=== PATIENT | female | born 1950 | race Caucasian/White ===

== ENCOUNTER 2016-09-30 11:14 | Day surgery (SDC) | payer MEDICARE ==
[~2016-09-30 11:14] MED LIST: Buffered Lidocaine 0.9% SYRIN* 5 ML/SYR SYRINGE INTRADERM ONE; Dexamethasone IV* 4 MG/ML 1 ML (4 MG) ONE; Famotidine IV* 10 MG/ML 2 ML (20 mg) IV ONE; KETAMINE HCL* 50 MG/ML 10 ML VIAL ONE; Ketorolac INJ* 30 MG/ML 1 ML VIAL ONE; Lidocaine 2% PF * 5 ML VIAL ONE; Midazolam* 1 MG/ML 5 ML VIAL (5 MG) ONE; Ondansetron INJ* 2 MG/ML VIAL ONE; Propofol* 10 MG/ML 20 ML BTL IV PUSH ONE; fentaNYL* 50 MCG/ML 2 ML VIAL (100 MCG VIAL) ONE
[2016-09-30] MEDS ORDERED: Famotidine IV* 10 MG/ML 2 ML (20 mg) ONE (11:33)
[2016-09-30] MEDS ORDERED: Buffered Lidocaine 0.9% SYRIN* 5 ML/SYR SYRINGE ONE (11:33)
[2016-09-30] MEDS ORDERED: fentaNYL* 50 MCG/ML 2 ML VIAL (100 MCG VIAL) ONE (13:40)
[2016-09-30] MEDS ORDERED: Midazolam* 1 MG/ML 2 ML VIAL (2 MG) ONE (13:40)
[2016-09-30] MEDS ORDERED: Ondansetron INJ* 2 MG/ML VIAL IV PRN (14:42)
[2016-09-30 16:08] VITALS: BP 116/76
--- NOTE | 2016-09-30 23:58 | PRO ---
CC: Dr. Camacho; Dr. Martinez * DATE OF PROCEDURE: 09/30/16 - [facility] PROCEDURE: Colonoscopy with snare polypectomy. MEDICINES: Anesthesia provided by anesthesiology department. NARRATIVE: This is a very pleasant 65-year-old woman with a remote history of anal cancer with radiation therapy who has had chronic issues with pelvic pressure as well as constipation. She also has known colon polyps from a procedure done 3 years ago. Colonoscopy was recommended. DESCRIPTION OF PROCEDURE: After the procedure was discussed with the patient, risks and benefits were outlined, written consent was obtained. The patient was placed in the left lateral decubitus position and a rectal exam was performed. The rectal exam did demonstrate some nodular change, but no palpable abnormality. At that point, a video pediatric colonoscope was inserted anally and advanced carefully into the cecum. The cecum was identified by the appendiceal orifice and the ileocecal valve. The terminal ileum was briefly intubated. The quality of the preparation was generally good. There was some material seen throughout, but I do believe with extensive irrigation and suctioning, views were good. The patient tolerated the procedure well and there were no immediate complications. FINDINGS: Colonoscopy into the distal terminal ileum was performed. The ileum was inspected for about 10 cm and was normal. The colon was thereafter very carefully inspected. Three small hepatic flexure polyps were identified and removed with the cold snare. The remainder of the colon appeared grossly normal. There was no other mucosal abnormality. On slow withdrawal, the anal canal did have some fibrotic change, but no evidence of tumor regrowth. CONCLUSION: 1. Three polyps (removed). 2. Fibrotic change involving the anal canal. 3. No other abnormality detected. RECOMMENDATIONS: The polyps will be followed upon and reported back to the patient. I would likely recommend a followup exam in about 5 years. I am going to recommend pelvic floor physical therapy, which may improve her pelvic symptoms. Thank you very much, Dr. Camacho and Dr. Martinez, for referring this kind woman to me. [id number]/[facility] #: [id number] [facility]
== END 2016-09-30 16:09 | disposition home or self-care (01) ==
LOC: OR 11:14
PROVIDERS: ATTEND Internal Medicine Gastroenterology
DX: Z85.048 Personal history of other malignant neoplasm of rectum, rectosigmoid junction, and anus (principal); D12.6 Benign neoplasm of colon, unspecified; K59.00 Constipation, unspecified; Z86.010 Personal history of colon polyps
CPT/HCPCS: 88305; J1100; J1885; J2250; J2405; J2704; J3010

== ENCOUNTER 2017-01-01 08:49 | Emergency (ER) | payer MEDICARE ==
[2017-01-01] MEDS ORDERED: methylPREDNISolone 125 MG* 2 ML VIAL IV ONE (09:03)
[2017-01-01] MEDS ORDERED: Albuterol/Ipratropium NEB.SOL* Albuterol 2.5 MG/Ipratropium 0.5 MG 3 ML INH ONE (09:03)
[2017-01-01 09:05] VITALS: BP 137/73
--- NOTE | 2017-01-01 09:51 | RAD ---
INDICATION: "Pain". "Asthma" COMPARISON: Most recent comparison chest x-rays dated January 02, 2014 TECHNIQUE: PA and lateral views of the chest were obtained. FINDINGS: The heart and mediastinum are normal in size and contour. Relative the prior chest x-ray there is been a slight increase in densities diffusely overlying the bilateral lungs with a more focal area at the lateral right lung base. There is no definite lobar consolidation. The costophrenic angles are adequately defined. Visualized bones are normal for the patient's age. There is no radiographic evidence of free air beneath the diaphragm IMPRESSION: INTERVAL APPEARANCE OF MILD DIFFUSE DENSITY OVER THE BILATERAL LUNGS COULD BE SEEN IN THE SETTING OF EXACERBATION OF INFLAMMATORY LUNG DISEASE, PNEUMONITIS, MILD PULMONARY EDEMA OR EARLY INTERSTITIAL LUNG DISEASE.
--- NOTE | 2017-01-01 10:13 | UC ---
Respiratory Complaint HPI - HPI Summary HPI Summary: 66 year old with history of asthma. In the past was on daily corticosteroids. Having increased shortness of breath and at home her oxygen goes in the low 80' s and no home oxygen but does have oxygen concentrator but still SOB despite that. Out of albuterol. - History of Current Complaint Chief Complaint: UCAsthma Stated Complaint: ASTHMA Time Seen by Provider: 01/01/17 09:02 Hx Obtained From: Patient Onset/Duration: Gradual Onset Timing: Constant Severity Initially: Mild Severity Currently: Moderate Character: Cough: Nonproductive Alleviating Factors: Bronchodilator Associated Signs And Symptoms: Positive: Dyspnea, Wheezing - Allergies/Home Medications Allergies/Adverse Reactions: Allergies Allergy/AdvReac Type Severity Reaction Status Date / Time Aripiprazole [From Abilify] Allergy Severe COORDINATION Verified 01/01/17 09:05 PROBLEMS,lumbaring gait,lethargic Bupropion [From Wellbutrin] Allergy Severe tremors Verified 01/01/17 09:05 Levalbuterol Hydrochloride Allergy Severe WHEEZING, Verified 01/01/17 09:05 [From Xopenex] COUGH Metoprolol [From Toprol XL] Allergy Severe Anaphylatic Verified 01/01/17 09:05 Shock Mirtazapine [From Remeron] Allergy Severe Altered Verified 01/01/17 09:05 Mental Status Montelukast [From Singulair] Allergy Severe Anaphylatic Verified 01/01/17 09:05 Shock Morphine Allergy Severe Anaphylatic Verified 01/01/17 09:05 Shock Venlafaxine [From Effexor] Allergy Severe Altered Verified 01/01/17 09:05 Mental Status Sulfa Drugs Allergy Intermediate Rash Verified 01/01/17 09:05 Diphenhydramine AdvReac Severe causes Verified 01/01/17 09:05 heart to go into a-fib BETA BLOCKERS Allergy Intermediate Fatigue Uncoded 01/01/17 09:05 SCALLOPS Allergy Intermediate CRAMPS, Uncoded 01/01/17 09:05 NAUSEA, DIARRHEA Home Medications: Home Medications Budesonide/Formote 160/4.5(NF) [Symbicort 160/4.5 (NF)] 1 puff INH BID 01/01/17 [History Confirmed 01/01/17] Tiotropium [place] Monohydrate [Spiriva Respimat] 1.25 mcg IN 01/01/17 [History] PMH/Surg Hx/FS Hx/Imm Hx Previously Healthy: Yes Cardiovascular History: Cardiac Disease Respiratory History: Asthma Other History Of: Anticoagulant Therapy - not present time. - Surgical History Surgical History: Yes Surgery Procedure, Year, and Place: LYMPHOMA BIOPSY , SPLEENECTOMY 1979. THYROIDECTOMY , ANAL CA 06/17. ATRIAL FLUTTER ABLATION, RAPHAEL. CATARACTS 2014 - Family History Known Family History: Positive: Unknown - Social History Lives: With Family Alcohol Use: None Substance Use Type: None Smoking Status (MU): Never Smoked Tobacco - Immunization History Most Recent Influenza Vaccination: fall 2013 Most Recent Tetanus Shot: Most Recent Pneumonia Vaccination: at some time in the past Review of Systems Constitutional: Fatigue Respiratory: Shortness Of Breath, Cough Is Patient Immunocompromised?: No All Other Systems Reviewed And Are Negative: Yes Physical Exam Triage Information Reviewed: Yes Appearance: Well-Nourished Vital Signs: Initial Vital Signs Temp 99.0 F 01/01/17 09:00 Pulse 111 01/01/17 09:00 Resp 22 01/01/17 09:00 BP 137/73 01/01/17 09:00 Pulse Ox 91 01/01/17 09:00 Vital Signs Reviewed: Yes Eye Exam: Normal ENT Exam: Normal Dental Exam: Normal Neck exam: Normal Neck: Positive: 1 Respiratory Exam: Normal Respiratory: Positive: Chest non-tender, Respiratory distress, Accessory muscle use, Wheezing - LLL Cardiovascular Exam: Normal Musculoskeletal Exam: Normal Neurological Exam: Normal Psychological Exam: Normal Skin Exam: Normal UC Diagnostic Evaluation - Laboratory O2 Sat by Pulse Oximetry: 96 Respiratory Course/Dx - Course Course Of Treatment: Due to her respiratory effort being pronounced and her oxygen going to the lower 80's at home and now benefiting from oxygen will advise further eval at the ED. Here she received solumedrol, duo nebs and xray - Differential Dx/Diagnosis Differential Diagnosis/HQI/PQRI: Asthma, Bronchitis, Lower Resp Infection Provider Diagnoses: Asthma exacerbation - Physician Notification/Consults Discussed Patient Care With: Brayan Monae - will accept at ED at 1015 Discharge - Discharge Plan Condition: Good Disposition: TRANS HIGHER LVL OF CARE FAC Patient Education Materials: Asthma (ED) Referrals: Anup Arzola MD [Primary Care Provider] - Additional Instructions: As we discussed you are to go to the Emergency Room for further evaluation
== END 2017-01-01 10:20 | disposition short-term general hospital (02) ==
LOC: UCEAST 08:49
DX: J45.901 Unspecified asthma with (acute) exacerbation (principal); Z79.51 Long term (current) use of inhaled steroids
CPT/HCPCS: 71020; 96372; 99213; A9270-GY; G0463; J2930

== ENCOUNTER 2017-01-01 10:46 | Inpatient (IN) | payer MEDICARE ==
[2017-01-01 12:57] LABS: Add Diff/Slide Review? Slide Review Added; Comments Flag Yes; Hematocrit 34 % (35-47); Mean Corpuscular HGB Conc 32 g/dl (31-36); Mean Corpuscular Hemoglobin 26 pg (27-31); Mean Corpuscular Volume 81 fL (80-97); Mean Platelet Volume 8 um3 (7.4-10.4); Red Blood Count 4.19 10^6/ul (4.0-5.4); Red Cell Distribution Width 17 % (10.5-15); White Blood Count 13.3 10^3/ul (3.5-10.8)
[2017-01-01 13:11] LABS: Albumin 4.3 g/dL (3.2-5.2); BUN/Creatinine Ratio 29.1 (8-20); C Reactive Protein 127.69 mg/L (< 5.00); Calcium 9.5 mg/dL (8.6-10.3); EGFR African American 142.7 (>60); EGFR Non-African American 110.9 (>60); Globulin 3.2 g/dL (2-4); Total Bilirubin 0.4 mg/dL (0.2-1.0); Total Protein 7.5 g/dL (6.4-8.9)
[2017-01-01 13:24] LABS: Burr Cells 1+
[2017-01-01] MEDS ORDERED: Albuterol/Ipratropium NEB.SOL* Albuterol 2.5 MG/Ipratropium 0.5 MG 3 ML INH ONE ×2 (13:48→15:39)
[2017-01-01] MEDS ORDERED: Albuterol 2.5 MG/3 ML NEB.SOL* (0.083%) INH PRN (15:58)
[2017-01-01] MEDS ORDERED: methylPREDNISolone 125 MG* 2 ML VIAL IV ONE (15:58)
[2017-01-01] MEDS ORDERED: Ondansetron INJ* 2 MG/ML VIAL IV PRN (15:58)
[2017-01-01] MEDS ORDERED: NS 0.9% 1000 ML* 1,000 ML IV SCH (16:00)
[2017-01-01] MEDS ORDERED: Albuterol/Ipratropium NEB.SOL* Albuterol 2.5 MG/Ipratropium 0.5 MG 3 ML INH SCH (16:00)
[2017-01-01] MEDS ORDERED: methylPREDNISolone 125 MG* 2 ML VIAL IV SCH (16:00)
[2017-01-01] MEDS: Azithromycin IV(*) 500 MG in NS 0.9% 250 ML* 250 ML IVPB SCH (16:48)
[2017-01-01] MEDS: Acetaminophen TAB* 325 MG PO PRN ×2 (16:48→20:51)
[2017-01-01] MEDS ORDERED: LORazepam TAB(*) 0.5 MG PO SCH (18:00)
[2017-01-01] MEDS: cefTRIAXone VIAL(*) 1,000 MG in NS 0.9% 50 ML* 50 ML IVPB SCH (19:36)
[2017-01-01] MEDS: Omeprazole CAP* 20 MG PO SCH (19:37)
[2017-01-01] MEDS: Docusate CAP* 100 MG PO SCH (19:37)
--- NOTE | 2017-01-01 19:49 | ED ---
Maria G Posada Thomas, scribed for Vinnie Chavarria MD on 01/01/17 at 1303 . Shortness of Breath - HPI Summary HPI Summary: The patient is a 66 y/o F referred from Urgent Care with shortness of breath that began about a week ago. She has a Hx of asthma and is on oxygen at night. She has SOB at rest that is worsened with exertion. She was given one nebulizer treatment at urgent care prior to arrival. The patient did not have any nebulizer treatments at home. At home, her oxygen was satting in the low 80s. She additionally c/o a mild nonproductive cough. Urgent care documentation was reviewed. She is accompanied by her . - History of Current Complaint Chief Complaint: EDShortnessOfBreath Time Seen by Provider: 01/01/17 12:06 Hx Obtained From: Patient Onset/Duration: Lasting Weeks - 1, Still Present Timing: Constant Current Severity: Mild Dyspnea At: Rest Aggrevating Factors: Other - Exertion Alleviating Factors: Nothing Associated Signs & Symptoms: Cough (Nonproductive) - Allergy/Home Medications Allergies/Adverse Reactions: Allergies Allergy/AdvReac Type Severity Reaction Status Date / Time Aripiprazole [From Abilify] Allergy Severe COORDINATION Verified 01/01/17 09:05 PROBLEMS,lumbaring gait,lethargic Bupropion [From Wellbutrin] Allergy Severe tremors Verified 01/01/17 09:05 Levalbuterol Hydrochloride Allergy Severe WHEEZING, Verified 01/01/17 09:05 [From Xopenex] COUGH Metoprolol [From Toprol XL] Allergy Severe Anaphylatic Verified 01/01/17 09:05 Shock Mirtazapine [From Remeron] Allergy Severe Altered Verified 01/01/17 09:05 Mental Status Montelukast [From Singulair] Allergy Severe Anaphylatic Verified 01/01/17 09:05 Shock Morphine Allergy Severe Anaphylatic Verified 01/01/17 09:05 Shock Venlafaxine [From Effexor] Allergy Severe Altered Verified 01/01/17 09:05 Mental Status Sulfa Drugs Allergy Intermediate Rash Verified 01/01/17 09:05 Diphenhydramine AdvReac Severe causes Verified 01/01/17 09:05 heart to go into a-fib BETA BLOCKERS Allergy Intermediate Fatigue Uncoded 01/01/17 09:05 SCALLOPS Allergy Intermediate CRAMPS, Uncoded 01/01/17 09:05 NAUSEA, DIARRHEA Home Medications: Home Medications Albuterol HFA INHALER* [Ventolin HFA Inhaler*] 2 puff INH Q4H PRN 01/01/17 [ History Confirmed 01/01/17] PMH/Surg Hx/FS Hx/Imm Hx Previously Healthy: No Endocrine/Hematology History: Reports: Hx Anticoagulant Therapy - not present time., Hx Thyroid Disease Denies: Hx Diabetes Cardiovascular History: Reports: Other Cardiovascular Problems/Disorders - TACHYCARDIA, HX OF AFIB; HAD ABLATION 2006 Denies: Hx Congestive Heart Failure, Hx Hypertension, Hx Pacemaker/ICD Respiratory History: Reports: Hx Asthma, Hx Chronic Bronchitis, Hx Pneumonia, Hx Sleep Apnea, Other Respiratory Problems/Disorders - SLEEP APNEA-OXYGEN IN EVENING Denies: Hx Chronic Obstructive Pulmonary Disease (COPD) GI History: Reports: Hx Gastroesophageal Reflux Disease, Hx Irritable Bowel, Other GI Disorders - bulge in bowel pushing into vaginal wall Denies: Hx Ulcer History: Denies: Hx Renal Disease Musculoskeletal History: Reports: Hx Arthritis - RA, Hx Back Problems, Hx Bursitis - several times in shoulder, Hx Osteoporosis, Hx Tendonitis - wrists Sensory History: Reports: Hx Cataracts - BILAT, Hx Contacts or Glasses - glasses Denies: Hx Hearing Aid Opthamlomology History: Reports: Hx Cataracts - BILAT, Hx Contacts or Glasses - glasses Neurological History: Reports: Hx Headaches, Hx Migraine - occassionally Psychiatric History: Reports: Hx Anxiety, Hx Depression, Hx Panic Disorder, Other Psychiatric Issues/Disorders - of - Cancer History Cancer Type, Location and Year: Lymphoma. obstructed air passage Hx Chemotherapy: Yes - and radiation Hx Radiation Therapy: Yes - NON [facility] Hx Palliative Cancer Treatment: No - Surgical History Surgery Procedure, Year, and Place: LYMPHOMA BIOPSY , SPLEENECTOMY 1979. THYROIDECTOMY , ANAL CA 06/17. ATRIAL FLUTTER ABLATION, RAPHAEL. CATARACTS 2014 Hx Anesthesia Reactions: No Infectious Disease History: No Infectious Disease History: Reports: Hx Shingles - Denies: Hx Clostridium Difficile, Hx Hepatitis, Hx Human Immunodeficiency Virus (HIV), Hx of Known/Suspected MRSA, Hx Tuberculosis, Hx Known/Suspected VRE , Hx Known/Suspected VRSA, History Other Infectious Disease, Traveled Outside the [place] in Last 30 Days - Family History Known Family History: Positive: Other - Asthma - Social History Lives: With Family Alcohol Use: None Substance Use Type: Reports: None Hx Tobacco Use: No Smoking Status (MU): Never Smoked Tobacco Review of Systems Negative: Fever Positive: Shortness Of Breath, Cough - nonproductive All Other Systems Reviewed And Are Negative: Yes Physical Exam - Summary Physical Exam Summary: Appearance: The patient is well-nourished in no acute distress and in no acute pain. Skin: The skin is warm and dry and skin color reflects adequate perfusion. HEENT: The head is normocephalic and atraumatic. The pupils are equal and reactive. The conjunctivae are clear and without drainage. Nares are patent and without drainage. Mouth reveals moist mucous membranes and the throat is without erythema and exudate. The external ears are intact. The ear canals are patent and without drainage. The tympanic membranes are intact. Neck: the neck is supple with full range of motion and non-tender. There are no carotid bruits. There is no neck vein distension. Respiratory: Chest is non-tender. She is tachypnic. There are superclavicular retractions. There are upper airway sounds when I listen. There are no wheezes. Cardiovascular: Heart is regular rate and rhythm. There is no murmur or rub auscultated. There is no peripheral edema and pulses are symmetrical and equal. Abdomen: The abdomen is soft and non-tender. There are normal bowel sounds heard in all four quadrants and there is no organomegaly palpated. Musculoskeletal: There is no back tenderness noted. Extremities are non-tender with full range of motion. There is good capillary refill. There is no peripheral edema or calf tenderness elicited. Neurological: Patient is alert and oriented to person, place and time. The patient has symmetrical motor strength in all four extremities. Cranial nerves are grossly intact. Deep tendon reflexes are symmetrical and equal in all four extremities. Psychiatric: The patient has an appropriate affect and does not exhibit any anxiety or depression. Triage Information Reviewed: Yes Vital Signs On Initial Exam: Initial Vitals Temp Pulse Resp BP Pulse Ox 98 F 94 24 105/54 95 01/01/17 10:51 01/01/17 10:51 01/01/17 10:51 01/01/17 10:51 01/01/17 10:51 Vital Signs Reviewed: Yes - Iftikhar Coma Scale Coma Scale Total: 15 Diagnostics - Vital Signs Vital Signs Temp Pulse Resp BP Pulse Ox 01/01/17 10:51 98 F 94 24 105/54 95 - Laboratory Lab Results: Lab Results 01/01/17 Range/Units 12:49 WBC 13.3 H (3.5-10.8) 10^3/ul RBC 4.19 (4.0-5.4) 10^6/ul Hgb 11.0 L (12.0-16.0) g/dl Hct 34 L (35-47) % MCV 81 (80-97) fL MCH 26 L (27-31) pg MCHC 32 (31-36) g/dl RDW 17 H (10.5-15) % Plt Count 282 (150-450) 10^3/ul MPV 8 (7.4-10.4) um3 Neut % (Auto) 88.2 H (38-83) % Lymph % (Auto) 8.6 L (25-47) % [place] % (Auto) 2.9 (1-9) % Eos % (Auto) 0 (0-6) % Baso % (Auto) 0.3 (0-2) % Absolute Neuts (auto) 11.7 H (1.5-7.7) 10^3/ul Absolute Lymphs (auto) 1.1 (1.0-4.8) 10^3/ul Absolute Monos (auto) 0.4 (0-0.8) 10^3/ul Absolute Eos (auto) 0 (0-0.6) 10^3/ul Absolute Basos (auto) 0 (0-0.2) 10^3/ul Absolute Nucleated RBC 0.01 10^3/ul Nucleated RBC % 0.1 Result Diagrams: 01/01/17 12:49 01/01/17 12:49 Lab Statement: Any lab studies that have been ordered have been reviewed, and results considered in the medical decision making process. Course/Dx - Course Course Of Treatment: Ms. Bae didn't really improve much here in the Dept. with Nebs. She is being admitted to the hospitalist service to give the steroids a chance to kick in. - Diagnoses Provider Diagnoses: COPD exacerbation - Physician Notifications Discussed Care of Patient With: Patrick Meeks Time Discussed With Above Provider: 16:56 Instructed by Provider To: Other - I consulted with Mr. Constantino NP hospitalist , who will admit the patient. Discharge - Discharge Plan Condition: Fair Disposition: ADMITTED TO [facility] The documentation as recorded by the Maria G armstrong Thomas accurately reflects the service I personally performed and the decisions made by me, Vinnie Chavarria MD.
[2017-01-01] MEDS ORDERED: Ibuprofen TAB* 400 MG PO ONE (19:51)
[2017-01-01] MEDS: Albuterol/Ipratropium NEB.SOL* Albuterol 2.5 MG/Ipratropium 0.5 MG 3 ML INH SCH ×2 (20:15→23:05)
[2017-01-01] MEDS: Mometasone/Formoter 200/5 MDI INH SCH (20:17)
[2017-01-01] MEDS: Verapamil SR TAB* 240 MG PO SCH (20:51)
[2017-01-01] MEDS: Heparin VIAL(*) 5000 UNITS/ML VIAL (FIVE THOUSAND) SUBCUT SCH (20:52)
--- NOTE | 2017-01-02 01:24 | HP ---
CC: Dr. Arzola; Dr. Levy * HISTORY AND PHYSICAL: DATE OF ADMISSION: 01/01/17 PRIMARY CARE PROVIDER: Dr. Arzola. PRIMARY FACTORY ASSEMBLER: Dr. Levy. ATTENDING PHYSICIAN WHILE IN THE HOSPITAL: Jose L Roy MD * (report dictated by Patrick Meeks NP) CHIEF COMPLAINT: Shortness of breath. HISTORY OF PRESENT ILLNESS: Mrs. Bae is a 66-year-old female patient. She has a history of hypertension, asthma, AFib, GERD, lymphoma, thyroid cancer , rectal cancer, depression, hypothyroidism, anxiety and a history of PAVITHRA. She comes in to our ER today. Since the last week, she has had progressive worsening shortness of breath. She has not been feeling well. She has been having a dry cough. She has been having chills at night. She states she has been trying to manage at home with her inhalers and nebulizers, but they just have not been helping her. They have given her temporary relief. She states she tried to touch base with her surveyor oil well directional's office yesterday. Unfortunately, she was unable to get through. She was hoping that she could get some steroids as this typically helps her. She denies having any recent sick contacts. She states she has been aching all over and she just has not been feeling well. She states that she cannot lie flat because she is getting really short of breath and really with minimal exertion, she is much more shortness of breath as well. She denies any weight gain. Denies any swelling of her lower extremities. She does state that she has been having sore throat and she states that hurts when she takes deep breath because of she has been coughing so much. [facility] They were concerned that because it was noted there she was hypoxic and they sent her in to our emergency department for further evaluation. She was evaluated here. It was noted that she had a white count, elevated CRP. She required several nebulizers with no improvement. So, we were asked to evaluate for admission. PAST MEDICAL HISTORY: Significant for: 1. Hypertension. 2. Asthma. 3. AFib. 4. GERD. 5. Lymphoma. 6. Thyroid cancer. 7. Rectal cancer. 8. Depression. 9. Hypothyroidism. 10. Anxiety. 11. PAVITHRA. PAST SURGICAL HISTORY: 1. The patient has had splenectomy. 2. Ablation. 3. Thyroidectomy. 4. Rectal surgery. MEDICATIONS: Home meds according to her list include: 1. Ibuprofen 400 mg every 6 hours as needed. 2. Colace 100 mg p.o. daily. 3. Symbicort 1 puff inhaled b.i.d. 4. Ventolin 2 puffs inhaled every 4 hours as needed. 5. Nebulizer, Ventolin. 6. Albuterol 2.5 mg inhaled every 4 hours as needed. 7. Zoloft 150 mg daily. 8. Potassium 10 mEq p.o. b.i.d. 9. Omeprazole 20 mg daily. 10. Multivitamin 1 tablet daily. 11. Synthroid 137 mcg p.o. daily. 12. Ativan 0.5 mg p.o. at bedtime. 13. Verapamil 120 mg p.o. q.a.m. 14. Dyazide 25 mg p.o. daily. 15. Spiriva 1 capsule inhaled daily. ALLERGIES TO MEDICATIONS: Include ABILIFY, , XOPENEX, METOPROLOL, REMERON , SINGULAIR, MORPHINE, EFFEXOR, SULFA, BENADRYL, BETA-BLOCKERS, SCALLOPS. FAMILY HISTORY: Mother had a history of ovarian cancer. Father had a history of IN and CAD. SOCIAL HISTORY: She does not smoke, does not drink. Surrogate decision maker is her sister. REVIEW OF SYSTEMS: There was no documented fevers. No significant weight change. No double vision. No ear discharge. No rhinorrhea. She does admit having sore throat. There is chest pain when she is coughing or takes a deep breath. She does admit to having dyspnea on exertion and some orthopnea. No nocturnal dyspnea. There is no abdominal pain. No nausea, no vomiting, no dysuria, no frequency, no seizure, no loss of consciousness, no pruritus, no skin ulcerations. Review of 14 systems was completed; all others negative. PHYSICAL EXAMINATION GENERAL: Mrs. Bae is a 66-year-old female patient. She is sitting in the ER stretcher. She does not appear to be in any acute distress. VITAL SIGNS: Blood pressure 112/76, pulse 100, respirations 23, O2 sat 96%, and temperature 98. HEENT: Head: Atraumatic, normocephalic. Eyes: EOMs are intact. Sclerae anicteric and not pale. Throat: Oral mucosa appears to be moist. No oropharyngeal erythema. NECK: Supple. LUNGS: Wheezing in the left base and in the left upper lobe. She had equal diaphragmatic expansion. HEART: Sounds S1 and S2. She is tachycardic. No murmurs, rubs, or gallops. ABDOMEN: Soft, flat, nontender. Bowel sounds were present. EXTREMITIES: Pulses were 2+ throughout. She had no peripheral edema. She is moving all 4 extremities with 5/5 strength. NEUROLOGIC: The patient is awake, alert, oriented x3. Tongue midline. Flooring Grader were equal. She had no gross focal deficits. SKIN: Intact. LABORATORY DATA/DIAGNOSTIC STUDIES: Labs, WBC of 13.3, RBC of 4.19, hemoglobin 11.0, hematocrit 34, platelet count 282. Sodium 136, potassium 4, chloride 102, bicarb 26, BUN 16, creatinine 0.55, glucose 129. Calcium 9.5. Total bili 0.48, AST 27, ALT 24, CRP 127, and albumin of 4.3. She [facility]. Impression: Interval appearance of mild diffuse density over the bilateral lungs could be seen in settings of exacerbation of inflammatory lung disease, pneumonitis, pulmonary edema, or early interstitial lung disease. Old medical records were reviewed. ASSESSMENT AND PLAN: Mrs. Bae is a 66-year-old female patient coming in to the ER today with complaints of progressive worsening shortness of breath over the last week. We were asked to evaluate for admission. She will be admitted under inpatient status for: 1. Asthma exacerbation. I suspect this is probably secondary to a viral URI that she has been dealing with this for week. She is immunocompromised. I think at this point it is beneficial to put on antibiotics. She has a white count, CRP. She is showing early signs of sepsis as evidenced by the tachycardia and the elevated white count. SIRS response. My plan is to go ahead and give her fluids 100 cc an hour. I do not think she needs to be bolused at this point as her blood pressures are holding. My plan would be to get lactic acid, also to get blood cultures. We will place her on standing nebs , standing steroids, pulmonary toileting. We will get flu swab, Legionella, Strep pneumo antigen and we will try to get a sputum culture if possible. If she is not improving in the next 24 to 36 hours, we could consider getting a pulmonology consult, but I am hopeful with the steroids and nebulizers, she should improve. 2. Hypertension. We are going to hold her Dyazide at this point. I will continue the verapamil, she takes that her hypertension, tachycardia. 3. Atrial fibrillation. She is in sinus rhythm. We will monitor on telemetry. 4. Gastroesophageal reflux disease. Continue her meds as prescribed. 5. History of lymphoma. Follow with her primary. 6. Thyroid cancer, not an active issue. Follow with primary. 7. Rectal cancer. Again follow with primary. 8. Depression. Continue with supportive care. 9. Anxiety. Continue with supportive care. 10. Obstructive sleep apnea. I did order her a CPAP. 11. Hypothyroidism. Continue her Synthroid. 12. Deep vein thrombosis prophylaxis. She will be placed on heparin subcu. 13. Code status. Full code. 14. Fluids, electrolytes, and nutrition. She can have a regular diet. TIME SPENT: On the admission was approximately 60 minutes, greater than half the time spent [id number] with the patient obtaining my history and physical, the other half time spent going over the plan of care with the patient and implementing plan of care. I did discuss the plan of care with my attending, Dr. Roy; he is in agreement. PATRICK MEEKS, PABLO [id number]/[facility] #: [id number] [facility]
[2017-01-02] MEDS: Albuterol/Ipratropium NEB.SOL* Albuterol 2.5 MG/Ipratropium 0.5 MG 3 ML INH SCH ×5 (02:34→21:04)
[2017-01-02] MEDS: Acetaminophen TAB* 325 MG PO PRN (02:40)
[2017-01-02] MEDS: methylPREDNISolone 125 MG* 2 ML VIAL IV SCH ×3 (02:41→20:21)
[2017-01-02 04:41] LABS: Hematocrit 31 % (35-47); Hemoglobin 9.9 g/dl (12.0-16.0); Mean Corpuscular HGB Conc 32 g/dl (31-36); Mean Corpuscular Hemoglobin 26 pg (27-31); Mean Corpuscular Volume 80 fL (80-97); Mean Platelet Volume 8 um3 (7.4-10.4); Red Blood Count 3.84 10^6/ul (4.0-5.4); Red Cell Distribution Width 17 % (10.5-15); White Blood Count 12.7 10^3/ul (3.5-10.8)
[2017-01-02 04:55] LABS: BUN/Creatinine Ratio 28.4 (8-20); Calcium 9.1 mg/dL (8.6-10.3); EGFR African American 113.6 (>60); EGFR Non-African American 88.3 (>60); Potassium 2.9 mmol/L (3.5-5.0)
[2017-01-02] MEDS: Levothyroxine TAB* 137 MCG TAB PO SCH (05:34)
[2017-01-02] MEDS: Heparin VIAL(*) 5000 UNITS/ML VIAL (FIVE THOUSAND) SUBCUT SCH ×3 (05:34→22:27)
[2017-01-02] MEDS: Mometasone/Formoter 200/5 MDI INH SCH ×2 (07:40→21:07)
[2017-01-02] MEDS: Sertraline* 100 MG TAB PO SCH (07:57)
[2017-01-02 07:58] LABS: Magnesium 1.8 mg/dL (1.9-2.7)
[2017-01-02] MEDS: Verapamil TAB* 120 MG PO SCH (07:58)
[2017-01-02] MEDS ORDERED: Magnesium Sulfate 2 GM IV* 2 GM/50 ML BAG IVPB ONE (10:15)
[2017-01-02] MEDS: Potassium Chlor TAB* 20 MEQ TAB.ER PO SCH ×2 (10:29→12:50)
[2017-01-02] MEDS ORDERED: Furosemide IV* 10 MG/ML VIAL (40 MG) IV SCH (13:37)
[2017-01-02] MEDS: Azithromycin IV(*) 500 MG in NS 0.9% 250 ML* 250 ML IVPB SCH (16:04)
--- NOTE | 2017-01-02 16:48 | PN ---
Subjective Date of Service: 01/02/17 Interval History: Slightly improved breathing. Could not sleep well. Very orthopnic x 1 week. Weight up 7lbs. Swellinging in b/l legs. Saw Dr. Perez over summer, got EKG, planned to see in 1 year. last ECHO as outpatient she thinks 1-2 years ago. Now reports no chills prior to admission but warmth and drenching night sweats. dry cough. baseline tachycardia in 100s. ECHO 2014 here with diastolic dysfunction. Used to be on chronic prednisone, weaned off 2 years ago. BNP 286 Objective Active Medications: Acetaminophen (Tylenol Tab*) 650 mg PO Q4H PRN PRN Reason: FEVER/PAIN Last Admin: 01/02/17 02:40 Dose: 650 mg Albuterol (Ventolin 2.5 Mg/3 Ml Neb.Lavern*) 2.5 mg INH Q2H PRN PRN Reason: SOB/WHEEZING Last Admin: 01/02/17 09:07 Dose: 2.5 mg Albuterol/Ipratropium (Duoneb (Albuterol 2.5 Mg/Ipratropium 0.5 Mg)) 1 neb INH Q4H [facility] Last Admin: 01/02/17 15:31 Dose: 1 neb Docusate Sodium (Colace Cap*) 100 mg PO QPM [facility] Last Admin: 01/01/17 19:37 Dose: 100 mg Furosemide (Lasix Iv*) 40 mg IV DAILY [facility] Last Admin: 01/02/17 14:22 Dose: 40 mg Heparin Sodium (Porcine) (Heparin Vial(*)) 5,000 units SUBCUT Q8HR [facility] Last Admin: 01/02/17 12:50 Dose: 5,000 units Ceftriaxone Sodium 1,000 mg/ (Sodium Chloride) 50 mls @ 200 mls/hr IVPB Q24H [facility] Last Admin: 01/01/17 19:36 Dose: 200 mls/hr Azithromycin 500 mg/ Sodium (Chloride) 250 mls @ 250 mls/hr IVPB Q24H [facility] Last Admin: 01/02/17 16:04 Dose: 250 mls/hr Levothyroxine Sodium (Synthroid Tab*) 137 mcg PO 0600 [facility] Last Admin: 01/02/17 05:34 Dose: 137 mcg Lorazepam (Ativan Tab(*)) 0.5 mg PO 2200 [facility] Methylprednisolone Sodium Succinate (Solu-Medrol 125mg *) 60 mg IV 0330,1130, 1930 [facility] Last Admin: 01/02/17 10:29 Dose: 60 mg Mometasone Furoate/Formoterol Fumar (Dulera 200/5 Mdi*) 2 puff INH BID [facility] Last Admin: 01/02/17 07:40 Dose: 2 puff Omeprazole (Prilosec Cap*) 20 mg PO QPM [facility] Last Admin: 01/01/17 19:37 Dose: 20 mg Ondansetron HCl (Zofran Inj*) 4 mg IV Q6H PRN PRN Reason: NAUSEA Phenol/Menthol (Chloroseptic Throat [place]*) 1 spray MT BID PRN PRN Reason: SORE THROAT Sertraline HCl (Zoloft*) 150 mg PO QAM [facility] Last Admin: 01/02/17 07:57 Dose: 150 mg Verapamil HCl (Calan Tab*) 120 mg PO QAM [facility] Last Admin: 01/02/17 07:58 Dose: 120 mg Verapamil HCl (Calan Sr Tab*) 240 mg PO BEDTIME [facility] Last Admin: 01/01/17 20:51 Dose: 240 mg Vital Signs 01/01/17 01/01/17 01/01/17 16:58 17:00 19:37 Temperature 97.8 F Pulse Rate 106 108 Respiratory 20 27 20 Rate Blood Pressure 99/59 (mmHg) O2 Sat by Pulse 97 95 Oximetry 01/01/17 01/01/17 01/01/17 19:52 20:00 22:41 Temperature 97.9 F Pulse Rate 108 107 Respiratory 24 20 20 Rate Blood Pressure 123/53 (mmHg) O2 Sat by Pulse 100 99 Oximetry 01/01/17 01/01/17 01/02/17 23:05 23:52 00:00 Temperature 97.1 F Pulse Rate 106 112 Respiratory 18 22 Rate Blood Pressure 100/50 (mmHg) O2 Sat by Pulse 99 97 99 Oximetry 01/02/17 01/02/17 01/02/17 02:35 03:37 07:26 Temperature 97.8 F 97.5 F Pulse Rate 107 109 96 Respiratory 20 20 28 Rate Blood Pressure 92/53 119/57 (mmHg) O2 Sat by Pulse 99 100 95 Oximetry 01/02/17 01/02/17 01/02/17 07:34 08:00 09:07 Temperature Pulse Rate 103 98 Respiratory 24 24 Rate Blood Pressure (mmHg) O2 Sat by Pulse 100 103 Oximetry 01/02/17 01/02/17 01/02/17 11:44 11:45 15:31 Temperature 98.0 F Pulse Rate 100 102 116 Respiratory 20 Rate Blood Pressure 106/63 (mmHg) O2 Sat by Pulse 98 99 99 Oximetry Oxygen Devices in Use Now: Nasal Cannula Appearance: Dyspnea with exertion or when not sitting straight upright Eyes: No Scleral Icterus, PERRLA Ears/Nose/Mouth/Throat: NL Teeth, Lips, Gums, Mucous Membranes Moist Neck: - - JVD unable to ascertain given body habitus. Respiratory: Symmetrical Chest Expansion and Respiratory Effort, - - no wheezing currently. decreased at bases Cardiovascular: - - 1+ edema in feet/calves. Tachycardic regular. Abdominal: NL Sounds; No Tenderness; No Distention, No Hepatosplenomegaly Extremities: - - 1+ edema b/l Skin: No Rash or Ulcers, No Nodules or Sclerosis Neurological: Alert and Oriented x 3, NL Sensation, NL Muscle Strength and Tone Nutrition: Taking PO's Result Diagrams: 01/02/17 04:29 01/02/17 04:29 Additional Lab and Data: Laboratory Results - last 24 hr 01/02/17 01/02/17 01/02/17 04:29 04:29 04:29 WBC 12.7 H RBC 3.84 L Hgb 9.9 L Hct 31 L MCV 80 MCH 26 L MCHC 32 RDW 17 H Plt Count 273 MPV 8 Neut % (Auto) 84.6 H Lymph % (Auto) 10.5 L [place] % (Auto) 4.6 Eos % (Auto) 0 Baso % (Auto) 0.3 Absolute Neuts (auto) 10.8 H Absolute Lymphs (auto) 1.3 Absolute Monos (auto) 0.6 Absolute Eos (auto) 0 Absolute Basos (auto) 0 Absolute Nucleated RBC 0.01 Nucleated RBC % 0.1 Sodium 134 Potassium 2.9 L Chloride 100 L Carbon Dioxide 22 Anion Gap 12 H BUN 19 Creatinine 0.67 Est GFR ( Amer) 113.6 Est GFR (Non-Af Amer) 88.3 BUN/Creatinine Ratio 28.4 H Glucose 215 H Calcium 9.1 Magnesium 1.8 L B-Natriuretic Peptide 286 H Microbiology and Other Data: Microbiology 01/01/17 16:15 Blood Venous Aerobic Blood Culture - Preliminary No Growth Day 1 01/01/17 16:15 Blood Venous Anaerobic Blood Culture - Preliminary No Growth Day 1 01/01/17 16:15 Blood Venous Aerobic Blood Culture - Preliminary No Growth Day 1 01/01/17 16:15 Blood Venous Anaerobic Blood Culture - Preliminary No Growth Day 1 01/01/17 17:15 Urine Legionella Urinary Antigen - Final Negative Legionella 01/01/17 17:15 Urine Streptococcus pneumoniae Ag Screen - Final Negative S. pneumo Antigen 01/01/17 16:20 Nasal Influenza Types A,B Antigen ([facility]NARDO) - Final Specimen received for Influenza A/B Molecular testing Assess/Plan/Problems-Billing Assessment: 66 yo female PMH lymphoma s/p radiation to chest 1978 w/ resultant chronic obstructive dz, diastolic CHF, rectal ca, thyroid ca, anxiety, depression, PAVITHRA on CPAP and intermittent 2L O2 use during day, Afib s/p 2 ablations, not currently on anticoagulation, baseline tachycardia in 100-110s p/w with 1 week DICKERSON, orthopnea, dry cough, weight gain, drenching night sweats. BNP elevated. Suspect diastolic CHF exacerbation vs asthma exacerbation. ECHO pending. - Patient Problems (1) CHF exacerbation Current Visit: Yes Status: Acute Code(s): I50.9 - HEART FAILURE, UNSPECIFIED SNOMED Code(s): 96813488 Comment: vs asthma exaccerbation. WBC mildly elevated. Does have elevated BNP 286, very orthopenia, 1+ edema(did get some IVF upon admission), 7lb weight gain from baseline start lasix 40IV daily strict i/o daily weights repeat ECHO, last in 2013 with diastolic dysfunction. obtain outpatient from Dr. Perez's office. Hx of radiation exposure and tachycardia 100-110s (tachy mediated CM?). 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 s/p 125 in ED. dulera BID Follows with Dr. Levy. Obtain outpatient records if possible. Pt reports PFT improved 20% 2months prior to admission compared to 6 months prior. home uses symbicort BID, spiriva BID, ventolin prn, nebs prn (did not need for 1 year and so ran out). Formerly chronic prednisone use. CT 10/07/16 with bronchiectasis RUL/RLL, stable ground glass opacities. (3) Chronic tachycardia Current Visit: Yes Status: Acute Code(s): R00.0 - TACHYCARDIA, UNSPECIFIED SNOMED Code(s): 6395498 Comment: likely 2/2 radiation exposure. at risk for some tachy mediated CM or at least worsening feeding into her diastolic dysfunction. continue home verapamil 240/120 (4) Chronic respiratory failure with hypoxia Current Visit: Yes Status: Acute Comment: home 2L. plan as above. (5) PAVITHRA (obstructive sleep apnea) Current Visit: Yes Status: Acute Code(s): G47.33 - OBSTRUCTIVE SLEEP APNEA ( ADULT) (PEDIATRIC) SNOMED Code(s): 61394662 Comment: CPAP qhs (6) Anxiety Current Visit: No Status: Chronic Priority: Medium Code(s): F41.9 - ANXIETY DISORDER, UNSPECIFIED SNOMED Code(s): 93216831 Comment: zoloft 150mg qam (7) Depression Current Visit: No Status: Chronic Priority: Medium Code(s): F32.9 - MAJOR DEPRESSIVE DISORDER, SINGLE EPISODE, UNSPECIFIED SNOMED Code(s): 65349785 (8) Hypertension Current Visit: No Status: Chronic Priority: Medium Code(s): I10 - ESSENTIAL (PRIMARY) HYPERTENSION SNOMED Code(s): 12765696 Comment: verapamil 240/120 (9) Paroxysmal A-fib Current Visit: Yes Status: Acute Code(s): I48.0 - PAROXYSMAL ATRIAL FIBRILLATION SNOMED Code(s): 122878607 Comment: Hx of 2 ablations. not on a/c. currently sinus tachycardia. Status and Disposition: medicine inpatient. Attending: Jamal Ferreira
[2017-01-02] MEDS: Docusate CAP* 100 MG PO SCH (17:09)
[2017-01-02] MEDS: Phenol 1.4% Spray* 177 ML BTL MT PRN (17:09)
[2017-01-02] MEDS: Omeprazole CAP* 20 MG PO SCH (17:09)
[2017-01-02] MEDS: cefTRIAXone VIAL(*) 1,000 MG in NS 0.9% 50 ML* 50 ML IVPB SCH (17:19)
[2017-01-02] MEDS: Verapamil SR TAB* 240 MG PO SCH (20:22)
[2017-01-02] MEDS: Ibuprofen TAB* 400 MG PO PRN (20:22)
[2017-01-02] MEDS: LORazepam TAB(*) 0.5 MG PO SCH (22:28)
[2017-01-03] MEDS: Albuterol/Ipratropium NEB.SOL* Albuterol 2.5 MG/Ipratropium 0.5 MG 3 ML INH SCH ×7 (03:11→23:00)
[2017-01-03] MEDS: methylPREDNISolone 125 MG* 2 ML VIAL IV SCH ×2 (04:03→11:35)
[2017-01-03] MEDS: Phenol 1.4% Spray* 177 ML BTL MT PRN ×2 (04:03→22:36)
[2017-01-03] MEDS: Levothyroxine TAB* 137 MCG TAB PO SCH (05:45)
[2017-01-03] MEDS: Heparin VIAL(*) 5000 UNITS/ML VIAL (FIVE THOUSAND) SUBCUT SCH ×3 (05:45→22:36)
[2017-01-03] MEDS ORDERED: Furosemide IV* 10 MG/ML VIAL (40 MG) IV SCH ×2 (07:30→09:00)
[2017-01-03] MEDS ORDERED: Perflutren Lipid Microsphere* 3 ML VIAL ONE (07:45)
[2017-01-03] MEDS ORDERED: Bumetanide IV* 0.25 MG/ML 4 ML VIAL SLOW PUSH SCH (09:00)
[2017-01-03] MEDS: Mometasone/Formoter 200/5 MDI INH SCH ×2 (09:01→20:49)
[2017-01-03] MEDS ORDERED: Azithromycin TAB* 250 MG PO ONE (09:45)
[2017-01-03 09:51] LABS: Hematocrit 32 % (35-47); Hemoglobin 10.3 g/dl (12.0-16.0); Mean Corpuscular HGB Conc 32 g/dl (31-36); Mean Corpuscular Hemoglobin 26 pg (27-31); Mean Corpuscular Volume 81 fL (80-97); Mean Platelet Volume 8 um3 (7.4-10.4); Red Cell Distribution Width 17 % (10.5-15)
[2017-01-03 10:09] LABS: BUN/Creatinine Ratio 52.5 (8-20); Calcium 9.4 mg/dL (8.6-10.3); EGFR African American 131.6 (>60); EGFR Non-African American 102.3 (>60); Magnesium 2.1 mg/dL (1.9-2.7); Potassium 4.5 mmol/L (3.5-5.0)
[2017-01-03] MEDS: Sertraline* 100 MG TAB PO SCH (10:13)
[2017-01-03] MEDS: Verapamil TAB* 120 MG PO SCH (10:14)
[2017-01-03] MEDS: Saline NASAL SPRAY 0.65%* BTL BOTH NARES PRN ×2 (10:29→22:36)
--- NOTE | 2017-01-03 13:03 | ECHO ---
Patient: CONSTANZA RICHARDSON [facility] Rec#: [id number] : 1950 Date: 01/03/2017 Age: 66y Height: 157.48 cm / 62.0 in Weight: 77.11 kg / 170.0 lbs Sex: F BSA: 1.78 Room#: 433 Admit Date#: 01/02/2017 Type: Inpatient Referring: Jamal Ferreira Reading: Ayo Perez MD Mobile Tester: Sandy Castro RDCS CC: Anup Arzola MD Transthoracic Echocardiogram Indication: SOB BP: 128/66 HR: 107 Rhythm: NSR with PACs Findings History: A-fib/flutter,HTN,asthma,lymphoma,chemo and radiation,hypothyroidism s/p thyroid cancer,rectal cancer,PAVITHRA with CPAP. Technical Comments: The study is technically limited due to the patient's history of COPD. /asthma. Definity used for border enhancement. Left Ventricle: The left ventricular chamber size is normal. Global left ventricular wall motion and contractility are within normal limits. There is normal left ventricular systolic function. The estimated ejection fraction is 50-55%. Abnormal left ventricular diastolic function is observed. Left Atrium: The left atrial chamber size is normal. Right Ventricle: The right ventricular cavity size is normal. The right ventricular global systolic function is mildly reduced. Right Atrium: The right atrial cavity size is normal. Aortic Valve: The aortic valve is trileaflet. Mild aortic leaflet calcification is visualized. There is evidence of aortic sclerosis without stenosis. There is mild to moderate aortic regurgitation. There is no evidence of aortic stenosis. Mitral Valve: There is mitral annular calcification. The mitral valve leaflets are moderately thickened. There is mild to moderate mitral regurgitation. There is mild mitral stenosis. Tricuspid Valve: The tricuspid valve leaflets are normal. There is mild to moderate tricuspid regurgitation. There is evidence of moderate pulmonary hypertension. There is no tricuspid stenosis. Pulmonic Valve: The pulmonic valve structure is not well visualized. Pericardium: The pericardium appears normal. Aorta: There is no dilatation of the ascending aorta. There is no dilatation of the aortic arch. There is no dilation of the aortic root. Pulmonary Artery: The main pulmonary artery is not well visualized. Venous: The inferior vena cava is dilated. There is less than 50% respiratory change in the inferior vena cava dimension. Contrast: Definity was used to optimize study. A total of 4 ml used. Intravenous contrast was used to enhance endocardial border definition. Summary: There are no significant changes when compared to the previous study done on 08/06/15 Conclusions Global left ventricular wall motion and contractility are within normal limits. There is normal left ventricular systolic function. The estimated ejection fraction is 50-55%. Mild aortic leaflet calcification is visualized. There is mild to moderate aortic regurgitation. There is mitral annular calcification. There is mild to moderate mitral regurgitation. There is mild to moderate tricuspid regurgitation. There is evidence of moderate pulmonary hypertension. The pericardium appears normal. There are no significant changes when compared to the previous study done on 08/06/15 Measurements Name Value Normal Range RVIDd (AP) 2D 2.4 cm (0.9 - 2.6) RVDdMajor (2D) 3.3 cm (2.2 - 4.4) RAd ISD 4CH 4.1 cm (3.4 - 4.9) RA (A4C)W 3.6 cm (2.9 - 4.6) IVSd (2D) 0.8 cm (0.6 - 1) LVPWd (2D) 1 cm (0.6 - 1) LVIDd (2D) 4 cm (3.6 - 5.4) LVIDs (2D) 3.2 cm - LV FS (2D) 20 % (25 - 45) Aortic Annulus 1.4 cm (1.4 - 2.6) Ao root diameter (2D) 2.9 cm (2.1 - 3.5) Ascending Ao 2 cm (2.1 - 3.4) Aortic arch 1.6 cm (1.8 - 3.4) Descending Ao 0.9 cm - LA dimension (AP) 2D 3.4 cm (2.3 - 3.8) LAd ISD 4CH 5.1 cm (2.9 - 5.3) LA ISD 4CH W 3.9 cm (2.5 - 4.5) Name Value Normal Range LA ESV SP 4CH (A/L) 47 ml - LA ESV SP 2CH (A/L) 46 ml - LA ESV BP (A/L) 49 ml - LA ESV BP (A/L) index 27.26 ml/m2 - LA ESV SP 4CH (MOD) 45 ml - LA ESV SP 2CH (MOD) 44 ml - Name Value Normal Range MV E-wave Vmax 2 m/sec - MV deceleration time 132 msec - MV A-wave Vmax 1.2 m/sec - MV E:A ratio 1.64 ratio - LV septal e' Vmax 0.05 m/sec - LV lateral e' Vmax 0.09 m/sec - LV E:e' septal ratio 40 ratio - LV E:e' lateral ratio 22.22 ratio - Name Value Normal Range AV Vmax 1.9 m/sec - AV VTI 36.4 cm - AV peak gradient 14.74 mmHg - AV mean gradient 7.92 mmHg - LVOT diameter 1.6 cm - LVOT Vmax 0.9 m/sec - LVOT VTI 17.7 cm - LVOT peak gradient 3.39 mmHg - LVOT mean gradient 1.57 mmHg - SV LVOT 35 ml - AR PHT 220 msec - AR peak gradient 54.61 mmHg - Name Value Normal Range MV Vmax 1.9 m/sec - MV VTI 34.4 cm - MV peak gradient 15.1 mmHg - MV mean gradient 4.8 mmHg - MV PHT 32 msec - MR Vmax 4.1 m/sec - MR VTI 67.1 cm - MVA (PHT) 6.9 cm2 - MVA (continuity VTI) 1 cm2 - Name Value Normal Range TR Vmax 3.1 m/sec - TR peak gradient 39 mmHg - RAP 15 mmHg - RVSP 54 mmHg - IVC diameter 2.7 cm - Name Value Normal Range PV Vmax 0.2 m/sec - PV peak gradient 0.17 mmHg -
--- NOTE | 2017-01-03 14:02 | PN ---
Subjective Date of Service: 01/03/17 Interval History: Did not feel like 40IV lasix did much. Net positive, gained weight. ECHO done today: stable diastolic dysfunction, unchanged from July 2105. Throat spray helped. Wanting nasal saline spray and salt water gargle. WBC jumped on steroids. cultures negative. Afebrile. Objective Active Medications: Acetaminophen (Tylenol Tab*) 650 mg PO Q4H PRN PRN Reason: FEVER/PAIN Last Admin: 01/02/17 02:40 Dose: 650 mg Albuterol (Ventolin 2.5 Mg/3 Ml Neb.[place]*) 2.5 mg INH Q2H PRN PRN Reason: SOB/WHEEZING Last Admin: 01/02/17 09:07 Dose: 2.5 mg Albuterol/Ipratropium (Duoneb (Albuterol 2.5 Mg/Ipratropium 0.5 Mg)) 1 neb INH Q4H [facility] Last Admin: 01/03/17 11:20 Dose: 1 neb Bumetanide (Bumex*) 2 mg SLOW PUSH BID [facility] Docusate Sodium (Colace Cap*) 100 mg PO QPM [facility] Last Admin: 01/02/17 17:09 Dose: 100 mg Heparin Sodium (Porcine) (Heparin Vial(*)) 5,000 units SUBCUT Q8HR [facility] Last Admin: 01/03/17 05:45 Dose: 5,000 units Ceftriaxone Sodium 1,000 mg/ (Sodium Chloride) 50 mls @ 200 mls/hr IVPB Q24H [facility] Last Admin: 01/02/17 17:19 Dose: 200 mls/hr Ibuprofen (Motrin Tab*) 400 mg PO Q6H PRN PRN Reason: PAIN Last Admin: 01/02/17 20:22 Dose: 400 mg Levothyroxine Sodium (Synthroid Tab*) 137 mcg PO 0600 [facility] Last Admin: 01/03/17 05:45 Dose: 137 mcg Lorazepam (Ativan Tab(*)) 0.5 mg PO 2200 [facility] Last Admin: 01/02/17 22:28 Dose: 0.5 mg Mometasone Furoate/Formoterol Fumar (Dulera 200/5 Mdi*) 2 puff INH BID [facility] Last Admin: 01/03/17 09:01 Dose: 2 puff Omeprazole (Prilosec Cap*) 20 mg PO QPM [facility] Last Admin: 01/02/17 17:09 Dose: 20 mg Ondansetron HCl (Zofran Inj*) 4 mg IV Q6H PRN PRN Reason: NAUSEA Phenol/Menthol (Chloroseptic Throat [place]*) 1 spray MT BID PRN PRN Reason: SORE THROAT Last Admin: 01/03/17 04:03 Dose: 1 spray Prednisone (Deltasone Tab*) 40 mg PO DAILY [facility] Sertraline HCl (Zoloft*) 150 mg PO QAM [facility] Last Admin: 01/03/17 10:13 Dose: 150 mg Sodium Chloride (Sodium Chloride 0.65% Nasal [place]*) 1 spray BOTH NARES Q4H PRN PRN Reason: CONGESTION Last Admin: 01/03/17 10:29 Dose: 1 spray Verapamil HCl (Calan Tab*) 120 mg PO QAM [facility] Last Admin: 01/03/17 10:14 Dose: 120 mg Verapamil HCl (Calan Sr Tab*) 240 mg PO BEDTIME [facility] Last Admin: 01/02/17 20:22 Dose: 240 mg Vital Signs 01/02/17 01/02/17 01/02/17 15:28 15:31 19:45 Temperature 98.3 F Pulse Rate 114 116 Respiratory 20 18 Rate Blood Pressure 117/58 (mmHg) O2 Sat by Pulse 98 99 Oximetry 01/02/17 01/02/17 01/02/17 20:00 20:17 22:28 Temperature 97.9 F Pulse Rate 111 108 Respiratory 20 20 18 Rate Blood Pressure 121/71 (mmHg) O2 Sat by Pulse 99 98 Oximetry 01/03/17 01/03/17 01/03/17 00:01 00:17 01:59 Temperature 98.1 F Pulse Rate 108 113 Respiratory 20 22 18 Rate Blood Pressure 124/66 (mmHg) O2 Sat by Pulse 99 98 Oximetry 01/03/17 01/03/17 01/03/17 03:48 06:21 07:18 Temperature 97.5 F 97.8 F Pulse Rate 101 110 110 Respiratory 20 22 18 Rate Blood Pressure 128/66 106/58 (mmHg) O2 Sat by Pulse 97 99 98 Oximetry 01/03/17 01/03/17 01/03/17 08:00 09:03 11:13 Temperature 97.8 F Pulse Rate 111 109 Respiratory 18 16 28 Rate Blood Pressure 112/61 (mmHg) O2 Sat by Pulse 98 98 Oximetry 01/03/17 11:24 Temperature Pulse Rate 110 Respiratory 16 Rate Blood Pressure (mmHg) O2 Sat by Pulse 100 Oximetry Oxygen Devices in Use Now: Nasal Cannula Appearance: NAD, sitting in chair. Less Dyspneic. Eyes: No Scleral Icterus, PERRLA Ears/Nose/Mouth/Throat: NL Teeth, Lips, Gums, Mucous Membranes Moist Respiratory: - - decreased left base. slight inspiratory wheeze. no rhonchi. decent air exchange Cardiovascular: NL Sounds; No Murmurs; No JVD, - - tachycardic. Abdominal: - - slightly distended, soft. nontender Extremities: No Edema, - - 1+ edema Neurological: Alert and Oriented x 3 Result Diagrams: 01/03/17 09:15 01/03/17 09:15 Additional Lab and Data: Laboratory Results - last 24 hr 01/03/17 01/03/17 09:15 09:15 WBC 20.0 H RBC 3.90 L Hgb 10.3 L Hct 32 L MCV 81 MCH 26 L MCHC 32 RDW 17 H Plt Count 295 MPV 8 Neut % (Auto) 91.8 H Lymph % (Auto) 4.9 L [place] % (Auto) 3.1 Eos % (Auto) 0 Baso % (Auto) 0.2 Absolute Neuts (auto) 18.3 H Absolute Lymphs (auto) 1.0 Absolute Monos (auto) 0.6 Absolute Eos (auto) 0 Absolute Basos (auto) 0 Absolute Nucleated RBC 0.02 Nucleated RBC % 0.1 Sodium 137 Potassium 4.5 D Chloride 104 Carbon Dioxide 27 Anion Gap 6 BUN 31 H Creatinine 0.59 Est GFR ( Amer) 131.6 Est GFR (Non-Af Amer) 102.3 BUN/Creatinine Ratio 52.5 H Glucose 161 H Calcium 9.4 Magnesium 2.1 Microbiology and Other Data: Microbiology 01/01/17 16:15 Blood Venous Aerobic Blood Culture - Preliminary No Growth Day 1 01/01/17 16:15 Blood Venous Anaerobic Blood Culture - Preliminary No Growth Day 1 01/01/17 16:15 Blood Venous Aerobic Blood Culture - Preliminary No Growth Day 1 01/01/17 16:15 Blood Venous Anaerobic Blood Culture - Preliminary No Growth Day 1 01/01/17 17:15 Urine Legionella Urinary Antigen - Final Negative Legionella 01/01/17 17:15 Urine Streptococcus pneumoniae Ag Screen - Final Negative S. pneumo Antigen 01/01/17 16:20 Nasal Influenza Types A,B Antigen (BERNARDO) - Final Specimen received for Influenza A/B Molecular testing Assess/Plan/Problems-Billing Assessment: 66 yo female PMH lymphoma s/p radiation to chest 1978 w/ resultant chronic obstructive dz, diastolic CHF, rectal ca, thyroid ca, anxiety, depression, PAVITHRA on CPAP and intermittent 2L O2 use during day, Afib s/p 2 ablations, not currently on anticoagulation, baseline tachycardia in 100-110s p/w with 1 week DICKERSON, orthopnea, dry cough, weight gain, drenching night sweats. BNP elevated. Suspect diastolic CHF exacerbation vs asthma exacerbation. ECHO with diastolic dysfunction unchanged. Increased diuretics. - Patient Problems (1) CHF exacerbation Current Visit: Yes Status: Acute Code(s): I50.9 - HEART FAILURE, UNSPECIFIED SNOMED Code(s): 17174089 Comment: vs asthma exaccerbation. WBC jumped. Does have elevated BNP 286, very orthopenia, 1+ edema(did get some IVF upon admission), 7lb weight gain from baseline now increased again. was +500cc s/p lasix 40IV yest, 1mg IV bumex this AM, increase to 2mg IV bumex BID strict i/o daily weights repeat ECHO, e/o diastolic dysfunction, moderate RVSP. unchanged from July 2105 Hx of radiation exposure and tachycardia 100-110s (tachy mediated CM?). 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 dulera BID Follows with Dr. Levy. Obtain outpatient records if possible. Pt reports PFT improved 20% 2months prior to admission compared to 6 months prior. home uses symbicort BID, spiriva BID, ventolin prn, nebs prn (did not need for 1 year and so ran out). Formerly chronic prednisone use. CT 10/07/16 with bronchiectasis RUL/RLL, stable ground glass opacities. (3) Chronic tachycardia Current Visit: Yes Status: Acute Code(s): R00.0 - TACHYCARDIA, UNSPECIFIED SNOMED Code(s): 8824698 Comment: likely 2/2 radiation exposure. at risk for some tachy mediated CM ( not seen on ECHO) or at least worsening feeding into her diastolic dysfunction. continue home verapamil 240/120 (4) Chronic respiratory failure with hypoxia Current Visit: Yes Status: Acute Comment: home 2L prn with CPAP at night. plan as above. (5) PAVITHRA (obstructive sleep apnea) Current Visit: Yes Status: Acute Code(s): G47.33 - OBSTRUCTIVE SLEEP APNEA ( ADULT) (PEDIATRIC) SNOMED Code(s): 97676732 Comment: CPAP qhs (6) Anxiety Current Visit: No Status: Chronic Priority: Medium Code(s): F41.9 - ANXIETY DISORDER, UNSPECIFIED SNOMED Code(s): 75094079 Comment: zoloft 150mg qam (7) Depression Current Visit: No Status: Chronic Priority: Medium Code(s): F32.9 - MAJOR DEPRESSIVE DISORDER, SINGLE EPISODE, UNSPECIFIED SNOMED Code(s): 29521587 Comment: zoloft (8) Hypertension Current Visit: No Status: Chronic Priority: Medium Code(s): I10 - ESSENTIAL (PRIMARY) HYPERTENSION SNOMED Code(s): 73701858 Comment: verapamil 240/120 diuresing aggressively. (9) Paroxysmal A-fib Current Visit: Yes Status: Acute Code(s): I48.0 - PAROXYSMAL ATRIAL FIBRILLATION SNOMED Code(s): 247847304 Comment: Hx of 2 ablations. not on a/c. currently sinus tachycardia. lyte repletion prn, K>4, Mg>2 Status and Disposition: medicine inpatient. Stepping up diuresis. Attending: Jamal Ferreira
[2017-01-03] MEDS: cefTRIAXone VIAL(*) 1,000 MG in NS 0.9% 50 ML* 50 ML IVPB SCH (16:00)
[2017-01-03] MEDS: Omeprazole CAP* 20 MG PO SCH (17:19)
[2017-01-03] MEDS: Docusate CAP* 100 MG PO SCH (17:19)
[2017-01-03] MEDS: Bumetanide IV* 0.25 MG/ML 4 ML VIAL SLOW PUSH SCH (20:39)
[2017-01-03] MEDS: Verapamil SR TAB* 240 MG PO SCH (20:44)
[2017-01-03] MEDS: LORazepam TAB(*) 0.5 MG PO SCH (22:36)
[2017-01-03] MEDS: Ibuprofen TAB* 400 MG PO PRN (22:43)
[2017-01-04] MEDS: Albuterol/Ipratropium NEB.SOL* Albuterol 2.5 MG/Ipratropium 0.5 MG 3 ML INH SCH ×4 (03:46→15:16)
[2017-01-04] MEDS: Heparin VIAL(*) 5000 UNITS/ML VIAL (FIVE THOUSAND) SUBCUT SCH ×2 (06:32→14:49)
[2017-01-04] MEDS: Levothyroxine TAB* 137 MCG TAB PO SCH (07:10)
[2017-01-04] MEDS: Mometasone/Formoter 200/5 MDI INH SCH (07:38)
[2017-01-04] MEDS: Sertraline* 100 MG TAB PO SCH (08:24)
[2017-01-04] MEDS: Verapamil TAB* 120 MG PO SCH (08:25)
[2017-01-04] MEDS: Bumetanide IV* 0.25 MG/ML 4 ML VIAL SLOW PUSH SCH (08:25)
[2017-01-04] MEDS ORDERED: predniSONE TAB* 20 MG PO SCH (09:00)
[2017-01-04 15:11] VITALS: BP 113/75
[2017-01-04] MEDS: cefTRIAXone VIAL(*) 1,000 MG in NS 0.9% 50 ML* 50 ML IVPB SCH (17:23)
--- NOTE | 2017-01-05 10:25 | DS ---
CC: Dr. Levy, Dr. Arzola * DISCHARGE SUMMARY: DATE OF ADMISSION: 01/01/17 DATE OF DISCHARGE: 01/04/17 ADMISSION DIAGNOSES: 1. Shortness of breath. 2. Asthma exacerbation. 3. Fluid overload. 4. Hypertension. 5. Atrial fibrillation. 6. Gastroesophageal reflux disease. 7. Lymphoma. 8. Hypothyroidism. DISCHARGE DIAGNOSES: 1. Shortness of breath. 2. Asthma exacerbation. 3. Fluid overload. 4. Hypertension. 5. Atrial fibrillation. 6. Gastroesophageal reflux disease. 7. Lymphoma. 8. Hypothyroidism. HOSPITAL COURSE: The patient is a 66-year-old woman who presented to [facility] with the chief complaint of shortness of breath. It was difficult to state whether or not she had some fluid overload or asthma exacerbation. She certainly was wheezing. She had also complained of increased weight gain prior to coming to the hospital. The patient was placed on steroids and DuoNebs. The patient did improve over the next several days. She did have a slightly elevated BNP. Her echocardiogram was more concerning for some pulmonary hypertension than actual systolic or diastolic dysfunction. She does have a history of pulmonary disease due to radiation. The patient was much better by the date of discharge. She was not at her baseline, but she was breathing better and not tachypneic or working hard. There was question of amount of fluid overload, whether or not that she may have had. Since her echocardiogram was not that problematic, I do not think she is in overt heart failure. Nevertheless, I told her I will prescribe her Bumex to use p.r.n. for weight gain or significant edema. She will go home on a slow taper of prednisone and follow up with her event decorator within the next week. PHYSICAL EXAM: On the date of discharge, well-developed, well-nourished woman, sitting in the bed, in no acute distress. Vital signs: Temperature 98.2 degrees, heart rate 108 beats per minute, respiratory 17 breaths per minute, pulse ox 97%, blood pressure 113/75. HEENT: Normocephalic, atraumatic. Pupils equal, round and reactive to light. Moist mucus membranes. Neck: Supple. No JVD, bruits, palpable thyroid, or lymphadenopathy. Her chest was clear to auscultation except for some wheezing in her left upper lobe. Cardiovascular: S1, S2 appreciated. Regular rate and rhythm. Abdomen: Positive bowel sounds in all 4 quadrants. Soft, nontender, nondistended. Extremities: No cyanosis, clubbing or edema. +2 pulses bilaterally. Neuro: Alert and oriented x3. Moves all extremities. Skin: No rashes or abnormalities. STUDIES DONE WHILE IN THE HOSPITAL: Transthoracic echocardiogram, 01/02/17, impression: Global left ventricular wall motion and contractility within normal limits. Normal left ventricular systolic function, EF 50% to 55%. Mild aortic calcification is visualized. Mild to moderate mitral aortic regurg, mitral annular calcification, mild to moderate mitral regurg, mild to moderate tricuspid regurg. There is evidence of moderate pulmonary hypertension. The pericardium appears normal. No significant change compared to the previous study on 08/06/15. DISCHARGE MEDICATIONS: 1. Verapamil 240 mg at bedtime. 2. Ibuprofen 400 mg every 6 hours as needed. 3. Docusate 100 mg in the evening. 4. Symbicort 160/4.5 one puff inhaled twice daily. 5. Albuterol inhaler 2 puffs every 4 hours as needed. 6. Albuterol 2.5 mg/3 mL every 4 hours as needed. 7. Zoloft 150 mg in the morning. 8. Potassium chloride 10 mEq twice daily. 9. Omeprazole 20 mg daily. 10. Multivitamin 1 tablet daily. 11. Levothyroxine 137 mcg in the morning. 12. Lorazepam 0.5 mg in the evening. 13. Verapamil 120 mg in the morning. 14. Dyazide 37.5/25 daily. 15. Spiriva 1.25 mcg in the morning. 16. Prednisone 10 mg daily. 17. Bumex 1 mg p.o. daily as needed if weight gain greater than 3 pounds or significant edema. 18. DuoNeb nebulizer every 4 hours as needed. DISCHARGE PLAN: The patient will be discharged home. She will follow up with her event decorator in 1 week. The patient was given instructions on when to take her Bumex. The patient will return to ED if symptoms recur. TIME SPENT: Over 35 minutes was spent on this discharge, more than 20 minutes was spent in direct [id number] contact with the patient in evaluation, physical exam, counseling, and coordination of care. [id number]/[facility] #[facility] [id number] [facility]
== END 2017-01-04 19:05 | disposition home or self-care (01) | DRG 202 ==
LOC: ED 10:46 → MEDTELE 15:56
PROVIDERS: ADMIT Internal Medicine; ATTEND Internal Medicine
PROC: 5A09457 Assistance with Respiratory Ventilation, 24-96 Consecutive Hours, Continuous Positive Airway Pressure (ICD-10-PCS; principal; 2017-01-01)
DX: J45.901 Unspecified asthma with (acute) exacerbation (principal); C85.90 Non-Hodgkin lymphoma, unspecified, unspecified site; J96.11 Chronic respiratory failure with hypoxia; E87.70 Fluid overload, unspecified; I27.20 Pulmonary hypertension, unspecified; I48.0 Paroxysmal atrial fibrillation; I08.3 Combined rheumatic disorders of mitral, aortic and tricuspid valves; G43.909 Migraine, unspecified, not intractable, without status migrainosus; J70.1 Chronic and other pulmonary manifestations due to radiation; I10 Essential (primary) hypertension; K21.9 Gastro-esophageal reflux disease without esophagitis; Z79.52 Long term (current) use of systemic steroids; Z85.850 Personal history of malignant neoplasm of thyroid; Z85.048 Personal history of other malignant neoplasm of rectum, rectosigmoid junction, and anus; F32.9 Major depressive disorder, single episode, unspecified; F41.9 Anxiety disorder, unspecified; G47.33 Obstructive sleep apnea (adult) (pediatric); Z90.81 Acquired absence of spleen; E89.0 Postprocedural hypothyroidism; Z88.8 Allergy status to other drugs, medicaments and biological substances; Z88.5 Allergy status to narcotic agent; Z88.2 Allergy status to sulfonamides; Z91.013 Allergy to seafood; Z80.41 Family history of malignant neoplasm of ovary; Z82.49 Family history of ischemic heart disease and other diseases of the circulatory system; J42 Unspecified chronic bronchitis; M06.9 Rheumatoid arthritis, unspecified; Z98.42 Cataract extraction status, left eye; Z98.41 Cataract extraction status, right eye; Z92.3 Personal history of irradiation; Z87.01 Personal history of pneumonia (recurrent); Z82.5 Family history of asthma and other chronic lower respiratory diseases; R40.2412 Glasgow coma scale score 13-15, at arrival to emergency department; R00.0 Tachycardia, unspecified
CPT/HCPCS: 36415; 80048; 80053; 83605; 83735; 83880; 85025; 85610; 86140; 87040; 87502; 87899; 93306; 94640; 94660; 94760; A9270-GY; C8929; J0456; J0696; J1644; J1940; J2930; J3475; J7512

== ENCOUNTER 2017-09-04 05:24 | Inpatient (IN) | payer MEDICARE ==
--- OUTSIDE RECORDS SUMMARY | 2017-09-04 05:46 | XMS REPORT ---
:1950 External Reference #:[id number] Author Organization [facility] Address [address] [place] [address] [place] [address] Phone [phone] Care Team Providers Name Role Phone Anup Arzola MD Primary Care Physician Unavailable Payers Type Date Identification Numbers Payment Provider Subscriber Commercial Policy Number: [id number] [employer] Savanna Bae PayID: [id number] [id number] [place] [address] Problems Date Description Provider Status Onset: 12/29/2012 Atrial flutter Ayo Perez M.D. Active Onset: 12/29/2012 Paroxysmal supraventricular Ayo Perez M.D. Active tachycardia Onset: 06/29/2013 Anxiety state Ayo Perez M.D. Active Onset: 12/27/2013 Hypersomnia with sleep apnea Denzel Louise M.D. Active Onset: 01/07/2015 Asthma without status asthmaticus Mary Levy MD Active Onset: 01/07/2015 Obstructive sleep apnea syndrome Mary Levy MD Active Onset: 02/17/2015 Obesity Mary Levy MD Active Onset: 02/17/2015 Moderate persistent asthma, Mary Levy MD Active uncomplicated Onset: 08/21/2015 Disorder of lung Mary Levy MD Active Family History Date Family Member(s) Problem(s) Comments : (age 63 Father due to [place] Years) Father Heart Disease Father Asthma Father narcolepsy,sleep apnea : (age 73 Mother due to Cancer, HX of myxoma of Years) Ovarian heart,had 5 strokes as a result of tumor. Mother Hypertension Mother Ovarian Cancer Mother Stroke Siblings 2 Siblings both alive;both w/HTN,DM,brother w/sleep apnea Siblings sister w/thyroid cancer Siblings brother also had melanoma Paternal Grandmother due to () - unknown Alzheimer's Disease age Maternal Grandfather due to Diabetes () Maternal Grandfather due to Stroke () Maternal Grandmother due to Stroke () - unknown age of Maternal Grandmother due to CHF,Heart () Disease Social History Type Date Description Comments Marital Status Lives With Alone Occupation Disabled Cigarette Use Never Smoked Cigarettes ETOH Use Denies alcohol use Smoking Patient has never smoked Recreational Drug Use Denies Drug Use Daily Caffeine consumes chocolate occasionally Daily Caffeine Consumes on average 12oz of caffine free pepsi soda per day everyother day Exercise Type/Frequency Does not exercise Allergies, Adverse Reactions, Alerts Date Description Reaction Status Severity Comments 12/05/2002 Sulfa active 05/04/2004 Morphine active coughing 03/28/2006 Betablockers active marked fatigue 04/13/2006 Cardizem CD active Fatigue 01/23/2008 Avapro active fatigue 01/23/2008 Norvasc active edema 06/29/2013 Effexor active Severe vision loss, dizziness, legs rubber, couldn't talk, hallucin 06/29/2013 Remeron active during time after Effexor reaction, similiar rx 07/09/2015 Singulair active cogh, breathing and muscle problems 07/09/2015 Xopenex active 07/09/2015 Toprol XL active 07/09/2015 Benadryl active a-fib 07/09/2015 Abilify active 07/09/2015 Celexa active 07/09/2015 Bupropion active 07/09/2015 Norflex active 07/09/2015 Advair Diskus active 07/09/2015 Spiriva inactive Medications Medication Date Status Form Strength Qnty SIG Indications Ordering Provider Prednisone 08/11 Active TBPK 10mg (21) 21uni 4 tabs J45.901 ts day#1, 3 burke Levy MD day#2, 2 tabs day#3, 1 tab for 7 days Zithromax 08/11 Active Tablets 500mg 7tabs 1 tab J45.901 daily MD Mildred Prednisone 06/06 Active Tablets 2.5mg 30tab Take 1 tab J45.909 Beverley S. s by mouth Foster, daily N.P. Spiriva Respimat 04/20 Active Aerosol 1.25mcg/A 12gm [address] Am , daily Mildred, when she MD can afford and when remembered Verapamil HCL ER 07/01 Active Tablets ER 120mg 270ta 1 tablet Ayo bs in the D. Brand, morning, 2 M.D. tabs in the evening Cpap Mask And 01/25 Active Device Quattro Fx G47.33 [facility] for her Dimple, mask- M.D. size small Omeprazole Active Capsules DR 20mg 30cap 1 po qd Unknown /0000 s Triamterene/[place] Active Capsules 37.5-25mg 30cap 1 by mouth Unknown chlorothiazide /0000 s every day Ventolin HFA Active Aerosol 108(90Bas 16gm 1-2 puffs Mary / e) as needed Mildred, mcg/Act Lorazepam Active Tablets 1mg 90tab 1 tab Unknown /0000 s daily Levothyroxine Active Tablets 125mcg 30tab 1 by mouth Unknown Sodium /0000 s every day Symbicort Active Aerosol 160-4.5mc 30.6g 1 puffs by Mary /0000 g/Act m mouth Mildred, twice a MD day (when remembered and when she can afford) Potassium Active Tablets ER 10Meq 1 by mouth Unknown Chloride Patria ER /0000 bid Multi For Her Active Tablets 1 tab Unknown /0000 daily Colace 00 Active Capsules 100mg 1 by mouth Unknown /0000 daily . Oxygen Active Misc 2 l nc at Unknown /0000 bedtime Align 00 Active Capsules 4mg 1 by mouth Unknown /0000 every day Ipratropium Active Solution 0.5-2.5(3 540ml 1 vial via Mary [place]/Albuterol )mg/3ML nebulizer Mildred Sulfate Xitoshia Active Solution 5% twice a day (On hold) Advil Active Tablets 200mg 2 tabs daily as needed Expectorant Active 2x day Magnesium Active Tablets 200mg 1 by mouth every day Nystatin 01/10 Hx Suspension [id number] 60ml 5cc swish J45.909 Mary t/ML and spit 2 Mildred, - times a Albuterol Sulfate 01/06 Hx 2.5MG/3ML every 4 Vials hours as - needed via 04/14 nebulizer /2016 Asmanex 03/11 Hx Aerosol 220mcg/In 1unit 2 puffs J45.909 Jae Melton h s puff every Dimple, Metered Doses - day every M.D. 02/16 /2015 Qnasl 03/08 Hx Aerosol 80mcg/Act 8.700 2 gm inhalation - s in each 07/10 nostril /2014 once daily Verapamil HCL ER 07/04 Hx Caps ER 120mg 90cap 1 tabs PO 24HR s every D. Brand, - morning M.D. 12/26 and 2 tab /2013 every evening Verapamil HCL SR 04/27 Hx Caps ER 120mg 90cap 1 tabs PO Ayo 24HR s every D. Brand, - morning M.D. 07/04 and 2 tab /2013 every evening Diltiazem CD 01/09 Hx Caps ER 120mg 180ca 1 cap by Ayo 24HR ps mouth D. Brand, - twice a M.D. 04/27 day /2012 Potassium 04/29 Hx Tablet 20Meq 60tab 2 po qd Shabbir Chloride bruce Figueroa, 12/26 M.D. Potassium 01/20 Hx Tablets ER 20Meq 90tab 1 po qd Shabbir Chloride s Ben Figueroa, 04/29 M.D. Sular 12/20 Hx Tablets ER 8.5mg 100ta 1 po qd Shabbir 24HR masha Figueroa M.D. Sular 01/22 Hx Tablets ER 10mg 90tab 1 PO qd 24HR bruce Figueroa, 12/20 M.D. Premarin 01/22 Hx Tablets 0.45mg 30tab PO qd bruce Figueroa M.D. Hydrochlorothiazi 10/03 Hx Tablets 25mg 30tab 1 PO qd s Ben Figueroa, 01/22 M.D. Norvasc 10/03 Hx Tablets 2.5mg 30tab 1 PO qd s Ben Figueroa, 01/22 M.D. Avapro 09/12 Hx Tablets 75mg 90tab 1 po qam bruce Figueroa, 10/03 M.D. Amlodipine 05/09 Hx Tablets 2.5mg 30tab 1 po qd s Ben Figueroa, 09/12 M.D. Lexapro 12/07 Hx Tablets 5mg 1 po qd Ben Figueroa, 01/22 M.D. Propafenone HCL 08/25 Hx Tablets 150mg 60tab 1 po bid s until FRene - 09/15/06 Henry, 11/17 and then 1 M.D. /2006 po qd until 10/03/06 and then qod until 10/15 and then discontinu e. Rythmol SR 04/13 Hx Caps ER 325mg 1 po bid 12HR Rene Figueroa, 08/25 M.D. Lexapro 03/28 Hx Tablets 10mg 30tab 1 PO qd s Ben Figueroa, 12/07 M.D. Synthroid 03/28 Hx Tablets 100mcg 30tab 1 PO qd bruce Figueroa, 12/26 M.D. Coumadin 03/28 Hx Tablets 3mg use as directed Ben Figueroa, 03/28 dr vandana Andrade /2006 Flecainide 03/28 Hx Tablets 50mg 60tab 1 po bid s Ben Figueroa, 04/13 M.D. Diltiazem 03/28 Hx Capsules Ben Figueroa, 03/28 M.D. Diltiazem 03/28 Hx Tablets 120mg 1 PO qd Shabbir Extended Ben Figueroa, 04/13 M.D. Coumadin 03/28 Hx Tablets 4mg use as directed Ben Figueroa, 11/17 M.D. Lexapro 05/04 Hx Tablets 5mg 30tab 1 po qd bruce Figueroa, 03/28 M.D. Toprol XL 12/05 Hx Tablets 25mg 30tab 1 po qd bruce Figueroa, 05/04 M.D. Synthroid 12/04 Hx Tablets pt unsure 90tab 1 po qd dose s Ben Figueroa, 03/28 M.D. Premarin 12/04 Hx Tablets 1.25mg 30tab /2 tablet s po qd Ben Figueroa, 01/22 M.D. Provera 12/04 Hx Tablets 5mg 30tab one qd bruce Figueroa, 07/29 M.D. Prilosec 12/04 Hx Capsules 20mg 60cap 1 po qd bruce Figueroa M.D. Flovent 12/04 Hx Aerosol 44mcg/Inh 1unit 2 puffs alation s bid prn Ben Figueroa, 10/20 M.D. Hydrochlorothiazi 00 Hx Tablets 25mg 30tab 1 po qd or Unknown de / s as needed - 06/23 Citalopram Hx Tablets 40mg 30tab 1 po qd Unknown Hydrobromide /0000 s Multivitamins 00 Hx Capsules 30cap 1 capsule Unknown /0000 s esme;y - 07/10 Aspirin Hx Tablets 81mg 1 po qd Unknown /0000 - 07/10 Venlafaxine HCL Hx Tablets ER 37.5mg 90tab 2 tablets Unknown ER /0000 24HR s po qd - 06/28 Coq-10 Hx 200 daily Unknown / - 07/10 B Complex Hx daily Unknown / - 07/10 Estradiol Hx Tablets 1mg 30tab 1/4 po qd Unknown / s - 07/29 Magnesium Oxide Hx Tablets 400mg 90tab 1 po qd Unknown /0000 s - 01/20 Vit C Hx Tablets 1 po qd Unknown / - 07/10 D3 Hx Capsules daily Unknown / - 07/10 Align Hx Capsules 4mg 30cap 1 po qd Unknown / s - 07/10 Pulmicort Hx Aerosol 180mcg/Ac One puff Unknown Flexhaler /0000 t bid - 12/26 Sertraline HCL Hx Tablets 100mg 1&1/2 Unknown /0000 tabs/day Prednisone Hx Tablets 10mg started at Unknown /0000 60mg - tapering 05/30 dose, 15mg daily now Orphenadrine Hx Tablets ER 100mg ONe po Unknown Citrate ER /0000 12HR daily - 12/26 Ipratropium Hx Solution 0.5-2.5(3 prn Unknown [place]/Albuterol /0000 )mg/3ML Sulfate - 12/26 Senna Hx daily prn Unknown /0000 - 06/10 Bupropion HCL Hx Tablets 75mg 1 by mouth Unknown /0000 every day - 12/26 Melatonin Hx Capsules 5mg 1 by mouth Unknown /0000 every - night at 07/29 bedtime /2014 Motrin Ib Hx Tablets 200mg 60tab 2 po Q6 Unknown /0000 s hours prn - 06/10 Verapamil HCL Hx Tablets 120mg 270ta 1 tab in Ayo /0000 bs Nat Perez, - morning, 2 M.D. /18 tabs night Klor-Con M10 Hx Tablets ER 10Meq 90tab 1 by mouth Unknown /0000 s bid - 01/20 Levothyroxine 00/00 Hx Tablets 112mcg 90tab 1 by mouth Unknown Sodium /0000 s every day - 01/20 [place] 00/00 Hx Aerosol 160mcg/Ac 3unit take 1 Unknown /0000 t s inhalation - 2 times a Miralax / Hx Packet [id number] 1mon 17 gm Unknown /0000 every day - as needed 06/10 Qvar 0000 Hx Aerosol 80mcg/Act 1unit twice a Unknown /0000 s day - 01/20 Nystatin 00/00 Hx prn Unknown /0000 - 07/09 Magnesium 0000 Hx Tablets 250mg 1 by mouth Unknown /0000 bid - 07/10 Klor-Con M20 0000 Hx Tablets ER 20Meq 30tab 1 tablet Unknown /0000 s daily - 06/10 Asmanex 00/ Hx Aerosol 220mcg/In 2 puffs Unknown Twisthaler 30 Me /0000 h daily at Tered Doses - bedtime 03/08 Advil 00/00 Hx Capsules 200mg as needed Unknown /0000 - 09/20 Acyclovir Sodium 0000 Hx Solution 1000mg as Unknown /0000 Rec directed - 04/14 Vitamin D3 Super 0000 Hx Capsules 2000Unit 2 once Unknown Strength /0000 daily - 01/10 Vitamin B12 00/00 Hx 2500mg 1 daily Unknown /0000 - 01/10 Prednisone 00/00 Hx Tablets 10mg 30tab She can Mary /0000 s continue Mildred, - with 2 02/12 pills for /2016 another week and tape to 1 pill and stay for 2 weeks Bumetanide 00/00 Hx prn Unknown /0000 - 02/12 Cefuroxime Axetil 0000 Hx Tablets 500mg 1 by mouth Unknown /0000 twice a day for 10 days Medications Administered in Office Medication Date Status Form Strength Qnty SIG Indications Ordering Provider Inj, Administered Injection Ayo Acevedo Regadenoson, 017 Raymond Perez 0.1 MG Technetium TC Administered Injection Ayo Acevedo 99M 017 Raymond Perez Tetrofosmin, Per Unit Dose Up To 40 Millicuries Immunizations CPT Code Status Date Vaccine Lot # [id number] Given 01/07/2015 Influenza Virus 3Yrs & Over Vital Signs Date Vital Result Comment 08/11/2017 Height 62 inches 5'2" Weight 168.00 lb Heart Rate 76 /min BP Systolic Sitting 118 mmHg BP Diastolic Sitting 70 mmHg Respiratory Rate 14 /min O2 % BldC Oximetry 95 % BMI (Body Mass Index) 30.7 kg/m2 06/06/2017 Height 62 inches 5'2" Weight 168.38 lb Heart Rate 98 /min BP Systolic Sitting 136 mmHg Lue regular cuff BP Diastolic Sitting 76 mmHg Lue regular cuff Respiratory Rate 16 /min O2 % BldC Oximetry 95 % BMI (Body Mass Index) 30.8 kg/m2 05/06/2017 Height 62 inches 5'2" Weight 164.00 lb Heart Rate 102 /min BP Systolic Sitting 125 mmHg lue reg cuff BP Diastolic Sitting 60 mmHg lue reg cuff BP Systolic Standing 120 mmHg lue reg cuff BP Diastolic Standing 60 mmHg lue reg cuff Respiratory Rate 16 /min BMI (Body Mass Index) 30.0 kg/m2 Ejection Fraction 50-55% 01/03/2017 echo 05/02/2017 Height 62 inches 5'2" Weight 165.00 lb Heart Rate 78 /min BP Systolic Sitting 130 mmHg BP Diastolic Sitting 80 mmHg Respiratory Rate 18 /min Body Temperature 97.7 F BMI (Body Mass Index) 30.2 kg/m2 02/21/2017 Height 62 inches 5'2" Weight 167.00 lb w/ shoes Heart Rate 102 /min reg BP Systolic Sitting 100 mmHg Lue, lg cuff BP Diastolic Sitting 60 mmHg Lue, lg cuff Respiratory Rate 16 /min O2 % BldC Oximetry 97 % on Ra BMI (Body Mass Index) 30.5 kg/m2 01/10/2017 Height 62 inches 5'2" Weight 156.25 lb no shoes Heart Rate 114 /min BP Systolic Sitting 120 mmHg Rue reg cuff BP Diastolic Sitting 66 mmHg Rue reg cuff Respiratory Rate 22 /min O2 % BldC Oximetry 97 % On Ra BMI (Body Mass Index) 28.6 kg/m2 11/04/2016 Height 62 inches 5'2" Weight 161.00 lb Heart Rate 105 /min BP Systolic Sitting 118 mmHg BP Diastolic Sitting 66 mmHg Respiratory Rate 16 /min Pain Level 3 lower back and abdominal pain O2 % BldC Oximetry 95 % BMI (Body Mass Index) 29.4 kg/m2 09/21/2016 Height 62 inches 5'2" Weight 160.00 lb Heart Rate 104 /min BP Systolic Sitting 106 mmHg BP Diastolic Sitting 64 mmHg Respiratory Rate 14 /min O2 % BldC Oximetry 97 % BMI (Body Mass Index) 29.3 kg/m2 05/05/2016 Height 62 inches 5'2" Weight 164.00 lb with shoes Heart Rate 108 /min BP Systolic Sitting 122 mmHg Lue reg cuff BP Diastolic Sitting 74 mmHg Lue reg cuff BP Systolic Standing 115 mmHg Lue reg cuff BP Diastolic Standing 70 mmHg Lue reg cuff Respiratory Rate 16 /min BMI (Body Mass Index) 30.0 kg/m2 04/21/2016 Height 62 inches 5'2" Weight 162.00 lb no shoes Heart Rate 106 /min BP Systolic Sitting 122 mmHg Rue reg cuff BP Diastolic Sitting 76 mmHg Rue reg cuff BP Systolic Standing 120 mmHg Rue reg cuff BP Diastolic Standing 74 mmHg Rue reg cuff Respiratory Rate 15 /min BMI (Body Mass Index) 29.6 kg/m2 Ejection Fraction 50-55% 08/06/2015-echo 03/19/2016 Height 62 inches 5'2" Weight 165.00 lb Heart Rate 102 /min BP Systolic 118 mmHg BP Diastolic 76 mmHg Respiratory Rate 14 /min O2 % BldC Oximetry 95 % BMI (Body Mass Index) 30.2 kg/m2 08/21/2015 Height 62 inches 5'2" Weight 165.00 lb Heart Rate 97 /min BP Systolic 112 mmHg BP Diastolic 76 mmHg Respiratory Rate 14 /min O2 % BldC Oximetry 95 % BMI (Body Mass Index) 30.2 kg/m2 08/06/2015 Height 62 inches 5'2" Weight 167.12 lb Heart Rate 120 /min BP Systolic Sitting 112 mmHg BP Diastolic Sitting 70 mmHg Respiratory Rate 14 /min Body Temperature 97.7 F Pain Level 3 BMI (Body Mass Index) 30.6 kg/m2 07/11/2015 Height 62 inches 5'2" Weight 164.00 lb w/o shoes Heart Rate 120 /min reg BP Systolic Sitting 116 mmHg Rue reg cuff BP Diastolic Sitting 74 mmHg Rue reg cuff BP Systolic Standing 126 mmHg Rue BP Diastolic Standing 74 mmHg Rue Respiratory Rate 16 /min BMI (Body Mass Index) 30.0 kg/m2 Ejection Fraction > 65% as of 01/02/14 echo 07/09/2015 Height 62 inches 5'2" Weight 162.00 lb Heart Rate 120 /min BP Systolic Sitting 110 mmHg BP Diastolic Sitting 68 mmHg Respiratory Rate 14 /min Body Temperature 97.6 F Pain Level 4 BMI (Body Mass Index) 29.6 kg/m2 04/21/2015 Height 62 inches 5'2" Weight 163.25 lb Heart Rate 105 /min BP Systolic Sitting 122 mmHg BP Diastolic Sitting 78 mmHg Respiratory Rate 18 /min O2 % BldC Oximetry 96 % BMI (Body Mass Index) 29.9 kg/m2 02/17/2015 Height 62 inches 5'2" Weight 164.00 lb Heart Rate 112 /min BP Systolic 118 mmHg BP Diastolic 76 mmHg Respiratory Rate 14 /min O2 % BldC Oximetry 96 % BMI (Body Mass Index) 30.0 kg/m2 01/07/2015 Heart Rate 114 /min BP Systolic Sitting 134 mmHg BP Diastolic Sitting 74 mmHg Respiratory Rate 20 /min O2 % BldC Oximetry 94 % 12/03/2014 Heart Rate 106 /min BP Systolic Sitting 134 mmHg BP Diastolic Sitting 72 mmHg Respiratory Rate 18 /min O2 % BldC Oximetry 94 % 07/30/2014 Height 62 inches 5'2" Weight 170.00 lb Heart Rate 102 /min BP Systolic Sitting 132 mmHg BP Diastolic Sitting 62 mmHg Respiratory Rate 20 /min O2 % BldC Oximetry 95 % BMI (Body Mass Index) 31.1 kg/m2 07/11/2014 Height 62 inches 5'2" Weight 170.31 lb with shoes Heart Rate 108 /min BP Systolic Sitting 114 mmHg LA, Lg cuff BP Diastolic Sitting 68 mmHg LA, Lg cuff BP Systolic Standing 114 mmHg LA BP Diastolic Standing 66 mmHg LA Respiratory Rate 14 /min BMI (Body Mass Index) 31.1 kg/m2 Ejection Fraction >65% 01/02/2014 05/31/2014 Height 62 inches 5'2" Weight 176.12 lb Heart Rate 100 /min BP Systolic Sitting 116 mmHg BP Diastolic Sitting 74 mmHg Respiratory Rate 19 /min O2 % BldC Oximetry 96 % BMI (Body Mass Index) 32.2 kg/m2 Neck Circumference in inches 15 05/06/2014 Heart Rate 108 /min BP Systolic Sitting 132 mmHg BP Diastolic Sitting 64 mmHg Respiratory Rate 22 /min O2 % BldC Oximetry 94 % 03/25/2014 Heart Rate 122 /min BP Systolic Sitting 142 mmHg BP Diastolic Sitting 78 mmHg Respiratory Rate 22 /min O2 % BldC Oximetry 95 % 03/11/2014 Heart Rate 125 /min BP Systolic Sitting 152 mmHg BP Diastolic Sitting 84 mmHg Respiratory Rate 24 /min O2 % BldC Oximetry 95 % 02/28/2014 Height 62 inches 5'2" Weight 174.00 lb Heart Rate 110 /min BP Systolic Sitting 148 mmHg right arm, large cuff BP Diastolic Sitting 66 mmHg right arm, large cuff BP Systolic Standing 136 mmHg right arm, large cuff BP Diastolic Standing 66 mmHg right arm, large cuff Respiratory Rate 28 /min BMI (Body Mass Index) 31.8 kg/m2 01/25/2014 Height 62 inches 5'2" Weight 178.00 lb BP Systolic Sitting 138 mmHg BP Diastolic Sitting 68 mmHg Respiratory Rate 24 /min Body Temperature 99.1 F O2 % BldC Oximetry 97 % BMI (Body Mass Index) 32.6 kg/m2 01/21/2014 Height 62 inches 5'2" Weight 175.00 lb Heart Rate 110 /min BP Systolic Sitting 106 mmHg left arm, reg cuff BP Diastolic Sitting 62 mmHg left arm, reg cuff Respiratory Rate 26 /min Body Temperature 99.4 F O2 % BldC Oximetry 96 % Room air BMI (Body Mass Index) 32.0 kg/m2 12/27/2013 Height 62 inches 5'2" Weight 172.00 lb Heart Rate 118 /min BP Systolic Sitting 122 mmHg BP Diastolic Sitting 78 mmHg Respiratory Rate 18 /min Body Temperature 98.9 F O2 % BldC Oximetry 94 % BMI (Body Mass Index) 31.5 kg/m2 Neck Circumference in inches 15.5 06/29/2013 Height 62 inches 5'2" Weight 169.00 lb BP Systolic Sitting 100 mmHg L arm reg cuff BP Diastolic Sitting 62 mmHg L arm reg cuff BP Systolic Standing 108 mmHg BP Diastolic Standing 60 mmHg Respiratory Rate 18 /min BMI (Body Mass Index) 30.9 kg/m2 12/29/2012 Height 62 inches 5'2" Weight 170.00 lb Heart Rate 108 /min BP Systolic Sitting 134 mmHg Left arm, reg cuff BP Diastolic Sitting 82 mmHg Left arm, reg cuff BP Systolic Standing 128 mmHg BP Diastolic Standing 84 mmHg Respiratory Rate 16 /min BMI (Body Mass Index) 31.1 kg/m2 12/19/2008 Weight 155.00 lb Heart Rate 109 /min BP Systolic Sitting 130 mmHg BP Diastolic Sitting 82 mmHg Respiratory Rate 16 /min 01/23/2008 Height 62 inches 5'2" Weight 169.00 lb Heart Rate 104 /min BP Systolic Sitting 130 mmHg BP Diastolic Sitting 78 mmHg Respiratory Rate 16 /min BMI (Body Mass Index) 30.9 kg/m2 09/13/2007 Height 62 inches 5'2" Weight 175.00 lb Heart Rate 112 /min BP Systolic Sitting 140 mmHg L BP Diastolic Sitting 82 mmHg L BMI (Body Mass Index) 32.0 kg/m2 05/10/2007 Height 62 inches 5'2" Weight 173.00 lb Heart Rate 120 /min BP Systolic Sitting 174 mmHg L BP Diastolic Sitting 80 mmHg L BMI (Body Mass Index) 31.6 kg/m2 12/22/2006 Height 62 inches 5'2" Weight 192.00 lb Heart Rate 118 /min BP Systolic Sitting 124 mmHg BP Diastolic Sitting 70 mmHg BMI (Body Mass Index) 35.1 kg/m2 12/07/2006 Height 62 inches 5'2" Weight 168.50 lb Heart Rate 119 /min BP Systolic Sitting 138 mmHg home unit 120/79 BP Diastolic Sitting 84 mmHg home unit 120/79 BP Systolic Standing 140 mmHg BP Diastolic Standing 80 mmHg BMI (Body Mass Index) 30.8 kg/m2 11/17/2006 Height 62 inches 5'2" Weight 167.00 lb Heart Rate 110 /min BP Systolic Sitting 150 mmHg L BP Diastolic Sitting 94 mmHg L BP Systolic Standing 154 mmHg L BP Diastolic Standing 90 mmHg L BMI (Body Mass Index) 30.5 kg/m2 08/25/2006 Height 62 inches 5'2" Weight 162.00 lb Heart Rate 105 /min BP Systolic Sitting 130 mmHg L BP Diastolic Sitting 80 mmHg L BP Systolic Standing 140 mmHg L BP Diastolic Standing 80 mmHg L BMI (Body Mass Index) 29.6 kg/m2 06/23/2006 Height 62 inches 5'2" Weight 159.00 lb Heart Rate 105 /min BP Systolic Sitting 114 mmHg BP Diastolic Sitting 70 mmHg BP Systolic Standing 110 mmHg BP Diastolic Standing 70 mmHg BMI (Body Mass Index) 29.1 kg/m2 04/13/2006 Height 62 inches 5'2" Weight 164.00 lb Heart Rate 99 /min BP Systolic Sitting 124 mmHg BP Diastolic Sitting 84 mmHg BP Systolic Standing 130 mmHg BP Diastolic Standing 82 mmHg BMI (Body Mass Index) 30.0 kg/m2 03/28/2006 Height 62 inches 5'2" Weight 163.00 lb Heart Rate 102 /min BP Systolic Sitting 122 mmHg BP Diastolic Sitting 78 mmHg Respiratory Rate 16 /min BMI (Body Mass Index) 29.8 kg/m2 10/20/2005 Height 62 inches 5'2" Weight 165.00 lb Heart Rate 99 /min BP Systolic Sitting 124 mmHg BP Diastolic Sitting 86 mmHg BP Systolic Standing 120 mmHg BP Diastolic Standing 80 mmHg BMI (Body Mass Index) 30.2 kg/m2 05/04/2004 Height 62 inches 5'2" Weight 147.00 lb Heart Rate 112 /min BP Systolic Sitting 112 mmHg BP Diastolic Sitting 80 mmHg BP Systolic Standing 120 mmHg BP Diastolic Standing 80 mmHg BMI (Body Mass Index) 26.9 kg/m2 12/27/2002 Height 62 inches Weight 144.00 lb Heart Rate 102 /min BP Systolic Sitting 124 mmHg BP Diastolic Sitting 70 mmHg BP Systolic Standing 120 mmHg BP Diastolic Standing 78 mmHg BMI (Body Mass Index) 26.3 kg/m2 12/05/2002 Height 62 inches Weight 141.00 lb Heart Rate 108 /min BP Systolic Sitting 110 mmHg BP Diastolic Sitting 80 mmHg BP Systolic Standing 110 mmHg BP Diastolic Standing 80 mmHg BMI (Body Mass Index) 25.8 kg/m2 Results Test Date Test Result H/L Range Note Anca Panel For Vasculitis 07/09/2015 Myeloperoxidase AB <0.2 U 1 Proteinase 3 AB <0.2 U 2 Laboratory test finding 07/09/2015 Lyme Disease Serology Negative Negative 3 Rheumatoid Factor <15 IU/mL <15 4 Uric Acid 4.8 mg/dL 2.3-6.6 5 Creatine Kinase(CK) 138 U/L 10-223 6 TSH (Thyroid Stim Horm) 3.38 ?IU/mL 0.34-5.60 7 Vitamin B12 368 pg/mL 180-914 8 Vitamin D, 1,25 Dihydroxy 90 pg/mL 18-78 9 Hla B27 07/09/2015 Hla B27 Negative 10 Hla B27 Interp See Comment 11 Laboratory test finding 07/09/2015 Cyclic Citrullinated Pep Igg TNP 12 Erythrocyte Sed Rate 34 mm/Hr High 0-30 13 Connective Tissue Panel 07/09/2015 Anti-Nuclear Antibody 0.2 U 14 Cyclic Citrullinated Peptide <15.6 U 15 Interpretation See Comment 16 Celiac Panel 07/09/2015 Tissue Transglutaminase IgA Ab <1.2 U/mL 17 Immunoglobulin A 258 mg/dL 61 - 356 Celiac Interpretation See Comment 18 Laboratory test 07/09/2015 Angiotensin Converting 62 U/L 8 - 53 19 finding Enzyme Order 03/11/2014 6 Minute Walk no hypoxia noted Basic Metabolic Panel 03/08/2012 Sodium 140 mmol/L 133-145 Potassium 4.3 mmol/L 3.5-5.0 Chloride 103 mmol/L 101-111 Co2 Carbon Dioxide 29.0 mmol/L 22-32 Anion Gap 8.0 mmol/L 2-11 Glucose 91 mg/dL 70-100 Blood Urea Nitrogen 9 mg/dL 6-24 Creatinine 0.50 mg/dL 0.50-1.40 BUN/Creatinine Ratio 18.0 8-20 Calcium 9.2 mg/dL 8.1-9.9 Egfr Non- 125.9 >60 Egfr 161.9 >60 20 CBC Auto Diff 03/08/2012 White Blood Count 9.5 10^3/uL 4.8-10.8 Red Blood Count 4.58 10^6/uL 4.0-5.4 Hemoglobin 13.2 g/dL 12.0-16.0 Hematocrit 41 % 35-47 Mean Corpuscular Volume 89 fL 80-97 Mean Corpuscular Hemoglobin 29 pg 27-31 Mean Corpuscular HGB Conc 32 g/dL 31-36 Red Cell Distribution Width 14 % 10.5-15 Platelet Count 305 10^3/uL 150-450 Mean Platelet Volume 8 um3 7.4-10.4 Abs Neutrophils 5.4 10^3/uL 1.5-7.7 Abs Lymphocytes 3.1 10^3/uL 1.0-4.8 Abs Monocytes 0.9 10^3/uL High 0-0.8 Abs Eosinophils 0.1 10^3/uL 0-0.6 Abs Basophils 0 10^3/uL 0-0.2 Abs Nucleated RBC 0.01 10^3/uL Granulocyte % 56.6 % 38-83 Lymphocyte % 32.3 % 25-47 Monocyte % 9.5 % High 1-9 Eosinophil % 1.3 % 0-6 Basophil % 0.3 % 0-2 Nucleated Red Blood Cells % 0.1 Urine Culture & 05/23/2010 Urine Culture SN1 21, 22 Sensitivi Sensitivi MRSA/Vre Screen 05/22/2010 MRSA/Vre Culture [facility] 23 Rafal (Antinuclear 08/09/2009 Antinuclear AB NEGATIVE Negative Antibodies) Reviewed By (SEE NOTE) 24 Dianna: [employer] DIRECTOR & SM Antibodies 08/09/2009 [employer] RESOURCES DIRECTOR Antibody NEGATIVE Negative SM Antibody NEGATIVE Negative Laboratory test finding 08/09/2009 Anti Thrombin III Activity 106 % 80- 130 25 Homocysteine 5 umol/L () 26 Lyme Disease Serology Negative Negative 27 Urine Culture & 08/08/2009 Urine Culture BETA STREP GROUP 28 Sensitivi Sensitivi <SEE NOTE> Basic Metabolic Panel 05/26/2009 Sodium 140 mmol/L 135-145 Potassium 4.7 mmol/L 3.5-5.0 Chloride 102 mmol/L 101-111 Co2 (Carbon Dioxide) 28.0 mmol/L 22-32 Anion Gap 10.0 mmol/L 2-11 29 Glucose 118 mg/dL High 70-100 30 BUN 9 mg/dL 6-24 Creatinine 0.50 mg/dL 0.50-1.40 One Over Creatinine 2.00 BUN/Creatinine Ratio 18.0 8-20 Calcium 9.5 mg/dL 8.1-9.9 31 eGFR Non- 135.2 > 60 eGFR 163.5 > 60 32 Basic Metabolic Panel 04/18/2009 Sodium 136 mmol/L 135-145 Potassium 3.9 mmol/L 3.5-5.0 Chloride 99 mmol/L Low 101-111 Co2 (Carbon Dioxide) 29.0 mmol/L 22-32 Anion Gap 8.0 mmol/L 2-11 33 Glucose 81 mg/dL 70-100 34 BUN 10 mg/dL 6-24 Creatinine 0.60 mg/dL 0.50-1.40 One Over Creatinine 1.60 BUN/Creatinine Ratio 16.7 8-20 Calcium 9.4 mg/dL 8.1-9.9 35 eGFR Non- 109.5 > 60 eGFR 132.5 > 60 36 Comp Metabolic Panel 04/18/2009 Sodium 141 mmol/L 135-145 Potassium 4.2 mmol/L 3.5-5.0 Chloride 103 mmol/L 101-111 Co2 (Carbon Dioxide) 30.0 mmol/L 22-32 Anion Gap 8.0 mmol/L 2-11 37 Glucose 82 mg/dL 70-100 38 BUN 10 mg/dL 6-24 Creatinine 0.60 mg/dL 0.50-1.40 One Over Creatinine 1.60 BUN/Creatinine Ratio 16.7 8-20 Calcium 9.6 mg/dL 8.1-9.9 39 Total Protein 6.4 GM/DL 6.2-8.1 Albumin 3.9 GM/DL 3.6-5.4 Globulin 2.5 GM/DL 2-4 Albumin/Globulin Ratio 1.6 1-3 Bilirubin Total 0.6 mg/dL 0.4-1.5 40 Alkaline Phosphatase 70 U/L 30-110 Alt (SGPT) 21 U/L 14-54 Ast (Sgot) 24 U/L 12-42 eGFR Non- 109.5 > 60 eGFR 132.5 > 60 41 Laboratory test finding 04/18/2009 Carcino Embryonic Antigen 0.75 NG/ML 0 -5 42 CBC With Manual Diff 04/18/2009 White Blood Count 7.8 CUMM 4.8-10.8 Red Cell Count 4.40 CUMM 4.2-5.4 Hemoglobin 13.7 g/dL 12.0-16.0 Hematocrit 40 % 35-47 Mean Corpuscular Volume 90 um3 79-97 Mean Corpuscular Hemoglob 31 pg 27-31 Mean Corpuscular HGB Cone 35 g/dL 32-36 Redcell Distribution WDTH 13 % 10.5-15 Platelet Count 338 CUMM 150-450 Mean Platelet Volume 7.7 um3 7.4-10.4 Polysegmented Neutrophil 62 % 38-83 Band Neutrophil 1 % 0-8 Lymphocyte 25 % 25-47 Monocyte 7 % 0-13 Basophil 1 % 0-2 Atypical Lymph 4 % 0-6 Absolute Neutrophil Count 4.9 RBC Morphology NORMAL Lipid Profile (Trig/Chol/HDL) 01/15/2009 Triglyceride 97 mg/dL 40-200 Cholesterol 213 mg/dL High Less Than 200 43 High Density Lipoprotein 67 mg/dL High 40-60 44 Cholesterol/HDL Ratio 3.18 AVERAGE 1-4.44 Low Density Lipoprotein 127 mg/dL High Less Than 100 45 CBC With Electronic Diff 01/15/2009 White Blood Count 6.6 CUMM 4.8-10.8 Red Cell Count 4.41 CUMM 4.2-5.4 Hemoglobin 13.5 g/dL 12.0-16.0 Hematocrit 41 % 35-47 Mean Corpuscular Volume 92 um3 79-97 Mean Corpuscular Hemoglob 31 pg 27-31 Mean Corpuscular HGB Cone 33 g/dL 32-36 Redcell Distribution WDTH 13 % 10.5-15 Platelet Count 321 CUMM 150-450 Mean Platelet Volume 7.3 um3 Low 7.4-10.4 Gran % 49.2 % 38-83 Lymph % 37.8 % 20-45 Mononuclear % 11.4 % High 1-9 Eosinophil % 1.1 % 0-6 Basophil % 0.5 % 0-2 Abs Lymphs 2.5 1.0-4.8 Abs Mononuclear 0.8 0-0.8 Absolute Neutrophil Count 3.2 1.5-7.7 Abs Eosinophils 0.1 0-0.6 Abs Basophils 0 0-0.2 Laboratory test finding 01/15/2009 TSH 1.71 MIU/ML 0.34-5.60 Comp Metabolic Panel 01/15/2009 Sodium 138 mmol/L 135-145 Potassium 3.6 mmol/L 3.5-5.0 Chloride 102 mmol/L 101-111 Co2 (Carbon Dioxide) 30.0 mmol/L 22-32 Anion Gap 6.0 mmol/L 2-11 46 Glucose 77 mg/dL 70-100 47 BUN 7 mg/dL 6-24 Creatinine 0.50 mg/dL 0.50-1.40 One Over Creatinine 2.00 BUN/Creatinine Ratio 14.0 8-20 Calcium 9.0 mg/dL 8.1-9.9 48 Total Protein 6.2 GM/DL 6.2-8.1 Albumin 3.9 GM/DL 3.6-5.4 Globulin 2.3 GM/DL 2-4 Albumin/Globulin Ratio 1.7 1-3 Bilirubin Total 0.7 mg/dL 0.4-1.5 49 Alkaline Phosphatase 68 U/L 30-110 Alt (SGPT) 20 U/L 14-54 Ast (Sgot) 22 U/L 12-42 eGFR Non- 135.2 > 60 eGFR 163.5 > 60 50 Comp Metabolic Panel 05/25/2006 One Over Creatinine 1.66 51 Anion Gap 7.0 mmol/L 2-11 51, 52 Albumin/Globulin Ratio 1.5 1-3 51 Albumin 3.7 GM/DL 3.6-5.4 51 Alkaline Phosphatase 77 U/L 30-110 51 Alt (SGPT) 19 U/L 14-54 51 Ast (Sgot) 22 U/L 12-42 51 BUN 8 mg/dL 6-24 51 Calcium 9.1 mg/dL 8.7-10.2 51 Chloride 102 mmol/L 101-111 51 Co2 (Carbon Dioxide) 28.0 mmol/L 22-32 51 Globulin 2.5 GM/DL 2-4 51 Glucose 80 mg/dL 70-105 51 Potassium 4.1 mmol/L 3.5-5.0 51 Sodium 137 mmol/L 135-145 51 Bilirubin Total 0.6 mg/dL 0.4-1.5 51 Total Protein 6.2 GM/DL 6.2-8.1 51 BUN/Creatinine Ratio 13.3 8-20 51 Creatinine 0.6 mg/dL 0.5-1.4 51 Laboratory test finding 05/25/2006 BHCG Quantitative < 2.1 MIU/ML 0-5 51 , 53 CBC With Electronic Diff 05/25/2006 White Blood Count 7.9 CUMM 4.8-10.8 51 Abs Basophils 0 0-0.2 51 Abs Eosinophils 0.1 0-0.6 51 Absolute Neutrophil Count 4.4 1.5-7.7 51 Abs Lymphs 2.6 1.0-4.8 51 Abs Mononuclear 0.7 0-0.8 51 Basophil % 0.5 % 0-2 51 Hematocrit 36 % 35-47 51 Hemoglobin 12.2 g/dL 12.0-16.0 51 Eosinophil % 0.9 % 0-6 51 Gran % 56.3 % 38-83 51 Lymph % 32.9 % 20-45 51 Mean Corpuscular HGB Cone 34 g/dL 32-36 51 Mean Corpuscular Hemoglob 29 pg 27-31 51 Mean Corpuscular Volume 86 um3 79-97 51 Mean Platelet Volume 7.7 um3 7.4-10.4 51 Mononuclear % 9.4 % High 1-9 51 Platelet Count 392 CUMM 150-450 51 Red Cell Count 4.21 CUMM 4.2-5.4 51 Redcell Distribution WDTH 15 % 10.5-15 51 Protime 05/25/2006 Inr 2.05 51, 54 Protime 17.2 High 10.9-13.1 51 Protime 03/26/2006 Inr 5.48 55 Protime 28.1 High 10.9-13.1 56 Laboratory test finding 03/22/2006 Carcino Embryonic Antigen 0.5 NG/ML 0- 5 57 Comp Metabolic Panel 03/22/2006 One Over Creatinine 1.66 Anion Gap 12.0 mmol/L High 2-11 58 Albumin/Globulin Ratio 1.1 1-3 Albumin 3.5 GM/DL Low 3.6-5.4 Alkaline Phosphatase 89 U/L 30-110 Alt (SGPT) 34 U/L 14-54 Ast (Sgot) 33 U/L 12-42 BUN 8 mg/dL 6-24 Calcium 9.1 mg/dL 8.7-10.2 Chloride 97 mmol/L Low 101-111 Co2 (Carbon Dioxide) 28.0 mmol/L 22-32 Globulin 3.1 GM/DL 2-4 Glucose 104 mg/dL 70-105 Potassium 4.5 mmol/L 3.5-5.0 Sodium 137 mmol/L 135-145 Bilirubin Total 0.2 mg/dL Low 0.4-1.5 Total Protein 6.6 GM/DL 6.2-8.1 BUN/Creatinine Ratio 13.3 8-20 Creatinine 0.6 mg/dL 0.5-1.4 Protime 03/22/2006 Inr 3.36 59 Protime 22.0 High 10.9-13.1 CBC With Electronic Diff 03/22/2006 White Blood Count 8.7 CUMM 4.8-10.8 Abs Basophils 0 0-0.2 Abs Eosinophils 0.1 0-0.6 Absolute Neutrophil Count 6.0 1.5-7.7 Abs Lymphs 1.8 1.0-4.8 Abs Mononuclear 0.8 0-0.8 Basophil % 0.1 % 0-2 Hematocrit 37 % 35-47 Hemoglobin 12.2 g/dL 12.0-16.0 Eosinophil % 0.9 % 0-6 Gran % 68.8 % 38-83 Lymph % 21.1 % 20-45 Mean Corpuscular HGB Cone 33 g/dL 32-36 Mean Corpuscular Hemoglob 29 pg 27-31 Mean Corpuscular Volume 89 um3 79-97 Mean Platelet Volume 7.6 um3 7.4-10.4 Mononuclear % 9.1 % High 1-9 Platelet Count 416 CUMM 150-450 Red Cell Count 4.18 CUMM Low 4.2-5.4 Redcell Distribution WDTH 13 % 10.5-15 1 REFERENCE VALUE <0.4 (Negative) 2 REFERENCE VALUE <0.4 (Negative) Test Performed by: [place] [address] [employer]: Vitor Ferrera II, M.D., Ph.D. 3 Serologic response to B. burgdorferi infection is not detected, but cannot rule out early infection during which low or undetectable antibody levels to B. burgdorferi may be present. If clinically indicated, a new serum specimen should be submitted in 7-14 days. Test Performed by: [place] [address] [employer]: Vitor Ferrera II, M.D., Ph.D. 4 Test Performed by: [place] [address] [employer]: Vitor Ferrera II, M.D., Ph.D. 5 Please check labs this week 6 Please check labs this week 7 Please check labs this week 8 Normal Range 180 to 914 Indeterminate Range 145 to 180 Deficient Range <145 9 Test Performed by: [place] [address] [employer]: Vitor Ferrera II, M.D., Ph.D. 10 REFERENCE VALUE Not Applicable 11 RESULT: HLA-B27 antigen was not detected. ADDITIONAL INFORMATION Method: Flow Cytometry Performing Laboratory CLIA# [id number] Test Performed by: [place] [address] [employer]: Vitor Ferrera II, M.D., Ph.D. 12 Cancelled due to duplicate test on this order Test Performed by: [address] [place] [address] [employer]: Viotr Ferrera II, M.D., Ph.D. 13 Please check labs this week 14 REFERENCE VALUE <=1.0 (Negative) 15 REFERENCE VALUE <20.0 (Negative) 16 Tests for antibodies to dsDNA and DIANNA antigens are not performed automatically unless the RAFAL result is > or= 3.0 U. Studies performed at [facility] indicate that positive RAFAL results <3.0 U are rarely accompanied by positive second order tests. Test Performed by: [place] [address] [employer]: Vitor Ferrera II, M.D., Ph.D. 17 REFERENCE VALUE <4.0 (Negative) Test Performed by: [place] [address] [employer]: Vitor Ferrera II, M.D., Ph.D. 18 Negative serology. Celiac disease unlikely. However, approximately 10% of patients with celiac disease are seronegative. Also, patients who are already adhering to a gluten-free diet may be seronegative. If celiac disease is highly clinically suspected, consider HLA-DQ typing. Test Performed by: [place] [address] [employer]: Vitor Ferrera II, M.D., Ph.D. 19 Test Performed by: [place] [address] [employer]: Vitor Ferrera II, M.D., Ph.D. 20 Because ethnic data is not always readily available, this report includes an eGFR for both -Americans and non- Americans. The National Kidney Disease Education Program (NKDEP) does not endorse the use of the MDRD equation for patients that are not between the ages of 18 and 70, are , have extremes of body size, muscle mass, or nutritional status, or are non- or non-. According to the National Kidney Foundation, irrespective of diagnosis, the stage of the disease is based on the level of kidney function: Stage Description GFR(mL/min/1.73 m(2)) 1 Kidney damage with normal or decreased GFR 90 2 Kidney damage with mild decrease in GFR 60-89 3 Moderate decrease in GFR 30-59 4 Severe decrease in GFR 15-29 5 Kidney failure <15 (or dialysis) 21 SPECIMEN DESCRIPTION: URINE, CLEAN CATCH 22 SCANT NORMAL URETHRAL OR PERINEAL HILTON 23 NO MRSA ISOLATED 24 REVIEWED BY PONCHO HERNANDEZ MD 25 Test Performed by: [facility] Dpt of Lab Med and Pathology [address] [place] [address] [employer]: Tyrel Mendoza III, M.D. 26 -- REFERENCE VALUE -- <=13 (Fasting) Test Performed by: [facility] Dpt of Lab Med and Pathology [address] [place] [address] [employer]: Tyrel Mendoza III, M.D. 27 Test Performed by: [facility] Dpt of Lab Med and Pathology [address] [place] [address] [employer]: Tyrel Mendoza III, M.D. 28 BETA STREP GROUP B 10^1-10,000 ORGANISMS/ML (FEW)^CCU NORMAL HILTON 25^10-25,000 ORGANISMS/ML (MODERATE)^CCU 29 Anion gap measurement may be of limited value in the presence of any alkalosis, especially in a combined acid base disorder. . 30 Note change in reference range as of 10/05/07. The change was based on recommendations from the [place] [employer]. 31 Please note change in reference range effective 07 . 32 Because ethnic data is not always readily available, this report includes an eGFR for both -Americans and non- Americans. The National Kidney Disease Education Program (NKDEP) does not endorse the use of the MDRD equation for patients that are not between the ages of 18 and 70, are , have extremes of body size, muscle mass, or nutritional status, or are non- or non-. According to the National Kidney Foundation, irrespective of diagnosis, the stage of the disease is based on the level of kidney function: Stage Description GFR(mL/min/1.73 m(2)) 1 Kidney damage with normal or decreased GFR 90 2 Kidney damage with mild decrease in GFR 60-89 3 Moderate decrease in GFR 30-59 4 Severe decrease in GFR 15-29 5 Kidney failure <15 (or dialysis) 33 Anion gap measurement may be of limited value in the presence of any alkalosis, especially in a combined acid base disorder. . 34 Note change in reference range as of 10/05/07. The change was based on recommendations from the [place] [employer]. 35 Please note change in reference range effective 07 . 36 Because ethnic data is not always readily available, this report includes an eGFR for both -Americans and non- Americans. The National Kidney Disease Education Program (NKDEP) does not endorse the use of the MDRD equation for patients that are not between the ages of 18 and 70, are , have extremes of body size, muscle mass, or nutritional status, or are non- or non-. According to the National Kidney Foundation, irrespective of diagnosis, the stage of the disease is based on the level of kidney function: Stage Description GFR(mL/min/1.73 m(2)) 1 Kidney damage with normal or decreased GFR 90 2 Kidney damage with mild decrease in GFR 60-89 3 Moderate decrease in GFR 30-59 4 Severe decrease in GFR 15-29 5 Kidney failure <15 (or dialysis) 37 Anion gap measurement may be of limited value in the presence of any alkalosis, especially in a combined acid base disorder. . 38 Note change in reference range as of 10/05/07. The change was based on recommendations from the [place] [employer]. 39 Please note change in reference range effective 07 . 40 A metabolite of Naproxen, O-desmethylnaproxen, has been shown to interfere with the Jendrassik-Storm method for measuring total bilirubin. Samples from patients who have taken Naproxen have shown spurious elevation in total bilirubin levels. 41 Because ethnic data is not always readily available, this report includes an eGFR for both -Americans and non- Americans. The National Kidney Disease Education Program (NKDEP) does not endorse the use of the MDRD equation for patients that are not between the ages of 18 and 70, are , have extremes of body size, muscle mass, or nutritional status, or are non- or non-. According to the National Kidney Foundation, irrespective of diagnosis, the stage of the disease is based on the level of kidney function: Stage Description GFR(mL/min/1.73 m(2)) 1 Kidney damage with normal or decreased GFR 90 2 Kidney damage with mild decrease in GFR 60-89 3 Moderate decrease in GFR 30-59 4 Severe decrease in GFR 15-29 5 Kidney failure <15 (or dialysis) 42 SMOKING MAY INCREASE VALUES SERUM LEVELS OF CEA MEASURED USING THE [employer] ACCESS IMMUNOASSAY SYSTEM SHOULD NOT BE INTERPRETED ABSOLUTE EVIDENCE OF THE PRESENCE OR ABSENCE OF DISEASE. THE CEA VALUE SHOULD BE USED IN CONJUNCTION WITH OTHER PERTINENT CLINICAL DIAGNOSTIC PROCEDURES. 43 CHOLESTEROL INTERPRETATION: Desirable: Less than 200 MG/DL Borderline-High Risk: 200-239 MG/DL High-Risk: 240 MG/DL and over 44 HDL INTERPRETATION: Undesirable: High Risk: Less than 40 MG/DL Desirable: Low Risk: Greater than 60 MG/DL 45 LDL INTERPRETATION: Low Risk Optimal Level: LDL Less than 100 MG/DL Near or Above Optimal: LDL 100-129 MG/DL Borderline High Risk: LDL 130-159 MG/DL High Risk: LDL 160-189 MG/DL Very High Risk: LDL Greater than 189 MG/DL 46 Anion gap measurement may be of limited value in the presence of any alkalosis, especially in a combined acid base disorder. . 47 Note change in reference range as of 10/05/07. The change was based on recommendations from the [place] [employer]. 48 Please note change in reference range effective 07 . 49 A metabolite of Naproxen, O-desmethylnaproxen, has been shown to interfere with the Jendrassik-Storm method for measuring total bilirubin. Samples from patients who have taken Naproxen have shown spurious elevation in total bilirubin levels. 50 Because ethnic data is not always readily available, this report includes an eGFR for both -Americans and non- Americans. The National Kidney Disease Education Program (NKDEP) does not endorse the use of the MDRD equation for patients that are not between the ages of 18 and 70, are , have extremes of body size, muscle mass, or nutritional status, or are non- or non-. According to the National Kidney Foundation, irrespective of diagnosis, the stage of the disease is based on the level of kidney function: Stage Description GFR(mL/min/1.73 m(2)) 1 Kidney damage with normal or decreased GFR 90 2 Kidney damage with mild decrease in GFR 60-89 3 Moderate decrease in GFR 30-59 4 Severe decrease in GFR 15-29 5 Kidney failure <15 (or dialysis) 51 FAX RESULTS TO [facility] AT FAX NUMBER [phone] 52 Anion gap measurement may be of limited value in the presence of any alkalosis, especially in a combined acid base disorder. . 53 * MALES: < 5.0 MIU/ML NON FEMALES < 5.0 MIU/ML APPROX GESTATIONAL AGE APPROX HCG RANGE 0-1 WEEK < 5.0-50 1-2 WEEKS 50-500 2-3 WEEKS 100-5000 3-4 WEEKS 500-10,000 1-2 MONTHS 10,000-200,000 2-3 MONTHS 15,000-100,000 PLEASE NOTE: The intended use of this assay is the quantitative determination of HCG in human serum or plasma for the early detection of . These assays should not be used to diagnose any condition unrelated to . If an HCG level is inconsistent with, or unsupported by, clinical evidence, results should be confirmed by an alternate HCG method. . 54 AARON VALUE=2.00 ( OF 11/30/05) Recommended INR for Patients on Oral Anticoagulants Prophylaxis 2.0 - 3.0 Treatment of thrombosis 2.0 - 3.0 Prevention of embolism 2.0 - 3.0 Prevention of embolism from prosthetic heart valves 2.5 - 3.5 55 AARON VALUE=2.00 ( OF 11/30/05) Recommended INR for Patients on Oral Anticoagulants Prophylaxis 2.0 - 3.0 Treatment of thrombosis 2.0 - 3.0 Prevention of embolism 2.0 - 3.0 Prevention of embolism from prosthetic heart valves 2.5 - 3.5 56 RESULTS VERIFIED BY REPEAT ANALYSIS ON THE SAME SAMPLE. 57 SMOKING MAY INCREASE VALUES SERUM LEVELS OF CEA MEASURED USING THE [employer] ACCESS IMMUNOASSAY SYSTEM SHOULD NOT BE INTERPRETED ABSOLUTE EVIDENCE OF THE PRESENCE OR ABSENCE OF DISEASE. THE CEA VALUE SHOULD BE USED IN CONJUNCTION WITH OTHER PERTINENT CLINICAL DIAGNOSTIC PROCEDURES. 58 Anion gap measurement may be of limited value in the presence of any alkalosis, especially in a combined acid base disorder. . 59 AARON VALUE=2.00 ( OF 11/30/05) Recommended INR for Patients on Oral Anticoagulants Prophylaxis 2.0 - 3.0 Treatment of thrombosis 2.0 - 3.0 Prevention of embolism 2.0 - 3.0 Prevention of embolism from prosthetic heart valves 2.5 - 3.5 Procedures Date CPT Code Description Status 05/06/2017 00331 EKG Tracing & Interpretation Completed 05/02/2017 92377 Anoscopy Completed 01/03/2017 12364 ECHO Transthorasic Realtime 2D W Doppler & Color Flow Completed Hosp 09/23/2016 67353 Diffusing Capacity Completed 09/23/2016 21614 Plethysmography Determination Lung Volumes & Per Airway Completed Resist 09/23/2016 29094 Pulmonary Function><Bronchodil Completed 04/23/2016 12647 Stress Test Completed 04/23/2016 35025 Myocardial Perfusion Imaging Tomographic (Spect) Completed Multiple Studies 04/21/2016 99426 EKG Tracing & Interpretation Completed 08/05/2015 11650 ECHO Transthoracic, Real-Time 2D With Doppler And Color Completed Flow 08/05/2015 68171 ECHO Transthoracic, Real-Time 2D With Doppler And Color Completed Flow 07/11/2015 08427 EKG Tracing & Interpretation Completed 04/09/2015 53233 Diffusing Capacity Completed 04/09/2015 50926 Plethysmography Determination Lung Volumes & Per Airway Completed Resist 04/09/2015 55698 Pulmonary Function><Bronchodil Completed 03/11/2014 35393 Pulmonary Stress Test Simple Completed 02/28/2014 83891 EKG Tracing & Interpretation Completed 01/22/2014 56275 Polysomnography Sleep Staging 4+ Parameters W/Cpap Completed 01/04/2014 74767 Plethysmography Determination Lung Volumes & Per Airway Completed Resist 01/04/2014 88385 Pulmonary Function><Bronchodil Completed 01/02/2014 28974 ECHO Transthorasic Realtime 2D W Doppler & Color Flow Completed Hosp 12/31/2013 43333 Polysomnography Sleep Staging 4+ Parameters Completed 06/29/2013 99776 EKG Tracing & Interpretation Completed 06/21/2013 42903 ECHO Transthoracic, Real-Time 2D With Doppler And Color Completed Flow 04/26/2012 69108 EKG Tracing & Interpretation Completed 01/03/2012 06634 Cardiac Event Monitor Completed 08/08/2009 55690 ECHO Transthorasic Realtime 2D W Doppler & Color Flow Completed Hosp 01/08/2009 19506 ECHO Transthoracic, Real-Time 2D With Doppler And Color Completed Flow 12/19/2008 89014 EKG Tracing & Interpretation Completed 01/23/2008 47383 EKG Tracing & Interpretation Completed 09/13/2007 39191 EKG Tracing & Interpretation Completed 05/10/2007 97966 EKG Tracing & Interpretation Completed 12/22/2006 64184 EKG Tracing & Interpretation Completed 11/17/2006 18674 EKG Tracing & Interpretation Completed 08/25/2006 43704 EKG Tracing & Interpretation Completed 06/23/2006 34342 EKG Tracing & Interpretation Completed 05/24/2006 46685 ECHO/Stress Completed 05/24/2006 90451 ECHO/Stress Completed 05/24/2006 13356 Stress Test Completed 05/22/2006 51895 EKG, Interpretation Only Completed 04/13/2006 15632 EKG Tracing & Interpretation Completed 03/28/2006 12167 EKG Tracing & Interpretation Completed 03/28/2006 20178 EKG Tracing & Interpretation Completed 03/20/2006 10545 EKG, Interpretation Only Completed 03/19/2006 09176 EKG, Interpretation Only Completed 03/18/2006 63407 Cardioversion Completed 03/18/2006 60214 Cardioversion Completed 03/18/2006 60393 Echocardiography, Transesophageal, Real Time W/Image 2D Completed W/W/O M-M 03/18/2006 32969 Echocardiography, Transesophageal, Real Time W/Image 2D Completed W/W/O M-M 03/18/2006 93555 Pulse Wave/Continuous-Interp.RPT Completed 03/18/2006 64833 Color Flow Doppler/Interp & Reprt Completed 03/18/2006 49436 Color Flow Doppler/Interp & Reprt Completed 03/17/2006 87669 EKG, Interpretation Only Completed 03/17/2006 25346 EKG, Interpretation Only Completed 03/16/2006 54663 Echocardiogram, Limited Study Completed 03/16/2006 29480 EKG, Interpretation Only Completed 03/16/2006 46734 EKG, Interpretation Only Completed 03/15/2006 13222 EKG, Interpretation Only Completed 03/15/2006 55148 EKG, Interpretation Only Completed 03/15/2006 17601 Echocardiogram Completed 03/15/2006 66274 Echocardiogram Completed 03/15/2006 74282 Pulse Wave/Continuous-Interp.RPT Completed 03/15/2006 72397 Color Flow Doppler/Interp & Reprt Completed 03/15/2006 48549 Color Flow Doppler/Interp & Reprt Completed 03/14/2006 38397 EKG, Interpretation Only Completed 03/14/2006 92736 EKG, Interpretation Only Completed 10/28/2005 20241 Color Doppler Completed 10/28/2005 98922 Pulse Doppler & Continuous Wave Completed 10/28/2005 99047 Pulse Doppler & Continuous Wave Completed 10/28/2005 00875 Echocardiogram Completed 10/20/2005 46058 EKG Tracing & Interpretation Completed 05/07/2004 34892 Color Doppler Completed 05/07/2004 91393 Pulse Doppler & Continuous Wave Completed 05/07/2004 94199 Echocardiogram Completed 05/04/2004 95227 EKG Tracing & Interpretation Completed 07/03/2003 67810 EKG, Interpretation Only Completed 12/13/2002 20831 Color Doppler Completed 12/13/2002 36234 Pulse Doppler & Continuous Wave Completed 12/13/2002 71580 Echocardiogram Completed 12/13/2002 26018 Intro. Needle Or Intracath.,Vein Completed 12/05/2002 70330 EKG Tracing & Interpretation Completed Encounters Type Date Location Provider CPT E/M Dx Office Visit 08/11/2017 [place] [address] J45.901 1:30p [facility] G47.33 J98.4 E66.09 Office Visit 06/06/2017 11:00a [facility] Beverley Jauregui 21987 J45.909 [facility] R06.02 G47.33 Office Visit 05/06/2017 8:30a [facility], 57126 R00.0 Hugo Andrade R06.02 I10 Office Visit 05/02/2017 9:45a [place], [address] C44.520 Of [facility] FACS N81.6 Office Visit 02/21/2017 11:45a [facility] [place] [address] J45.909 [facility] G47.33 J98.4 Office Visit 01/10/2017 9:30a [facility] [address] J98.4 Services Of [facility] J45.909 G47.33 Office Visit 01/04/2017 7:59a [facility], Dale Do M.D. 96124 I50.9 Hospitalists J45.901 G47.33 Office Visit 01/03/2017 9[facility] [place] [address] I50.9 Hospitalists G47.33 J45.901 R00.0 Office Visit 01/02/2017 9:19a [facility], [place] [address] I50.9 Hospitalists G47.33 J45.901 Office Visit 01/01/2017 9:14a [facility] 38325 J45.901 Assoc, Hospitalists N.P. J20.9 G47.33 F41.9 Office Visit 11/04/2016 9:30a [facility] [place] [address] J45.909 Services Of [facility] J98.4 G47.33 Office Visit 09/21/2016 10:45a [facility] [place] [address] J45.909 Services Of [facility] G47.33 J98.4 Office Visit 05/05/2016 11:45a [facility] Ayo Perez 37777 R06.02 Hugo Andrade R00.0 I10 Office Visit 04/21/2016 10:15a [facility] Lissa Perez 92439 R00.0 Hugo Andrade R06.02 I10 Office Visit 03/19/2016 10:00a [facility] [place] [address] J45.909 Services Of [facility] G47.33 J98.4 Office Visit 08/21/2015 9:15a [facility] [place] [address] G47.33 Services Of [facility] J45.909 J98.4 Office Visit 08/06/2015 10:20a [facility] Services Of Jesus Keys, 81435 M06.4 Hugo Andrade M72.2 R76.0 Office Visit 07/11/2015 9:15a [facility] Curtis Perez, 65364 R06.02 Hugo Andrade R00.0 Office Visit 07/09/2015 11:00a Rheumatology Services Of Jesus Keys, 39171 M06.4 Hugo Andrade R20.8 M79.1 L13.0 Office Visit 04/21/2015 3:30p [facility] [place] [address] J45.40 Services Of [facility] G47.33 E66.09 Office Visit 02/17/2015 11:30a [facility] [place] [address] J45.40 Services Of [facility] G47.33 E66.09 Office Visit 01/07/2015 11:15a [facility] [place] [address] G47.33 Services Of [facility] J45.40 R06.00 Office Visit 12/03/2014 11:00a [facility] Jae Musa M.D. 72091 G47.33 Services Of [facility] J45.909 Office Visit 07/30/2014 10:15a [facility] Jae Musa M.D. 97077 493.90 Services Of [facility] 327.23 Office Visit 07/11/2014 11:15a [facility] Ayo Perez, 00285 785.0 Hugo Andrade 786.05 Office Visit 05/31/2014 11:30a [facility] Jae Musa M.D. 86892 493.90 Services Of [facility] 327.23 Office Visit 05/06/2014 10:30a [facility] Jae Musa M.D. 98984 493.90 Services Of [facility] 327.23 Office Visit 03/25/2014 10:00a [facility] Jae Musa M.D. 89281 493.90 Services Of [facility] 327.23 Office Visit 03/11/2014 1:30p [facility] Jae Musa M.D. 97463 493.90 Services Of [facility] 327.23 Office Visit 02/28/2014 10:00a [facility] Of Ayotruong Perez, 94864 785.0 Hugo Foreman.Curtis 401.9 794.31 Office Visit 01/25/2014 11:15a [facility] Jae Musa M.D. 77409 493.90 Services Of [facility] 327.23 Office Visit 01/21/2014 2:30p [facility] Jae Musa M.D. 38882 493.90 Services Of [facility] 327.23 Office Visit 01/07/2014 9:38a [facility], Tierney Desai, 53955 785.0 Hospitalists MJohn 493.90 401.9 311 Office Visit 01/06/2014 9:37a [facility], Tierney Desai, 16644 785.0 Hospitalists Raymond 493.90 401.9 311 Office Visit 01/05/2014 3:39p [facility] Jae Musa M.D. 30184 493.11 Services Of [facility] 786.05 Office Visit 01/05/2014 9:37a [facility], Brigette Whitlock, 39191 493.90 Hospitalists D.O. 038.9 401.9 311 Office Visit 01/04/2014 3:36p [facility] Jae Musa M.D. 24412 493.11 Services Of [facility] 786.05 Office Visit 01/04/2014 9:36a [facility], Brigette Whitlock 07399 493.90 Hospitalists D.O. 038.9 401.9 311 Office Visit 01/03/2014 9:36a [facility],pc Susanna Andrew N.PRene 00957 493.90 Hospitalists 038.9 401.9 311 Office Visit 01/03/2014 3:31p [facility] Jae Musa M.D. 10086 493.11 Services Of [facility] 786.05 Office Visit 01/02/2014 2:38p [facility] Jae Musa M.D. 80921 786.05 Services Of [facility] 493.11 Office Visit 01/02/2014 9:35a [facility] Khoa Meeks 00796 493.90 Assoc, Hospitalists N.P. 038.9 401.9 311 Office Visit 12/27/2013 10:00a [facility] Denzel SK. Louise, 89085 780.53 Services Of [facility] M.D. Office Visit 06/29/2013 3:45p [facility] ShimonRene Perez, 54724 427.0 [facility] M.D. 300.00 Office Visit 12/29/2012 2:00p [facility] ShimonRene Perez, 81622 427.32 [facility] M.D. 427.0 Office Visit 06/28/2012 9:30a [facility] 17619 427.32 [facility] M.D. Office Visit 04/26/2012 2:30p [facility] ShimonRene Perez, 87782 427.0 [facility] M.D. 401.9 Office Visit 01/03/2012 3:15p [facility] Curtis Perez, 38763 427.32 [facility] AT [facility] M.D. Office Visit 08/09/2009 1:15a [facility], Maribel Kang, 19221 784.0 Hospitalists M.D. Office Visit 08/08/2009 1:00a [facility] Assoc, Maribel Kang, 10932 785.1 Hospitalists M.D. 786.05 Office Visit 08/08/2009 12:15a [facility], Mari Muhammad, 13074 785.1 Hospitalists M.DRene 434.91 786.05 Office Visit 12/19/2008 3:20p [facility] Shabbir Figueroa M.D. 02196 401.1 427.81 785.0 424.0 Office Visit 01/23/2008 3:00p [facility] Shabbir Figueroa M.D. 81367 401.1 427.32 427.81 Office Visit 09/13/2007 8:15a [facility] Shabbir Figueroa M.D. 87650 401.1 427.32 427.81 Office Visit 05/10/2007 3:40p [facility] Shabbir Fgiueroa 88563 427.32 MReneDRene 401.0 785.0 Office Visit 12/22/2006 2:40p [facility] Shabbir Figueroa, 01045 427.32 M.D. 401.1 427.81 424.0 Office Visit 12/07/2006 3:40p [facility] Shabbir Figueroa M.D. 38943 401.1 427.32 427.81 Office Visit 11/17/2006 3:00p [facility] Shabbir Figueroa, 46937 427.32 M.D. 427.81 794.31 401.0 Office Visit 08/25/2006 3:00p [facility] Shabbir Figueroa, 04375 427.32 M.D. 427.81 Office Visit 06/23/2006 2:20p [facility] Shabbir Figueroa, 63099 427.32 M.D. 424.0 Office Visit 04/13/2006 10:40a [facility] Shabbir Figueroa, 57149 427.32 M.D. Office Visit 03/28/2006 10:00a [facility] Shabbir Figueroa, 13422 427.32 M.D. Office Visit 10/20/2005 10:40a [facility] Shabbir Figueroa, 63434 427.0 M.D. 278.01 785.2 Office Visit 05/04/2004 3:00p [facility] Shabbir Figueroa, 06795 427.61 M.D. 785.2 Office Visit 12/05/2002 10:40a [facility] Shabbir Fgiueroa M.D. 01926 785.0 murmur 493.90 780.57 Plan of Care Future Appointment(s):10/11/2017 9:15 am - Mary Levy MD at [facility]08/11/2017 - Mary Levy MDJ45.901 Unspecified asthma with (acute) exacerbationNew Medication:Prednisone 10 mg (21)Zithromax 500 mgFollow up:2 lurzbuZ94.33 Obstructive sleep apnea (adult) (pediatric)J98.4 Other disorders of lungE66.09 Other obesity due to excess calories
--- NOTE | 2017-09-04 06:37 | ED ---
Syncope/Near Syncope - HPI Summary HPI Summary: Patient presents with syncope sometime between 1:30 and 4:30 AM today. She reports she went out to the kitchen at 1:30 AM because she was feeling restless in bed (this is normal for her). She also admits to some nausea and generalized "uneasiness" and thought a snack might help. She reports she ate some chicken soup and crackers which she tolerated well but did not improve her nausea. Next thing she recalls, she was on the floor and her dog was licking blood from her face/the floor. She also recognized she had urinated herself. She is unsure how long she was in this position and unsure of how she got here. She reports she was eventually able to get up, although dizzy at first, and alert her partner to the best of her ability as to what had happened. They then came here. Currently, she has a laceration to her lower lip that is intermittently bleeding. She reports her chin, jaw and teeth feel "numb". Additionally, she reports her vision is not as good as it usually is since the fall but denies new headache. She reports she has had a headache at the base of her neck up to the top of her head since fall. Not sure if this is worse today or not. She denies new neck pain but reports some stiffness. She also has confusion about how to lower her jaw when asked to show me her throat but she is able to execute this task. Reports over the past week and especially the past couple of days she's been feeling increasingly fatigued and a generalized "heaviness" where she feels she is exhausted but just keeps pushing through although she realizes she should probably be resting. Reports she was at an outdoor event in [place] the other day and got sunburned but felt it was cool out and that she could pass out at any minute while she was walking around there (she did not). This "heaviness" is accompanied by intermittent chest palpitations and shortness of breath. She denies fever, chills, chest pain, abdominal pain, extremityswelling and/or pain/numbness/tingling/focal weakness. She admits she fell a couple days ago at her friend's house by accidentally tripping over a fan. She's not sure but she thinks she may have hit her head - no LOC. Also admits to recent pneumonia which was diagnosed by Dr. Levy. She did not have a chest x-ray as she's had multiple rounds of radiation for lymphoma in the past but rather was treated with Zithromax and prednisone for presumptive pneumonia "both sides" per patient). Additionally she has a history of obstructive lung disease due to her radiation. She uses per spiriva, Ventolin HFA and Symbicort daily. She did use a DuoNeb during the time of her pneumonia but has not felt the need to use this since. She completed her course of Zithromax and felt that her energy and congestion improved. She does report however she let it go for a while prior to being seen because she was too busy to seek medical attention (i.e. had summer plans with her partner, etc.). States Dr. Levy told her she was pretty sick and wanted her to go into the hospital however patient declined so they agreed to treat with Zithromax and prednisone. Patient is back to her maintenance dose of 2.5 mg of prednisone daily. In re: to current respiratory sx, she had some upper resp sx yesterday after [place] (sneezing, rhinorrhea, etc) that are typical allergy sx she gets when she's in that environment. These sx im[roved w/ a shower when she got home. Denies current nasal congestion, sinus pain/pressure, otalgia, ST. Furthermore, patient has a history of intermittent atrial fibrillation. She's had 2 ablations for this in the past and follows with Dr. Perez. Currently she takes verapamil only. No anticoagulants nor does she take an ASA daily. She's been on a beta gamaliel in the past as her heart rate typically runs in the 110' s however she did not tolerate this medication well and so she takes verapamil only at this point in time. She reports she feels that her episode of syncope this morning may have had to do with cardiac issues as she's persistently felt palpitations in her chest this past week and maybe more so prior to the event this morning. Admits her intermittent A. fib is triggered by stress, fatigue and illness. She describes all 3 of these as plaguing her over the past week. In regards to her hydration, she reports she's been drinking lots of water and does not feel she's dehydrated. Her bowels have been alternating constipation with diarrhea even since the Zithromax. Formed stool this morning. She has a history of IBS as well as colorectal cancer. 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 She was following with Dr. Mcrae however after a period of monitoring, she has been discharged. Finally, reports she was bitten by her partner's dog in the Lt foot last week. Area has healed but it was bruised and had a small break in the skin. She reports dog is UTD on imms and there was never concern for infection. She is unsure of her last tetanus vaccine. 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 - Allergies/Home Medications Allergies/Adverse Reactions: Allergies Allergy/AdvReac Type Severity Reaction Status Date / Time aripiprazole [From Abilify] Allergy Unknown Verified 09/04/17 05:47 Reaction Details Beta-Adrenergic Agents Allergy Fatigue Verified 09/05/17 12:53 bupropion [From Wellbutrin] Allergy Unknown Verified 09/04/17 05:47 Reaction Details diphenhydramine Allergy Unknown Verified 09/04/17 05:47 Reaction Details levalbuterol [From Xopenex] Allergy Wheezing Verified 09/04/17 05:47 metoprolol [From Toprol XL] Allergy Anaphylatic Verified 09/04/17 05:47 Shock mirtazapine [From Remeron] Allergy Altered Verified 09/04/17 05:47 Mental Status montelukast [From Singulair] Allergy Anaphylatic Verified 09/04/17 05:47 Shock morphine Allergy Anaphylatic Verified 09/04/17 05:47 Shock Sulfa (Sulfonamide Allergy Rash Verified 09/04/17 05:47 Antibiotics) venlafaxine [From Effexor] Allergy Altered Verified 09/04/17 05:47 Mental Status scallops AdvReac Stomach Verified 09/05/17 12:54 Cramps BETA BLOCKERS AdvReac Mild Fatigue Uncoded 01/02/17 19:18 Home Medications: Home Medications Magnesium Oxide [Mag-Oxide] 200 mg PO DAILY 09/04/17 [History Confirmed 09/04/17 ] Verapamil HCl [Verapamil ER] 120 mg PO QAM 09/05/17 [History Confirmed 09/05/17] Verapamil HCl [Verapamil ER] 240 mg PO BEDTIME 09/05/17 [History Confirmed 09/05] PMH/Surg Hx/FS Hx/Imm Hx Previously Healthy: Yes - tx'd for PNA in..... Endocrine/Hematology History: Reports: Hx Anticoagulant Therapy - not present time., Hx Thyroid Disease Denies: Hx Diabetes Cardiovascular History: Reports: Other Cardiovascular Problems/Disorders - TACHYCARDIA, HX OF AFIB; HAD ABLATION 2006 Denies: Hx Congestive Heart Failure, Hx Hypertension, Hx Pacemaker/ICD Respiratory History: Reports: Hx Asthma, Hx Chronic Bronchitis, Hx Pneumonia, Hx Sleep Apnea, Other Respiratory Problems/Disorders - SLEEP APNEA-OXYGEN IN EVENING Denies: Hx Chronic Obstructive Pulmonary Disease (COPD) GI History: Reports: Hx Gastroesophageal Reflux Disease, Hx Irritable Bowel, Other GI Disorders - bulge in bowel pushing into vaginal wall Denies: Hx Ulcer History: Denies: Hx Renal Disease Musculoskeletal History: Reports: Hx Arthritis - RA, Hx Back Problems, Hx Bursitis - several times in shoulder, Hx Osteoporosis, Hx Tendonitis - wrists Sensory History: Reports: Hx Cataracts - BILAT, Hx Contacts or Glasses - glasses Denies: Hx Hearing Aid Opthamlomology History: Reports: Hx Cataracts - BILAT, Hx Contacts or Glasses - glasses Neurological History: Reports: Hx Headaches, Hx Migraine - occassionally Psychiatric History: Reports: Hx Anxiety, Hx Depression, Hx Panic Disorder, Other Psychiatric Issues/Disorders - of - Cancer History Cancer Type, Location and Year: Lymphoma. obstructed air passage Hx Chemotherapy: Yes - and radiation Hx Radiation Therapy: Yes - NON [facility] Hx Palliative Cancer Treatment: No - Surgical History Surgery Procedure, Year, and Place: LYMPHOMA BIOPSY , SPLEENECTOMY 1979. THYROIDECTOMY , ANAL CA 06/17. ATRIAL FLUTTER ABLATION, RAPHAEL. CATARACTS 2014 Hx Anesthesia Reactions: No Infectious Disease History: No Infectious Disease History: Reports: Hx Shingles - Denies: Hx Clostridium Difficile, Hx Hepatitis, Hx Human Immunodeficiency Virus (HIV), Hx of Known/Suspected MRSA, Hx Tuberculosis, Hx Known/Suspected VRE , Hx Known/Suspected VRSA, History Other Infectious Disease, Traveled Outside the [place] in Last 30 Days - Family History Known Family History: Positive: Unknown, Other - Asthma - Social History Alcohol Use: None Substance Use Type: Reports: None Hx Tobacco Use: No Smoking Status (MU): Never Smoked Tobacco Review of Systems Positive: Fatigue. Negative: Fever, Chills Positive: Blurred Vision. Negative: Photophobia, Diplopia, Drainage, Erythema Positive: Dental Pain. Negative: Epistaxis, Sore Throat, Ear Ache, Nasal Discharge Positive: Palpitations. Negative: Chest Pain Positive: Shortness Of Breath. Negative: Cough Gastrointestinal: Other - constipation alt w/ loose stools Positive: incontinence - noticed after syncope. Negative: burning, dysuria, discharge, frequency, flank pain, hematuria Positive: Arthralgia, Myalgia Positive: Bruising - chin, lac on lip Neurological: Other - "confusion" Positive: Headache, Weakness - generalized. Negative: Paresthesia, Numbness, Syncope, Slurred Speech Psychological: Normal All Other Systems Reviewed And Are Negative: Yes Physical Exam Triage Information Reviewed: Yes Vital Signs On Initial Exam: Initial Vitals Temp Pulse Resp BP Pulse Ox 98.8 F 99 20 137/67 93 09/04/17 05:26 09/04/17 05:26 09/04/17 05:26 09/04/17 05:26 09/04/17 05:26 Vital Signs Reviewed: Yes Appearance: Positive: Well-Appearing - pt provides hx appropriately, clearly and at a good rate w/o repeating herself; she does have a generalized redness of the skin of her face but reports this is from recent sunburn, No Pain Distress, Well-Nourished Skin: Positive: Warm - stellate laceration over lower lip; ecchymosis forming over chin, Skin Color Reflects Adequate Perfusion Head/Face: Positive: Normal Head/Face Inspection - NTTP, no step-off, no battlesign Eyes: Positive: Normal, EOMI, GRAYSON, Conjunctiva Clear ENT: Positive: Hearing grossly normal, Pharynx normal, TMs normal - no hemotympanum, Trismus - mild. Negative: Muffled voice Neck: Positive: Supple, Nontender - "feels stiff" Respiratory/Lung Sounds: Positive: Breath Sounds Present, Rales - Rt, Wheezes - B/L, Other - Lt clavicle is enlarged and firm compared to Rt - pt denies previous injury here - no laxity, crepitus or appreciable LN's palpated. Negative: Rhonchi, Subcutaneous Emphysema, Stridor, Tracheal Deviation, Unable to speak in full sentences Cardiovascular: Positive: RRR - avg 95 - does not advance into 100's, Pulses are Symmetrical in both Upper and Lower Extremities, S1, S2. Negative: Murmur, Rub, Leg Edema Left, Leg Edema Right Abdomen Description: Positive: Soft, Other: - generalized ab soreness - no focal tenderness (baseline) Bowel Sounds: Positive: Present Musculoskeletal: Positive: Normal, Strength/ROM Intact Neurological: Positive: Alert, Oriented to Person Place, Time, CN Intact II-III , Facial Symmetry, Speech Normal. Negative: Sensory/Motor Intact - motor intact and extremities are equal to touch B/L but she reports that her face "feels funny" (equal B/L) w/ touch - no asymmetry, Pronator Drift Present Psychiatric: Positive: Normal AVPU Assessment: Alert - [place] Coma Scale Best Eye Response: 4 - Spontaneous Best Motor Response: 6 - Obeys Commands Best Verbal Response: 5 - Oriented Coma Scale Total: 15 Procedures - Laceration/Wound Repair 1 Location: mouth - lower lip - through and through Description: Irregular Anesthesia: Local, 1.0%, Lido - buffered w/ HCO3 Length, Depth and Shape: stellate but longest edges are 1.5cm x 1cm externally and through lip; internally 0.75cm across and through lip; clean - no debris observed Betadine Prep?: Yes Irrigated w/ Saline (ccs): 40 Laceration/Wound Explored: clean Closure: Multilayer Suture Type: Prolene - 6-0 # 10, Other - plain gut 5-0 #6 buccal mucosa, #4 external internal mucosa Number of Sutures: 20 Layer Closure?: Yes Sterile Dressing Applied?: Yes - triple anbx ointment Diagnostics - Vital Signs Vital Signs Temp Pulse Resp BP Pulse Ox 09/04/17 06:00 97 26 95 09/04/17 05:52 98 21 134/73 95 09/04/17 05:51 24 09/04/17 05:26 98.8 F 99 20 137/67 93 - Laboratory Result Diagrams: 09/05/17 05:26 09/05/17 05:26 Lab Statement: Any lab studies that have been ordered have been reviewed, and results considered in the medical decision making process. Re-Evaluation - Re-Evaluation First Eval Change: Improved - s/p neb - breathing easier; nausea resolved s/p zofran Course/Dx Course Of Treatment: Patient presents with syncope of unknown origin and down for unknown length of time (sometime between 1:30 and 4:30 this morning). She reports progressive fatigue and generalized weakness over the past week accompanied by intermittent shortness of breath and palpitations. She does not present with any stroke symptoms nor does she have a history of stroke however these are and her family. She has a history of obstructive lung disease as well as intermittent atrial fibrillation that is treated with verapamil by Dr. Perez. Although she cannot clearly identify what caused her syncopal event this morning, she thinks it had something to do with her heart she did feel palpitations prior to syncopizing (NOTE: She's been feeling these all week). ECG NSR 98 bpm, no ST elevations and no dropped beats, prolonged intervals. Her labs are without electrolyte imbalance, anemia, severe infection, and her vital signs have been stable since arrival. She has experienced worsening of her shortness of breath and oxygen dropped to 92 on room air is she was placed on 2 L via nasal cannula (has sleep apnea and uses CPAP plus oxygen at night). This improved her shortness of breath symptoms. She was also found to have adventitious lung sounds on the right side suspicious for pneumonia. Discuss DuoNeb breathing treatment however patient was taken to chest x-ray - results indicate no acute changes. Her telemetry monitoring while here was uneventful per nursing. With an elevated d-dimer and syncopal event with history of cancer , a CT angiogram of the chest wall also be ordered. Results indicate no acute findings. Additionally, her head, neck and face CT's are without acute findings. She has suffered a lip laceration which was repaired in the emergency department prior to admission into the hospital for further workup for her syncopal event of unknown origin. Recommend antibiotic for complex mouth wound - will defer to hospital team in the event pt has UTI - may choose anbx to cover both. - Diagnoses Provider Diagnoses: Syncope, Lip laceration, Concussion, Atrial fibrillation, Chronic pulmonary disease due to radiation, Chronic tachycardia Discharge - Sign-Out/Discharge Documenting (check all that apply): Patient Departure - Discharge Plan Condition: Guarded Disposition: ADMITTED TO [facility] - Billing Disposition and Condition Condition: GUARDED Disposition: Admitted to [facility]
[2017-09-04 06:54] LABS: ABS Basophils 0.1 10^3/ul (0-0.2); ABS Eosinophils 0.1 10^3/ul (0-0.6); ABS Lymphocytes 1.7 10^3/ul (1.0-4.8); ABS Monocytes 1.1 10^3/ul (0-0.8); ABS Neutrophils 8.8 10^3/ul (1.5-7.7); ABS Nucleated RBC 0 10^3/ul; Eosinophil % 0.7 % (0-6); Hematocrit 37 % (35-47); Lymphocyte % 14.7 % (25-47); Mean Corpuscular HGB Conc 33 g/dl (31-36); Mean Corpuscular Hemoglobin 28 pg (27-31); Mean Corpuscular Volume 84 fL (80-97); Mean Platelet Volume 7.5 um3 (7.4-10.4); Nucleated Red Blood Cells % 0.1; Platelet Count 282 10^3/ul (150-450); Red Blood Count 4.34 10^6/ul (4.00-5.40); Red Cell Distribution Width 17 % (10.5-15); White Blood Count 11.7 10^3/ul (3.5-10.8)
[2017-09-04 06:58] LABS: INR 0.87 (0.77-1.02)
[2017-09-04] MEDS ORDERED: Ondansetron INJ* 2 MG/ML VIAL IV ONE ×2 (07:02→19:33)
[2017-09-04 07:03] LABS: EGFR Non-African American 85.4 (>60)
[2017-09-04] MEDS ORDERED: Buffered Lidocaine 0.9% SYRIN* 5 ML/SYR SYRINGE INTRADERM ONE (07:03)
--- NOTE | 2017-09-04 08:01 | RAD ---
Indication: Syncopal episode. Multiple falls. Comparison: March 07, 2015 MRI. Technique: Noncontrast CT vertex of skull through foramen magnum. Report: Mild prominence of the cerebral sulci and cerebellar fissures reflecting atrophy. Unremarkable ventricles and basal cisterns. Decreased density in the periventricular and subcortical white matter while non-specific is most likely due to chronic microangiopathy. Negative for yung matter white matter obscuration, intra or extra-axial hemorrhage, or mass effect. Unremarkable orbital contents. Clear visualized paranasal sinuses and mastoid air spaces. No suspicious calvarial or skull base lesions evident. Unremarkable scalp. IMPRESSION: #. Mild involutional change and stigmata of probable chronic small vessel ischemic disease. #. No CT evidence for traumatic brain injury or acute intracranial process.
--- NOTE | 2017-09-04 08:15 | RAD ---
INDICATION: Syncopal episode. Multiple falls. COMPARISON: No relevant prior exams available on the [facility] PACS for comparison. TECHNIQUE: Multidetector CT images foramen magnum to lung apices without contrast. Multiplanar reformation. REPORT: At least partial atelectasis of the RIGHT upper lobe with associated bronchiectasis. Negative for pneumothorax within the [id number]. Normal vertebral alignment accounting for exam positioning without spondylolisthesis or subluxation at any level. Negative for cervical vertebral body or posterior element fracture. Negative for paravertebral hematoma. Multilevel degenerative spondylosis and facet joint osteoarthritis as well as osteoarthritis at the articulation between the dens and the anterior arch of C1. LEFT greater than RIGHT ankylosis at the C2-C3 facet joints. Early ankylosis at the LEFT C3-C4 facet joints. At C3-C4 uncinate process spurring and facet joint osteoarthritis results in severe LEFT foraminal stenosis with progression. IMPRESSION: #. No CT evidence for traumatic cervical spine injury.
[2017-09-04] MEDS ORDERED: Albuterol/Ipratropium NEB.SOL* Albuterol 2.5 MG/Ipratropium 0.5 MG 3 ML INH ONE (08:53)
[2017-09-04] MEDS ORDERED: Iohexol 350* (CONTRAST) 500 ML MDV IV ONE (09:05)
--- NOTE | 2017-09-04 09:35 | RAD ---
INDICATION: Shortness of breath, syncope. History of lymphoma and anal carcinoma. Elevated d-dimer. Previous chest radiation. COMPARISON: June 15, 2017 CT and September 04, 2017 chest radiograph. August 12, [address] TECHNIQUE: Multidetector CT images were obtained from the lung apices to the upper abdomen with 66 mL Omnipaque 350 IV contrast. Pulmonary angiogram protocol. Multiplanar reformation including with maximum intensity projection. REPORT: Unchanged RIGHT greater than LEFT probable paramediastinal postradiation fibrosis with mild bronchiectasis on the RIGHT. 0.5 cm nodule at the posterior basal segment of the RIGHT lower lobe is unchanged. Semisolid appearing 0.6 cm nodule at the anterior basilar segment of the RIGHT lower lobe is unchanged. 0.4 cm subpleural nodule at the posterior basal segment of the LEFT lower lobe is unchanged. Pleural parenchymal scarring at the periphery of the anteromedial basal segment of the LEFT lower lobe is unchanged. Bilateral patchy groundglass pulmonary opacities noted without significant change. Negative for pleural effusions or pneumothorax. Negative for thoracic lymphadenopathy, cardiomegaly, or pericardial effusion. Mild atherosclerotic plaque of normal diameter thoracic aorta. Negative for dissection of the aorta. No filling defects are identified from the main to the subsegmental pulmonary arteries to indicate presence of a pulmonary embolism. Images through the upper abdomen are remarkable for prior cholecystectomy. Negative for suspicious osseous lesions or fractures. IMPRESSION: #. No evidence for pulmonary embolism. #. Postradiation fibrosis greatest in the RIGHT paramediastinal region without change. #. Stable bilateral pulmonary nodules compared with the August 12, 2015 exam. No suspicious enlarging pulmonary lesions or new focal pulmonary lesions. #. Chronic finding of patchy groundglass opacity may reflect chronic alveolar inflammation or patchy air trapping in the regions without apparent groundglass opacity. #. Negative for lymphadenopathy.
--- NOTE | 2017-09-04 09:49 | RAD ---
INDICATION: RIGHT chest congestion, shortness of breath, fatigue, recent pneumonia. Previous chest radiation for lymphoma. COMPARISON: Chest CT of the same date and February 21, 2017 chest radiograph. TECHNIQUE: Dual energy PA and routine lateral views of the chest were obtained. REPORT: Post radiation change most prominent along the RIGHT paramediastinal margin as on the prior exams. Resulting asymmetric lucency at the RIGHT mid to upper lung zone. Diffuse mild prominence of interstitial markings. No new pulmonary consolidation, suspicious focal pulmonary lesion, pleural effusion, pneumothorax. Negative for cardiomegaly. Unremarkable central pulmonary vasculature. No suspicious thoracic osseous lesions evident. IMPRESSION: #. Post radiation change and stigmata of probable chronic obstructive pulmonary disease. #. No acute cardiopulmonary process evident.
[2017-09-04] MEDS ORDERED: Verapamil TAB* 120 MG PO SCH ×2 (11:00→21:00)
[2017-09-04] MEDS ORDERED: Magnesium Sulfate 1 GM IV* 1 GM/100 ML BAG IV ONE (11:08)
[2017-09-04] MEDS ORDERED: Spiriva Inhaler DEVICE* 1 EACH DEVICE SCH (12:00)
[2017-09-04 12:57] LABS: Urine Appearance Clear; Urine Blood Negative (Negative); Urine Color Straw; Urine Ketones Negative (Negative); Urine Protein Negative (Negative); Urine Specific Gravity 1.054 (1.010-1.030); Urine Urobilinogen Negative (Negative)
[2017-09-04] MEDS ORDERED: Verapamil TAB* 80 MG ONE (13:21)
[2017-09-04] MEDS ORDERED: Potassium Chlor TAB* 20 MEQ TAB.ER PO ONE (14:45)
[2017-09-04] MEDS: Albuterol/Ipratropium NEB.SOL* Albuterol 2.5 MG/Ipratropium 0.5 MG 3 ML INH SCH ×3 (14:46→19:43)
[2017-09-04] MEDS ORDERED: KCL 20 MEQ/100 ML IVPREMIX* 20 MEQ/100 ML BAG IV SCH (15:00)
--- NOTE | 2017-09-04 15:04 | CONSULT ---
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 The patient got up to go to the kitchen this AM because she was feeling restless in bed. The patient reports then waking up on the ground with a split lip. She does not remember falling. She does not know how long she was on the ground. She came to the ER and was admitted to telemetry. On the floor the patient became dizzy. On the telemetry she was seen to have a 10 second pause which resolve spontaneously. She was transferred to the ICU for possible TVP placement. The patient reports that she takes verapamil for her AFib and normal HR for her is in the low 100s. She is DNR/DNI but would reverse her DNI for procedures. ROS - 10 systems reviewed with the patient are negative except where stated in the HPI PMHx - af s/p ablation, obstructive lung disease, PAVITHRA, GERD, IBS, Arthritis, cataracts, migraines, anxiety, depression, h/o lymphoma, h/o anal cancer PSHx - splenectomy, thyroidectomy, cholecystectomy, cataract surgery All - abilify, welbutrin, benedryl, xopenex, metoprolol, remeron, singulair, morphine, sulfa, effexor, scallops SocHx - no drugs/etoh/tobacco FamHx - denies PE Vital Signs: Temp Pulse Resp BP Pulse Ox 97.8 F 106 16 105/62 98 09/04/17 13:34 09/04/17 13:34 09/04/17 13:34 09/04/17 13:34 09/04/17 13:34 Gen - NAD HEENT - +lip laceration, eomi, perrl Neck - no jvd, no thyromegaly CV - s1/s2, no murmur Lungs - +dry crackles ABd - soft, nt, nd Ext - no cce Neuro - nonfocal Labs Laboratory Results - last 24 hr 09/04/17 09/04/17 09/04/17 06:29 06:30 06:30 WBC 11.7 H RBC 4.34 Hgb 12.0 Hct 37 MCV 84 MCH 28 MCHC 33 RDW 17 H Plt Count 282 MPV 7.5 Neut % (Auto) 74.8 Lymph % (Auto) 14.7 L Hughes % (Auto) 9.2 H Eos % (Auto) 0.7 Baso % (Auto) 0.6 Absolute Neuts (auto) 8.8 H Absolute Lymphs (auto) 1.7 Absolute Monos (auto) 1.1 H Absolute Eos (auto) 0.1 Absolute Basos (auto) 0.1 Absolute Nucleated RBC 0 Nucleated RBC % 0.1 INR (Anticoag Therapy) APTT D-Dimer, Quantitative Sodium 140 Potassium 3.5 Chloride 101 Carbon Dioxide 30 Anion Gap 9 BUN 25 H Creatinine 0.69 Est GFR ( Amer) 103.3 Est GFR (Non-Af Amer) 85.4 BUN/Creatinine Ratio 36.2 H Glucose 106 H Lactic Acid 1.3 Calcium 9.3 Magnesium 1.9 Total Bilirubin 0.40 AST 22 ALT 21 Alkaline Phosphatase 50 Total Creatine Kinase 137 Troponin I 0.00 B-Natriuretic Peptide Total Protein 6.8 Albumin 4.0 Globulin 2.8 Albumin/Globulin Ratio 1.4 TSH 1.62 Urine Color Urine Appearance Urine pH Ur Specific Lowes Urine Protein Urine Ketones Urine Blood Urine Nitrate Urine Bilirubin Urine Urobilinogen Ur Leukocyte Esterase Urine Glucose 09/04/17 09/04/17 09/04/17 06:30 06:30 09:23 WBC RBC Hgb Hct MCV MCH MCHC RDW Plt Count MPV Neut % (Auto) Lymph % (Auto) Hughes % (Auto) Eos % (Auto) Baso % (Auto) Absolute Neuts (auto) Absolute Lymphs (auto) Absolute Monos (auto) Absolute Eos (auto) Absolute Basos (auto) Absolute Nucleated RBC Nucleated RBC % INR (Anticoag Therapy) 0.87 APTT 27.1 D-Dimer, Quantitative 381 H Sodium Potassium Chloride Carbon Dioxide Anion Gap BUN Creatinine Est GFR ( Amer) Est GFR (Non-Af Amer) BUN/Creatinine Ratio Glucose Lactic Acid Calcium Magnesium Total Bilirubin AST ALT Alkaline Phosphatase Total Creatine Kinase Troponin I 0.00 B-Natriuretic Peptide 91 Total Protein Albumin Globulin Albumin/Globulin Ratio TSH Urine Color Urine Appearance Urine pH Ur Specific Lowes Urine Protein Urine Ketones Urine Blood Urine Nitrate Urine Bilirubin Urine Urobilinogen Ur Leukocyte Esterase Urine Glucose 09/04/17 09/04/17 12:49 13:07 WBC RBC Hgb Hct MCV MCH MCHC RDW Plt Count MPV Neut % (Auto) Lymph % (Auto) Hughes % (Auto) Eos % (Auto) Baso % (Auto) Absolute Neuts (auto) Absolute Lymphs (auto) Absolute Monos (auto) Absolute Eos (auto) Absolute Basos (auto) Absolute Nucleated RBC Nucleated RBC % INR (Anticoag Therapy) APTT D-Dimer, Quantitative Sodium Potassium Chloride Carbon Dioxide Anion Gap BUN Creatinine Est GFR ( Amer) Est GFR (Non-Af Amer) BUN/Creatinine Ratio Glucose Lactic Acid Calcium Magnesium Total Bilirubin AST ALT Alkaline Phosphatase Total Creatine Kinase Troponin I 0.01 B-Natriuretic Peptide Total Protein Albumin Globulin Albumin/Globulin Ratio TSH Urine Color Straw Urine Appearance Clear Urine pH 6.0 Ur Specific Lowes 1.054 H Urine Protein Negative Urine Ketones Negative Urine Blood Negative Urine Nitrate Negative Urine Bilirubin Negative Urine Urobilinogen Negative Ur Leukocyte Esterase Negative Urine Glucose Negative Imaging 09/04/17 CXR IMPRESSION: #. Post radiation change and stigmata of probable chronic obstructive pulmonary disease. #. No acute cardiopulmonary process evident. 09/04/[address] IMPRESSION: #. Mild involutional change and stigmata of probable chronic small vessel ischemic disease. #. No CT evidence for traumatic brain injury or acute intracranial process. 09/04/[address] IMPRESSION: #. No CT evidence for traumatic cervical spine injury. 09/04/17 CTA Chest IMPRESSION: #. No evidence for pulmonary embolism. #. Postradiation fibrosis greatest in the RIGHT paramediastinal region without change. #. Stable bilateral pulmonary nodules compared with the August 12, 2015 exam. No suspicious enlarging pulmonary lesions or new focal pulmonary lesions. #. Chronic finding of patchy groundglass opacity may reflect chronic alveolar inflammation or patchy air trapping in the regions without apparent groundglass opacity. #. Negative for lymphadenopathy. 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 Had 10 second pause captured on telemetry today. Neuro - depression/anxiety - ativan prn CV - syncope, afib - 10 second pause on telemetry - hold home verapamil - keep mag > 2, K > 4 - monitor on tele - pacer pads at bedside - Cardiology consult and discuss need for TVP placement Pulm - obstructive lung disease - 2/ radiation - c/w symbicort/spiriva - nebulizers prn - c/w home prednisone ID - - wbc 11 - afebrile - keflex rxed by primary team (day 1 of 5) GI - diet as tolerated Renal - monitor lytes Heme - h/o lymphoma/anal cancer - in remission - monitor cbc Endo - hypothyroid, on chronic prednisone - check cortisol, tsh - monitor fingersticks Lines - piv PPx - gi/dvt DNR/DNI Transfer to ICU Critical Care Time: 70 mins
[2017-09-04] MEDS: Tiotropium CAP.INH* CAP.INH/18 MCG (USE ORDER SET !) INH SCH (15:12)
--- NOTE | 2017-09-04 16:09 | CONSULT ---
Subjective Date of Service: 09/04/17 Interval History: Date of consult and admission 09/04/2017 PMD: Dr. Arzola Traffic Chief: Dr Perez CC: Syncope Reason for consult: Syncope HPI: Savanna Bae is a 66 year old woman with a history of atrial flutter ablation and SVT with negative EPS in 2012 maintained on verapamil. She has radiation lung disease. Her breathing has been about baseline. She has chest and back discomfort she relates to recent kayaking. She has had palpitations and lightheadedness recently. Two days ago she was maybe dizzy and fell at a friends house at a friends house. Yesterday she felt like she was going to collapse and had to sit down. Last night she felt nauseated and and was in kitchen. This is not unusual for her but she may have been more nauseated. She felt lightheaded and next thing she knows was on the floor. She has significant facial trauma. This is a first time episode of syncope. Here in the hospital IV was being adjusted but not necessarily painful. She was lightheadeded. She had syncope with a documented 12+ second (limited by artifact unsure of exact length may have been longer) episode of sinus rhythm with complete heart block. She checks carefully for ticks and has had no bites. Allergies: Sulfa 12/05/02 Singulair 12/05/02 - increase cough Morphine 05/04/04 - coughing Betablockers 03/28/06 - marked fatigue Cardizem CD 04/13/06 - Fatigue Avapro 01/23/08 - fatigue Norvasc 01/23/08 - edema Effexor 06/29/13 - vision loss, dizziness, legs rubber, couldn't talk, hallucin Remeron 06/29/13 - during time after Effexor reaction, similiar rx Singulair 07/09/15 - cogh, breathing and muscle problems Xopenex 07/09/15 Toprol XL 07/09/15 Benadryl 07/09/15 - a-fib Abilify 07/09/15 Celexa 07/09/15 Bupropion 07/09/15 Norflex 07/09/15 Advair Diskus 07/09/15 Pmhx Disorder of lung Moderate persistent asthma, uncomplicated Obesity Obstructive sleep apnea syndrome Asthma without status asthmaticus Hypersomnia with sleep apnea Anxiety state Paroxysmal supraventricular tachycardia Atrial flutter PMH: Medical Problems: Atrial Flutter - (03/14/2006) atypical atrial flutter with rapid reponse. Admitted to [facility] with 5 days of dyspnea on exertion and cough. Mild CHF. Converted with IV Dig and Diltiazem. Neg CT for pul emb. Chronic rul scarring. CHF, mild left lower lobe atelectasis. Thyroid Disease - Pt states she had a malignant growth on thyroid about years ago. Growth removed and a portion of thyroid removed. Cancer - (1974) (age 24 Years) lymphoma s/p radiation rx and chemo with Vincristine and Cytoxan and Prednisone. Asthma - (2000) Palpitations - (2001) Resting tachycardia ? etiology, possible SNRT Hypertension - (2001) Cholelithiasis - (2006) 3 episodes of epigastric discomfort after eating fatty foods. Gallbladder ultrasound positive for gallstones. Nephrolithiasis - (12/2006) Shingles - 08/02/15 anal carcinoma - (2003) excision of SCCa ([facility]) then Chemo/RT ([facility]) Osteoarthritis Surgical Hx: Thyroid Tumor Removed,Portion Of Thyroid Removed - (1995) Splenectomy - (1979) Biopsies Done With Lymphoma - (1974) Infusaport - (2003) RF Ablation - (06/02/2006) [facility] for aflutter. Cholecystectomy - (12/2006) laparoscopic anal carcinoma excision - (2003) anal stricture surgery - (2003) Cardiac Procedures: Ep study - (03/14/2012) Normal study, normal intervals, No inducible arrhythmias Radiofrequency Ablation - (2006) Atrial Flutter ablation FH: Father: Heart Disease, Asthma, narcolepsy,sleep apnea. due to [place] - (age 63 Years). Mother: Hypertension, Ovarian Cancer, Stroke. 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 Siblings:2, both alive;both w/HTN,DM,brother w/sleep apnea, sister w/thyroid cancer, brother also had melanoma. SH: Marital: .. Disabled. Personal Habits: Smoking: Patient has never smoked.Cigarette Use: Never Smoked Cigarettes.Alcohol: Denies alcohol use.Drug Use: Denies Drug Use.Daily Caffeine : consumes chocolate occasionally, Consumes on average 12oz of soda per day - caffine free pepsi everyother day .Exercise Type: Does not exercise. Medications Active Medications: Albuterol/Ipratropium (Duoneb (Albuterol 2.5 Mg/Ipratropium 0.5 Mg)) 1 neb INH Q4H [facility] Last Admin: 09/04/17 15:12 Dose: 1 neb Cephalexin HCl (Keflex Cap*) 250 mg PO QID [facility] Device (Tiotropium Inhaler Device*) 1 each .SEE ORDER .USE w/ SPIRIVA CAPS [facility] Heparin Sodium (Porcine) (Heparin Vial(*)) 5,000 units SUBCUT Q8HR [facility] Potassium Chloride (Potassium Chloride 20 Meq/100 Ml Ivpremix*) 20 meq in 100 mls @ 50 mls/hr IV Q2H [facility] Stop: 09/04/17 18:59 Ibuprofen (Motrin Tab*) 600 mg PO Q6H PRN PRN Reason: PAIN Levothyroxine Sodium (Synthroid Tab*) 125 mcg PO 0600 [facility] Lorazepam (Ativan Tab(*)) 1 mg PO QPM [facility] Magnesium Oxide (Magox 400 Tab*) 400 mg PO DAILY [facility] Omeprazole (Prilosec Cap*) 20 mg PO QPM [facility] Potassium Chloride (Klor Con Er Tab*) 10 meq PO BID [facility]AS[facility] Tiotropium [place] (Spiriva Cap.Inh*) 1 cap INH DAILY [facility] Last Admin: 09/04/17 15:12 Dose: 1 canister Triamterene/HCTZ (Dyazide Cap*) 1 cap PO DAILY [facility] Home Medications: Ibuprofen TAB* [Advil TAB*] 400 mg PO Q6H PRN 12/14/11 [History Confirmed ] LORazepam TAB(*) [Ativan 0.5 MG TAB (*)] 1 mg PO QPM 12/14/11 [History Confirmed 09/04/17] Omeprazole CAP* [Prilosec CAP* 20 MG] 20 mg PO QPM 12/14/11 [History Confirmed 09/04/17] Albuterol 2.5MG/3ML (0.083%)* [Ventolin 2.5 MG/3 ML NEB.MEGHA*] 2.5 mg INH Q4H PRN 01/02/14 [History Confirmed 01/01/17] Levothyroxine TAB* [Synthorid 112 MCG TAB*] 125 mcg PO QAM 01/02/14 [History Confirmed 09/04/17] Potassium Chloride [Klor-Con 10] 10 meq PO BID 01/02/14 [History Confirmed 09/04] Triamterene/HCTZ 37.5-25 MG* [Dyazide CAP*] 25 mg PO DAILY 01/02/14 [History Confirmed 09/04/17] Verapamil HCl 120 mg PO QAM 01/02/14 [History Confirmed 09/04/17] Docusate Sodium [Colace] 100 mg PO QPM 06/12/14 [History Confirmed 09/04/17] Multiple Vitamins W/ Minerals [Multivitamin Women 50+] 1 tab PO QAM 09/29/16 [ History Confirmed 01/01/17] Albuterol HFA INHALER* [Ventolin HFA Inhaler*] 2 puff INH Q4H PRN 01/01/17 [ History Confirmed 09/04/17] Budesonide/Formote 160/4.5(NF) [Symbicort 160/4.5 (NF)] 1 puff INH BID 01/01/17 [History Confirmed 09/04/17] Tiotropium [place] [Spiriva Respimat] 1.25 mcg IN DAILY 01/01/17 [History Confirmed 09/04/17] Verapamil HCl [Calan] 240 mg PO BEDTIME 01/01/17 [History Confirmed 09/04/17] Albuterol/Ipratropium NEB.MEGHA* [Duoneb (Albuterol 2.5 MG/Ipratropium 0.5 MG)] 1 neb INH Q4H #30 neb.soln 01/04/17 [Rx Confirmed 09/04/17] Magnesium Oxide [Mag-Oxide] 200 mg PO DAILY 09/04/17 [History Confirmed 09/04/17 ] Review of Systems - Measurements Intake and Output: Intake and Output Last 24 Hours 09/02/17 09/03/17 09/04/17 09/05/17 06:59 06:59 06:59 06:59 Weight 160 lb 160 lb - Review of Systems Constitutional Symptoms: Positive: Weakness, Fatigue Dermatology: Negative: Rash, Skin Lesions HEENT: Negative: Change in Hearing, Vertigo Eyes: Negative: Change in Vision, Double Vision Thyroid: Positive: Palpitations, Radiation Exposure Negative: Weight Loss, Weight Gain Pulmonary: Positive: Cough, Wheezing, Shortness of Breath, COPD, Exercise Intolerance Negative: Respiratory Distress, Home Oxygen Cardiology: Positive: Chest Pain, Shortness of Breath, Faintness, Syncope Negative: Palpitations, Swelling of Ankles, Peripheral Vascular Dis, Edema, Claudication, Paroxysmal Nocturnal Dyspnea, Orthopnea Gastroenterology: Negative: Abdominal Pain, Nausea, Vomiting, Anorexia, Blood in Stools, Change in Bowel Habits Genital - Urinary: Negative: Dysuria, Hematuria Musculoskeletal: Positive: Joint Pain, Joint Stiffness, Arthritis Endocrinology: Positive: Obesity Negative: Diabetes, Hyperglycemia, Hypoglycemia, Polydipsia, Polyuria Hematologic/Lymphatic: Positive: Use of Antiplatelet Drugs Negative: Use of Anticoagulant Neurology: Positive: Dizziness, Change in Balancing Negative: Change in Speech, Hx of Stroke\TIA, Hx Seizures Psychiatry: Positive: Depression, Anxiety Allergic/Immunologic: Negative: Hx HIV, Immunocompromise Review of Systems Statement: All other review of systems negative, unless stated above. Objective Vital Signs: Temp Pulse Resp BP Pulse Ox 97.8 F 100 17 105/62 97 09/04/17 13:34 09/04/17 15:18 09/04/17 15:18 09/04/17 13:34 09/04/17 15:18 Appearance: patient appears anxious, upset and tearful Ears/Nose/Mouth/Throat: Clear Oropharnyx Neck: NL Appearance and Movements; NL JVP, Trachea Midline Respiratory: Symmetrical Chest Expansion and Respiratory Effort, - - wheezing mostly in left lung Cardiovascular: RRR, No Edema, - - no significant murmur Abdominal: NL Sounds; No Tenderness; No Distention Extremities: No Edema Skin: No Rash or Ulcers Neurological: Alert and Oriented x 3 Laboratory Results: 09/04/17 06:30 09/04/17 06:29 INR (Anticoag Therapy) 0.87 (0.77-1.02) 09/04/17 06:30 APTT 27.1 seconds (26.0-36.3) 09/04/17 06:30 Total Bilirubin 0.40 mg/dL (0.2-1.0) 09/04/17 06:29 AST 22 U/L (13-39) 09/04/17 06:29 ALT 21 U/L (7-52) 09/04/17 06:29 Alkaline Phosphatase 50 U/L (34-104) 09/04/17 06:29 B-Natriuretic Peptide 91 pg/mL (-100) 09/04/17 06:30 Total Protein 6.8 g/dL (6.4-8.9) 09/04/17 06:29 Albumin 4.0 g/dL (3.2-5.2) 09/04/17 06:29 Globulin 2.8 g/dL (2-4) 09/04/17 06:29 Albumin/Globulin Ratio 1.4 (1-3) 09/04/17 06:29 TSH 1.62 mcIU/mL (0.34-5.60) 09/04/17 06:29 09/04/17 09/04/17 09/04/17 06:29 09:23 13:07 Troponin I 0.00 0.00 0.01 Diagnostic Imaging: Cardiac Testing: Stress Test - (04/23/2016) Normal cardiac chemical nuclear stress test. No evidence of ischemia/infarction. Normal LVF. EF 63% TID 0.90 Echocardiogram - (01/02/2014) [facility]: Normal LV function EF 60% Normal valves Echocardiogram - (06/04/2010) [facility] Normal LV function, EF 61%, Mild MAC, no MR Stress Echocardiogram - (06/08/2010) Exercised for 6 min, No chest pain No EKG changes, Normal LV augmentation Echocardiogram - (06/21/2013) [facility] normal LV function EF 50% Mild LA enlargement Trace MR Echocardiogram - (08/05/2015) Normal LV size and function EF 60% Mild/ moderate AR Mild MR Trace TR Echocardiogram - (01/03/2017) Normal LV size and function EF 55% Mild/ moderate AR, MR and TR Moderate pulm HTN CT PE study today: no PE, right radiation fibrosis, chrnic alveolar inflammation. EKG Data: ekg admission: NSR 98 bpm, normal ekg Assessment/Plan There is likely a vasovagal component to this symptomatic pause, it was complete AV block and not sinus arrest. It was a long enough pause that I would not be as concerned with a vasodepressor main component of her syncope. She had a normal EPS in 2012 and her baseline 12 lead EKG and MD interval and QRS intervals are normal. There is also a medication component. After reviewing her chart history, she may not do well without the verapamil. We talked about verapamil contributing to this. She thinks her heart rate may be too high without the verapamil. I think she is at high risk of recurrent syncope without stopping the verapamil. With activities such as kayaking, this could lead to a very dangerous situation such as drowning. For now the plan is to hold the verapamil temporarily, place a permanent dual chamber pacemaker and restart this. Her regular toll line repairer, Dr. Perez is here tomorrow. If he feels patient can be managed with stopping verapamil and without a pacemaker, I think that would be a very reasonable approach as well. Can make NPO after midnight with gentle IVF and hold DVT prophylaxis after tonight. Leave temporary pacemaker pads in place and atropine at bedside. Thank you for allowing me to participate in the cardiovascular care of this patient. Please do not hesitate to contact me without questions or concerns.
--- NOTE | 2017-09-04 16:46 | RAD ---
INDICATION: Syncopal episode. Multiple falls. Chain injury, jaw pain, dental pain. COMPARISON: No relevant prior exams available on the [facility] PACS for comparison. TECHNIQUE: Multidetector CT base of the skull through mandible without contrast. Multiplanar reformation. REPORT: Artifact from dental amalgam degrades image quality at the jaws. No gross osteolysis at the jaws evident. The orbital and maxillary sinus margins, zygomatic arches, lamina papyracea, base of the maxilla, pterygoid plates, and nasal bones are intact. The mandible is intact. Normal temporal mandibular joint alignment. Clear paranasal sinuses and mastoid air spaces. Normally located temporomandibular joints with advanced degenerative arthropathy and bilateral loose bodies. Infiltrative soft tissue edema at the chin without evidence for a significant loculated soft tissue plane hematoma. Irregular contour of the skin at the midline chin suggesting potential laceration. Negative for subcutaneous emphysema or conspicuous foreign body. IMPRESSION: #. Soft tissue swelling at the skin without evidence for a significant loculated hematoma. #. Negative for maxillofacial fracture.
[2017-09-04] MEDS: Omeprazole CAP* 20 MG PO SCH (18:01)
[2017-09-04] MEDS: Ibuprofen TAB* 600 MG PO PRN (18:01)
[2017-09-04] MEDS ORDERED: Atropine SYRINGE* 0.1 MG/ML 10 ML SYRINGE (1 MG) IV PRN (19:00)
--- NOTE | 2017-09-04 19:14 | HP ---
HISTORY AND PHYSICAL: DATE OF ADMISSION: 09/04/17. ADMITTING PROVIDER: Jamal Ferreira MD. PRIMARY CARE PROVIDER: Dr. Arzola. PRIMARY COMMUNITY CASE MANAGER: Dr. Levy. CHIEF COMPLAINTS: 1. Syncope. 2. Palpitations. 3. Fatigue. 4. Headache. 5. Chest tightness. HISTORY OF PRESENT ILLNESS: Savanna Bae is a 66-year-old female with past medical history of hypertension, asthma, paroxysmal atrial fibrillation, status post multiple ablations (not on anticoagulation), lymphoma status post chest radiation, thyroid cancer, rectal cancer, anxiety, depression, hypothyroidism, GERD, obstructive sleep apnea, who was treated by Dr. Levy, on 08/11/17 with azithromycin and tapering prednisone course - both were of long duration for upper respiratory symptoms and congestion lasting approximately 1 month prior. She had resolution of those symptoms, but the last week she has had increased fatigue, weakness, exhaustion. Morning of admission, she woke up with palpitations, shortness of breath, nausea. She got up and tried to eat some food including some chicken. The last thing she remember she was sitting at her kitchen table. She then found herself on the ground having fallen on to her face with her lip split open with blood surrounding the area. Ever since the fall, she has had headache. She presented to the [facility] emergency room, had negative troponins 0.00 and D-dimer which was moderately elevated at 381. 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 No lymphadenopathy was seen. She was referred to hospital service for admission for her syncope. The patient reports intermittent palpitations, including during this episode. She has slightly elevated white count 11.7. Her baseline heart rate is in the 110s chronically. She denies any chest pain currently. Her lower lip laceration has been repaired by Christine Lacy in the emergency room. The patient denies any lower extremity edema, change in her urination, fevers or chills. She also denies any cough, which has resolved since treatment with Dr. Levy. No dysuria or increased frequency or urination. PAST MEDICAL HISTORY: 1. Asthma. 2. Hypertension. 3. Hyperlipidemia. 4. PAVITHRA. 5. Lymphoma, status post radiation. 6. Paroxysmal atrial fibrillation, not on any anticoagulation and intolerant of beta-blockers. 7. Anxiety. 8. Depression. 9. Hypothyroidism. 10. Thyroid cancer. 11. Rectal cancer. PAST SURGICAL HISTORY: 1. Splenectomy. 2. Thyroidectomy. 3. Rectal surgery. 4. AFib/flutter ablation. MEDICATIONS: Include: 1. Magnesium oxide 200 mg daily. 2. Verapamil 240 mg p.o. at bedtime and 120 p.o. a.m. 3. Spiriva 1.25 mcg inhaled daily. 4. Potassium chloride 10 mEq p.o. b.i.d. 5. Omeprazole 20 mg p.o. q.a.m. 6. Synthroid 125 mcg p.o. q.a.m. 7. Ativan 1 mg p.o. q.a.m. 8. Advil 400 mg p.o. q.6 hours p.r.n. 9. Docusate 100 mg p.o. q.p.m. 10. Ventolin HFA 2 puffs inhaled q.4 hours p.r.n. 11. Triamterene/hydrochlorothiazide 37.5-25 mg p.o. daily. 12. Symbicort 160/4.5 one puff inhaled b.i.d. 13. DuoNebs 1 nebs inhaled q.4 hours p.r.n. ALLERGIES: Include ABILIFY, BUPROPION, BENADRYL, XOPENEX, METOPROLOL, REMERON, SINGULAIR, MORPHINE, SULFA, VENLAFAXINE, BETA-BLOCKERS, SCALLOPS. FAMILY HISTORY: Mother of an ovarian cancer, age 73. Father with myocardial infarction at age 65. SOCIAL HISTORY: The patient is a never smoker. She does not drink or use other drug. Medical surrogate is her sister, Kathy Arnold, secondary POA is son, David Varela. 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 She desires to be a DNR/DNI except for planned surgical procedures. She does not have a MOLST form. REVIEW OF SYSTEMS: A complete 14-point review of systems negative except as per HPI. PHYSICAL EXAMINATION GENERAL APPEARANCE: In no acute distress. VITAL SIGNS: Currently, 105/62, satting 100% on room air, respiratory rate 19, pulse rate 104, temperature 98.8. HEENT: Normocephalic, trauma to the lower lip, now status post laceration repair. Pupils are equal, round, and reactive to light. No scleral icterus. NECK: Supple. No cervical lymphadenopathy. No oropharyngeal lesions. PULMONARY: Slight expiratory wheezing, no rales or rhonchi. CARDIOVASCULAR: Tachycardic, regular. No murmurs, rubs, or gallops. ABDOMEN: Soft, nontender, and nondistended. EXTREMITIES: Warm and well perfused. No peripheral edema. NEURO: Hip flexion 5/5, plantar and dorsiflexion 5/5, head of [employer] strength 5/5. Cranial nerves II through XII intact. Umpbjq-xd-frha intact. Ezlf-go-jdoq intact. SKIN: No lesions. No rashes. LABORATORY DATA: White count 11.7, hemoglobin 12.0, hematocrit 37, platelets 282. RDW 17. INR 0.87. D-dimer 381. Sodium 140, potassium 3.5, chloride 101, carbon dioxide 30, BUN 25, creatinine 0.69, glucose 106, total bili 0.4, magnesium 1.9, calcium 9.3, lactic acid 1.3, AST 22, ALT 21. Alk phos 58. CK 137, troponin 0.00 x2, BNP 91. TSH 1.62. Urinalysis, specific gravity elevated at 1.054. No nitrites, leukocyte esterase or bacteria. IMAGING: Chest x-ray demonstrated post-radiation changes and stigmata and probable chronic obstructive pulmonary disease. CT of the head, non-contrast demonstrate mild involutional changes and stigmata of probable chronic small vessel ischemic disease. No CT evidence of traumatic brain injury or acute intracranial process. Maxillofacial CT pending. Cervical spine CT demonstrated no evidence of traumatic cervical spine injury. CTA of the chest demonstrated no evidence of pulmonary embolism, there is post- radiation fibrosis, greatest in the right paramediastinal region without change , stable bilateral pulmonary nodules compared to the 08/12/15 exam, no suspicious enlarging pulmonary lesions or new focal pulmonary lesions, chronic findings of patchy ground-glass opacity may reflect chronic alveolar inflation or patchy air trapping in the regions without apparent ground-glass opacity, negative for lymphadenopathy. EKG with normal sinus rhythm, normal axis, no ST elevations or depressions, rate 98, QTc 465. ASSESSMENT AND PLAN: Savanna Bae is a 66-year-old female with past medical history of paroxysmal atrial fibrillation, not on any anticoagulation, asthma/chronic obstructive pulmonary disease secondary to the radiation to the chest presenting with one week of fatigue, weakness followed by episode of palpitations, nausea, shortness of breath, chest tightness, and then syncope. She has elevated specific gravity on urinalysis. I am suspicious that her symptoms of fatigue and weakness correlated with her prednisone taper in the setting of also year's long chronic prednisone for which she used to take at least 2.5mg. I am going to check a.m. cortisol to investigate adrenal insufficiency. She has just now drawn her third troponin. She does have dizziness with standing at the commode in the emergency room and I am still waiting on orthostatic vital signs. Physical therapy has been ordered. She is certainly at risk for stroke given her atrial fibrillation with some palpitations and no anticoagulation. She may benefit from an MRI to rule out cerebellar infarction, although her kqvukj-in-vjsm is intact here. Echocardiogram was also ordered for further syncopal workup and telemetry will be continued to detect arrhythmia. She is being repleted of magnesium with goal above 2 and potassium goal above 4. She is going to get a few doses of Keflex for her deep laceration of her lower lip. I am going to hold her triamterene/hydrochlorothiazide until tomorrow until the orthostatics can be obtained, otherwise continue her levothyroxine 125 mcg p.o. for hypothyroidism. Continue her inhalers for asthma/radiation associated chronic obstructive pulmonary disease, which seems in good control currently and for her paroxysmal atrial fibrillation continue the 120 mg of verapamil in a.m. and 240 mg p.o. at bedtime as well as repletion of lytes. The CT of the head did not show any ischemic changes or large hemorrhage, I am going to start her DVT prophylaxis with heparin. She can eat a heart-healthy diet. Medical surrogate is her sister, Kathy Arnold. She is being admitted to observation status on telemetry. [id number]/[facility] #: [id number] [facility]PITALShimon
[2017-09-04] MEDS ORDERED: fentaNYL* 50 MCG/ML 2 ML VIAL (100 MCG VIAL) IV SLOW PU ONE (19:32)
[2017-09-04] MEDS ORDERED: Calcium CHLORIDE 10% SYRINGE* 1 GM in D5W 100 ML BAG* 100 ML IV ONE (19:36)
--- NOTE | 2017-09-04 19:42 | PN ---
Cardiology Progress Note Date of Service: 09/04/17 Patient was eating dinner, in pain generalized and nauseated Had 19 second AV block with syncope Now back to baseline Still nauseated and in pain Last dose verapamil 240 mg last PM 8:30 Had verapamil 120 mg this afternoon Will give 8 mg IV zofran, 50 mcg IV fentanyl x 1 now with PRN for pain and nausea control to help reduce vasovagal reaction Will give 1 gram of calcium chloride x 1 now for CCB reversal If has recurrent prolonged episodes will consider insulin/glucose and glucogan treatment.
[2017-09-04] MEDS ORDERED: Ondansetron INJ* 2 MG/ML VIAL ONE (19:43)
[2017-09-04] MEDS ORDERED: fentaNYL* 50 MCG/ML 2 ML VIAL (100 MCG VIAL) ONE (19:43)
[2017-09-04] MEDS ORDERED: Midazolam* 1 MG/ML 2 ML VIAL (2 MG) ONE (19:47)
[2017-09-04] MEDS: Atropine SYRINGE* 0.1 MG/ML 10 ML SYRINGE (1 MG) ONE ×4 (19:47→22:11)
[2017-09-04] MEDS: Ondansetron INJ* 2 MG/ML VIAL IV ONE ×2 (20:27→21:54)
[2017-09-04] MEDS: fentaNYL* 50 MCG/ML 2 ML VIAL (100 MCG VIAL) IV SLOW PU PRN (20:53)
[2017-09-04] MEDS ORDERED: Potassium Chlor TAB* 10 MEQ TAB.ER PO SCH (21:00)
[2017-09-04] MEDS: LORazepam TAB(*) 1 MG PO SCH (21:05)
--- NOTE | 2017-09-04 21:38 | PN ---
Cardiology Progress Note Date of Service: 09/04/17 Patient with 25+ seconds of AV block with only one intervening conducted beat Patient was sleeping during episode Temporary PM recommended Risks, benefits, alternative discussed and patient wished to proceed. Discussed with Dr. Friend, will be arranged carla
[2017-09-04] MEDS: Heparin VIAL(*) 5000 UNITS/ML VIAL (FIVE THOUSAND) SUBCUT SCH (21:45)
[2017-09-04] MEDS: Cephalexin CAP* 250 MG PO SCH (21:48)
[2017-09-04] MEDS ORDERED: Lidocaine 1%* 5 ML VIAL ONE (22:02)
[2017-09-04] MEDS ORDERED: Heparin 2 UNITS/ML IVPREMIX* 1,000 ML IV ONE (22:15)
[2017-09-04] MEDS ORDERED: Atropine SYRINGE* 0.1 MG/ML 10 ML SYRINGE (1 MG) ONE (22:22)
[2017-09-05] MEDS: Albuterol/Ipratropium NEB.SOL* Albuterol 2.5 MG/Ipratropium 0.5 MG 3 ML INH SCH ×6 (00:17→19:49)
--- NOTE | 2017-09-05 01:07 | CARD ---
CC: Dr. Antoine Kohler; Dr. Anup Arzola TEMPORARY PACEMAKER REPORT: DATE OF PROCEDURE: 09/04/17 INDICATION FOR PROCEDURE: Asked by Dr. Antoine Kohler (cloth desizing range operator chief) to perform temporary pacemaker pl acement for symptomatic, prolonged complete heart block. PROCEDURE: Placement of a temporary pacing wire via the right femoral vein approach. DESCRIPTION OF PROCEDURE: The procedure was discussed with the patient in the intensive care unit. Although she was somewhat lethargic, she understood the procedure. The risks and benefits were expla ined. She was brought to the cardiovascular laboratory with an external pacemaker in place. She was prepped and draped in sterile fashion. The right groin area was anesthetized with 1% lidocaine. Th e right femoral vein was cannulated and a 5-Afghan introducer was placed. A 5-Afghan balloon-tipped floating pacing wire was advanced to the RV and checked for capture and sensitivity. It captured srinivas n to 1.5 milliamps, it was therefore set at 5 milliamps initially at a backup rate of 50 with full de jeramie on. It captured and sensed appropriately. The sheath was sutured in place and also the wire was sutured in place. There was an external sleeve over it so that if manipulations were needed, it cou ld be performed. While still in the laboratory miller, Dr. Kohler wished the rate to go up to a backup rate of 60 and as such, it was changed to a backup rate of 60 and mA of 5 and a full demand. Complications none. [id number]/[facility] #: [id number]
[2017-09-05] MEDS: fentaNYL* 50 MCG/ML 2 ML VIAL (100 MCG VIAL) IV SLOW PU PRN ×3 (03:09→18:50)
[2017-09-05 05:38] LABS: ABS Basophils 0.1 10^3/ul (0-0.2); ABS Eosinophils 0 10^3/ul (0-0.6); ABS Lymphocytes 2.3 10^3/ul (1.0-4.8); ABS Monocytes 0.7 10^3/ul (0-0.8); ABS Neutrophils 6.8 10^3/ul (1.5-7.7); ABS Nucleated RBC 0 10^3/ul; Eosinophil % 0.1 % (0-6); Hematocrit 35 % (35-47); Hemoglobin 11.5 g/dl (12.0-16.0); Lymphocyte % 23.3 % (25-47); Mean Corpuscular HGB Conc 33 g/dl (31-36); Mean Corpuscular Hemoglobin 28 pg (27-31); Mean Corpuscular Volume 85 fL (80-97); Mean Platelet Volume 7.6 um3 (7.4-10.4); Nucleated Red Blood Cells % 0; Platelet Count 270 10^3/ul (150-450); Red Blood Count 4.15 10^6/ul (4.00-5.40); Red Cell Distribution Width 17 % (10.5-15)
[2017-09-05 05:54] LABS: EGFR Non-African American 108.6 (>60)
[2017-09-05] MEDS: Levothyroxine TAB* 125 MCG TAB PO SCH ×2 (06:28→08:18)
[2017-09-05] MEDS ORDERED: NS 0.9% 1000 ML* 1,000 ML IV SCH ×2 (07:30→09:00)
[2017-09-05] MEDS: Cephalexin CAP* 250 MG PO SCH (08:32)
[2017-09-05] MEDS: Magnesium Oxide TAB* 400 MG PO SCH (08:32)
--- NOTE | 2017-09-05 08:35 | PN ---
Date of Service: 09/05/17 Critical Care Services: 66F with h/o lymphoma in remission, h/o afib s/p ablation, h/o obstructive lung disease 2/2 radiation presents with syncope. Had 10 second pause captured on telemetry today. 09/05: multiple episodes of complete heart block overnight. Interventional cardiology consulted and TVP placed. Vital Signs: Temp Pulse Resp BP SpO2 FiO2 97.7 F 109 28 114/75 96 09/05/17 03:21 09/05/17 08:01 09/05/17 08:01 09/05/17 08:01 09/05/17 08:01 Physical Exam: Gen - NAD HEENT - +lip laceration, eomi, perrl Neck - no jvd, no thyromegaly CV - s1/s2, no murmur Lungs - cta ABd - soft, nt, nd Ext - no cce, +tvp in place Neuro - nonfocal Fluid Balance (Past 24 Hours): I= O= Net Intake & Output 09/03/17 09/04/17 09/05/17 09/06/17 06:59 06:59 06:59 06:59 Intake Total 0 Output Total 1051 575 Balance -1051 -575 Weight 72.575 kg 76.1 kg Intake: Oral 0 Output: Patel 1051 575 Labs: Laboratory Results - last 24 hr 09/04/17 09/04/17 09/04/17 06:30 09:23 12:49 WBC RBC Hgb Hct MCV MCH MCHC RDW Plt Count MPV Neut % (Auto) Lymph % (Auto) Mccreary % (Auto) Eos % (Auto) Baso % (Auto) Absolute Neuts (auto) Absolute Lymphs (auto) Absolute Monos (auto) Absolute Eos (auto) Absolute Basos (auto) Absolute Nucleated RBC Nucleated RBC % Sodium Potassium Chloride Carbon Dioxide Anion Gap BUN Creatinine Est GFR ( Amer) Est GFR (Non-Af Amer) BUN/Creatinine Ratio Glucose Calcium Troponin I 0.00 B-Natriuretic Peptide 91 TSH Cortisol Urine Color Straw Urine Appearance Clear Urine pH 6.0 Ur Specific [place] 1.054 H Urine Protein Negative Urine Ketones Negative Urine Blood Negative Urine Nitrate Negative Urine Bilirubin Negative Urine Urobilinogen Negative Ur Leukocyte Esterase Negative Urine Glucose Negative 09/04/17 09/05/17 09/05/17 13:07 05:26 05:26 WBC 10.0 RBC 4.15 Hgb 11.5 L Hct 35 MCV 85 MCH 28 MCHC 33 RDW 17 H Plt Count 270 MPV 7.6 Neut % (Auto) 68.1 Lymph % (Auto) 23.3 L Mccreary % (Auto) 7.4 H Eos % (Auto) 0.1 Baso % (Auto) 1.1 Absolute Neuts (auto) 6.8 Absolute Lymphs (auto) 2.3 Absolute Monos (auto) 0.7 Absolute Eos (auto) 0 Absolute Basos (auto) 0.1 Absolute Nucleated RBC 0 Nucleated RBC % 0 Sodium 137 Potassium 5.3 H D Chloride 103 Carbon Dioxide 28 Anion Gap 6 BUN 15 Creatinine 0.56 Est GFR ( Amer) 131.5 Est GFR (Non-Af Amer) 108.6 BUN/Creatinine Ratio 26.8 H Glucose 101 H Calcium 9.7 Troponin I 0.01 B-Natriuretic Peptide TSH 1.04 Cortisol 7.81 Urine Color Urine Appearance Urine pH Ur Specific [place] Urine Protein Urine Ketones Urine Blood Urine Nitrate Urine Bilirubin Urine Urobilinogen Ur Leukocyte Esterase Urine Glucose Studies: Imaging 09/04/17 CXR IMPRESSION: #. Post radiation change and stigmata of probable chronic obstructive pulmonary disease. #. No acute cardiopulmonary process evident. 09/04/[address] IMPRESSION: #. Mild involutional change and stigmata of probable chronic small vessel ischemic disease. #. No CT evidence for traumatic brain injury or acute intracranial process. 09/04/[address] IMPRESSION: #. No CT evidence for traumatic cervical spine injury. 09/04/17 CTA Chest IMPRESSION: #. No evidence for pulmonary embolism. #. Postradiation fibrosis greatest in the RIGHT paramediastinal region without change. #. Stable bilateral pulmonary nodules compared with the August 12, 2015 exam. No suspicious enlarging pulmonary lesions or new focal pulmonary lesions. #. Chronic finding of patchy groundglass opacity may reflect chronic alveolar inflammation or patchy air trapping in the regions without apparent groundglass opacity. #. Negative for lymphadenopathy. 09/04/17 CT Maxillofacial Bones Negative for Fracture Impression: 66F with h/o lymphoma in remission, h/o afib s/p ablation, h/o obstructive lung disease 2/2 radiation presents with syncope. Multiple episodes of complete heartblock yesterday Plan: Neuro - depression/anxiety - ativan prn CV - syncope, afib, complete heart block - s/p TVP - hold home verapamil - keep mag > 2, K > 4 - monitor on tele - for PPM today Pulm - obstructive lung disease - 2/2 radiation - c/w symbicort/spiriva - nebulizers prn - c/w home prednisone ID - - wbc 11 - afebrile - keflex rxed by primary team (day 1 of ) GI - diet as tolerated Renal - monitor lytes Heme - h/o lymphoma/anal cancer - in remission - monitor cbc Endo - hypothyroid, on chronic prednisone - cortisol borderline low - possible adrenal insufficiency - needs acth stim test - monitor fingersticks Lines - piv PPx - gi/dvt DNR/DNI Critical Care Time: 40 mins
[2017-09-05] MEDS ORDERED: Triamterene/HCTZ 37.5-25 MG* CAP PO SCH (09:00)
[2017-09-05] MEDS: KCL 10 MEQ/50 ML IVPREMIX* 10 MEQ/50 ML BAG IV SCH (09:03)
[2017-09-05] MEDS: Heparin VIAL(*) 5000 UNITS/ML VIAL (FIVE THOUSAND) SUBCUT SCH ×3 (09:04→21:21)
[2017-09-05] MEDS: Tiotropium CAP.INH* CAP.INH/18 MCG (USE ORDER SET !) INH SCH (09:12)
[2017-09-05] MEDS ORDERED: ceFAZolin 1 GM VIAL(*) 1 GM in NS 0.9% 50 ML* 50 ML IVPB ONE (09:30)
[2017-09-05] MEDS ORDERED: ceFAZolin VIAL 1 GM in NS *SYRINGE * * 10 ML ONE (09:30)
[2017-09-05] MEDS ORDERED: Diazepam TAB(*) 5 MG PO ONE (09:45)
[2017-09-05] MEDS ORDERED: ceFAZolin 2 GM PREMIX (*) 2 GM/50 ML BAG IVPB ONE (09:45)
--- NOTE | 2017-09-05 10:16 | ECHO ---
Patient: CONSTANZA RICHARDSON [facility] Rec#: [id number] : 1950 Date: 09/05/2017 Age: 66y Height: 157.48 cm / 62.0 in Weight: 72.57 kg / 159.9 lbs Sex: F BSA: 1.74 Room#: ICU-4 Admit Date#: 09/04/2017 Type: Inpatient Referring: Jamal Ferreira Reading: Ayo Perez MD Tape Weaver: Michelle Rodriguez RDCS CC: Anup Arzola MD Transthoracic Echocardiogram Indication: Syncope, chest pain BP: 116/70 HR: 66 Rhythm: Paced Findings History: S/P 2 ablations, afib, PAVITHRA, lymphoma with chemotherapy and radiation. Patient with temporary pacer. Technical Comments: The study was technically limited due to the patient's inability to lay in the left lateral decubitus position. Completed at 0900. Left Ventricle: The left ventricular chamber size is decreased. Mild concentric left ventricular hypertrophy is observed. Left ventricular systolic function is at the lower limits of normal. The estimated ejection fraction is 50-55%. There is abnormal ventricular septal wall motion consistent with right ventricular pacemaker. The assessment of diastolic function is non-diagnostic. Left Atrium: The left atrial chamber size is normal. Right Ventricle: Moderator Band present. The right ventricular cavity size is normal. The right ventricular global systolic function is low normal. Right Atrium: The right atrial cavity size is normal. Aortic Valve: The aortic valve is trileaflet. Moderate aortic leaflet calcification is visualized. Systolic excursion of the aortic valve cusps is reduced. There is mild aortic regurgitation. There is mild to moderate aortic stenosis. The mean gradient of the aortic valve is 13.61 mmHg. The peak instantaneous gradient of the aortic valve is 23.5 mmHg. The aortic valve area, by peak velocities, is calculated at 1.3 cm2. The aortic valve area, by VTI's, is calculated at 1.3 cm2. Mitral Valve: There is mitral annular calcification. Mitral valve leaflet mobility is mildly restricted. There is trace to mild mitral regurgitation. There is mild mitral stenosis. The mean gradient across the mitral valve is 6.03 mmHg. The peak gradient across the mitral valve is 16.86 mmHg. The pressure half time of the mitral valve is 35.83 msec. Tricuspid Valve: The tricuspid valve leaflets are normal. There is trace to mild tricuspid regurgitation. The right ventricular systolic pressure is estimated at 34 mmHg. There is no tricuspid stenosis. Pulmonic Valve: The pulmonic valve structure is not well visualized. There is a trace pulmonic regurgitation. There is no pulmonic stenosis. Pericardium: There is no significant pericardial effusion. Aorta: There is no dilatation of the ascending aorta. There is no dilatation of the aortic arch. There is no dilation of the aortic root. Pulmonary Artery: The main pulmonary artery is not well visualized. Venous: The inferior vena cava appears normal in size. There is a greater than 50% respiratory change in the inferior vena cava dimension. Conclusions Mild concentric left ventricular hypertrophy is observed. The estimated ejection fraction is 50-55%. Left ventricular systolic function is at the lower limits of normal. There is abnormal ventricular septal wall motion consistent with right ventricular pacemaker. Moderate aortic leaflet calcification is visualized. There is mild aortic regurgitation. There is mild to moderate aortic stenosis. The mean gradient of the aortic valve is 13.61 mmHg. There is trace to mild mitral regurgitation. There is mitral annular calcification. There is trace to mild tricuspid regurgitation. The right ventricular systolic pressure is estimated at 34 mmHg. There is no significant pericardial effusion. Measurements Name Value Normal Range RVIDd (AP) 2D 2.3 cm (0.9 - 2.6) RVDdMajor (2D) 3.9 cm (2.2 - 4.4) RAd ISD 4CH 4.3 cm (3.4 - 4.9) RA (A4C)W 4.3 cm (2.9 - 4.6) IVSd (2D) 1.2 cm (0.6 - 1) LVPWd (2D) 1.2 cm (0.6 - 1) LVIDd (2D) 3.2 cm (3.6 - 5.4) LVIDs (2D) 1.8 cm - LV FS (2D) 44 % (25 - 45) Aortic Annulus 1.9 cm (1.4 - 2.6) Ao root diameter (2D) 2.7 cm (2.1 - 3.5) Ascending Ao 2.7 cm (2.1 - 3.4) Aortic arch 2.3 cm (1.8 - 3.4) LA dimension (AP) 2D 3.6 cm (2.3 - 3.8) LAd ISD 4CH 4.6 cm (2.9 - 5.3) LA ISD 4CH W 3.4 cm (2.5 - 4.5) Name Value Normal Range LA ESV SP 4CH (A/L) 40 ml - LA ESV SP 2CH (A/L) 46 ml - LA ESV BP (A/L) 44 ml - LA ESV BP (A/L) index 26 ml/m2 - LA ESV SP 4CH (MOD) 40 ml - LA ESV SP 2CH (MOD) 46 ml - Name Value Normal Range MV E-wave Vmax 1.74 m/sec - MV deceleration time 144.9 msec - LV septal e' Vmax 0.05 m/sec - LV lateral e' Vmax 0.06 m/sec - LV E:e' septal ratio 34.8 ratio - LV E:e' lateral ratio 29 ratio - Name Value Normal Range AV Vmax 2.4 m/sec - AV VTI 50 cm - AV peak gradient 23.5 mmHg - AV mean gradient 13.61 mmHg - LVOT diameter 2 cm - LVOT Vmax 1.01 m/sec - LVOT VTI 21.23 cm - LVOT peak gradient 4.17 mmHg - LVOT mean gradient 2.2 mmHg - DOI (VTI) 0.42 ratio - NATACHA (continuity Vmax) 1.3 cm2 - NATACHA (continuity VTI) 1.3 cm2 - AR PHT 393.9 msec - AR peak gradient 57.4 mmHg - MATHEW Vmax 0.87 m/sec - Name Value Normal Range MV Vmax 2.04 m/sec - MV VTI 30.54 cm - MV peak gradient 16.86 mmHg - MV mean gradient 6.03 mmHg - MV PHT 35.83 msec - MVA (continuity VTI) 2.2 cm2 - Name Value Normal Range TR Vmax 2.8 m/sec - TR peak gradient 31 mmHg - RAP 3 mmHg - RVSP 34 mmHg - IVC diameter 1.6 cm - Name Value Normal Range PV Vmax 0.98 m/sec - PV peak gradient 4 mmHg -
[2017-09-05] MEDS ORDERED: Lidocaine 1% INJ* 10 MG/ML 30 ML SDV ONE ×2 (10:20→11:25)
[2017-09-05] MEDS ORDERED: Midazolam* 1 MG/ML 5 ML VIAL (5 MG) ONE ×2 (10:20→10:54)
[2017-09-05] MEDS ORDERED: fentaNYL* 50 MCG/ML 2 ML VIAL (100 MCG VIAL) ONE (10:20)
[2017-09-05] MEDS ORDERED: Iohexol 300 (CONTRAST) 10 ML SDV ONE ×2 (10:47→10:59)
[2017-09-05] MEDS ORDERED: Verapamil TAB* 120 MG PO SCH (13:00)
[2017-09-05] MEDS: Acetaminophen TAB* 325 MG PO PRN ×2 (13:13→18:50)
[2017-09-05 14:10] LABS: Urine Appearance Cloudy; Urine Blood 3+ (Negative); Urine Color Yellow; Urine Ketones Negative (Negative); Urine Protein 1+(30 mg/dL) (Negative); Urine Red Blood Cell 3+(>10/hpf) (Absent); Urine Specific Gravity 1.041 (1.010-1.030); Urine Urobilinogen Negative (Negative); Urine White Blood Cell 3+(>20/hpf) (Absent)
--- NOTE | 2017-09-05 14:11 | RAD ---
INDICATION: Status post device implant. COMPARISON: Comparison is made with prior chest x-ray study from September 04, 2017. TECHNIQUE: A portable view of the chest was obtained. FINDINGS: The patient is status post placement of a dual chamber transvenous pacemaker. The heart is within normal limits in size. There is a paramediastinal infiltrate present in the right upper lobe which is unchanged. There is a new small patchy infiltrate which projects over the left upper lobe. The lungs are otherwise clear. No pleural effusion or pneumothorax is seen. IMPRESSION: 1. STATUS POST CARDIAC PACEMAKER PLACEMENT. 2. NEW SMALL LEFT UPPER LOBE INFILTRATE.
[2017-09-05] MEDS ORDERED: Piperacillin/Tazobac ADVAN(*) 3.375 GM in NS 0.9% 100 ML* 100 ML IVPB ONE (14:32)
[2017-09-05] MEDS ORDERED: Vancomycin per Pharmacy* NOTE FOLLOW UP PRN (14:50)
[2017-09-05] MEDS ORDERED: Vancomycin(*) 1,000 MG in NS 0.9% 250 ML* 250 ML IVPB ONE (15:00)
[2017-09-05] MEDS ORDERED: Zosyn per Pharmacy* NOTE FOLLOW UP SCH (15:00)
[2017-09-05] MEDS ORDERED: Vancomycin(*) 0 MG in NS 0.9% 250 ML* 250 ML IVPB SCH (15:00)
[2017-09-05] MEDS: Verapamil SR TAB* 240 MG PO SCH (16:10)
[2017-09-05] MEDS ORDERED: ceFAZolin 1 GM VIAL(*) 1 GM in NS 0.9% 50 ML* 50 ML IVPB SCH (18:00)
[2017-09-05] MEDS: Omeprazole CAP* 20 MG PO SCH (18:43)
[2017-09-05] MEDS: ZOSYN 3.375 GM Q8H per EXTENDED INFUSION IVPB SCH ×2 (18:43)
--- NOTE | 2017-09-05 19:17 | OP ---
Operative Report - Blank - Operative Report Date of Operation: 09/05/17 Note: Central Venous Catheter (CVC, Central Line) Placement Date: 09/05/17 Time: 7:15 pm Indication: Hemodynamic monitoring/Intravenous access Attending: Anjel Lagos time-out was completed verifying correct patient, procedure, site, positioning , and special equipment if applicable. The patient was placed in a dependent position appropriate for central line placement based on the vein to be cannulated. The patients left groin was prepped and draped in sterile fashion. 1% Lidocaine was used to anesthetize the surrounding skin area. A triple lumen 7 -Djiboutian catheter was introduced into the the common femoral vein using the Seldinger technique and under ultrasound guidance. The catheter was threaded smoothly over the guide wire and appropriate blood return was obtained. Each lumen of the catheter was evacuated of air and flushed with sterile saline. The catheter was then sutured in place to the skin and a sterile dressing applied. Perfusion to the extremity distal to the point of catheter insertion was checked and found to be adequate. Estimated Blood Loss: Minimal The patient tolerated the procedure well and there were no complications.
[2017-09-05] MEDS ORDERED: Norepinephrine 16MCG/ML IVPRE* 4,000 MCG/250 ML BAG IV SCH ×2 (20:00)
[2017-09-05] MEDS: Ibuprofen TAB* 600 MG PO PRN (20:09)
[2017-09-05] MEDS ORDERED: Hydrocortisone INJ* 100 MG VIAL IV ONE (21:00)
[2017-09-05] MEDS ORDERED: Hydrocortisone INJ* 100 MG VIAL ONE (21:04)
[2017-09-05] MEDS: LORazepam TAB(*) 1 MG PO SCH (21:21)
[2017-09-05] MEDS: Vancomycin(*) 750 MG in NS 0.9% 250 ML* 250 ML IVPB SCH (21:21)
[2017-09-05] MEDS: Norepinephrine VIAL* 4 MG in NS 0.9% 250 ML* 246 ML IV SCH (21:35)
[2017-09-05] MEDS ORDERED: Norepinephrine VIAL* 4 MG in NS 0.9% 250 ML* 246 ML IV SCH (22:00)
--- NOTE | 2017-09-05 23:30 | PN ---
Progress Note - Progress Note Date of Service: 09/05/17 Note: Seen w/ Dr Hobbs at shift start for increased SOB. Denies chest pain. S/P permanent pacer placement today. Having difficulty with complete sentences. Mild accessory muscle use. Febrile to 38.3C. Hypotensive 80/60s. Tachypneic in the mid- to high 20s. tachycardic in 100-110s. Lungs Abdomen SNTND. Started on piperacillin/tazobactam earlier today. Recheck CXR, no pneumothorax nor acute worsening noted. Had been on chronic prednisone. Given hypotension & HX chronic steroid will start stress dose hydrocortisone IV to cover potential adrenal insufficiency. Increase supplemental oxygen to VapoTherm. Continue close monitoring. Her SOB & hypotension may also be septic related & as such will start norepinephrine GTT titrate to systolic >90 & MAP > 65. Follow up evaluation @ ~2300 reveals objective and subjective improvement. Still SOB, but able to speak with less difficulty. VapoTherm at 40L 100%. May require BiPap, continue close monitoring. Follow up shortly after midnight reveals Mr Perez with RR mid- to high 30s with moderate abdominal accessory muscle use despite max VapoTherm. Will transition to BiPap to allow rest & attempt to prevent respiratory fatigue and progressive failure. Lungs remain with fair to poor aeration, improved end- expiratory wheeze, no crackles. Continue close monitoring.
[2017-09-05] MEDS: oxyCODONE/Acetamin 5/325 MG* TAB PO PRN (23:37)
[2017-09-06] MEDS: Albuterol/Ipratropium NEB.SOL* Albuterol 2.5 MG/Ipratropium 0.5 MG 3 ML INH SCH ×4 (00:58→12:25)
--- NOTE | 2017-09-06 01:23 | OP ---
CC: Dr. Anup Arzola * DATE OF OPERATION: 09/05/17 - ROOM #ICU-04 DATE OF : 52 SURGEON: Ayo Perez MD ANESTHESIA: Local anesthesia with conscious sedation. PRE-OP DIAGNOSES: Third-degree heart block, syncope. POST-OP DIAGNOSES: Third-degree heart block, syncope. OPERATIVE PROCEDURE: Dual-chamber pacemaker implantation. ESTIMATED BLOOD LOSS: Nil. COMPLICATIONS: None. INDICATIONS: The patient is a 66-year-old female with a history of paroxysmal atrial fibrillation, atrial tachycardia, who was admitted to the hospital with a syncopal episode. In the hospital, she had runs of third-degree heart block as well as 20 seconds of ventricular standstill. Dual-chamber pacemaker was recommended. DESCRIPTION OF PROCEDURE: The patient was in a fasting state. Informed consent had been obtained prior to the procedure. All labs were reviewed. The patient was placed supine on the procedure table. Her left deltopectoral area was cleaned and draped in the usual fashion. 1% lidocaine was used for local anesthesia. The axillary vein was entered by a modified Seldinger technique and a guidewire was placed. The guidewire was unable to be advanced to the innominate vein. A venogram of the axillary vein showed that it was occluded with large collaterals through the cephalic vein. A venogram of the right side demonstrated it was open and patent, thus the procedure was transferred over to the right side. Under ultrasound guidance, the axillary vein on the right side was entered by a modified Seldinger technique and a guidewire was placed. A second guidewire was placed in the same technique. A 3.5-cm incision was made in the pectoral area and blunt dissection was carried down to the pectoral fascia. A pocket was fashioned for the pacemaker. Over the first guidewire, a 6-Vietnamese sheath introducer was placed through which a right ventricular lead was advanced to the RV apex. The right ventricular lead is a [employer] model [id number], serial #[id number]. It had an R-wave sensitivity of 7, impedance 610 ohms, threshold 0.5 volts at 0.4 milliseconds. The ventricular lead was sutured to the pectoral fascia. Over the second guidewire, a 6-Vietnamese sheath introducer was placed through which a right atrial lead was advanced to the high right atrium. The right atrial lead is a [employer] model [id number], serial #[id number]. It had a P-wave sensitivity of 2.5, impedance 410 ohms, threshold 1 volt at 0.4 milliseconds. The atrial lead was sutured to the pectoral fascia. A generator was attached appropriately to the atrial and ventricular leads. The temporary wire was removed under fluoroscopic guidance. The pocket was flushed with antibiotic-infused normal saline. The generator was placed in the pocket. The surgical incision was closed in 3 layers. The patient tolerated the procedure well and no complications. [id number]/[facility] #: [id number] MAXX
[2017-09-06] MEDS: ZOSYN 3.375 GM Q8H per EXTENDED INFUSION IVPB SCH ×6 (02:01→18:42)
[2017-09-06 05:24] LABS: ABS Basophils 0 10^3/ul (0-0.2); ABS Eosinophils 0 10^3/ul (0-0.6); ABS Lymphocytes 1.3 10^3/ul (1.0-4.8); ABS Monocytes 0.7 10^3/ul (0-0.8); ABS Neutrophils 10.8 10^3/ul (1.5-7.7); ABS Nucleated RBC 0 10^3/ul; Eosinophil % 0 % (0-6); Hematocrit 31 % (35-47); Hemoglobin 10.1 g/dl (12.0-16.0); Lymphocyte % 10.2 % (25-47); Mean Corpuscular HGB Conc 32 g/dl (31-36); Mean Corpuscular Hemoglobin 28 pg (27-31); Mean Corpuscular Volume 86 fL (80-97); Mean Platelet Volume 7.7 um3 (7.4-10.4); Nucleated Red Blood Cells % 0; Platelet Count 226 10^3/ul (150-450); Red Blood Count 3.61 10^6/ul (4.00-5.40); Red Cell Distribution Width 17 % (10.5-15); White Blood Count 12.8 10^3/ul (3.5-10.8)
[2017-09-06 05:39] LABS: EGFR Non-African American 110.9 (>60)
[2017-09-06] MEDS: Levothyroxine TAB* 125 MCG TAB PO SCH (06:17)
[2017-09-06] MEDS: Hydrocortisone INJ* 100 MG VIAL IV SCH ×3 (06:17→21:44)
[2017-09-06] MEDS: Heparin VIAL(*) 5000 UNITS/ML VIAL (FIVE THOUSAND) SUBCUT SCH ×3 (06:17→21:45)
[2017-09-06] MEDS: Vancomycin(*) 750 MG in NS 0.9% 250 ML* 250 ML IVPB SCH ×2 (06:17→13:51)
[2017-09-06] MEDS: Tiotropium CAP.INH* CAP.INH/18 MCG (USE ORDER SET !) INH SCH (07:30)
--- NOTE | 2017-09-06 08:02 | RAD ---
Indication: Shortness of breath, wheezing, arrhythmia. Sleep apnea. Comparison: September 05, 2017 chest radiograph and September 04, 2017 CT. September 04, 2017 chest radiograph. Technique: Upright AP 2107 hours Report: Chronic mild prominence of interstitial markings and upper lung zone rarefaction. Mild airspace consolidation at the LEFT mid to lower lung zone similar to the 1307 hours exam of the same date and grossly new compared with the September 04, 2017 exam suspicious for pneumonia. Grossly clear pleural spaces. Negative for cardiomegaly. Unremarkable central pulmonary vasculature. RIGHT atrial and RIGHT ventricular level pacemaker leads. IMPRESSION: #. The constellation of findings is most consistent with inflammatory infiltrate at the LEFT mid to lower lung zone superimposed on chronic obstructive pulmonary disease without significant change compared with the earlier exam of the same date.
--- NOTE | 2017-09-06 09:15 | RAD ---
INDICATION: Device implant COMPARISON: September 05, 2017 TECHNIQUE: PA and lateral views were obtained. FINDINGS: Bones/Soft Tissues: There are no acute bony findings. There is recent right-sided cardiac pacemaker placement. The generator and leads appear intact Cardiomediastinal: The cardiac silhouette is normal in size. Central pulmonary vessels and interstitium are prominent.. Lungs: Interstitial and alveolar change consistent with interstitial and alveolar edema with worsening. There is no pneumothorax Pleura: Small bilateral pleural effusions. Other: None IMPRESSION: MODERATE VASCULAR CONGESTION WITH WORSENING. GIVEN THESE DIFFUSE ABNORMALITIES, COEXISTENT INFECTIOUS INFILTRATES ARE NOT EXCLUDED.
--- NOTE | 2017-09-06 09:30 | PN ---
Date of Service: 09/06/17 Critical Care Services: 66F with h/o lymphoma in remission, h/o afib s/p ablation, h/o obstructive lung disease 2/2 radiation presents with syncope. Had 10 second pause captured on telemetry today. 09/05: multiple episodes of complete heart block overnight. Interventional cardiology consulted and TVP placed. 09/06: s/p PPM. Post procedure patient febrile. New CXR infiltrate. +UA. Hypoxia. Hypotension. Respiratory distress. Central line placed. Started on bipap. Vital Signs: Temp Pulse Resp BP SpO2 FiO2 97.3 F 97 22 120/73 100 50 09/06/17 08:24 09/06/17 08:24 09/06/17 08:24 09/06/17 08:24 09/06/17 08:24 09/06 07:35 Physical Exam: Gen - NAD HEENT - +lip laceration, eomi, perrl Neck - no jvd, no thyromegaly CV - s1/s2, no murmur, +right chest ppm Lungs - cta, +ronch, dec bs on left ABd - soft, nt, nd Ext - no cce, +left fem tlc Neuro - nonfocal Fluid Balance (Past 24 Hours): I= O= Net Intake & Output 09/04/17 09/05/17 09/06/17 09/07/17 06:59 06:59 06:59 06:59 Intake Total 278 7137.0 0 Output Total 1051 1655 Balance -773 5482.0 0 Weight 72.575 kg 76.1 kg 81.4 kg Intake: IV Fluids 278 5486 ABX - VANCOMYCIN 73 ABX - ZOSYN 114 LR 3943 NS 139 1356 NS (0.9%) 139 IVPB 719 ABX - VANCOMYCIN 422 ABX - ZOSYN 297 Medicated IV 92.0 CC - Norepinephrine/ 92.0 Levophed Oral 0 840 0 Output: Patel 1051 1655 Labs: Laboratory Results - last 24 hr 09/05/17 09/05/17 09/06/17 13:32 14:24 05:07 WBC RBC Hgb Hct MCV MCH MCHC RDW Plt Count MPV Neut % (Auto) Lymph % (Auto) [place] % (Auto) Eos % (Auto) Baso % (Auto) Absolute Neuts (auto) Absolute Lymphs (auto) Absolute Monos (auto) Absolute Eos (auto) Absolute Basos (auto) Absolute Nucleated RBC Nucleated RBC % Sodium 140 Potassium 4.4 Chloride 106 Carbon Dioxide 29 Anion Gap 5 BUN 12 Creatinine 0.55 Est GFR ( Amer) 134.2 Est GFR (Non-Af Amer) 110.9 BUN/Creatinine Ratio 21.8 H Glucose 135 H Lactic Acid 0.9 Calcium 8.1 L Urine Color Yellow Urine Appearance Cloudy Urine pH 5.0 Ur Specific [place] 1.041 H Urine Protein 1+(30 mg/dl) A Urine Ketones Negative Urine Blood 3+ A Urine Nitrate Negative Urine Bilirubin Negative Urine Urobilinogen Negative Ur Leukocyte Esterase Negative Urine WBC (Auto) 3+(>20/hpf) A Urine RBC (Auto) 3+(>10/hpf) A Ur Squamous Epith Cells Present A Urine Bacteria Absent Urine Glucose Negative 09/06/17 05:07 WBC 12.8 H RBC 3.61 L Hgb 10.1 L Hct 31 L MCV 86 MCH 28 MCHC 32 RDW 17 H Plt Count 226 MPV 7.7 Neut % (Auto) 84.0 H Lymph % (Auto) 10.2 L [place] % (Auto) 5.4 Eos % (Auto) 0 Baso % (Auto) 0.4 Absolute Neuts (auto) 10.8 H Absolute Lymphs (auto) 1.3 Absolute Monos (auto) 0.7 Absolute Eos (auto) 0 Absolute Basos (auto) 0 Absolute Nucleated RBC 0 Nucleated RBC % 0 Sodium Potassium Chloride Carbon Dioxide Anion Gap BUN Creatinine Est GFR ( Amer) Est GFR (Non-Af Amer) BUN/Creatinine Ratio Glucose Lactic Acid Calcium Urine Color Urine Appearance Urine pH Ur Specific [place] Urine Protein Urine Ketones Urine Blood Urine Nitrate Urine Bilirubin Urine Urobilinogen Ur Leukocyte Esterase Urine WBC (Auto) Urine RBC (Auto) Ur Squamous Epith Cells Urine Bacteria Urine Glucose Studies: Imaging 09/04/17 CXR IMPRESSION: #. Post radiation change and stigmata of probable chronic obstructive pulmonary disease. #. No acute cardiopulmonary process evident. 09/04/[address] IMPRESSION: #. Mild involutional change and stigmata of probable chronic small vessel ischemic disease. #. No CT evidence for traumatic brain injury or acute intracranial process. 09/04/[address] IMPRESSION: #. No CT evidence for traumatic cervical spine injury. 09/04/17 CTA Chest IMPRESSION: #. No evidence for pulmonary embolism. #. Postradiation fibrosis greatest in the RIGHT paramediastinal region without change. #. Stable bilateral pulmonary nodules compared with the August 12, 2015 exam. No suspicious enlarging pulmonary lesions or new focal pulmonary lesions. #. Chronic finding of patchy groundglass opacity may reflect chronic alveolar inflammation or patchy air trapping in the regions without apparent groundglass opacity. #. Negative for lymphadenopathy. 09/04/17 CT Maxillofacial Bones Negative for Fracture 09/05/17 CXR IMPRESSION: #. The constellation of findings is most consistent with inflammatory infiltrate at the LEFT mid to lower lung zone superimposed on chronic obstructive pulmonary disease without significant change compared with the earlier exam of the same date. 09/06 CXR IMPRESSION: MODERATE VASCULAR CONGESTION WITH WORSENING. GIVEN THESE DIFFUSE ABNORMALITIES, COEXISTENT INFECTIOUS INFILTRATES ARE NOT EXCLUDED. Impression: 66F with h/o lymphoma in remission, h/o afib s/p ablation, h/o obstructive lung disease 2/2 radiation presents with syncope. Multiple episodes of complete heartblock. S/p PPM. Now with septic shock 2/2 pna and uti. Plan: Neuro - depression/anxiety - ativan prn CV - syncope, afib, complete heart block, Shock - s/p PPM - hold home verapamil - keep mag > 2, K > 4 - monitor on tele - levophed for bp support Pulm - obstructive lung disease, hypoxic respiratory failure - c/w symbicort/spiriva - c/w steroids - nebulizers prn - c/w bipap ID - septic shock 2/2 pna/uti - iv hydration - serial lacates - levophed for bp support - f/u cultures - vanco/zosyn (day 2) GI - diet as tolerated Renal - monitor lytes Heme - h/o lymphoma/anal cancer - in remission - monitor cbc Endo - hypothyroid, on chronic prednisone - cortisol borderline low - possible adrenal insufficiency - stress dose hydrocortisone Lines - left fem tlc (09/05/17) PPx - gi/dvt DNR/DNI Critical Care Time: 65 mins
[2017-09-06] MEDS: Verapamil SR TAB* 240 MG PO SCH (10:39)
[2017-09-06] MEDS: oxyCODONE/Acetamin 5/325 MG* TAB PO PRN (10:39)
[2017-09-06] MEDS: Magnesium Oxide TAB* 400 MG PO SCH (10:39)
[2017-09-06] MEDS: Norepinephrine VIAL* 4 MG in NS 0.9% 250 ML* 246 ML IV SCH (10:53)
[2017-09-06] MEDS ORDERED: Vancomycin Trough Check NOTE FOLLOW UP ONE (13:30)
[2017-09-06] MEDS: Ondansetron INJ* 2 MG/ML VIAL IV PRN (15:04)
[2017-09-06] MEDS: Omeprazole CAP* 20 MG PO SCH (18:42)
[2017-09-06] MEDS: fentaNYL* 50 MCG/ML 2 ML VIAL (100 MCG VIAL) IV SLOW PU PRN (20:25)
[2017-09-06] MEDS: Vancomycin(*) 1,000 MG in NS 0.9% 250 ML* 250 ML IVPB SCH (20:25)
[2017-09-06] MEDS: Mometasone/Formoter 200/5 MDI INH SCH (21:28)
[2017-09-06] MEDS: LORazepam TAB(*) 1 MG PO SCH (21:44)
[2017-09-06] MEDS: Bisacodyl SUPP* 10 MG SUPP PR PRN (21:48)
[2017-09-07] MEDS: oxyCODONE/Acetamin 5/325 MG* TAB PO PRN ×3 (05:09→20:20)
[2017-09-07] MEDS: ZOSYN 3.375 GM Q8H per EXTENDED INFUSION IVPB SCH ×6 (05:09→21:37)
[2017-09-07] MEDS: Vancomycin(*) 1,000 MG in NS 0.9% 250 ML* 250 ML IVPB SCH ×3 (05:09→20:21)
[2017-09-07] MEDS: Levothyroxine TAB* 125 MCG TAB PO SCH (05:30)
[2017-09-07] MEDS: Heparin VIAL(*) 5000 UNITS/ML VIAL (FIVE THOUSAND) SUBCUT SCH ×3 (05:30→21:44)
[2017-09-07] MEDS: Hydrocortisone INJ* 100 MG VIAL IV SCH ×3 (05:30→21:36)
[2017-09-07 05:41] LABS: ABS Basophils 0.1 10^3/ul (0-0.2); ABS Eosinophils 0 10^3/ul (0-0.6); ABS Lymphocytes 1.9 10^3/ul (1.0-4.8); ABS Neutrophils 8.8 10^3/ul (1.5-7.7); ABS Nucleated RBC 0 10^3/ul; Eosinophil % 0.2 % (0-6); Hematocrit 29 % (35-47); Hemoglobin 9.5 g/dl (12.0-16.0); Lymphocyte % 16.3 % (25-47); Mean Corpuscular HGB Conc 33 g/dl (31-36); Mean Corpuscular Hemoglobin 28 pg (27-31); Mean Corpuscular Volume 86 fL (80-97); Mean Platelet Volume 7.9 um3 (7.4-10.4); Nucleated Red Blood Cells % 0.1; Platelet Count 190 10^3/ul (150-450); Red Blood Count 3.34 10^6/ul (4.00-5.40); Red Cell Distribution Width 17 % (10.5-15); White Blood Count 11.8 10^3/ul (3.5-10.8)
[2017-09-07] MEDS: Norepinephrine VIAL* 4 MG in NS 0.9% 250 ML* 246 ML IV SCH ×3 (06:26→21:37)
[2017-09-07] MEDS: Tiotropium CAP.INH* CAP.INH/18 MCG (USE ORDER SET !) INH SCH (08:39)
[2017-09-07] MEDS: Mometasone/Formoter 200/5 MDI INH SCH ×2 (08:39→20:28)
[2017-09-07] MEDS: Verapamil SR TAB* 240 MG PO SCH (08:50)
[2017-09-07] MEDS: Magnesium Oxide TAB* 400 MG PO SCH (08:50)
--- NOTE | 2017-09-07 15:39 | PN ---
Date of Service: 09/07/17 Critical Care Services: Episodes SOB today, but up in chair and tolerated it. No organism isolated so far. Vital Signs: Temp Pulse Resp BP SpO2 FiO2 99.0 F 99 27 83/52 95 45 Physical Exam: Gen:alert, oriented Lungs:decreased BS left base Extremities:No cyanosis or edema Fluid Balance (Past 24 Hours): 09/05/17 09/06/17 09/07/17 06:59 06:59 06:59 Intake Total 278 7137.0 3749 Output Total 1051 1655 1236 Balance -773 5482.0 2513 Weight 167 lb 12.348 oz 179 lb 7.3 oz 183 lb 13.848 oz Intake: IV Fluids 278 5486 735 ABX - VANCOMYCIN 73 ABX - ZOSYN 114 173 LR 3943 NS 139 1356 562 NS (0.9%) 139 IVPB 719 661 ABX - VANCOMYCIN 422 307 ABX - ZOSYN 297 105 NS 249 Medicated IV 92.0 103 CC - Norepinephrine/ 92.0 103 Levophed Oral 0 840 2250 Output: Patel 1051 1655 1236 Other: Estimated Stool Amount Small Labs: 09/07/17 09/07/17 05:20 05:20 WBC 11.8 H RBC 3.34 L Hgb 9.5 L Hct 29 L MCV 86 MCH 28 MCHC 33 RDW 17 H Plt Count 190 MPV 7.9 Neut % (Auto) 74.2 Lymph % (Auto) 16.3 L [place] % (Auto) 8.6 H Eos % (Auto) 0.2 Baso % (Auto) 0.7 Absolute Neuts (auto) 8.8 H Absolute Lymphs (auto) 1.9 Absolute Monos (auto) 1.0 H Absolute Eos (auto) 0 Absolute Basos (auto) 0.1 Absolute Nucleated RBC 0 Nucleated RBC % 0.1 Sodium 141 Potassium 4.0 Chloride 105 Carbon Dioxide 32 Anion Gap 4 BUN 16 Creatinine 0.47 L Est GFR ( Amer) 160.9 Est GFR (Non-Af Amer) 133.0 BUN/Creatinine Ratio 34.0 H Glucose 108 H Calcium 8.1 L Magnesium 1.8 L Studies: Urine and blood cultures from 09/05 negative so far Nutrition: Oral diet Impression: [id number] respiratory failure from pneumonia. Improving, but slowly. Plan: Continue present management plan - I will d/c antibiotics if cultures remain negative.
[2017-09-07] MEDS: Bisacodyl SUPP* 10 MG SUPP PR PRN (20:14)
[2017-09-07] MEDS: Omeprazole CAP* 20 MG PO SCH (20:20)
[2017-09-07] MEDS: LORazepam TAB(*) 1 MG PO SCH (21:36)
[2017-09-08] MEDS: Vancomycin(*) 1,000 MG in NS 0.9% 250 ML* 250 ML IVPB SCH ×2 (04:06→13:42)
[2017-09-08] MEDS: ZOSYN 3.375 GM Q8H per EXTENDED INFUSION IVPB SCH ×4 (05:02→14:02)
[2017-09-08] MEDS: oxyCODONE/Acetamin 5/325 MG* TAB PO PRN ×4 (05:28→20:01)
[2017-09-08] MEDS: Levothyroxine TAB* 125 MCG TAB PO SCH (05:28)
[2017-09-08] MEDS: Hydrocortisone INJ* 100 MG VIAL IV SCH ×2 (05:28→14:02)
[2017-09-08] MEDS: Heparin VIAL(*) 5000 UNITS/ML VIAL (FIVE THOUSAND) SUBCUT SCH ×3 (05:29→21:10)
[2017-09-08] MEDS ORDERED: Norepinephrine VIAL* 4 MG in NS 0.9% 250 ML* 246 ML IV SCH (06:00)
[2017-09-08 06:24] LABS: ABS Basophils 0.1 10^3/ul (0-0.2); ABS Eosinophils 0 10^3/ul (0-0.6); ABS Lymphocytes 1.8 10^3/ul (1.0-4.8); ABS Nucleated RBC 0 10^3/ul; Eosinophil % 0.3 % (0-6); Hematocrit 29 % (35-47); Hemoglobin 9.4 g/dl (12.0-16.0); Lymphocyte % 16.4 % (25-47); Mean Corpuscular HGB Conc 33 g/dl (31-36); Mean Corpuscular Hemoglobin 28 pg (27-31); Mean Corpuscular Volume 86 fL (80-97); Mean Platelet Volume 7.7 um3 (7.4-10.4); Nucleated Red Blood Cells % 0; Platelet Count 182 10^3/ul (150-450); Red Blood Count 3.34 10^6/ul (4.00-5.40); Red Cell Distribution Width 17 % (10.5-15)
[2017-09-08 06:42] LABS: EGFR Non-African American 96.6 (>60)
[2017-09-08] MEDS: Mometasone/Formoter 200/5 MDI INH SCH ×2 (07:55→20:21)
[2017-09-08] MEDS: Tiotropium CAP.INH* CAP.INH/18 MCG (USE ORDER SET !) INH SCH (07:55)
[2017-09-08] MEDS: Magnesium Oxide TAB* 400 MG PO SCH (09:24)
[2017-09-08] MEDS: Verapamil SR TAB* 240 MG PO SCH (09:24)
[2017-09-08] MEDS ORDERED: Vancomycin Trough Check NOTE FOLLOW UP ONE (11:30)
--- NOTE | 2017-09-08 14:08 | PN ---
Date of Service: 09/08/17 Critical Care Services: Had an uneventful evening, and is now off Vapotherm, and oxygenating with a Salter system at 10-12 L/min. Vital Signs: Temp Pulse Resp BP SpO2 FiO2 98.2 F 108 19 131/70 99 45 Physical Exam: Gen:Alert, oriented, appears comfortable Lungs: Scattered rhonchi. No wheezes. Diminished BS both bases Extremities: No cyanosis or edema Fluid Balance (Past 24 Hours): 09/06/17 09/07/17 09/08/17 06:59 06:59 06:59 Intake Total 7137.0 3749 2957 Output Total 1655 1236 1618 Balance 5482.0 2513 1339 Weight 179 lb 183 lb 182 lb Intake: IV Fluids 5486 735 793 ABX - VANCOMYCIN 73 ABX - ZOSYN 114 173 158 LR 3943 NS 1356 562 635 IVPB 719 661 824 ABX - VANCOMYCIN 422 307 578 ABX - ZOSYN 297 105 246 NS 249 Medicated IV 92.0 103 CC - Norepinephrine/ 92.0 103 Levophed Oral 840 2250 1340 Output: Patel 1655 1236 1618 Other: Estimated Stool Amount Small Labs: Laboratory Results - last 24 hr 09/08/17 09/08/17 09/08/17 06:12 06:12 12:36 WBC 11.0 H RBC 3.34 L Hgb 9.4 L Hct 29 L MCV 86 MCH 28 MCHC 33 RDW 17 H Plt Count 182 MPV 7.7 Neut % (Auto) 73.2 Lymph % (Auto) 16.4 L [place] % (Auto) 9.5 H Eos % (Auto) 0.3 Baso % (Auto) 0.6 Absolute Neuts (auto) 8.0 H Absolute Lymphs (auto) 1.8 Absolute Monos (auto) 1.0 H Absolute Eos (auto) 0 Absolute Basos (auto) 0.1 Absolute Nucleated RBC 0 Nucleated RBC % 0 Sodium 141 Potassium 4.3 Chloride 104 Carbon Dioxide 34 H Anion Gap 3 BUN 15 Creatinine 0.62 Est GFR ( Amer) 116.9 Est GFR (Non-Af Amer) 96.6 BUN/Creatinine Ratio 24.2 H Glucose 103 H Calcium 8.3 L Vancomycin Trough 15.3 Studies: None today. All cultures remain negative. Nutrition: Oral diet Impression: 1. Slowly improving. No pathogen isolated. 2. Fluid accumulation over the past few days Plan: 1. D/C antibiotics 2. Diuresis with furosemide. 3. Transfer to telemetry floor.
[2017-09-08] MEDS ORDERED: Furosemide IV* 10 MG/ML VIAL (40 MG) IV ONE (15:15)
[2017-09-08] MEDS: Omeprazole CAP* 20 MG PO SCH (19:18)
[2017-09-08] MEDS: LORazepam TAB(*) 1 MG PO SCH (21:09)
[2017-09-09] MEDS: oxyCODONE/Acetamin 5/325 MG* TAB PO PRN ×4 (02:00→23:12)
[2017-09-09] MEDS: Levothyroxine TAB* 125 MCG TAB PO SCH (05:28)
[2017-09-09] MEDS: Heparin VIAL(*) 5000 UNITS/ML VIAL (FIVE THOUSAND) SUBCUT SCH ×3 (05:28→20:11)
[2017-09-09 06:14] LABS: EGFR Non-African American 98.4 (>60)
--- NOTE | 2017-09-09 07:46 | RAD ---
Indication: Syncope, chest pressure, nausea, palpitations. Pneumonia. Comparison: September 06, 2017 Technique: Upright AP 0610 hours Report: Prominent interstitial markings although improved compared with the prior exam. Significant partial interval resolution of LEFT lung alveolar infiltrates. Small LEFT pleural effusion. Negative for cardiomegaly. Prominent mildly ill-defined central pulmonary vasculature. RIGHT atrial and RIGHT ventricular level pacemaker leads. Cutaneous avinash over the RIGHT chest wall pacemaker control device. IMPRESSION: #. Interval partial resolution of LEFT lung alveolar infiltrates. #. Pulmonary vascular congestion and interstitial edema. #. Small LEFT pleural effusion.
[2017-09-09] MEDS: Tiotropium CAP.INH* CAP.INH/18 MCG (USE ORDER SET !) INH SCH (08:10)
[2017-09-09] MEDS: Mometasone/Formoter 200/5 MDI INH SCH ×2 (08:10→19:11)
[2017-09-09] MEDS: Verapamil SR TAB* 240 MG PO SCH (08:52)
[2017-09-09] MEDS: Magnesium Oxide TAB* 400 MG PO SCH (08:52)
[2017-09-09] MEDS: Acetaminophen TAB* 325 MG PO PRN (08:52)
[2017-09-09] MEDS ORDERED: Furosemide IV* 10 MG/ML VIAL (40 MG) IV ONE (09:57)
[2017-09-09] MEDS ORDERED: Potassium Chloride LIQUID* 20 MEQ PACKET PO ONE (10:05)
[2017-09-09] MEDS: Ondansetron INJ* 2 MG/ML VIAL IV PRN (10:31)
--- NOTE | 2017-09-09 10:42 | PN ---
Date of Service: 09/09/17 Critical Care Services: Had an uneventful evening. Given lasix, with a diuresis of about 2 liters. Up in bed and breathing comfortably this AM. No signs of sepsis, and no problems with arrhythmias recently. Vital Signs: Temp Pulse Resp BP SpO2 FiO2 98.1 F 101 22 120/77 99 45 Physical Exam: Gen:Alert, oriented, breathing comfortably Lungs:No wheezes or rhonchi. Some crackles at both bases. Cardiac: Reg rhythm Extremities:1+edema in lower legs. No cyanosis Fluid Balance (Past 24 Hours): 09/07/17 09/08/17 09/09/17 06:59 06:59 06:59 Intake Total 3749 2957 2154 Output Total 1236 1618 3425 Balance 2513 1339 -1271 Weight 183 lb 182 lb Intake: IV Fluids 735 793 228 ABX - ZOSYN 173 158 NS 562 635 228 IVPB 661 824 426 ABX - VANCOMYCIN 307 578 244 ABX - ZOSYN 105 246 182 NS 249 Medicated IV 103 CC - Norepinephrine/ 103 Levophed Oral 2250 1340 1500 Output: Patel 1236 1618 3425 Other: Estimated Stool Amount Small Labs: 09/08/17 09/08/17 09/09/17 06:12 12:36 05:40 ESR 62 H Sodium Potassium Chloride Carbon Dioxide Anion Gap BUN Creatinine Est GFR ( Amer) Est GFR (Non-Af Amer) BUN/Creatinine Ratio Glucose Calcium Magnesium Troponin I C-React Prot High Sens B-Natriuretic Peptide 248 H Vancomycin Trough 15.3 09/09/17 05:40 ESR Sodium 142 Potassium 3.1 Chloride 101 Carbon Dioxide 38 H Anion Gap 3 BUN 14 Creatinine 0.61 Glucose 97 Calcium 8.3 L Magnesium 1.8 Troponin I 0.02 C-React Prot High Sens 79.90 B-Natriuretic Peptide Vancomycin Trough Studies: CXR: Vascular congestion, but there is no longer an infiltrate in left lower lobe Nutrition: Oral diet Impression: 1. Presumed pneumonia has cleared with diuresis (which is against Dx pneumonia) 2. No evidence of an active infection (by cultures or clinical signs - elevated CRP is a reflection of inflammation, not infection), and antibiotics have been discontinued. Plan: 1. Continue diuresis 2. Replace magnesium and potassium. 3. Transfer patient out of ICU (to telemetry floor).
[2017-09-09] MEDS: Omeprazole CAP* 20 MG PO SCH (18:31)
[2017-09-09] MEDS: Albuterol/Ipratropium NEB.SOL* Albuterol 2.5 MG/Ipratropium 0.5 MG 3 ML INH PRN (19:11)
[2017-09-09] MEDS: LORazepam TAB(*) 1 MG PO SCH (19:23)
[2017-09-09] MEDS ORDERED: Furosemide IV* 10 MG/ML 10 ML VIAL (100 MG) IV ONE (19:31)
--- NOTE | 2017-09-09 19:38 | PN ---
Progress Note - Progress Note Date of Service: 09/09/17 Note: Nursing called reporting respiratory crackles. Upon my evaluation, Mrs Bae is in no distress, no accessory muscle use. Lungs: diminished bases w/ slight to mild B mid-field cellophane crackles, fair aeration. Will give 20mg IV furosemide, nursing to report any concerns or changes.
[2017-09-09] MEDS: Bisacodyl SUPP* 10 MG SUPP PR PRN (20:11)
[2017-09-09] MEDS: Ibuprofen TAB* 600 MG PO PRN (20:12)
[2017-09-10] MEDS: oxyCODONE/Acetamin 5/325 MG* TAB PO PRN ×3 (04:22→21:00)
[2017-09-10] MEDS: Albuterol/Ipratropium NEB.SOL* Albuterol 2.5 MG/Ipratropium 0.5 MG 3 ML INH PRN ×2 (04:28→14:30)
[2017-09-10] MEDS: Heparin VIAL(*) 5000 UNITS/ML VIAL (FIVE THOUSAND) SUBCUT SCH ×4 (06:06→21:01)
[2017-09-10] MEDS: Levothyroxine TAB* 125 MCG TAB PO SCH (06:07)
[2017-09-10] MEDS: Verapamil SR TAB* 240 MG PO SCH (09:09)
[2017-09-10] MEDS: Magnesium Oxide TAB* 400 MG PO SCH (09:09)
[2017-09-10] MEDS ORDERED: Furosemide IV* 10 MG/ML 2 ML VIAL (20 MG) IV ONE ×2 (11:02→11:41)
[2017-09-10] MEDS ORDERED: Magnesium Sulfate IV* 2 GM in NS 0.9% 100 ML* 100 ML IV ONE (11:11)
[2017-09-10] MEDS ORDERED: Potassium Chlor TAB* 20 MEQ TAB.ER PO ONE ×2 (11:12→18:00)
[2017-09-10] MEDS: Mometasone/Formoter 200/5 MDI INH SCH ×2 (11:22→19:38)
[2017-09-10] MEDS: Tiotropium CAP.INH* CAP.INH/18 MCG (USE ORDER SET !) INH SCH (11:23)
[2017-09-10] MEDS ORDERED: Magnesium Hydroxide LIQ* 30 ML UDC PO ONE (11:29)
--- NOTE | 2017-09-10 11:54 | PN ---
Subjective Date of Service: 09/10/17 Interval History: [place] cold, asked for warm blanket Fatigued. slept from 5-8am. Bloated in Abdomen. Got additional lasix 20IV last night Last 09/07 Objective Active Medications: Acetaminophen (Tylenol Tab*) 650 mg PO Q4H PRN PRN Reason: PAIN Last Admin: 09/09/17 08:52 Dose: 650 mg Albuterol/Ipratropium (Duoneb (Albuterol 2.5 Mg/Ipratropium 0.5 Mg)) 1 neb INH Q4H PRN PRN Reason: SOB/WHEEZING Last Admin: 09/10/17 04:28 Dose: 1 neb Bisacodyl (Dulcolax Supp*) 10 mg IN DAILY PRN PRN Reason: CONSTIPATION Last Admin: 09/09/17 20:11 Dose: 10 mg Device (Tiotropium Inhaler Device*) 1 each .SEE ORDER .USE w/ SPIRIVA CAPS [facility] Fentanyl Citrate (Fentanyl*) 25 mcg IV SLOW PU Q2H PRN PRN Reason: PAIN Last Admin: 09/06/17 20:25 Dose: 25 mcg Heparin Sodium (Porcine) (Heparin Vial(*)) 5,000 units SUBCUT 0600,1400,2200 [facility] Last Admin: 09/10/17 06:06 Dose: 5,000 units Magnesium Sulfate 2 gm/ Sodium (Chloride) 104 mls @ 104 mls/hr IV ONCE ONE Stop: 09/10/17 12:10 Ibuprofen (Motrin Tab*) 600 mg PO Q6H PRN PRN Reason: PAIN Last Admin: 09/09/17 20:12 Dose: 600 mg Levothyroxine Sodium (Synthroid Tab*) 125 mcg PO 0600 [facility] Last Admin: 09/10/17 06:07 Dose: 125 mcg Lorazepam (Ativan Tab(*)) 1 mg PO 2100 [facility] Last Admin: 09/09/17 19:23 Dose: 1 mg Magnesium Oxide (Magox 400 Tab*) 400 mg PO DAILY [facility] Last Admin: 09/10/17 09:09 Dose: 400 mg Mometasone Furoate/Formoterol Fumar (Dulera 200/5 Mdi*) 2 puff INH BID [facility] Last Admin: 09/10/17 11:22 Dose: 2 puff Omeprazole (Prilosec Cap*) 20 mg PO QPM [facility] Last Admin: 09/09/17 18:31 Dose: 20 mg Ondansetron HCl (Zofran Inj*) 8 mg IV Q8H PRN PRN Reason: NAUSEA Last Admin: 09/09/17 10:31 Dose: 8 mg Oxycodone/Acetaminophen (Percocet 5/325 Tab*) 1 tab PO Q4H PRN PRN Reason: PAIN Last Admin: 09/10/17 09:09 Dose: 1 tab Prednisone (Deltasone Tab*) 40 mg PO DAILY [facility] Tiotropium [place] (Spiriva Cap.Inh*) 1 cap INH DAILY [facility] Last Admin: 09/10/17 11:23 Dose: 1 cap Verapamil HCl (Calan Sr Tab*) 240 mg PO DAILY [facility] Last Admin: 09/10/17 09:09 Dose: 240 mg Vital Signs - 8 hr 09/10/17 09/10/17 09/10/17 03:59 04:22 04:28 Temperature Pulse Rate 82 Respiratory 15 16 Rate Blood Pressure (mmHg) O2 Sat by Pulse 93 98 Oximetry 09/10/17 09/10/17 09/10/17 06:30 08:19 09:09 Temperature 98.8 F Pulse Rate 110 Respiratory 18 18 18 Rate Blood Pressure 137/54 (mmHg) O2 Sat by Pulse 90 Oximetry Oxygen Devices in Use Now: Nasal Cannula, High Flow Nasal Cannula Appearance: NAD Eyes: No Scleral Icterus, PERRLA Ears/Nose/Mouth/Throat: NL Teeth, Lips, Gums Neck: NL Appearance and Movements; NL JVP, Trachea Midline Respiratory: - - slight expiratory wheeze, bilateral rales (worse left) Cardiovascular: - - tachycardic, regular. Abdominal: - - distended. Extremities: - - trace LE Skin: No Rash or Ulcers Neurological: Alert and Oriented x 3, NL Sensation, NL Muscle Strength and Tone Lines/Tubes/Other Access: Clean, Dry and Intact Patel - moderately concentrated yellow urine Nutrition: Taking PO's Result Diagrams: 09/08/17 06:12 09/09/17 05:40 Microbiology and Other Data: Microbiology 09/05/17 13:56 Blood Venous Aerobic Blood Culture - Preliminary No Growth Day 4 09/05/17 13:56 Blood Venous Anaerobic Blood Culture - Preliminary No Growth Day 4 09/05/17 13:32 Urine Urine Culture - Final No Growth (<1,000 CFU/mL) 09/04/17 15:40 Nasal Nasal Screen MRSA (PCR) - Final Mrsa Not Detected Assess/Plan/Problems-Billing Assessment: 66 yo female PMH pAfib(s/p ablations, not on anticoagulation), asthma, Lymphoma , rectal cancer, thyroid cancer, PAVITHRA, anxiety, depression p/w syncope. Observed 3rd degree heart block now s/p PPM. Then S/p zosyn, vanc, solucortef for hypotension, fevers. Currently hypoxic respiratory failure and volume overloaded. - Patient Problems (1) Syncope Current Visit: Yes Status: Acute Code(s): R55 - SYNCOPE AND COLLAPSE SNOMED Code(s): 427767480 Comment: 2/2 3rd degree heart block. now s/p PPM 09/[address] Perez EF preserved, mild Moderate aortic stenosis. (2) Heart block AV third degree Current Visit: Yes Status: Acute Code(s): I44.2 - ATRIOVENTRICULAR BLOCK, COMPLETE SNOMED Code(s): 40537195 Comment: s/p PPM. right arm restrictions f/u with Dr. Perez. (3) CHF exacerbation Current Visit: No Status: Acute Code(s): I50.9 - HEART FAILURE, UNSPECIFIED SNOMED Code(s): 08426075 Comment: diastolic dysfunction strict i/o daily weights lasix 40mg IV this AM, transition to bumex 1mg BID 0800,1700. (4) Chronic pulmonary disease due to radiation Current Visit: No Status: Acute Code(s): J70.1 - CHRONIC AND OTHER PULMONARY MANIFESTATIONS DUE TO RADIATION SNOMED Code(s): 477023013 Comment: restart prednisone @ 40mg today. Had been weaned off 1 week prior to admission but on for many years. dulera BID, nebs, spiriva. Follows with Dr. Levy. home uses symbicort BID, spiriva, ventolin prn, nebs prn chronic ground glass opacities. (5) Chronic tachycardia Current Visit: No Status: Acute Code(s): R00.0 - TACHYCARDIA, UNSPECIFIED SNOMED Code(s): 9685113 Comment: continue home verapamil 240 daily. (6) PAVITHRA (obstructive sleep apnea) Current Visit: No Status: Acute Code(s): G47.33 - OBSTRUCTIVE SLEEP APNEA ( ADULT) (PEDIATRIC) SNOMED Code(s): 94027910 Comment: CPAP qhs and naps. (7) Paroxysmal A-fib Current Visit: No Status: Acute Code(s): I48.0 - PAROXYSMAL ATRIAL FIBRILLATION SNOMED Code(s): 817622202 Comment: Hx of 2 ablations. not on a/c. currently sinus tachycardia. lyte repletion prn, K>4, Mg>2 (8) Sepsis Current Visit: No Status: Acute Priority: High Onset Date: 01/02/14 Comment: resolved s/p zosyn 09/05-09/08, vanc 09/05-09/06. febrile, tachy(chronic), tachypnea, mild leukocytosis, levophed in ICU UCx and BCx negative. did get keflex prior to Bcx for her lip lac in ED. procalcitonin added. (9) Anxiety Current Visit: No Status: Chronic Priority: Medium Code(s): F41.9 - ANXIETY DISORDER, UNSPECIFIED SNOMED Code(s): 16000632 Comment: ativan 1mg qhs. formerly zoloft. (10) Hypertension Current Visit: No Status: Chronic Priority: Medium Code(s): I10 - ESSENTIAL (PRIMARY) HYPERTENSION SNOMED Code(s): 54846680 Comment: verapamil 240 daily. diuresing aggressively. (11) Hypothyroidism Current Visit: No Status: Chronic Priority: Medium Code(s): E03.9 - HYPOTHYROIDISM, UNSPECIFIED SNOMED Code(s): 39424618 Comment: 125mcg daily synthroid. (12) Uncontrolled persistent asthma Current Visit: No Status: Acute Priority: High Onset Date: 01/02/14 Code (s): J45.998 - OTHER ASTHMA SNOMED Code(s): 441310973 Comment: inhalers as above. (13) Adrenal insufficiency Current Visit: Yes Status: Acute Code(s): E27.40 - UNSPECIFIED ADRENOCORTICAL INSUFFICIENCY SNOMED Code(s): 127867457 Comment: restart prednisone, wound not taper below 7.5mg Status and Disposition: medicine inpatient. Awaiting PMRU eval vs other SNF
[2017-09-10] MEDS ORDERED: predniSONE TAB* 20 MG PO SCH (12:00)
[2017-09-10] MEDS: Ibuprofen TAB* 600 MG PO PRN (13:14)
--- NOTE | 2017-09-10 14:27 | RAD ---
INDICATION: Short of breath. Hypoxia COMPARISON: September 09, 2017 TECHNIQUE: An AP portable view obtained at 1420 hours is submitted. FINDINGS: Bones/Soft Tissues: There are no acute bony findings. There is right-sided cardiac pacemaker Cardiomediastinal: The heart is normal in size. The central pelvic vessels and interstitium are prominent consistent with vascular congestion. Lungs: Mild diffuse interstitial change, likely interstitial edema. This is most prominent at the lung bases. Pleura: Small bilateral effusions. Other: None IMPRESSION: VASCULAR CONGESTIVE CHANGES. NO ACUTE
[2017-09-10 14:33] LABS: ABS Basophils 0 10^3/ul (0-0.2); ABS Eosinophils 0.1 10^3/ul (0-0.6); ABS Lymphocytes 2.1 10^3/ul (1.0-4.8); ABS Monocytes 1.1 10^3/ul (0-0.8); ABS Neutrophils 7.4 10^3/ul (1.5-7.7); ABS Nucleated RBC 0 10^3/ul; Eosinophil % 1.2 % (0-6); Hematocrit 29 % (35-47); Hemoglobin 9.4 g/dl (12.0-16.0); Lymphocyte % 19.4 % (25-47); Mean Corpuscular HGB Conc 33 g/dl (31-36); Mean Corpuscular Hemoglobin 28 pg (27-31); Mean Corpuscular Volume 86 fL (80-97); Mean Platelet Volume 7.9 um3 (7.4-10.4); Nucleated Red Blood Cells % 0.2; Platelet Count 209 10^3/ul (150-450); Red Blood Count 3.35 10^6/ul (4.00-5.40); Red Cell Distribution Width 17 % (10.5-15); White Blood Count 10.8 10^3/ul (3.5-10.8)
[2017-09-10 14:49] LABS: EGFR Non-African American 102.3 (>60)
[2017-09-10] MEDS: Bumetanide IV* 0.25 MG/ML 4 ML VIAL SLOW PUSH SCH (19:19)
[2017-09-10] MEDS: LORazepam TAB(*) 1 MG PO SCH (19:44)
[2017-09-10] MEDS: Omeprazole CAP* 20 MG PO SCH (19:44)
[2017-09-11] MEDS: Heparin VIAL(*) 5000 UNITS/ML VIAL (FIVE THOUSAND) SUBCUT SCH ×3 (06:20→22:43)
[2017-09-11] MEDS: Levothyroxine TAB* 125 MCG TAB PO SCH (06:20)
[2017-09-11] MEDS ORDERED: methylPREDNISolone SOD 40 MG* 1 ML VIAL IV SCH (08:00)
[2017-09-11] MEDS: Mometasone/Formoter 200/5 MDI INH SCH ×2 (08:59→21:33)
[2017-09-11] MEDS: Tiotropium CAP.INH* CAP.INH/18 MCG (USE ORDER SET !) INH SCH (09:03)
[2017-09-11] MEDS: Magnesium Oxide TAB* 400 MG PO SCH (09:10)
[2017-09-11] MEDS: Verapamil SR TAB* 240 MG PO SCH (09:10)
[2017-09-11] MEDS: Bumetanide IV* 0.25 MG/ML 4 ML VIAL SLOW PUSH SCH ×2 (09:15→16:27)
[2017-09-11] MEDS ORDERED: Magnesium CITRATE* 300 ML BTL PO ONE (09:27)
[2017-09-11] MEDS: oxyCODONE/Acetamin 5/325 MG* TAB PO PRN ×3 (09:38→20:59)
--- NOTE | 2017-09-11 10:25 | PN ---
Subjective Date of Service: 09/11/17 Interval History: No BM yet (last 09/07). Passing a lot gas yesterday, decreased some today. Some abdominal discomfort. Feels like breathing better in years while she is on the Bipap. Achiness in right shoulder with the arm restrictions. Patel pulled this AM. Net negative 2.875 Liters, 3Kg drop in weight. Objective Active Medications: Acetaminophen (Tylenol Tab*) 650 mg PO Q4H PRN PRN Reason: PAIN Last Admin: 09/09/17 08:52 Dose: 650 mg Albuterol/Ipratropium (Duoneb (Albuterol 2.5 Mg/Ipratropium 0.5 Mg)) 1 neb INH Q4H PRN PRN Reason: SOB/WHEEZING Last Admin: 09/10/17 14:30 Dose: 1 neb Bisacodyl (Dulcolax Supp*) 10 mg MS DAILY PRN PRN Reason: CONSTIPATION Last Admin: 09/09/17 20:11 Dose: 10 mg Bumetanide (Bumex*) 1 mg SLOW PUSH 0800,1700 [facility] Stop: 09/12/17 08:01 Last Admin: 09/11/17 09:15 Dose: 1 mg Device (Tiotropium Inhaler Device*) 1 each .SEE ORDER .USE w/ SPIRIVA CAPS [facility] Fentanyl Citrate (Fentanyl*) 25 mcg IV SLOW PU Q2H PRN PRN Reason: PAIN Last Admin: 09/06/17 20:25 Dose: 25 mcg Heparin Sodium (Porcine) (Heparin Vial(*)) 5,000 units SUBCUT 0600,1400,2200 [facility] Last Admin: 09/11/17 06:20 Dose: 5,000 units Ibuprofen (Motrin Tab*) 600 mg PO Q6H PRN PRN Reason: PAIN Last Admin: 09/10/17 13:14 Dose: 600 mg Levothyroxine Sodium (Synthroid Tab*) 125 mcg PO 0600 [facility] Last Admin: 09/11/17 06:20 Dose: 125 mcg Lorazepam (Ativan Tab(*)) 1 mg PO 2100 [facility] Last Admin: 09/10/17 19:44 Dose: 1 mg Magnesium Oxide (Magox 400 Tab*) 400 mg PO DAILY [facility] Last Admin: 09/11/17 09:10 Dose: 400 mg Methylprednisolone Sodium Succinate (Solu-Medrol 40 Mg) 40 mg IV 0800 [facility] Last Admin: 09/11/17 09:12 Dose: 40 mg Mometasone Furoate/Formoterol Fumar (Dulera 200/5 Mdi*) 2 puff INH BID [facility] Last Admin: 09/11/17 08:59 Dose: 2 puff Omeprazole (Prilosec Cap*) 20 mg PO QPM [facility] Last Admin: 09/10/17 19:44 Dose: 20 mg Ondansetron HCl (Zofran Inj*) 8 mg IV Q8H PRN PRN Reason: NAUSEA Last Admin: 09/09/17 10:31 Dose: 8 mg Oxycodone/Acetaminophen (Percocet 5/325 Tab*) 1 tab PO Q4H PRN PRN Reason: PAIN Last Admin: 09/11/17 09:38 Dose: 1 tab Tiotropium [place] (Spiriva Cap.Inh*) 1 cap INH DAILY [facility] Last Admin: 09/11/17 09:03 Dose: 1 cap Verapamil HCl (Calan Sr Tab*) 240 mg PO DAILY [facility] Last Admin: 09/11/17 09:10 Dose: 240 mg Vital Signs - 8 hr 09/11/17 09/11/17 09/11/17 03:35 06:00 09:38 Temperature 98.7 F Pulse Rate 98 Respiratory 20 18 Rate Blood Pressure 123/74 (mmHg) O2 Sat by Pulse 98 97 Oximetry Oxygen Devices in Use Now: BiPAP Appearance: NAD but increased work of breathing and flushed face when talking off bipap Eyes: No Scleral Icterus, PERRLA Ears/Nose/Mouth/Throat: NL Teeth, Lips, Gums Neck: NL Appearance and Movements; NL JVP Respiratory: Symmetrical Chest Expansion and Respiratory Effort, - - no wheezing or rhonchi, slight rales. Cardiovascular: - - tachycardic regular, no m/r/g Abdominal: - - soft, nontender, distended. Extremities: No Edema Skin: No Rash or Ulcers Neurological: Alert and Oriented x 3, NL Sensation, NL Muscle Strength and Tone Nutrition: Taking PO's Result Diagrams: 09/10/17 14:25 09/10/17 14:25 Additional Lab and Data: Laboratory Results - last 24 hr 09/08/17 09/10/17 09/10/17 06:12 14:20 14:25 WBC RBC Hgb Hct MCV MCH MCHC RDW Plt Count MPV Neut % (Auto) Lymph % (Auto) [place] % (Auto) Eos % (Auto) Baso % (Auto) Absolute Neuts (auto) Absolute Lymphs (auto) Absolute Monos (auto) Absolute Eos (auto) Absolute Basos (auto) Absolute Nucleated RBC Nucleated RBC % ABG pH 7.45 ABG pCO2 64 H ABG pO2 TNP ABG pO2 (Temp Correct TNP ABG HCO3 38.9 H ABG O2 Saturation 97.9 ABG Base Excess 17.9 H Sodium 138 Potassium 3.1 L Chloride 92 L Carbon Dioxide 38 H Anion Gap 8 BUN 13 Creatinine 0.59 Est GFR ( Amer) 123.8 Est GFR (Non-Af Amer) 102.3 BUN/Creatinine Ratio 22.0 H Glucose 167 H Lactic Acid Calcium 8.6 Magnesium 2.6 B-Natriuretic Peptide Procalcitonin Lyme Disease Serology Negative 09/10/17 09/10/17 09/10/17 14:25 14:25 14:25 WBC 10.8 RBC 3.35 L Hgb 9.4 L Hct 29 L MCV 86 MCH 28 MCHC 33 RDW 17 H Plt Count 209 MPV 7.9 Neut % (Auto) 69.2 Lymph % (Auto) 19.4 L [place] % (Auto) 9.8 H Eos % (Auto) 1.2 Baso % (Auto) 0.4 Absolute Neuts (auto) 7.4 Absolute Lymphs (auto) 2.1 Absolute Monos (auto) 1.1 H Absolute Eos (auto) 0.1 Absolute Basos (auto) 0 Absolute Nucleated RBC 0 Nucleated RBC % 0.2 ABG pH ABG pCO2 ABG pO2 ABG pO2 (Temp Correct ABG HCO3 ABG O2 Saturation ABG Base Excess Sodium Potassium Chloride Carbon Dioxide Anion Gap BUN Creatinine Est GFR ( Amer) Est GFR (Non-Af Amer) BUN/Creatinine Ratio Glucose Lactic Acid Calcium Magnesium B-Natriuretic Peptide 318 H Procalcitonin < 0.1 Lyme Disease Serology 09/10/17 14:25 WBC RBC Hgb Hct MCV MCH MCHC RDW Plt Count MPV Neut % (Auto) Lymph % (Auto) [place] % (Auto) Eos % (Auto) Baso % (Auto) Absolute Neuts (auto) Absolute Lymphs (auto) Absolute Monos (auto) Absolute Eos (auto) Absolute Basos (auto) Absolute Nucleated RBC Nucleated RBC % ABG pH ABG pCO2 ABG pO2 ABG pO2 (Temp Correct ABG HCO3 ABG O2 Saturation ABG Base Excess Sodium Potassium Chloride Carbon Dioxide Anion Gap BUN Creatinine Est GFR ( Amer) Est GFR (Non-Af Amer) BUN/Creatinine Ratio Glucose Lactic Acid 1.7 Calcium Magnesium B-Natriuretic Peptide Procalcitonin Lyme Disease Serology Microbiology and Other Data: Microbiology 09/05/17 13:56 Blood Venous Aerobic Blood Culture - Final No Growth Day 5 09/05/17 13:56 Blood Venous Anaerobic Blood Culture - Final No Growth Day 5 09/05/17 13:32 Urine Urine Culture - Final No Growth (<1,000 CFU/mL) 09/04/17 15:40 Nasal Nasal Screen MRSA (PCR) - Final Mrsa Not Detected Assess/Plan/Problems-Billing Assessment: 66 yo female PMH pAfib(s/p ablations, not on anticoagulation), asthma, Lymphoma , rectal cancer, thyroid cancer, PAVITHRA, anxiety, depression p/w syncope. Observed 3rd degree heart block now s/p PPM. Then S/p zosyn, vanc, solucortef for hypotension, fevers (no definitive infectious source identified). Currently hypoxic respiratory failure and volume overloaded. - Patient Problems (1) Syncope Current Visit: Yes Status: Acute Code(s): R55 - SYNCOPE AND COLLAPSE SNOMED Code(s): 262073081 Comment: 2/2 3rd degree heart block. now s/p PPM 09/[address] Perez EF preserved, mild Moderate aortic stenosis. continue tele (2) Heart block AV third degree Current Visit: Yes Status: Acute Code(s): I44.2 - ATRIOVENTRICULAR BLOCK, COMPLETE SNOMED Code(s): 03267293 Comment: s/p PPM. right arm restrictions f/u with Dr. Perez. (3) CHF exacerbation Current Visit: No Status: Acute Code(s): I50.9 - HEART FAILURE, UNSPECIFIED SNOMED Code(s): 40319860 Comment: diastolic dysfunction strict i/o daily weights continue bumex 1mg BID 0800,1700 until respiratory status improves. BMP daily. 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 Had been weaned off her chronic prednisone 1 week prior to admission but on for many years. dulera BID, nebs, spiriva. Follows with Dr. Levy. Bipap until volume overload improved. home uses symbicort BID, spiriva, ventolin prn, nebs prn chronic ground glass opacities. (5) Chronic tachycardia Current Visit: No Status: Acute Code(s): R00.0 - TACHYCARDIA, UNSPECIFIED SNOMED Code(s): 8167912 Comment: continue home verapamil 240 daily. Had been on 120mg at night and consider adding that back (6) PAVITHRA (obstructive sleep apnea) Current Visit: No Status: Acute Code(s): G47.33 - OBSTRUCTIVE SLEEP APNEA ( ADULT) (PEDIATRIC) SNOMED Code(s): 74156248 Comment: CPAP qhs at home. Using Bipap currently given volume overload. (7) Paroxysmal A-fib Current Visit: No Status: Acute Code(s): I48.0 - PAROXYSMAL ATRIAL FIBRILLATION SNOMED Code(s): 203365244 Comment: Hx of 2 ablations. not on a/c. currently sinus tachycardia. lyte repletion prn, K>4, Mg>2 (8) Sepsis Current Visit: No Status: Acute Priority: High Onset Date: 01/02/14 Comment: resolved s/p zosyn 09/05-09/08, vanc 09/05-09/06. febrile, tachy(chronic), tachypnea, mild leukocytosis, levophed in ICU UCx and BCx negative. did get keflex prior to Bcx for her lip lac in ED. procalcitonin wnl 09/10 (9) Anxiety Current Visit: No Status: Chronic Priority: Medium Code(s): F41.9 - ANXIETY DISORDER, UNSPECIFIED SNOMED Code(s): 44380100 Comment: ativan 1mg qhs. formerly zoloft. (10) Hypertension Current Visit: No Status: Chronic Priority: Medium Code(s): I10 - ESSENTIAL (PRIMARY) HYPERTENSION SNOMED Code(s): 04211761 Comment: verapamil 240 daily. diuresing aggressively. (11) Hypothyroidism Current Visit: No Status: Chronic Priority: Medium Code(s): E03.9 - HYPOTHYROIDISM, UNSPECIFIED SNOMED Code(s): 96033371 Comment: 125mcg daily synthroid. (12) Uncontrolled persistent asthma Current Visit: No Status: Acute Priority: High Onset Date: 01/02/14 Code (s): J45.998 - OTHER ASTHMA SNOMED Code(s): 914003071 Comment: inhalers as above. (13) Adrenal insufficiency Current Visit: Yes Status: Acute Code(s): E27.40 - UNSPECIFIED ADRENOCORTICAL INSUFFICIENCY SNOMED Code(s): 414666968 Comment: restart steroids, wound not taper below 7.5mg prednisone at home unless well monitored for adrenal insufficiency symptoms. Status and Disposition: medicine inpatient. Not medically stable for discharge yet. Awaiting PMRU eval vs other SNF
[2017-09-11] MEDS: Senna TAB PO SCH (11:35)
[2017-09-11] MEDS: Docusate CAP* 100 MG PO SCH (11:36)
[2017-09-11] MEDS: Polyethylene Glycol 3350* 17 GM PACKET PO SCH (11:36)
[2017-09-11 11:40] LABS: ABS Basophils 0.1 10^3/ul (0-0.2); ABS Eosinophils 0 10^3/ul (0-0.6); ABS Monocytes 1.1 10^3/ul (0-0.8); ABS Neutrophils 12.2 10^3/ul (1.5-7.7); ABS Nucleated RBC 0 10^3/ul; Eosinophil % 0.1 % (0-6); Hematocrit 29 % (35-47); Hemoglobin 9.6 g/dl (12.0-16.0); Lymphocyte % 6.7 % (25-47); Mean Corpuscular HGB Conc 33 g/dl (31-36); Mean Corpuscular Hemoglobin 28 pg (27-31); Mean Corpuscular Volume 85 fL (80-97); Mean Platelet Volume 7.5 um3 (7.4-10.4); Nucleated Red Blood Cells % 0.1; Platelet Count 221 10^3/ul (150-450); Red Blood Count 3.42 10^6/ul (4.00-5.40); Red Cell Distribution Width 17 % (10.5-15); White Blood Count 14.3 10^3/ul (3.5-10.8)
[2017-09-11 11:59] LABS: EGFR Non-African American 104.3 (>60)
[2017-09-11] MEDS: Albuterol/Ipratropium NEB.SOL* Albuterol 2.5 MG/Ipratropium 0.5 MG 3 ML INH PRN (16:27)
[2017-09-11] MEDS: Omeprazole CAP* 20 MG PO SCH (17:24)
[2017-09-11] MEDS: LORazepam TAB(*) 1 MG PO SCH (21:00)
[2017-09-11] MEDS: methylPREDNISolone SOD 40 MG* 1 ML VIAL IV SCH (21:01)
[2017-09-12] MEDS: oxyCODONE/Acetamin 5/325 MG* TAB PO PRN ×2 (03:11→09:04)
[2017-09-12] MEDS: Albuterol/Ipratropium NEB.SOL* Albuterol 2.5 MG/Ipratropium 0.5 MG 3 ML INH PRN (04:08)
[2017-09-12] MEDS: Heparin VIAL(*) 5000 UNITS/ML VIAL (FIVE THOUSAND) SUBCUT SCH ×3 (06:14→22:09)
[2017-09-12] MEDS: Levothyroxine TAB* 125 MCG TAB PO SCH (06:15)
[2017-09-12] MEDS: Mometasone/Formoter 200/5 MDI INH SCH ×2 (08:05→19:55)
[2017-09-12] MEDS: Tiotropium CAP.INH* CAP.INH/18 MCG (USE ORDER SET !) INH SCH (08:06)
[2017-09-12] MEDS: Docusate CAP* 100 MG PO SCH (09:04)
[2017-09-12] MEDS: Magnesium Oxide TAB* 400 MG PO SCH (09:04)
[2017-09-12] MEDS: methylPREDNISolone SOD 40 MG* 1 ML VIAL IV SCH ×2 (09:04→20:37)
[2017-09-12] MEDS: Senna TAB PO SCH (09:04)
[2017-09-12] MEDS: Polyethylene Glycol 3350* 17 GM PACKET PO SCH (09:04)
[2017-09-12] MEDS: Bumetanide IV* 0.25 MG/ML 4 ML VIAL SLOW PUSH SCH (09:04)
[2017-09-12] MEDS: Verapamil SR TAB* 240 MG PO SCH (09:04)
[2017-09-12] MEDS: Ibuprofen TAB* 600 MG PO PRN (15:52)
[2017-09-12] MEDS: Bisacodyl SUPP* 10 MG SUPP PR PRN (15:52)
[2017-09-12] MEDS: Magnesium Hydroxide LIQ* 30 ML UDC PO PRN (17:57)
[2017-09-12] MEDS: Omeprazole CAP* 20 MG PO SCH (17:57)
--- NOTE | 2017-09-12 18:54 | PN ---
Subjective Date of Service: 09/12/17 Interval History: Patient seen and examined. Appears anxious, states her breathing is improving, but she feels weak and shaky. Denies fever or chills, no acute SOB or chest pain at present. Complaining of constipation which is always a problem for her. Objective Active Medications: Acetaminophen (Tylenol Tab*) 650 mg PO Q4H PRN PRN Reason: PAIN Last Admin: 09/09/17 08:52 Dose: 650 mg Albuterol/Ipratropium (Duoneb (Albuterol 2.5 Mg/Ipratropium 0.5 Mg)) 1 neb INH Q4H PRN PRN Reason: SOB/WHEEZING Last Admin: 09/12/17 04:08 Dose: 1 neb Bisacodyl (Dulcolax Supp*) 10 mg [place] DAILY PRN PRN Reason: CONSTIPATION Last Admin: 09/12/17 15:52 Dose: 10 mg Device (Tiotropium Inhaler Device*) 1 each .SEE ORDER .USE w/ SPIRIVA CAPS [facility] Docusate Sodium (Colace Cap*) 100 mg PO DAILY [facility] Last Admin: 09/12/17 09:04 Dose: 100 mg Heparin Sodium (Porcine) (Heparin Vial(*)) 5,000 units SUBCUT 0600,1400,2200 [facility] Last Admin: 09/12/17 14:12 Dose: 5,000 units Ibuprofen (Motrin Tab*) 600 mg PO Q6H PRN PRN Reason: PAIN Last Admin: 09/12/17 15:52 Dose: 600 mg Levothyroxine Sodium (Synthroid Tab*) 125 mcg PO 0600 [facility] Last Admin: 09/12/17 06:15 Dose: 125 mcg Lorazepam (Ativan Tab(*)) 1 mg PO 2100 [facility] Last Admin: 09/11/17 21:00 Dose: 1 mg Magnesium Hydroxide (Milk Of Magnesia Liq*) 30 ml PO Q6H PRN PRN Reason: CONSTIPATION Last Admin: 09/12/17 17:57 Dose: 30 ml Magnesium Oxide (Magox 400 Tab*) 400 mg PO DAILY [facility] Last Admin: 09/12/17 09:04 Dose: 400 mg Methylprednisolone Sodium Succinate (Solu-Medrol 40 Mg) 40 mg IV 0800,2000 [facility] Last Admin: 09/12/17 09:04 Dose: 40 mg Mometasone Furoate/Formoterol Fumar (Dulera 200/5 Mdi*) 2 puff INH BID [facility] Last Admin: 09/12/17 08:05 Dose: Not Given Omeprazole (Prilosec Cap*) 20 mg PO QPM [facility] Last Admin: 09/12/17 17:57 Dose: 20 mg Ondansetron HCl (Zofran Inj*) 8 mg IV Q8H PRN PRN Reason: NAUSEA Last Admin: 09/09/17 10:31 Dose: 8 mg Polyethylene Glycol/Electrolytes (Miralax*) 17 gm PO DAILY [facility] Last Admin: 09/12/17 09:04 Dose: 17 gm Senna (Senokot Tab*) 1 tab PO DAILY [facility] Last Admin: 09/12/17 09:04 Dose: 1 tab Tiotropium [place] (Spiriva Cap.Inh*) 1 cap INH DAILY [facility] Last Admin: 09/12/17 08:06 Dose: Not Given Verapamil HCl (Calan Sr Tab*) 240 mg PO DAILY [facility] Last Admin: 09/12/17 09:04 Dose: 240 mg Vital Signs - 8 hr 09/12/17 09/12/17 09/12/17 11:27 12:14 15:24 Temperature 98.4 F 99.0 F Pulse Rate 105 99 Respiratory 18 16 20 Rate Blood Pressure 118/54 123/63 (mmHg) O2 Sat by Pulse 98 98 Oximetry Oxygen Devices in Use Now: High Flow Nasal Cannula, Other - Bipap at night Appearance: alert, anxious Eyes: PERRLA Ears/Nose/Mouth/Throat: - - lip abrasion, no active bleeding Neck: NL Appearance and Movements; NL JVP, Trachea Midline Respiratory: Symmetrical Chest Expansion and Respiratory Effort, Clear to Auscultation Cardiovascular: NL Sounds; No Murmurs; No JVD, - - paced Abdominal: - - bloated Skin: - - right chest wound CDI, ecchymosis noted around PM insertion site Neurological: Alert and Oriented x 3 Nutrition: Taking PO's Result Diagrams: 09/11/17 11:27 09/11/17 11:27 Additional Lab and Data: Laboratory Results - last 24 hr 09/08/17 09/10/17 09/10/17 06:12 14:20 14:25 WBC RBC Hgb Hct MCV MCH MCHC RDW Plt Count MPV Neut % (Auto) Lymph % (Auto) [place] % (Auto) Eos % (Auto) Baso % (Auto) Absolute Neuts (auto) Absolute Lymphs (auto) Absolute Monos (auto) Absolute Eos (auto) Absolute Basos (auto) Absolute Nucleated RBC Nucleated RBC % ABG pH 7.45 ABG pCO2 64 H ABG pO2 TNP ABG pO2 (Temp Correct TNP ABG HCO3 38.9 H ABG O2 Saturation 97.9 ABG Base Excess 17.9 H Sodium 138 Potassium 3.1 L Chloride 92 L Carbon Dioxide 38 H Anion Gap 8 BUN 13 Creatinine 0.59 Est GFR ( Amer) 123.8 Est GFR (Non-Af Amer) 102.3 BUN/Creatinine Ratio 22.0 H Glucose 167 H Lactic Acid Calcium 8.6 Magnesium 2.6 B-Natriuretic Peptide Procalcitonin Lyme Disease Serology Negative 09/10/17 09/10/17 09/10/17 14:25 14:25 14:25 WBC 10.8 RBC 3.35 L Hgb 9.4 L Hct 29 L MCV 86 MCH 28 MCHC 33 RDW 17 H Plt Count 209 MPV 7.9 Neut % (Auto) 69.2 Lymph % (Auto) 19.4 L [place] % (Auto) 9.8 H Eos % (Auto) 1.2 Baso % (Auto) 0.4 Absolute Neuts (auto) 7.4 Absolute Lymphs (auto) 2.1 Absolute Monos (auto) 1.1 H Absolute Eos (auto) 0.1 Absolute Basos (auto) 0 Absolute Nucleated RBC 0 Nucleated RBC % 0.2 ABG pH ABG pCO2 ABG pO2 ABG pO2 (Temp Correct ABG HCO3 ABG O2 Saturation ABG Base Excess Sodium Potassium Chloride Carbon Dioxide Anion Gap BUN Creatinine Est GFR ( Amer) Est GFR (Non-Af Amer) BUN/Creatinine Ratio Glucose Lactic Acid Calcium Magnesium B-Natriuretic Peptide 318 H Procalcitonin < 0.1 Lyme Disease Serology 09/10/17 14:25 WBC RBC Hgb Hct MCV MCH MCHC RDW Plt Count MPV Neut % (Auto) Lymph % (Auto) [place] % (Auto) Eos % (Auto) Baso % (Auto) Absolute Neuts (auto) Absolute Lymphs (auto) Absolute Monos (auto) Absolute Eos (auto) Absolute Basos (auto) Absolute Nucleated RBC Nucleated RBC % ABG pH ABG pCO2 ABG pO2 ABG pO2 (Temp Correct ABG HCO3 ABG O2 Saturation ABG Base Excess Sodium Potassium Chloride Carbon Dioxide Anion Gap BUN Creatinine Est GFR ( Amer) Est GFR (Non-Af Amer) BUN/Creatinine Ratio Glucose Lactic Acid 1.7 Calcium Magnesium B-Natriuretic Peptide Procalcitonin Lyme Disease Serology Microbiology and Other Data: Microbiology 09/05/17 13:56 Blood Venous Aerobic Blood Culture - Final No Growth Day 5 09/05/17 13:56 Blood Venous Anaerobic Blood Culture - Final No Growth Day 5 09/05/17 13:32 Urine Urine Culture - Final No Growth (<1,000 CFU/mL) 09/04/17 15:40 Nasal Nasal Screen MRSA (PCR) - Final Mrsa Not Detected Assess/Plan/Problems-Billing Assessment: 66 yo female PMH of PAF (s/p ablations, not on anticoagulation), asthma, Lymphoma, rectal cancer, thyroid cancer, PAVITHRA, anxiety, depression p/w syncope. Observed 3rd degree heart block now s/p PPM. Then S/p zosyn, vanc, solucortef for hypotension, fevers (no definitive infectious source identified). Downgraded from ICU after hypoxic respiratory failure and volume overload resolved. Now on high flow and bipap at night. - Patient Problems (1) Heart block AV third degree Code(s): I44.2 - ATRIOVENTRICULAR BLOCK, COMPLETE SNOMED Code(s): 77390657 Comment: - s/p PM insertion 09/[address] Perez - Right arm restrictions - f/u with Dr. Perez outpatient (2) Syncope Code(s): R55 - SYNCOPE AND COLLAPSE SNOMED Code(s): 328393185 Comment: - 2/2 3rd degree heart block - EF preserved, mild Moderate aortic stenosis. 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 - Continue Dulera BID, nebs, spiriva - Bipap at night - Outpatient with Dr. Levy - Will need home portable O2 concentrator (5) PAVITHRA (obstructive sleep apnea) Code(s): G47.33 - OBSTRUCTIVE SLEEP APNEA (ADULT) (PEDIATRIC) SNOMED Code(s): 08511279 Comment: - CPAP qhs at home. Using Bipap currently given volume overload. (6) Paroxysmal A-fib Code(s): I48.0 - PAROXYSMAL ATRIAL FIBRILLATION SNOMED Code(s): 827830746 Comment: - Hx of 2 ablations, no AC - Currently pacing (7) Anxiety Code(s): F41.9 - ANXIETY DISORDER, UNSPECIFIED SNOMED Code(s): 64391819 Comment: - ativan 1mg qhs (8) Atrial fibrillation Current Visit: No Status: Chronic Priority: Medium Code(s): I48.91 - UNSPECIFIED ATRIAL FIBRILLATION SNOMED Code(s): 88322905 (9) GERD (gastroesophageal reflux disease) Current Visit: No Status: Chronic Priority: Medium Code(s): K21.9 - GASTRO -ESOPHAGEAL REFLUX DISEASE WITHOUT ESOPHAGITIS SNOMED Code(s): 419109991 (10) Hypertension Current Visit: No Status: Chronic Priority: Medium Code(s): I10 - ESSENTIAL (PRIMARY) HYPERTENSION SNOMED Code(s): 72742055 Comment: - Cotninue verapamil 240 daily and bumex, BP stable (11) DVT prophylaxis Code(s): EVU3270 - SNOMED Code(s): 732064472 Comment: - HSQ (12) DNR (do not resuscitate) Current Visit: Yes Status: Acute Status and Disposition: medicine inpatient. Not medically stable for discharge yet. Awaiting PMRU eval vs other SNF
[2017-09-12] MEDS: Acetaminophen TAB* 325 MG PO PRN (21:55)
[2017-09-12] MEDS: LORazepam TAB(*) 1 MG PO SCH (22:02)
[2017-09-13] MEDS: Levothyroxine TAB* 125 MCG TAB PO SCH (05:26)
[2017-09-13] MEDS: Heparin VIAL(*) 5000 UNITS/ML VIAL (FIVE THOUSAND) SUBCUT SCH ×3 (05:27→20:56)
[2017-09-13 05:58] LABS: ABS Basophils 0 10^3/ul (0-0.2); ABS Eosinophils 0 10^3/ul (0-0.6); ABS Lymphocytes 1.3 10^3/ul (1.0-4.8); ABS Monocytes 0.7 10^3/ul (0-0.8); ABS Neutrophils 9.8 10^3/ul (1.5-7.7); ABS Nucleated RBC 0 10^3/ul; Eosinophil % 0 % (0-6); Hematocrit 30 % (35-47); Hemoglobin 9.9 g/dl (12.0-16.0); Lymphocyte % 11.4 % (25-47); Mean Corpuscular HGB Conc 33 g/dl (31-36); Mean Corpuscular Hemoglobin 28 pg (27-31); Mean Corpuscular Volume 85 fL (80-97); Mean Platelet Volume 7.7 um3 (7.4-10.4); Nucleated Red Blood Cells % 0.1; Platelet Count 274 10^3/ul (150-450); Red Blood Count 3.56 10^6/ul (4.00-5.40); Red Cell Distribution Width 16 % (10.5-15); White Blood Count 11.8 10^3/ul (3.5-10.8)
[2017-09-13 06:08] LABS: EGFR Non-African American 113.3 (>60)
[2017-09-13] MEDS: Mometasone/Formoter 200/5 MDI INH SCH ×2 (08:43→20:11)
[2017-09-13] MEDS: Tiotropium CAP.INH* CAP.INH/18 MCG (USE ORDER SET !) INH SCH (08:43)
[2017-09-13] MEDS: Ibuprofen TAB* 600 MG PO PRN (08:53)
[2017-09-13] MEDS: Verapamil SR TAB* 240 MG PO SCH (08:53)
[2017-09-13] MEDS: Polyethylene Glycol 3350* 17 GM PACKET PO SCH (08:53)
[2017-09-13] MEDS: Senna TAB PO SCH (08:53)
[2017-09-13] MEDS: Magnesium Oxide TAB* 400 MG PO SCH (08:54)
[2017-09-13] MEDS: Docusate CAP* 100 MG PO SCH (08:54)
[2017-09-13] MEDS: methylPREDNISolone SOD 40 MG* 1 ML VIAL IV SCH ×2 (08:54→20:55)
--- NOTE | 2017-09-13 17:04 | PN ---
Subjective Date of Service: 09/13/17 Interval History: Patient seen and examined OOB to chair, feeling improved, walking with PT and her . Denies chest pain, no SOB. Still with no BM. Objective Active Medications: Acetaminophen (Tylenol Tab*) 650 mg PO Q4H PRN PRN Reason: PAIN Last Admin: 09/12/17 21:55 Dose: 650 mg Albuterol/Ipratropium (Duoneb (Albuterol 2.5 Mg/Ipratropium 0.5 Mg)) 1 neb INH Q4H PRN PRN Reason: SOB/WHEEZING Last Admin: 09/12/17 04:08 Dose: 1 neb Bisacodyl (Dulcolax Supp*) 10 mg [place] DAILY PRN PRN Reason: CONSTIPATION Last Admin: 09/12/17 15:52 Dose: 10 mg Device (Tiotropium Inhaler Device*) 1 each .SEE ORDER .USE w/ SPIRIVA CAPS [facility] Docusate Sodium (Colace Cap*) 100 mg PO DAILY [facility] Last Admin: 09/13/17 08:54 Dose: 100 mg Heparin Sodium (Porcine) (Heparin Vial(*)) 5,000 units SUBCUT 0600,1400,2200 [facility] Last Admin: 09/13/17 14:07 Dose: 5,000 units Ibuprofen (Motrin Tab*) 600 mg PO Q6H PRN PRN Reason: PAIN Last Admin: 09/13/17 08:53 Dose: 600 mg Levothyroxine Sodium (Synthroid Tab*) 125 mcg PO 0600 [facility] Last Admin: 09/13/17 05:26 Dose: 125 mcg Lorazepam (Ativan Tab(*)) 1 mg PO 2100 [facility] Last Admin: 09/12/17 22:02 Dose: 1 mg Magnesium Hydroxide (Milk Of Magnesia Liq*) 30 ml PO Q6H PRN PRN Reason: CONSTIPATION Last Admin: 09/12/17 17:57 Dose: 30 ml Magnesium Oxide (Magox 400 Tab*) 400 mg PO DAILY [facility] Last Admin: 09/13/17 08:54 Dose: 400 mg Methylprednisolone Sodium Succinate (Solu-Medrol 40 Mg) 40 mg IV 0800,2000 [facility] Last Admin: 09/13/17 08:54 Dose: 40 mg Mometasone Furoate/Formoterol Fumar (Dulera 200/5 Mdi*) 2 puff INH BID [facility] Last Admin: 09/13/17 08:43 Dose: 2 puff Omeprazole (Prilosec Cap*) 20 mg PO QPM [facility] Last Admin: 09/12/17 17:57 Dose: 20 mg Ondansetron HCl (Zofran Inj*) 8 mg IV Q8H PRN PRN Reason: NAUSEA Last Admin: 09/09/17 10:31 Dose: 8 mg Polyethylene Glycol/Electrolytes (Miralax*) 17 gm PO DAILY [facility] Last Admin: 09/13/17 08:53 Dose: 17 gm Senna (Senokot Tab*) 1 tab PO DAILY [facility] Last Admin: 09/13/17 08:53 Dose: 1 tab Tiotropium [place] (Spiriva Cap.Inh*) 1 cap INH DAILY [facility] Last Admin: 09/13/17 08:43 Dose: 1 cap Verapamil HCl (Calan Sr Tab*) 240 mg PO DAILY [facility] Last Admin: 09/13/17 08:53 Dose: 240 mg Vital Signs - 8 hr 09/13/17 09/13/17 11:44 15:32 Temperature 98.1 F 98.1 F Pulse Rate 101 95 Respiratory 20 20 Rate Blood Pressure 121/64 108/61 (mmHg) O2 Sat by Pulse 99 100 Oximetry Oxygen Devices in Use Now: Nasal Cannula Appearance: alert, NAD Eyes: No Scleral Icterus, PERRLA Ears/Nose/Mouth/Throat: Clear Oropharnyx, - - sutures lower lip CDI Neck: NL Appearance and Movements; NL JVP, Trachea Midline Respiratory: Symmetrical Chest Expansion and Respiratory Effort, Clear to Auscultation Cardiovascular: NL Sounds; No Murmurs; No JVD, RRR, - - paced, trace bipedal edema Extremities: No Clubbing, Cyanosis Neurological: Alert and Oriented x 3, - - general weakness Nutrition: Taking PO's Result Diagrams: 09/13/17 05:33 09/13/17 05:33 Additional Lab and Data: Laboratory Results - last 24 hr 09/08/17 09/10/17 09/10/17 06:12 14:20 14:25 WBC RBC Hgb Hct MCV MCH MCHC RDW Plt Count MPV Neut % (Auto) Lymph % (Auto) [place] % (Auto) Eos % (Auto) Baso % (Auto) Absolute Neuts (auto) Absolute Lymphs (auto) Absolute Monos (auto) Absolute Eos (auto) Absolute Basos (auto) Absolute Nucleated RBC Nucleated RBC % ABG pH 7.45 ABG pCO2 64 H ABG pO2 TNP ABG pO2 (Temp Correct TNP ABG HCO3 38.9 H ABG O2 Saturation 97.9 ABG Base Excess 17.9 H Sodium 138 Potassium 3.1 L Chloride 92 L Carbon Dioxide 38 H Anion Gap 8 BUN 13 Creatinine 0.59 Est GFR ( Amer) 123.8 Est GFR (Non-Af Amer) 102.3 BUN/Creatinine Ratio 22.0 H Glucose 167 H Lactic Acid Calcium 8.6 Magnesium 2.6 B-Natriuretic Peptide Procalcitonin Lyme Disease Serology Negative 09/10/17 09/10/17 09/10/17 14:25 14:25 14:25 WBC 10.8 RBC 3.35 L Hgb 9.4 L Hct 29 L MCV 86 MCH 28 MCHC 33 RDW 17 H Plt Count 209 MPV 7.9 Neut % (Auto) 69.2 Lymph % (Auto) 19.4 L [place] % (Auto) 9.8 H Eos % (Auto) 1.2 Baso % (Auto) 0.4 Absolute Neuts (auto) 7.4 Absolute Lymphs (auto) 2.1 Absolute Monos (auto) 1.1 H Absolute Eos (auto) 0.1 Absolute Basos (auto) 0 Absolute Nucleated RBC 0 Nucleated RBC % 0.2 ABG pH ABG pCO2 ABG pO2 ABG pO2 (Temp Correct ABG HCO3 ABG O2 Saturation ABG Base Excess Sodium Potassium Chloride Carbon Dioxide Anion Gap BUN Creatinine Est GFR ( Amer) Est GFR (Non-Af Amer) BUN/Creatinine Ratio Glucose Lactic Acid Calcium Magnesium B-Natriuretic Peptide 318 H Procalcitonin < 0.1 Lyme Disease Serology 09/10/17 14:25 WBC RBC Hgb Hct MCV MCH MCHC RDW Plt Count MPV Neut % (Auto) Lymph % (Auto) [place] % (Auto) Eos % (Auto) Baso % (Auto) Absolute Neuts (auto) Absolute Lymphs (auto) Absolute Monos (auto) Absolute Eos (auto) Absolute Basos (auto) Absolute Nucleated RBC Nucleated RBC % ABG pH ABG pCO2 ABG pO2 ABG pO2 (Temp Correct ABG HCO3 ABG O2 Saturation ABG Base Excess Sodium Potassium Chloride Carbon Dioxide Anion Gap BUN Creatinine Est GFR ( Amer) Est GFR (Non-Af Amer) BUN/Creatinine Ratio Glucose Lactic Acid 1.7 Calcium Magnesium B-Natriuretic Peptide Procalcitonin Lyme Disease Serology Microbiology and Other Data: Microbiology 09/05/17 13:56 Blood Venous Aerobic Blood Culture - Final No Growth Day 5 09/05/17 13:56 Blood Venous Anaerobic Blood Culture - Final No Growth Day 5 09/05/17 13:32 Urine Urine Culture - Final No Growth (<1,000 CFU/mL) 09/04/17 15:40 Nasal Nasal Screen MRSA (PCR) - Final Mrsa Not Detected Assess/Plan/Problems-Billing Assessment: 66 yo female PMH of PAF (s/p ablations, not on anticoagulation), asthma, Lymphoma, rectal cancer, thyroid cancer, PAVITHRA, anxiety, depression p/w syncope. Observed 3rd degree heart block now s/p PPM. Then S/p zosyn, vanc, solucortef for hypotension, fevers (no definitive infectious source identified). Downgraded from ICU after hypoxic respiratory failure and volume overload resolved. Now on high flow and bipap at night. - Patient Problems (1) Heart block AV third degree Code(s): I44.2 - ATRIOVENTRICULAR BLOCK, COMPLETE SNOMED Code(s): 10336603 Comment: - s/p PM insertion 09/[address] Perez - Right arm restrictions - f/u with Dr. Perez outpatient - Stable (2) Syncope Code(s): R55 - SYNCOPE AND COLLAPSE SNOMED Code(s): 103571689 Comment: - 2/2 3rd degree heart block - EF preserved, mild Moderate aortic stenosis. 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 - Continue Dulera BID, nebs, spiriva - Bipap at night - Outpatient with Dr. Levy - Will need home portable O2 concentrator (5) PAVITHRA (obstructive sleep apnea) Code(s): G47.33 - OBSTRUCTIVE SLEEP APNEA (ADULT) (PEDIATRIC) SNOMED Code(s): 12543405 Comment: - CPAP qhs at home. Using Bipap currently given volume overload. (6) Paroxysmal A-fib Code(s): I48.0 - PAROXYSMAL ATRIAL FIBRILLATION SNOMED Code(s): 228056350 Comment: - Hx of 2 ablations, no AC - Currently pacing (7) Anxiety Code(s): F41.9 - ANXIETY DISORDER, UNSPECIFIED SNOMED Code(s): 39639580 Comment: - ativan 1mg qhs (8) Atrial fibrillation Code(s): I48.91 - UNSPECIFIED ATRIAL FIBRILLATION SNOMED Code(s): 41805771 Comment: - Currently pacing (9) GERD (gastroesophageal reflux disease) Current Visit: No Status: Chronic Priority: Medium Code(s): K21.9 - GASTRO -ESOPHAGEAL REFLUX DISEASE WITHOUT ESOPHAGITIS SNOMED Code(s): 447298402 (10) Hypertension Current Visit: No Status: Chronic Priority: Medium Code(s): I10 - ESSENTIAL (PRIMARY) HYPERTENSION SNOMED Code(s): 03924015 Comment: - Cotninue verapamil 240 daily and bumex, BP stable (11) DVT prophylaxis Code(s): APB5013 - SNOMED Code(s): 057359777 Comment: - HSQ (12) DNR (do not resuscitate) Current Visit: Yes Status: Acute Status and Disposition: Medically optimized for PMRU, accepted, pending auth.
[2017-09-13] MEDS: Omeprazole CAP* 20 MG PO SCH (18:03)
[2017-09-13] MEDS: Magnesium Hydroxide LIQ* 30 ML UDC PO PRN (20:56)
[2017-09-13] MEDS: LORazepam TAB(*) 1 MG PO SCH (20:57)
[2017-09-13] MEDS: Acetaminophen TAB* 325 MG PO PRN (23:48)
[2017-09-14] MEDS: Albuterol/Ipratropium NEB.SOL* Albuterol 2.5 MG/Ipratropium 0.5 MG 3 ML INH PRN (00:37)
[2017-09-14] MEDS: Acetaminophen TAB* 325 MG PO PRN (05:08)
[2017-09-14] MEDS: Heparin VIAL(*) 5000 UNITS/ML VIAL (FIVE THOUSAND) SUBCUT SCH (05:09)
[2017-09-14] MEDS: Levothyroxine TAB* 125 MCG TAB PO SCH (05:09)
[2017-09-14] MEDS: Tiotropium CAP.INH* CAP.INH/18 MCG (USE ORDER SET !) INH SCH (07:46)
[2017-09-14] MEDS: Mometasone/Formoter 200/5 MDI INH SCH (07:47)
[2017-09-14] MEDS: Senna TAB PO SCH (08:50)
[2017-09-14] MEDS: Docusate CAP* 100 MG PO SCH (08:50)
[2017-09-14] MEDS: Polyethylene Glycol 3350* 17 GM PACKET PO SCH (08:51)
[2017-09-14] MEDS: Verapamil SR TAB* 240 MG PO SCH (08:51)
[2017-09-14] MEDS: Magnesium Oxide TAB* 400 MG PO SCH (08:51)
[2017-09-14] MEDS ORDERED: predniSONE TAB* 50 MG PO SCH (09:00)
[2017-09-14] MEDS: methylPREDNISolone SOD 40 MG* 1 ML VIAL IV SCH (09:01)
[2017-09-14 10:11] VITALS: BP 129/74
[2017-09-14] MEDS ORDERED: Senna TAB PO PRN (10:21)
--- NOTE | 2017-09-15 12:32 | DS ---
CC: Dr. Arzola, Dr. Mary Levy * DISCHARGE SUMMARY: DATE OF ADMISSION: 09/04/17 DATE OF DISCHARGE: PRIMARY CARE PROVIDER: Dr. Arzola. OUTPATIENT EQUITY RESEARCH ANALYST: Dr. Mary Levy. MY ATTENDING WHILE IN THE HOSPITAL: Dr. Brigette Whitlock.* (DICTATED BY ASHLEY JAVIER) PRIMARY DISCHARGE DIAGNOSES: 1. Syncope. 2. Prolonged sinus blocks. 3. Prolonged atrioventricular blocks. 4. Pacemaker insertion. SECONDARY DISCHARGE DIAGNOSES: 1. Asthma. 2. Hypertension. 3. Hyperlipidemia. 4. Obstructive sleep apnea. 5. Lymphoma. 6. Thyroid cancer. 7. Rectal cancer. 8. Paroxysmal atrial fibrillation. 9. Anxiety. 10. Depression. 11. Hypothyroidism. 12. Splenectomy. 13. Thyroidectomy. 14. Atrial fibrillation ablation. STUDIES DONE WHILE IN THE HOSPITAL: Electrocardiogram from 09/04/17 shows normal sinus rhythm, possible left atrial enlargement, no other hypertrophy or enlargement, normal axis, no ST-segment abnormalities, no other abnormalities. Repeat EKG from 09/04/17 shows no significant changes from previous exam. Repeat EKG from 09/05/17 shows pacing with left bundle branch block pattern. Repeat EKG from 09/05/17 shows atrioventricular pacing, left bundle branch block pattern, no significant changes. Repeat EKG from 09/06/17 shows normal sinus rhythm, no significant changes from initial examination. A repeat EKG shows atrioventricular pacing. No significant changes from previous exam. Chest x-ray from 09/04/17 read as postradiation changes and mild probable chronic obstructive pulmonary disease. No acute cardiopulmonary process evident. Brain CT from 09/04/17 read as mild involutional changes. Mild probable small vessel ischemic disease. No CT evidence of traumatic brain injury or intracranial process. Maxillofacial CT from 09/04/17 read as soft tissue swelling of the skin without evidence for significant loculated hematoma. Negative for maxillofacial fracture. Cervical spine CT on 09/04/[address] evidence for traumatic cervical spine injury. Chest and thorax CTA from 09/04/17 read as no evidence for pulmonary embolism, postradiation fibrosis greatest in the right paramediastinal region without change. Stable bilateral pulmonary nodules compared with 08/12/15 exam. No suspicious enlargement, pulmonary lesions, or new focal pulmonary lesions, chronic finding of patchy ground-glass opacity may reflect chronic alveolar inflammation or patchy air trapping in the region spared by ground-glass opacity. Negative for lymphadenopathy. Transthoracic echocardiogram on 09/04/17 read as mild concentric left ventricular hypertrophy, estimated ejection fraction 50% to 55%, left ventricular systolic function within limits of normal. There is abnormal ventricular septal wall motion consistent with right ventricular pacemaker. Moderate aortic leaflet calcification visualized. There is mild aortic regurgitation. There is rwna-sf-[id number] aortic stenosis, mean gradient of the aortic valve is 36.1 mmHg. There is trace mild mitral regurgitation. There is mitral annular calcification. There is trace-to- mild tricuspid regurgitation. The right ventricular systolic pressure is estimated to be 34 mmHg. No significant pericardial effusion. Chest x-ray from 09/05/17 read as status post cardiac pacemaker placement. New small left upper lobe infiltrate. Chest x-ray from 09/05/17 read as constellation of findings most consistent with inflammatory infiltrate in the left middle to lower lobe, stigmata of chronic obstructive pulmonary disease without significant change compared to the early exam of the same date. Chest x-ray from 09/09/17 read as interval resolution of left lung alveolar infiltrate, pulmonary vascular congestion, interstitial edema, small left pleural effusion. Chest x-ray from 09/10/17 read as vascular congestive changes, no acute findings. MEDICATIONS AT DISCHARGE: 1. Lorazepam 1 tab p.o. q.p.m. 2. Omeprazole 20 p.o. q.p.m. 3. Ibuprofen 400 mg p.o. q.6 hours as needed. 4. Potassium chloride 10 mEq p.o. b.i.d. 5. Levothyroxine 125 mcg p.o. q.a.m. 6. Symbicort 160/4.5 one puff inhalation b.i.d. 7. Albuterol 2 puffs inhalation q.4 hours as needed. 8. Magnesium oxide 400 mg p.o. daily. 9. Verapamil 240 mg p.o. at bedtime. 10. Tylenol 650 mg p.o. q.4 hours as needed. 11. Albuterol/ipratropium nebulizer solution, 1 nebulizer inhalation q.4 hours as needed. 12. Dulcolax suppository 10 mg p.r. daily as needed. 13. Docusate 100 mg p.o. daily. 14. Magnesium hydroxide 30 mL p.o. q.6 hours as needed. 15. Prednisone tab 15 mg p.o. daily. 16. Senokot 1 tab p.o. daily as needed. 17. Tiotropium 1 inhalation daily as needed. HOSPITAL COURSE: This is a brief summary of the patient's presentation. For more details, please see the history and physical from Jamal Ferreira MD, on . In brief, the patient is a 66-year-old female with past medical history significant for the above, who presented to the emergency department after 1 month of prednisone taper and with azithromycin for upper respiratory symptoms and congestion. The patient had resolution of symptoms, but had increased fatigue, weakness, and exhaustion. The patient woke up on the morning of her admission with palpitation, shortness of breath, and nausea, and then found herself on the ground with no memory of the fall. The patient had headache after the fall. The patient had a slightly elevated D-dimer with no CT evidence of pulmonary embolism. The patient had a slightly elevated white count. The patient has chronic tachycardia. The patient had no chest pain. The patient had her lip laceration repaired. The patient had no other symptoms consistent with infection. The patient was admitted to the hospital, was concerned for adrenal insufficiency. The patient had dizziness upon standing. The patient had studies as above. The patient was admitted to the hospital and seen in consultation by Dr. Rohit Hobbs, the tax examining technician, due to a 10-second pause that she had shortly after being admitted. The patient was also seen in consultation by Dr. Antoine Kohler due to the same pause, who believed that this was the cause of her syncope, which was a result of AV block. The patient was initially believed to be appropriate for watchful waiting with discontinuation of verapamil; however, the patient then had recurrent episodes, which responded to atropine. The patient's symptomatic pause was 19 seconds with AV block. The patient then had a 25-second AV block. The patient had a temporary pacemaker placed with Dr. Jozef Friend on 09/04/17 with no complications. The patient had central venous catheter placed with no complications. The patient had EKGs and chest x-rays above showing no complications from the procedure. The patient had 5 days of Keflex. The patient had possible adrenal insufficiency. The patient was recommended to have a cortisol stimulation test, which was not performed. The patient was started on stress-dose steroids. The patient on 09/05/17 had a dual-chamber pacemaker implantation with Dr. Perez without any complications. The patient before being started on pulse dose steroids had hypotensive episode and was started on pulse dose steroids. The patient was started on max Vapotherm as well and BiPAP. The patient had poor aeration in her lungs and no other adventitious lung sounds. The patient was started on Zosyn, was continued her Symbicort and Spiriva and nebulizers p.r.n. The patient was started on Levophed on 09/06/17 for blood pressure support and was continued on vancomycin and Zosyn. Negative blood cultures and negative urine culture. The patient continued to improve slowly. On 09/07/17, the patient was able to be weaned off Vapotherm and changed to high-flow nasal cannula. The patient was diuresed due to fluid accumulation from fluids given during her sepsis protocol. The patient had no signs of sepsis. The patient had no signs of active infection. The patient's antibiotics were discontinued. The patient was continued to be diuresed due to rales on the lung exam with good improvement. The patient at this point was constipated. The patient has a history of alternating diarrhea and constipation with IBS. The patient had CHF. The patient was transitioned from IV Lasix to Bumex b.i.d. The patient was tapered down on her steroids slowly. The patient's respiratory status continued to improve. The patient improved with Bumex and BiPAP. The patient on 09/12/17 appeared euvolemic and her diuretics were stopped. The patient was able to be decreased to Solu- Medrol 40 mg p.o. b.i.d. and then 40 mg daily. The patient was assessed by [facility] and deemed to be a candidate for short-term rehabilitation with a goal of returning home due to right arm restriction. The patient stated that she felt better with BiPAP and CPAP and was requested to be continued at discharge. The patient was stable and amenable for discharge on 09/14/17 to [facility]. The patient on the day of discharge stated that her little toes have been numb for a couple of weeks and that she was having difficulty with her balance. PHYSICAL EXAM ON THE DAY OF DISCHARGE: General: The patient is a 66-year-old female, who appears older than stated age, sitting comfortably in the bed, in no acute distress. Vital Signs: Temperature 98.5, pulse rate 95, respiratory rate 20, oxygen saturation 100% on 3 L. HEENT: Head: Normocephalic, atraumatic. Sclerae anicteric. No conjunctival injection. Nasal mucosa is moist. Oral mucosa moist. No pharyngeal erythema, discharge, or exudate. Thrush on the tongue. Neck: Supple, nontender. No lymphadenopathy. No carotid bruits auscultated. No JVD. Cardiac: Regular rate and rhythm. No clicks, murmurs, gallops, or rubs. Pulses 2+ in the bilateral dorsalis pedis, posterior tibial, and radial areas. No bilateral lower extremity edema noted. Respiratory: Diminished throughout, crackles in the bilateral lower lobes. No wheezing. No other adventitious lung sounds. Abdomen: Soft, nontender, nondistended. Bowel sounds present, normoactive in all 4 quadrants. No hepatosplenomegaly. No abdominal bruit auscultated. No hepatojugular reflux. Genitourinary: No suprapubic or CVA tenderness. Skin: Clean, dry, and intact. Well-healing pacemaker scar on the right upper chest. Neuro: Cranial nerves II through XII intact. No focal deficits. Sensation intact in the bilateral small toes with persistent numbness and tingling. Positive Romberg. Mbpvac-dt-chza performed without difficulty. Psychiatric: Pleasant and cooperative. DISCHARGE PLAN: The patient will be discharged to [facility] for physical therapy and occupational therapy with a goal of returning home after she regains her strength from this prolonged hospitalization. The patient should also focus on balance exercise. It appears she has issues with this, which may be related to neuropathy as the patient had several rounds of chemotherapy, which may be associated with peripheral neuropathy. The patient should follow up outpatient with primary care provider for her peripheral neuropathy evaluation. The patient will follow up with Dr. Levy outpatient for monitoring of her radiation pneumonitis. The patient will be tapered slowly on her steroids starting at 15 mg daily and tapering down 5 mg every 3 days with a final goal being of her previous home dose of 2.5 mg daily and this taper should be accelerated or decelerated based on recommendation with Dr. Levy outpatient. If the patient is to be taken off her steroids entirely, the patient should have cortisol stimulation test at that time to assess for adrenal insufficiency ; however, a slow enough taper should obviate this possibility. The patient should continue to follow up as needed with her oncologist outpatient. The patient should follow up with executive wellness programs director as instructed for monitoring of her pacemaker. The patient should have wound care as described in discharge instructions. The patient should follow up with her primary care provider within 1 week of discharge from [facility]. The patient should continue with reduced dose of verapamil as above. The patient should have laxatives as above as needed. The patient should hold these laxatives in the setting of diarrhea. The patient should have BiPAP upon discharge to home as this appears to be more beneficial for her pulmonary status, so this may be just in the setting of fluid overload. The patient should have inhalers as above. The patient should have a heart-healthy diet without caffeine. The patient is to engage in activities as tolerated having right arm restrictions as per discharge instructions. TIME SPENT: Approximately 75 minutes was spent on this discharge, 30 of which was spent [id number] with the patient obtaining physical and discussing treatment plan. ASHLEY JAVIER [id number]/[facility] #: [id number] MAXX
== END 2017-09-14 12:00 | DRG 242 ==
LOC: ED 05:24 → OBSVTOIN 10:41 → MEDTELE 10:41 → ICU 16:03 → MEDTELE 09-09 12:33
PROVIDERS: ADMIT Internal Medicine; ATTEND Internal Medicine
PROC: 0JH606Z Insertion of Pacemaker, Dual Chamber into Chest Subcutaneous Tissue and Fascia, Open Approach (ICD-10-PCS; 2017-09-05)
PROC: 02H63JZ Insertion of Pacemaker Lead into Right Atrium, Percutaneous Approach (ICD-10-PCS; 2017-09-05)
PROC: 02HK3JZ Insertion of Pacemaker Lead into Right Ventricle, Percutaneous Approach (ICD-10-PCS; 2017-09-05)
PROC: 06HY32Z Insertion of Monitoring Device into Lower Vein, Percutaneous Approach (ICD-10-PCS; 2017-09-05)
PROC: 0CQ1XZZ Repair Lower Lip, External Approach (ICD-10-PCS; principal; 2017-09-05 09:45)
PROC: B54CZZA Ultrasonography of Left Lower Extremity Veins, Guidance (ICD-10-PCS; 2017-09-06)
PROC: 5A09457 Assistance with Respiratory Ventilation, 24-96 Consecutive Hours, Continuous Positive Airway Pressure (ICD-10-PCS; 2017-09-06)
PROC: 3E043XZ Introduction of Vasopressor into Central Vein, Percutaneous Approach (ICD-10-PCS; 2017-09-06)
PROC: 06HN33Z Insertion of Infusion Device into Left Femoral Vein, Percutaneous Approach (ICD-10-PCS; 2017-09-07)
DX: I44.2 Atrioventricular block, complete (principal); J96.21 Acute and chronic respiratory failure with hypoxia; E27.40 Unspecified adrenocortical insufficiency; S01.511A Laceration without foreign body of lip, initial encounter; J44.9 Chronic obstructive pulmonary disease, unspecified; K59.00 Constipation, unspecified; K58.2 Mixed irritable bowel syndrome; K21.9 Gastro-esophageal reflux disease without esophagitis; M06.9 Rheumatoid arthritis, unspecified; M81.0 Age-related osteoporosis without current pathological fracture; G43.909 Migraine, unspecified, not intractable, without status migrainosus; F32.9 Major depressive disorder, single episode, unspecified; F41.9 Anxiety disorder, unspecified; E89.0 Postprocedural hypothyroidism; R40.2362 Coma scale, best motor response, obeys commands, at arrival to emergency department; R40.2142 Coma scale, eyes open, spontaneous, at arrival to emergency department; R40.2252 Coma scale, best verbal response, oriented, at arrival to emergency department; I48.0 Paroxysmal atrial fibrillation; G47.33 Obstructive sleep apnea (adult) (pediatric); W18.39XA Other fall on same level, initial encounter; R91.8 Other nonspecific abnormal finding of lung field; E78.5 Hyperlipidemia, unspecified; J84.10 Pulmonary fibrosis, unspecified; E66.9 Obesity, unspecified; I50.9 Heart failure, unspecified; Z66 Do not resuscitate; I67.9 Cerebrovascular disease, unspecified; I08.3 Combined rheumatic disorders of mitral, aortic and tricuspid valves; I11.0 Hypertensive heart disease with heart failure; Z98.41 Cataract extraction status, right eye; Z85.850 Personal history of malignant neoplasm of thyroid; Y92.000 Kitchen of unspecified non-institutional (private) residence as the place of occurrence of the external cause; Z80.41 Family history of malignant neoplasm of ovary; Z82.49 Family history of ischemic heart disease and other diseases of the circulatory system; Z90.49 Acquired absence of other specified parts of digestive tract; Z90.81 Acquired absence of spleen; Z85.048 Personal history of other malignant neoplasm of rectum, rectosigmoid junction, and anus; Z82.5 Family history of asthma and other chronic lower respiratory diseases; Z92.21 Personal history of antineoplastic chemotherapy; Z98.42 Cataract extraction status, left eye; Z92.3 Personal history of irradiation; Z87.01 Personal history of pneumonia (recurrent); Z85.79 Personal history of other malignant neoplasms of lymphoid, hematopoietic and related tissues; Z85.038 Personal history of other malignant neoplasm of large intestine; Z85.828 Personal history of other malignant neoplasm of skin; Z88.2 Allergy status to sulfonamides; Z88.8 Allergy status to other drugs, medicaments and biological substances; Z88.5 Allergy status to narcotic agent; Z91.013 Allergy to seafood; Z99.81 Dependence on supplemental oxygen; Z87.442 Personal history of urinary calculi; Z83.6 Family history of other diseases of the respiratory system; Z82.3 Family history of stroke; Z79.51 Long term (current) use of inhaled steroids; Z79.52 Long term (current) use of systemic steroids; I95.9 Hypotension, unspecified; Z68.31 Body mass index [BMI] 31.0-31.9, adult
CPT/HCPCS: 33208; 33210; 36415; 36600; 70450; 70486; 71045; 71046; 71275; 72125; 80048; 80053; 80202; 81003; 81015; 82533; 82550; 82803; 83605; 83735; 83880; 84145; 84443; 84484; 85025; 85379; 85610; 85652; 85730; 86141; 86618; 87040; 87086; 87641; 93005; 93306; 94640; 94660; 99156; 99157; 99284; A9270-GY; C1785; C1887; C1898; G8978-GP-CL; G8979-GP-CI; G8987-GO-CL; G8988-GO-CI; G8989-GO-CI; J0461; J0690; J1644; J1720; J1940; J2250; J2405; J2543; J2920; J3010; J3370; J3475; J3480; J7512; Q9967

== ENCOUNTER 2017-09-14 08:21 | Inpatient (IN) | payer MEDICARE ==
--- OUTSIDE RECORDS SUMMARY | 2017-09-14 12:18 | XMS REPORT ---
:1950 External Reference #:[id number] Author Organization [facility] Address [address] [place] [address] [place] [address] Phone [phone] Care Team Providers Name Role Phone Anup Arzola MD Primary Care Physician Unavailable Payers Type Date Identification Numbers Payment Provider Subscriber Commercial Policy Number: [id number] [employer] Savanna Bae PayID: [id number] [address] [place] [address] Problems Date Description Provider Status Onset: 12/29/2012 [...] Comments : (age 64 Father due to MO Years) Father Heart Disease Father Asthma Father [...] Strength Qnty SIG Indications Ordering Provider Prednisone 08/22 Active Tablets 2.5mg 30tab take 1 tab Beverley S. /2018 s by mouth Juventino, daily N.P. Zithromax 08/11 Active Tablets 500mg 7tabs 1 tab J45.901 Mary daily MD Midlred Prednisone 06/06 Active Tablets 2.5mg 30tab Take 1 tab J45.909 Beverley S. s by mouth Foster, daily N.P. Spiriva Respimat 04/20 Active Aerosol 1.25mcg/A 12gm 1 puff in J45.40 Mary /2016 ct Am , daily Mildred, when she MD can afford and when remembered Verapamil HCL ER 07/01 Active Tablets ER 120mg 270ta 1 tablet Ayo bs in the D. Brand, morning, 2 M.D. tabs in the evening Cpap Mask And 01/25 Active Device Quattro Fx G47.33 Jae [facility] for her Dimple, mask- M.D. size small Omeprazole Active Capsules DR 20mg 30cap 1 po qd Unknown /0000 s Triamterene/Gunpowder Active Capsules 37.5-25mg 30cap 1 by mouth Unknown chlorothiazide / s every day Ventolin HFA Active Aerosol 108(90Bas 16gm 1-2 puffs Mary /0000 e) as needed Mildred mcg/Curtis BISHOP Lorazepam Active Tablets 1mg 90tab 1 tab Unknown /0000 s daily Levothyroxine Active Tablets 125mcg 30tab 1 by mouth Unknown Sodium /0000 s every day Symbicort Active Aerosol 160-4.5mc 30.6g 1 puffs by Mary /0000 g/Act m mouth Mildred twice a MD day (when remembered and when she can afford) Potassium Active Tablets ER 10Meq 1 by mouth Unknown Chloride Patria ER /0000 bid Multi For Her Active Tablets 1 tab Unknown /0000 daily Colace Active Capsules 100mg 1 by mouth Unknown /0000 daily . Oxygen Active Misc 2 l nc at Unknown /0000 bedtime Align Active Capsules 4mg 1 by mouth Unknown /0000 every day Ipratropium Active Solution 0.5-2.5(3 540ml 1 vial via Mary Horton/Albuterol /0000 )mg/3ML nebulizer Carlos Levy MD Active Solution 5% twice a day (On hold) Advil Active Tablets 200mg 2 tabs daily as needed Expectorant Active 2x day Magnesium Active Tablets 200mg 1 by mouth every day Prednisone 08/11 Hx TBPK 10mg (21) 21uni 4 tabs J45.901 Mary /2018 ts day#1, 3 Mildred, - tabs 08/22 day#2, tabs day#3, 1 tab for 7 days Nystatin 01/10 Hx Suspension 778433Neq 60ml 5cc swish J45.909 Mary /2017 t/ML and spit 2 Mildred, - times a Albuterol Sulfate 01/06 Hx 2.5MG/3ML every 4 Vials hours as - needed via 04/14 nebulizer /2016 Asmanex 03/11 Hx Aerosol 220mcg/In 1unit 2 puffs J45.909 Jae Melton 120 h s puff every Dimple, Metered Doses - day every M.D. 02/16 night /2015 Qnasl 03/08 Hx Aerosol 80mcg/Act 8.700 2 gm inhalation - s in each 07/10 nostril /2014 once daily Verapamil HCL ER 07/04 Hx Caps ER 120mg 90cap 1 tabs PO Ayo 24HR s every D. Brand, - morning M.D. 12/26 and 2 tab every evening Verapamil HCL SR 04/27 Hx Caps ER 120mg 90cap 1 tabs PO Ayo 24HR s every D. Brand, - morning M.D. 07/04 and 2 tab /2013 every evening Diltiazem CD 01/09 Hx Caps ER 120mg 180ca 1 cap by Ayo /2011 24HR ps mouth D. Brand, - twice a M.D. 04/27 day /2012 Potassium 04/29 Hx Tablet 20Meq 60tab 2 po qd Shabbir Chloride /2009 s F. - Mauser, 12/26 M.D. /2013 Potassium 01/20 Hx Tablets ER 20Meq 90tab 1 po qd Shabbir Chloride /2008 s F. - Mauser, 04/29 M.D. Sular 12/20 Hx Tablets ER 8.5mg 100ta 1 po qd 24HR masha Figueroa M.D. Sular 01/22 Hx Tablets ER 10mg 90tab 1 PO qd 24HR bruce Figueroa, 12/20 M.D. Premarin 01/22 Hx Tablets 0.45mg 30tab PO qd bruce Figueroa M.D. Hydrochlorothiazi 10/03 Hx Tablets 25mg 30tab 1 PO qd s Ben Figueroa, 01/22 M.D. Norvasc 10/03 Hx Tablets 2.5mg 30tab 1 PO qd bruce Figueroa, 01/22 M.D. Avapro 09/12 Hx Tablets 75mg 90tab 1 po qam bruce Figueroa, 10/03 M.D. Amlodipine 05/09 Hx Tablets 2.5mg 30tab 1 po qd s Ben Figueroa, 09/12 M.D. Lexapro 12/07 Hx Tablets 5mg 1 po qd Ben Figueroa, 01/22 M.D. Propafenone HCL 08/25 Hx Tablets 150mg 60tab 1 po bid s until F. - 09/15/06 Henry, 11/17 and then 1 M.D. /2006 po qd until 10/03/06 and then qod until 10/15 and then discontinu e. Rythmol SR 04/13 Hx Caps ER 325mg 1 po bid 12HR Ben Figueroa, 08/25 M.D. Lexapro 03/28 Hx Tablets 10mg 30tab 1 PO qd s Ben Figueroa, 12/07 M.D. Synthroid 03/28 Hx Tablets 100mcg 30tab 1 PO qd bruce Figueroa, 12/26 M.D Coumadin 03/28 Hx Tablets 3mg use as directed Ben Figueroa, 03/28 dr ross M.D. /2006 Flecainide 03/28 Hx Tablets 50mg 60tab 1 po bid s Ben Figueroa, 04/13.D. Diltiazem 03/28 Hx Capsules Ben Figueroa, 03/28 M.D. Diltiazem 03/28 Hx Tablets 120mg 1 PO qd Extended Ben Figueroa, 04/13 M.D. Coumadin 03/28 Hx Tablets 4mg use as directed Ben Figueroa, 11/17.D. Lexapro 05/04 Hx Tablets 5mg 30tab 1 po qd bruce Figueroa, 03/28 M.D. Toprol XL 12/05 Hx Tablets 25mg 30tab 1 po qd bruce Figueroa, 05/04 M.D. Synthroid 12/04 Hx Tablets pt unsure 90tab 1 po qd dose s Ben Figueroa, 03/28 M.D. Premarin 12/04 Hx Tablets 1.25mg 30tab 1/2 tablet s po qd Ben Figueroa, 01/22 M.D. Provera 12/04 Hx Tablets 5mg 30tab one qd bruce Figueroa, 07/29 M.D. /2014 Prilosec 12/04 Hx Capsules 20mg 60cap 1 po qd bruce Figueroa M.D. Flovent 12/04 Hx Aerosol 44mcg/Inh 1unit 2 puffs alation s bid prn Ben Figueroa, 10/20 M.D. /2005 Hydrochlorothiazi Hx Tablets 25mg 30tab 1 po qd or Unknown de / s as needed - 06/23 Citalopram Hx Tablets 40mg 30tab 1 po qd Unknown Hydrobromide /0000 s Multivitamins 00/00 Hx Capsules 30cap 1 capsule Unknown /0000 s esme;y - 07/10 Aspirin Hx Tablets 81mg 1 po qd Unknown / - 07/10 Venlafaxine HCL / Hx Tablets ER 37.5mg 90tab 2 tablets Unknown ER /0000 24HR s po qd - 06/28 Coq-10 Hx 200 daily Unknown / - 07/10 B Complex Hx daily Unknown / - 07/10 Estradiol Hx Tablets 1mg 30tab 1/4 po qd Unknown / s - 07/29 Magnesium Oxide Hx Tablets 400mg 90tab 1 po qd Unknown / s - 01/20 Vit C Hx Tablets [...] 12/26 Ipratropium Hx Solution 0.5-2.5(3 prn Unknown Horton/Albuterol /0000 )mg/3ML Sulfate - 12/26 Senna Hx daily prn Unknown /0000 - 06/10 Bupropion HCL 0000 Hx Tablets 75mg 1 by mouth Unknown /0000 every day - 12/26 Melatonin Hx Capsules 5mg 1 by mouth Unknown /0000 every - night at 07/29 bedtime /2014 Motrin Ib Hx Tablets 200mg 60tab 2 po Q6 Unknown /0000 s hours prn - 06/10 Verapamil HCL Hx Tablets 120mg 270ta 1 tab in Ayo /0000 bs Nat Perez, - morning, 2 M.D. 07/01 tabs at night Klor-Con M10 00/00 Hx Tablets ER 10Meq 90tab 1 by mouth Unknown /0000 s bid - 01/20 Levothyroxine Hx Tablets 112mcg 90tab 1 by mouth Unknown Sodium /0000 s every day - 01/20 Alvesco Hx Aerosol 160mcg/Ac 3unit take 1 Unknown /0000 t s inhalation - 2 times a Miralax Hx Packet [id number] 1mon 17 gm Unknown /0000 every day - as needed 06/10 Qvar Hx Aerosol 80mcg/Act 1unit twice a Unknown /0000 s day - 01/20 Nystatin Hx prn Unknown /0000 - 07/09 Magnesium 00 Hx Tablets 250mg 1 by mouth Unknown /0000 bid - 07/10 Klor-Con M20 00/ Hx Tablets ER 20Meq 30tab 1 tablet Unknown /0000 s daily - 06/10 Asmanex 00 Hx Aerosol 220mcg/In 2 puffs Unknown Twisthaler 30 Me /0000 h daily at Tered Doses - bedtime 03/08 Advil 00 Hx Capsules 200mg as needed Unknown /0000 - 09/20 Acyclovir Sodium 0000 Hx Solution 1000mg as Unknown /0000 Rec directed - 04/14 Vitamin D3 Super 00 Hx Capsules 2000Unit 2 once Unknown Strength /0000 daily - 01/10 Vitamin B12 00 Hx 2500mg 1 daily Unknown /0000 - 01/10 Prednisone 0000 Hx Tablets 10mg 30tab She can Mary /0000 s continue Mildred, - with 2 MD 02/12 pills for /2017 another week and tape to 1 pill and stay for 2 weeks Bumetanide 00/00 Hx prn Unknown /0000 - 02/12 Cefuroxime Axetil 00 Hx Tablets 500mg 1 by mouth Unknown /0000 twice a day for 10 days Medications Administered in Office Medication Date Status Form Strength Qnty SIG Indications Ordering Provider Inj, Administered Injection Dom Mendenhall M.D. 0.1 MG Technetium TC Administered Injection Ayo Acevedo 99M 017 Raymond Perez Tetrofosmin, Per Unit Dose Up To 40 Millicuries Immunizations CPT Code Status Date Vaccine Lot # [id number] Given 01/07/2015 Influenza Virus 3Yrs & Over [...] Antibodies) Reviewed By (SEE NOTE) 24 Dianna: POLYMER SCIENTIST & SM Antibodies 08/09/2009 POLYMER SCIENTIST Antibody NEGATIVE Negative SM Antibody NEGATIVE Negative [...] REFERENCE VALUE <0.4 (Negative) Test Performed by: [place] [address] Supervisor Ditching: Vitor Ferrera II, M.D., Ph.D. 3 Serologic response to B. burgdorferi infection is not detected, but cannot rule out early infection during which low or undetectable antibody levels to B. burgdorferi may be present. If clinically indicated, a new serum specimen should be submitted in 7-14 days. Test Performed by: [place] [address] Supervisor Ditching: Vitor Ferrera II, M.D., Ph.D. 4 Test Performed by: [place] [address] Supervisor Ditching: Vitor Ferrera II, M.D., Ph.D. 5 Please check labs this week 6 Please check labs this week 7 Please check labs this week 8 Normal Range 180 to 914 Indeterminate Range 145 to 180 Deficient Range <145 9 Test Performed by: [place] [address] Supervisor Ditching: Vitor Ferrera II, M.D., Ph.D. 10 REFERENCE VALUE Not Applicable 11 RESULT: HLA-B27 antigen was not detected. ADDITIONAL INFORMATION Method: Flow Cytometry Performing Laboratory CLIA# [id number] Test Performed by: [place] [address] Supervisor Ditching: Vitor Ferrera II, M.D., Ph.D. 12 Cancelled due to duplicate test on this order Test Performed by: [place] [address] Supervisor Ditching: Vitor Ferrera II, M.D., Ph.D. 13 Please check labs this week 14 REFERENCE VALUE <=1.0 (Negative) 15 REFERENCE VALUE <20.0 (Negative) 16 Tests for antibodies to dsDNA and DIANNA antigens are not performed automatically unless the RAFAL result is > or= 3.0 U. Studies performed at [facility] indicate that positive RAFAL results <3.0 U are rarely accompanied by positive second order tests. Test Performed by: [place] [address] Supervisor Ditching: Vitor Ferrera II, M.D., Ph.D. 17 REFERENCE VALUE <4.0 (Negative) Test Performed by: [place] [address] Supervisor Ditching: Vitor Ferrera II, M.D., Ph.D. 18 Negative serology. Celiac disease unlikely. However, approximately 10% of patients with celiac disease are seronegative. Also, patients who are already adhering to a gluten-free diet may be seronegative. If celiac disease is highly clinically suspected, consider HLA-DQ typing. Test Performed by: [place] [address] Supervisor Ditching: Vitor Ferrera II, M.D., Ph.D. 19 Test Performed by: [place] [address] Supervisor Ditching: Vitor Ferrera II, M.D., Ph.D. 20 Because [...] PONCHO HERNANDEZ MD 25 Test Performed by: [facility] Dpt of Lab Med and Pathology [address] [place] [address] Supervisor Ditching: Tyrel Mendoza III, M.D. 26 -- REFERENCE VALUE -- <=13 (Fasting) Test Performed by: [facility] Dpt of Lab Med and Pathology [address] [place] [address] Supervisor Ditching: Tyrel Mendoza III, M.D. 27 Test Performed by: [facility] Dpt of Lab Med and Pathology [address] [place] [address] Supervisor Ditching: Tyrel Mendoza III, M.D. 28 BETA STREP GROUP B 10^1-10,000 ORGANISMS/ML (FEW)^CCU NORMAL HILTON 25^10-25,000 ORGANISMS/ML (MODERATE)^CCU 29 Anion gap measurement may be of limited value in the presence of any alkalosis, especially in a combined acid base disorder. . 30 Note change in reference range as of 10/05/07. The change was based on recommendations from the [place] [employer]. 31 Please note change in [...] change was based on recommendations from the [place] [employer]. 35 Please note change in [...] change was based on recommendations from the [place] [employer]. 39 Please note change in reference range effective 07 . 40 A metabolite of Naproxen, O-desmethylnaproxen, has been shown to interfere with the Jendrassik-Sigurd method for measuring total bilirubin. Samples from [...] SERUM LEVELS OF CEA MEASURED USING THE [employer] ACCESS IMMUNOASSAY SYSTEM SHOULD NOT BE INTERPRETED [...] change was based on recommendations from the [place] [employer]. 48 Please note change in [...] dialysis) 51 FAX RESULTS TO ROSEANNE CALDERÓN [facility] AT FAX NUMBER [phone] 52 Anion gap measurement may be of [...] SERUM LEVELS OF CEA MEASURED USING THE [employer] ACCESS IMMUNOASSAY SYSTEM SHOULD NOT BE INTERPRETED [...] Procedures Date CPT Code Description Status 05/06/2017 16406 EKG Tracing & Interpretation Completed 05/02/2017 50312 Anoscopy Completed 01/03/2017 58241 ECHO Transthorasic Realtime 2D W Doppler & Color Flow Completed Hosp 09/23/2016 09905 Diffusing Capacity Completed 09/23/2016 76732 Plethysmography Determination Lung Volumes & Per Airway Completed Resist 09/23/2016 43920 Pulmonary Function><Bronchodil Completed 04/23/2016 66680 Stress Test Completed 04/23/2016 67610 Myocardial Perfusion Imaging Tomographic (Spect) Completed Multiple Studies 04/21/2016 21226 EKG Tracing & Interpretation Completed 08/05/2015 83694 ECHO Transthoracic, Real-Time 2D With Doppler And Color Completed Flow 08/05/2015 40113 ECHO Transthoracic, Real-Time 2D With Doppler And Color Completed Flow 07/11/2015 85281 EKG Tracing & Interpretation Completed 04/09/2015 62689 Diffusing Capacity Completed 04/09/2015 58895 Plethysmography Determination Lung Volumes & Per Airway Completed Resist 04/09/2015 40301 Pulmonary Function><Bronchodil Completed 03/11/2014 51140 Pulmonary Stress Test Simple Completed 02/28/2014 93731 EKG Tracing & Interpretation Completed 01/22/2014 16729 Polysomnography Sleep Staging 4+ Parameters W/Cpap Completed 01/04/2014 89609 Plethysmography Determination Lung Volumes & Per Airway Completed Resist 01/04/2014 59984 Pulmonary Function><Bronchodil Completed 01/02/2014 91397 ECHO Transthorasic Realtime 2D W Doppler & Color Flow Completed Hosp 12/31/2013 01762 Polysomnography Sleep Staging 4+ Parameters Completed 06/29/2013 57821 EKG Tracing & Interpretation Completed 06/21/2013 18069 ECHO Transthoracic, Real-Time 2D With Doppler And Color Completed Flow 04/26/2012 14146 EKG Tracing & Interpretation Completed 01/03/2012 82879 Cardiac Event Monitor Completed 08/08/2009 59763 ECHO Transthorasic Realtime 2D W Doppler & Color Flow Completed Hosp 01/08/2009 35957 ECHO Transthoracic, Real-Time 2D With Doppler And Color Completed Flow 12/19/2008 93824 EKG Tracing & Interpretation Completed 01/23/2008 58723 EKG Tracing & Interpretation Completed 09/13/2007 14337 EKG Tracing & Interpretation Completed 05/10/2007 16154 EKG Tracing & Interpretation Completed 12/22/2006 75815 EKG Tracing & Interpretation Completed 11/17/2006 38744 EKG Tracing & Interpretation Completed 08/25/2006 99815 EKG Tracing & Interpretation Completed 06/23/2006 64351 EKG Tracing & Interpretation Completed 05/24/2006 95816 ECHO/Stress Completed 05/24/2006 54840 ECHO/Stress Completed 05/24/2006 76719 Stress Test Completed 05/22/2006 96910 EKG, Interpretation Only Completed 04/13/2006 84924 EKG Tracing & Interpretation Completed 03/28/2006 56340 EKG Tracing & Interpretation Completed 03/28/2006 58855 EKG Tracing & Interpretation Completed 03/20/2006 29810 EKG, Interpretation Only Completed 03/19/2006 44259 EKG, Interpretation Only Completed 03/18/2006 83782 Cardioversion Completed 03/18/2006 09503 Cardioversion Completed 03/18/2006 69887 Echocardiography, Transesophageal, Real Time W/Image 2D Completed W/W/O M-M 03/18/2006 60747 Echocardiography, Transesophageal, Real Time W/Image 2D Completed W/W/O M-M 03/18/2006 70242 Pulse Wave/Continuous-Interp.RPT Completed 03/18/2006 64814 Color Flow Doppler/Interp & Reprt Completed 03/18/2006 47397 Color Flow Doppler/Interp & Reprt Completed 03/17/2006 33474 EKG, Interpretation Only Completed 03/17/2006 15122 EKG, Interpretation Only Completed 03/16/2006 81578 Echocardiogram, Limited Study Completed 03/16/2006 31830 EKG, Interpretation Only Completed 03/16/2006 14427 EKG, Interpretation Only Completed 03/15/2006 81899 EKG, Interpretation Only Completed 03/15/2006 63982 EKG, Interpretation Only Completed 03/15/2006 41332 Echocardiogram Completed 03/15/2006 59949 Echocardiogram Completed 03/15/2006 80508 Pulse Wave/Continuous-Interp.RPT Completed 03/15/2006 15881 Color Flow Doppler/Interp & Reprt Completed 03/15/2006 38020 Color Flow Doppler/Interp & Reprt Completed 03/14/2006 31486 EKG, Interpretation Only Completed 03/14/2006 15923 EKG, Interpretation Only Completed 10/28/2005 59227 Color Doppler Completed 10/28/2005 59971 Pulse Doppler & Continuous Wave Completed 10/28/2005 59094 Pulse Doppler & Continuous Wave Completed 10/28/2005 08508 Echocardiogram Completed 10/20/2005 57771 EKG Tracing & Interpretation Completed 05/07/2004 97521 Color Doppler Completed 05/07/2004 71180 Pulse Doppler & Continuous Wave Completed 05/07/2004 33789 Echocardiogram Completed 05/04/2004 73210 EKG Tracing & Interpretation Completed 07/03/2003 47601 EKG, Interpretation Only Completed 12/13/2002 18355 Color Doppler Completed 12/13/2002 10082 Pulse Doppler & Continuous Wave Completed 12/13/2002 00645 Echocardiogram Completed 12/13/2002 12634 Intro. Needle Or Intracath.,Vein Completed 12/05/2002 01309 EKG Tracing & Interpretation Completed Encounters Type Date Location Provider CPT E/M Dx Office Visit 08/11/2017 [facility] [address] J45.901 1:30p Services Of [facility] G47.33 J98.4 E66.09 Office Visit 06/06/2017 11:00a [facility] Beverley Jauregui 41786 J45.909 Services Of Hugo N.P. R06.02 G47.33 Office Visit 05/06/2017 8:30a [facility] Ayo Perez 31606 R00.0 [facility] M.D. R06.02 I10 Office Visit 05/02/2017 9:45a [facility] [place], [address] C44.520 Of [facility] FACS N81.6 Office Visit 02/21/2017 11:45a [facility] [place] [address] J45.909 Services Of [facility] G47.33 J98.4 Office Visit 01/10/2017 9:30a [facility] [place] [address] J98.4 Services Of [facility] J45.909 G47.33 Office Visit 01/04/2017 7:59a [facility], Dale Do M.D. 63866 I50.9 Hospitalists J45.901 G47.33 Office Visit 01/03/2017 9:20a [facility], [place] [address] I50.9 Hospitalists G47.33 J45.901 R00.0 Office Visit 01/02/2017 9:19a [facility], [place] [address] I50.9 Hospitalists G47.33 J45.901 Office Visit 01/01/2017 9:14a [facility] 83761 J45.901 Assoc, Hospitalists N.P. J20.9 G47.33 F41.9 Office Visit 11/04/2016 9:30a [facility] [place] [address] J45.909 Services Of [facility] J98.4 G47.33 Office Visit 09/21/2016 10:45a [facility] [place] [address] J45.909 Services Of [facility] G47.33 J98.4 Office Visit 05/05/2016 11:45a [facility] Lissa Perez 90488 R06.02 Hugo Andrade R00.0 I10 Office Visit 04/21/2016 10:15a [facility] Lissa Perez 38176 R00.0 Hugo Andrade R06.02 I10 Office Visit 03/19/2016 10:00a [facility] [place] [address] J45.909 Services Of [facility] G47.33 J98.4 Office Visit 08/21/2015 9:15a [facility] [place] [address] G47.33 Services Of [facility] J45.909 J98.4 Office Visit 08/06/2015 10:20a [facility] Of Jesus Keys, 40097 M06.4 Hugo Andrade M72.2 R76.0 Office Visit 07/11/2015 9:15a [facility] Ayo Perez, 68575 R06.02 [facility] Raymond R00.0 Office Visit 07/09/2015 11:00a [facility] Jesus Keys, 42203 M06.4 Hugo Andrade R20.8 M79.1 L13.0 Office Visit 04/21/2015 3:30p [facility] [place] [address] J45.40 Services Of [facility] G47.33 E66.09 Office Visit 02/17/2015 11:30a [facility] [place] [address] J45.40 Services Of [facility] G47.33 E66.09 Office Visit 01/07/2015 11:15a [facility] [place] [address] G47.33 Services Of [facility] J45.40 R06.00 Office Visit 12/03/2014 11:00a [facility] Jae Musa M.D. 91328 G47.33 Services Of [facility] J45.909 Office Visit 07/30/2014 10:15a [facility] Jae Musa M.D. 28432 493.90 Services Of [facility] 327.23 Office Visit 07/11/2014 11:15a [facility] Ayo Perez, 43470 785.0 Hugo Andrade 786.05 Office Visit 05/31/2014 11:30a [facility] Jae Musa M.D. 32132 493.90 Services Of [facility] 327.23 Office Visit 05/06/2014 10:30a [facility] Jae Musa M.D. 66604 493.90 Services Of [facility] 327.23 Office Visit 03/25/2014 10:00a [facility] Jae Musa M.D. 31154 493.90 Services Of [facility] 327.23 Office Visit 03/11/2014 1:30p [facility] Jae Musa M.D. 75427 493.90 Services Of [facility] 327.23 Office Visit 02/28/2014 10:00a [facility] Of Ayotruong Perez, 03841 785.0 Hugo Andrade 401.9 794.31 Office Visit 01/25/2014 11:15a [facility] Jae Musa M.D. 36545 493.90 Services Of [facility] 327.23 Office Visit 01/21/2014 2:30p [facility] Jae Musa M.D. 42583 493.90 Services Of [facility] 327.23 Office Visit 01/07/2014 9:38a [facility], Tierney Desai, 75733 785.0 Hospitalists Raymond 493.90 401.9 311 Office Visit 01/06/2014 9:37a [facility], Tierney Desai, 11079 785.0 Hospitalists Raymond 493.90 401.9 311 Office Visit 01/05/2014 3:39p [facility] Jae Musa M.D. 09090 493.11 Services Of [facility] 786.05 Office Visit 01/05/2014 9:37a [facility], Brigette Whitlock, 08370 493.90 Hospitalists D.O. 038.9 401.9 311 Office Visit 01/04/2014 3:36p [facility] Jae Musa M.D. 72718 493.11 Services Of [facility] 786.05 Office Visit 01/04/2014 9:36a [facility], Brigette Whitlock 12868 493.90 Hospitalists D.O. 038.9 401.9 311 Office Visit 01/03/2014 9:36a [facility], Susanna Andrew N.P. 30670 493.90 Hospitalists 038.9 401.9 311 Office Visit 01/03/2014 3:31p [facility] Jae Musa M.D. 73837 493.11 Services Of [facility] 786.05 Office Visit 01/02/2014 2:38p [facility] Jae Musa M.D. 89510 786.05 Services Of [facility] 493.11 Office Visit 01/02/2014 9:35a [facility], 40227 493.90 Assoc, Hospitalists N.P. 038.9 401.9 311 Office Visit 12/27/2013 10:00a [facility] Denzel Louise, 75653 780.53 Services Of [facility] M.D. Office Visit 06/29/2013 3:45p [facility], 28099 427.0 [facility] M.D. 300.00 Office Visit 12/29/2012 2:00p [facility] Perez, 68375 427.32 [facility] M.D. 427.0 Office Visit 06/28/2012 9:30a [facility] Perez, 00274 427.32 [facility] M.D. Office Visit 04/26/2012 2:30p [facility] Perez, 43113 427.0 [facility] M.DRene 401.9 Office Visit 01/03/2012 3:15p [facility] Perez, 06080 427.32 [facility] M.D. Office Visit 08/09/2009 1:15a [facility], Maribel Kang, 17297 784.0 Hospitalists M.D. Office Visit 08/08/2009 1:00a [facility], Maribel Kang, 13810 785.1 Hospitalists M.DRene 786.05 Office Visit 08/08/2009 12:15a [facility], Mari Muhammad, [address] 785.1 Hospitalists M.DRene 434.91 786.05 Office Visit 12/19/2008 3:20p [facility] Shabbir Figueroa M.D. 23739 401.1 427.81 785.0 424.0 Office Visit 01/23/2008 3:00p [facility] Shabbir Figueroa M.D. 68462 401.1 427.32 427.81 Office Visit 09/13/2007 8:15a [facility] Shabbir Figueroa M.D. 72893 401.1 427.32 427.81 Office Visit 05/10/2007 3:40p [facility] Shabbir Figueroa, 53438 427.32 M.D. 401.0 785.0 Office Visit 12/22/2006 2:40p [facility] Shabbir Figueroa, 95317 427.32 M.D. 401.1 427.81 424.0 Office Visit 12/07/2006 3:40p [facility] Shabbir Figueroa M.D. 94243 401.1 427.32 427.81 Office Visit 11/17/2006 3:00p [facility] Shabbir Figueroa, 74470 427.32 M.D. 427.81 794.31 401.0 Office Visit 08/25/2006 3:00p [facility] Shabbir Figueroa, 32219 427.32 M.D. 427.81 Office Visit 06/23/2006 2:20p [facility] Shabbir Figueroa, 58772 427.32 M.D. 424.0 Office Visit 04/13/2006 10:40a [facility] Shabbir Figueroa, 36030 427.32 M.D. Office Visit 03/28/2006 10:00a [facility] Shabbir Figueroa 86470 427.32 M.D. Office Visit 10/20/2005 10:40a [facility] Shabbir Figueroa, 39860 427.0 M.D. 278.01 785.2 Office Visit 05/04/2004 3:00p [facility] Shabbir Figueroa 68898 427.61 M.D. 785.2 Office Visit 12/05/2002 10:40a [facility] Shabbir Figueroa M.D. 74805 785.0 murmur 493.90 780.57 Plan of Care Future Appointment(s):10/11/2017 9:15 am - Mary Levy MD at [facility]08/11/2017 - Mary Levy MDJ45.901 Unspecified asthma with (acute) exacerbationNew Medication:Zithromax 500 mgPrednisone 10 mg (21)Follow up:2 qiwrqkC32.33 Obstructive sleep apnea (adult) (pediatric)J98.4 Other disorders of lungE66.09 Other obesity due to excess calories
[2017-09-14] MEDS ORDERED: Magnesium Hydroxide LIQ* 30 ML UDC PO PRN (13:05)
[2017-09-14] MEDS ORDERED: Spiriva Inhaler DEVICE* 1 EACH DEVICE SCH (14:00)
[2017-09-14] MEDS: Heparin VIAL(*) 5000 UNITS/ML VIAL (FIVE THOUSAND) SUBCUT SCH ×2 (15:57→21:30)
[2017-09-14] MEDS: Acetaminophen TAB* 325 MG PO PRN ×2 (16:08→22:19)
[2017-09-14] MEDS: Omeprazole CAP* 20 MG PO SCH (17:33)
[2017-09-14] MEDS ORDERED: Albuterol/Ipratropium NEB.SOL* Albuterol 2.5 MG/Ipratropium 0.5 MG 3 ML INH PRN (18:08)
[2017-09-14] MEDS: Mometasone/Formoter 200/5 MDI INH SCH (20:16)
[2017-09-14] MEDS: Docusate CAP* 100 MG PO SCH (21:06)
[2017-09-14] MEDS: Nystatin SUSPENSION* 100000 UNITS/ML 5 ML UDC PO SCH (21:07)
[2017-09-14] MEDS: LORazepam TAB(*) 1 MG PO SCH (22:18)
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
--- NOTE | 2017-09-14 22:45 | HP ---
HISTORY AND PHYSICAL: DATE OF ADMISSION: 09/14/17 REASON FOR ADMISSION: Weakness following a medically complex case. HISTORY OF PRESENT ILLNESS: Savanna Bae is a 66-year-old female. In the 1970s, she developed lymphoma in her chest wall. She underwent radiation and chemotherapy at that time. She has had multiple complications from the radiation including possibly thyroid cancer as well as fibrosis to her lungs with obstructive lung disease and a patchy ground-glass opacity seen on x-ray. The patient follows with flosser, Dr. Levy. The patient came into the hospital acutely on 09/04/17 after she had a syncopal event at home. She was evaluated in the emergency room. She had negative troponins and a D-dimer, which was moderately elevated. She had a CT angiogram of her chest showing no evidence of a pulmonary embolus. She was admitted with a syncopal event. The patient was moved to the medical floor. While on the floor, she had another syncopal event. While she was on telemetry on the floor, she was noted to have a 10-second pause, which resolved spontaneously. She was transferred to the intensive care unit. She had a temporary pacemaker placed. Then on 09/05/17, she was taken by Dr. Perez for a permanent pacemaker placement. DICTATION ENDS HERE [id number]/[facility] #: [id number] [facility] HOSPITALShimon
[2017-09-15] MEDS: Levothyroxine TAB* 125 MCG TAB PO SCH (06:30)
[2017-09-15] MEDS: Heparin VIAL(*) 5000 UNITS/ML VIAL (FIVE THOUSAND) SUBCUT SCH ×3 (06:30→21:37)
[2017-09-15] MEDS: Tiotropium CAP.INH* CAP.INH/18 MCG (USE ORDER SET !) INH SCH (08:06)
[2017-09-15] MEDS: Mometasone/Formoter 200/5 MDI INH SCH ×2 (08:06→19:30)
[2017-09-15] MEDS: predniSONE TAB* 50 MG PO SCH (09:44)
[2017-09-15] MEDS: Magnesium Oxide TAB* 400 MG PO SCH (09:44)
[2017-09-15] MEDS: Docusate CAP* 100 MG PO SCH ×2 (09:45→20:24)
[2017-09-15] MEDS: Verapamil SR TAB* 240 MG PO SCH (09:45)
[2017-09-15] MEDS: Nystatin SUSPENSION* 100000 UNITS/ML 5 ML UDC PO SCH ×4 (09:46→20:21)
[2017-09-15] MEDS: Acetaminophen TAB* 325 MG PO PRN ×2 (09:46→20:24)
[2017-09-15] MEDS: Omeprazole CAP* 20 MG PO SCH (17:16)
--- NOTE | 2017-09-15 18:16 | PN ---
Progress Note Date of Service: 09/15/17 Note: CONSTANZA RICHARDSON was visited. Therapy notes read and reviewed. She was able to ambulate 80 feet with contact guard but now exhausted. Bowels still loose Current Medications: Active Medications Generic Name Dose Route Start Last Admin Trade Name Freq PRN Reason Stop Dose Admin Acetaminophen 650 mg 09/14/17 13:05 09/15/17 09:46 Tylenol Tab* PO 650 mg Q6H PRN Administration FEVER/PAIN Albuterol/Ipratropium 1 neb 09/14/17 18:08 Duoneb (Albuterol 2.5 Mg/Ipratropium 0.5 Mg) INH Q6H PRN SOB/WHEEZING Device 1 each 09/14/17 14:00 Tiotropium Inhaler Device* .SEE ORDER .USE w/ SPIRIVA CAPS [place] Docusate Sodium 100 mg 09/14/17 21:00 09/15/17 09:45 Colace Cap* PO 100 mg BID VASILE Administration Heparin Sodium (Porcine) 5,000 units 09/14/17 14:00 09/15/17 13:20 Heparin Vial(*) SUBCUT 5,000 units Q8HR VASILE Administration Levothyroxine Sodium 125 mcg 09/15/17 06:00 09/15/17 06:30 Synthroid Tab* PO 125 mcg DAILY@0600 VASILE Administration Lorazepam 1 mg 09/14/17 21:00 09/14/17 22:18 Ativan Tab(*) PO 1 mg BEDTIME VASILE Administration Magnesium Hydroxide 30 ml 09/14/17 13:05 Milk Of Magnesia Liq* PO Q6H PRN CONSTIPATION Magnesium Oxide 400 mg 09/15/17 09:00 09/15/17 09:44 Magox 400 Tab* PO 400 mg DAILY VASILE Administration Mometasone Furoate/Formoterol Fumar 2 puff 09/14/17 21:00 09/15/17 08:06 Dulera 200/5 Mdi* INH 2 puff BID VASILE Administration Protocol Nystatin 500,000 units 09/14/17 21:00 09/15/17 17:17 Nystatin Suspension* PO 09/21/17 18:52 500,000 units QID VASILE Administration Omeprazole 20 mg 09/14/17 18:00 09/15/17 17:16 Prilosec Cap* PO 20 mg 1800 VASILE Administration Polyethylene Glycol/Electrolytes 17 gm 09/14/17 18:48 Miralax* PO DAILY PRN CONSTIPATION Prednisone 50 mg 09/15/17 09:00 09/15/17 09:44 Deltasone Tab* PO 09/18/17 23:59 50 mg DAILY VASILE Administration Prednisone 40 mg 09/19/17 09:00 Deltasone Tab* PO 09/23/17 23:55 DAILY VASILE Prednisone 30 mg 09/24/17 09:00 Deltasone Tab* PO 09/28/17 23:55 DAILY VASILE Prednisone 20 mg 09/29/17 09:00 Deltasone Tab* PO 10/03/17 23:55 DAILY VASILE Prednisone 10 mg 10/04/17 09:00 Deltasone Tab* PO DAILY VASILE Senna 2 tab 09/14/17 13:05 Senokot Tab* PO BEDTIME PRN CONSTIPATION Tiotropium [place] 1 cap 09/15/17 09:00 09/15/17 08:06 Spiriva Cap.Inh* INH 1 cap DAILY VASILE Administration Verapamil HCl 240 mg 09/15/17 09:00 09/15/17 09:45 Calan Sr Tab* PO 240 mg DAILY VASILE Administration Vital Signs: Vital Signs Temp Pulse Resp BP Pulse Ox 99.5 F 98 24 104/50 100 09/15/17 15:46 09/15/17 15:46 09/15/17 16:11 09/15/17 15:46 09/15/17 16:11 Exam: HEENT: O2, 2lpm via NC. EOMI CHEST: Wound over right chest healing LUNGS: Mostly clear bilaterally HEART: reg rhythm ABDOMEN: soft, +BS EXTREMITIES: muscle tone normal. 1+ edema at ankles NEUROLOGIC: alert. Motor exam 4+/5 throughout from fatigue Assessment/Plan: 1. Heart Block: S/P PPM placement. Stable 2. Sepsis/weakness: PT/OT. No pathogen ever found. 3. Obstructive Lung Disease: Dulera/Spiriva. Slow Prednisone taper 4. Hypothyroidism, as a result of thyroid cancer: Synthroid 5. Anxiety: Ativan at HS 6. PAVITHRA: Has been using BiPAP at night. Will need to check on home coverage 7. DVT Prophylaxis: Heparin S/Q 8. Advanced Directives: Has MOLST. DNR 9. Thrush: Nystatin S & S 09/15/17 18:16
[2017-09-15] MEDS: Senna TAB PO PRN (20:24)
[2017-09-15] MEDS: Polyethylene Glycol 3350* 17 GM PACKET PO PRN (20:24)
[2017-09-15] MEDS: LORazepam TAB(*) 1 MG PO SCH (20:25)
[2017-09-16] MEDS: Acetaminophen TAB* 325 MG PO PRN ×3 (05:16→20:59)
[2017-09-16] MEDS: Levothyroxine TAB* 125 MCG TAB PO SCH (05:16)
[2017-09-16] MEDS: Heparin VIAL(*) 5000 UNITS/ML VIAL (FIVE THOUSAND) SUBCUT SCH ×3 (05:18→21:00)
[2017-09-16 06:55] LABS: Hematocrit 29 % (35-47); Hemoglobin 9.4 g/dl (12.0-16.0); Mean Corpuscular HGB Conc 32 g/dl (31-36); Mean Corpuscular Hemoglobin 28 pg (27-31); Mean Corpuscular Volume 86 fL (80-97); Mean Platelet Volume 7.4 um3 (7.4-10.4); Platelet Count 292 10^3/ul (150-450); Red Blood Count 3.39 10^6/ul (4.00-5.40); Red Cell Distribution Width 17 % (10.5-15); White Blood Count 12.9 10^3/ul (3.5-10.8)
[2017-09-16 07:11] LABS: EGFR Non-African American 98.4 (>60)
[2017-09-16] MEDS: Tiotropium CAP.INH* CAP.INH/18 MCG (USE ORDER SET !) INH SCH (07:35)
[2017-09-16] MEDS: Mometasone/Formoter 200/5 MDI INH SCH ×2 (07:35→19:44)
[2017-09-16 08:34] LABS: ABS Basophils 0.1 10^3/ul (0-0.2); ABS Eosinophils 0.1 10^3/ul (0-0.6); ABS Lymphocytes 2.7 10^3/ul (1.0-4.8); ABS Monocytes 1.1 10^3/ul (0-0.8); ABS Nucleated RBC 0 10^3/ul; Eosinophil % 0.6 % (0-6); Lymphocyte % 20.7 % (25-47); Nucleated Red Blood Cells % 0.3
[2017-09-16] MEDS: Magnesium Oxide TAB* 400 MG PO SCH (09:09)
[2017-09-16] MEDS: Verapamil SR TAB* 240 MG PO SCH (09:09)
[2017-09-16] MEDS: Docusate CAP* 100 MG PO SCH ×2 (09:09→21:00)
[2017-09-16] MEDS: Nystatin SUSPENSION* 100000 UNITS/ML 5 ML UDC PO SCH ×4 (09:09→20:59)
[2017-09-16] MEDS: predniSONE TAB* 50 MG PO SCH (09:09)
--- NOTE | 2017-09-16 12:31 | PN ---
Progress Note Date of Service: 09/16/17 Note: CONSTANZA RICHARDSON was visited. Nursing and therapy notes read and reviewed. No chest pain, shortness of breath or abdominal pain. Notes numbness of teeth since her fall at home. Current Medications: Active Medications Generic Name Dose Route Start Last Admin Trade Name Freq PRN Reason Stop Dose Admin Acetaminophen 650 mg 09/14/17 13:05 09/16/17 05:16 Tylenol Tab* PO 650 mg Q6H PRN Administration FEVER/PAIN Albuterol/Ipratropium 1 neb 09/14/17 18:08 Duoneb (Albuterol 2.5 Mg/Ipratropium 0.5 Mg) INH Q6H PRN SOB/WHEEZING Device 1 each 09/14/17 14:00 Tiotropium Inhaler Device* .SEE ORDER .USE w/ SPIRIVA CAPS VASILE Docusate Sodium 100 mg 09/14/17 21:00 09/16/17 09:09 Colace Cap* PO 100 mg BID VASILE Administration Heparin Sodium (Porcine) 5,000 units 09/14/17 14:00 09/16/17 05:18 Heparin Vial(*) SUBCUT 5,000 units Q8HR VASILE Administration Levothyroxine Sodium 125 mcg 09/15/17 06:00 09/16/17 05:16 Synthroid Tab* PO 125 mcg DAILY@0600 VASILE Administration Lorazepam 1 mg 09/14/17 21:00 09/15/17 20:25 Ativan Tab(*) PO 1 mg BEDTIME VASILE Administration Magnesium Hydroxide 30 ml 09/14/17 13:05 Milk Of Magnesia Liq* PO Q6H PRN CONSTIPATION Magnesium Oxide 400 mg 09/15/17 09:00 09/16/17 09:09 Magox 400 Tab* PO 400 mg DAILY VASILE Administration Mometasone Furoate/Formoterol Fumar 2 puff 09/14/17 21:00 09/16/17 07:35 Dulera 200/5 Mdi* INH 2 puff BID VASILE Administration Protocol Nystatin 500,000 units 09/14/17 21:00 09/16/17 09:09 Nystatin Suspension* PO 09/21/17 18:52 500,000 units QID VASILE Administration Omeprazole 20 mg 09/14/17 18:00 09/15/17 17:16 Prilosec Cap* PO 20 mg 1800 VASILE Administration Polyethylene Glycol/Electrolytes 17 gm 09/14/17 18:48 09/15/17 20:24 Miralax* PO 17 gm DAILY PRN Administration CONSTIPATION Prednisone 50 mg 09/15/17 09:00 09/16/17 09:09 Deltasone Tab* PO 09/18/17 23:59 50 mg DAILY VASILE Administration Prednisone 40 mg 09/19/17 09:00 Deltasone Tab* PO 09/23/17 23:55 DAILY VASILE Prednisone 30 mg 09/24/17 09:00 Deltasone Tab* PO 09/28/17 23:55 DAILY VASILE Prednisone 20 mg 09/29/17 09:00 Deltasone Tab* PO 10/03/17 23:55 DAILY VASILE Prednisone 10 mg 10/04/17 09:00 Deltasone Tab* PO DAILY VASILE Senna 2 tab 09/14/17 13:05 09/15/17 20:24 Senokot Tab* PO 2 tab BEDTIME PRN Administration CONSTIPATION Tiotropium [place] 1 cap 09/15/17 09:00 09/16/17 07:35 Spiriva Cap.Inh* INH 1 cap DAILY VASILE Administration Verapamil HCl 240 mg 09/15/17 09:00 09/16/17 09:09 Calan Sr Tab* PO 240 mg DAILY VASILE Administration Vital Signs: Vital Signs Temp Pulse Resp BP Pulse Ox 98.5 F 102 14 137/69 98 09/16/17 05:19 09/16/17 07:38 09/16/17 08:00 09/16/17 05:19 09/16/17 08:00 Lab Results: Laboratory Results - last 24 hr 09/16/17 09/16/17 06:32 06:32 WBC 12.9 H RBC 3.39 L Hgb 9.4 L Hct 29 L MCV 86 MCH 28 MCHC 32 RDW 17 H Plt Count 292 MPV 7.4 Neut % (Auto) 69.5 Lymph % (Auto) 20.7 L [place] % (Auto) 8.8 H Eos % (Auto) 0.6 Baso % (Auto) 0.4 Absolute Neuts (auto) 9.0 H Absolute Lymphs (auto) 2.7 Absolute Monos (auto) 1.1 H Absolute Eos (auto) 0.1 Absolute Basos (auto) 0.1 Absolute Nucleated RBC 0 Nucleated RBC % 0.3 Sodium 140 Potassium 4.0 Chloride 99 L Carbon Dioxide 37 H Anion Gap 4 BUN 16 Creatinine 0.61 Est GFR ( Amer) 119.1 Est GFR (Non-Af Amer) 98.4 BUN/Creatinine Ratio 26.2 H Glucose 87 Calcium 8.9 Total Bilirubin 0.30 AST 14 ALT 30 Alkaline Phosphatase 57 Total Protein 5.6 L Albumin 3.1 L Globulin 2.5 Albumin/Globulin Ratio 1.2 Exam: GEN: no acute distress. alert and appropriate. HEENT: O2, 2lpm via NC. EOMI CHEST: Wound over right chest healing LUNGS: Clear to auscultation bilaterally HEART: regular rate and rhythm ABDOMEN: soft, +BS, non-tender, non-distended EXTREMITIES: muscle tone normal. 1+ edema at ankles Assessment/Plan: 1. Heart Block: S/P pacemaker placement. Pacer precautions. Stable 2. Sepsis/weakness: PT/OT. No pathogen ever found. Mild leukocytosis today, but similar to previous numbers and she is on prednisone. 3. Obstructive Lung Disease: Dulera/Spiriva. Slow Prednisone taper 4. Hypothyroidism, as a result of thyroid cancer: Synthroid 5. Anxiety: Ativan at HS 6. PAVITHRA: Has been using BiPAP at night. Will need to check on home coverage 7. DVT Prophylaxis: Heparin S/Q 8. Advanced Directives: Has MOLST. DNR 9. Thrush: Nystatin S & S 09/16/17 12:30
--- NOTE | 2017-09-16 12:40 | PMRUTEAM ---
PMRU: Team Meeting Current Status: Nursing: Current Status Skin Deviations [rectum] Other Skin Deviations [lips] Laceration Skin Deviations [Right Abrasion,Other Anterior Elbow] Skin Deviations [Right Upper Incision Chest] Skin Deviations [Left Groin] Previous Access Point Skin Deviation Description [ redness silicone lotion in place rectum] Skin Deviation Description [ stiches in place lips] Skin Deviation Description [ blister Right Anterior Elbow] Skin Deviation Description [ Well approximated, avinash intact, no drinage or Right Upper Chest] redness noted Skin Deviation Description [ scab in place Left Groin] Physical Therapy: Current Status Bed Mobility Assistance min assist Transfer Moblility Assistance Supervision Transfer/Bed Mobility None Recommended Devices Ambulation Assistance Supervision Ambulation Assistive Devices None Number of Feet Patient 80' and 110' Ambulated Stairs Assistance contact guard Stairs Recommended Devices Two Rails Number of Stairs 6 Curb Not Tested Occupational Therapy: Current Status Upper Body Dressing Supervision Lower Body Dressing Min Assist Bathing Min assist Toileting Mod Assist Toilet Transfer Contact Guard Assist Shower Transfer Contact Guard Assist Eating Independent Rec Therapy: Current Status Summary of Assessment and Pt. was open to conversion - had questions about Clinical Impression the unit which were answered. Pt. was pleasant, cooperative and talkative. Pt. identified with interests and involvement in them prior to admission. Treatment Goals Pt. will engage in leisure activities while on the unit. Treatment Plan Provide RT services and encourage involvement. Social Work: Current Status Discharge Plan return home with home care svs and support from boyfriend Potential for Family Training pt's boyfriend is involved and supportive Anticipated Discharge Home Destination Discharge With with home care svs and family support Goals: Physical Therapy: Updated Goals Independent bed mobility, transfers, ambulation 150ft and 4-5 stairs without AD. Occupational Therapy: Initial Goals Goals to be Completed in (Days 7-14 ) Upper Body Bathing Routine Independent Lower Body Bathing Routine Modified Independent with Upper Body Dressing Routine Independent Lower Body Dressing Routine Modified Independent with Toilet Hygeine and Clothing Modified Independent with Management Routine Toilet Transfer Routine Modified Independent with Step-In Shower Transfer Modified Independent with Routine Tub Transfer Routine Modified Independent with Functional Transfers for ADL Modified Independent with Grooming Routine Independent Feeding Routine Independent Light Housekeeping Tasks Modified Independent with Social Work: Goals Discharge Plan return home with home care svs and support from boyfriend Potential for Family Training pt's boyfriend is involved and supportive Anticipated Discharge Home Destination Discharge With with home care svs and family support Care Plan: Care Plan ADL's - Improve/Maintain Start: 09/15/17 13:07 Freq: DAILY Status: Active Target: Protocol: Activity Type Activity Date Activity User E-Sign Co-Sign Detail Recorded Client Recorded Date Recorded By Document 09/15/17 13:07 [id number] 09/15/17 13:07 [id number] 09/15/17 13:07 PMRU Outcome: ADL's/ADL Transfers Orders/Interventions Occupational Therapy Evaluation & Treatment Communication Tool in Patient Room Device Yes Address Deficits Secondary To: deconditioning, s/p pacemaker Patient to receive OT 5x/wk for 60-120 Therex min/day Self Care Management Group Therapy UE/LE ADL's with Assist Yes: Tenzin ADL Transfers with Assist Yes: Tenzin Toileting: Transfers,Clothing Management Yes: Tenzin ,Hygeine w/Assist Light Kitchen/Laundry w/Assist Yes: min-modA Progression Toward Outcome/Goals Progressing Outcome/Goals Met Pt. is a 66 y/o female s/p pacemaker placement presenting with increased fatigue, limited strength, decreased endurance, balance deficits, and decresed ROM affecting bathing, toileting, dressing, feeding self, and functional mobility. Pt. will benefit from skilled OT services to maximize independence with ADL routine and to increase strength, endurance, and balance. Cardiovascular- Improve/Maintain Start: 09/14/17 14:23 Freq: QSHIFT Status: Active Target: Protocol: Activity Type Activity Date Activity User E-Sign Co-Sign Detail Recorded Client Recorded Date Recorded By Document 09/16/17 08:00 [id number] 09/16/17 11:22 [id number] 09/16/17 08:00 PMRU Outcome: Cardiovascular Vital Signs q Shift for 48hrs Then BID Yes Daily Weight Ordered Yes: MWF Current Cardiovascular Outcome/Goal Maintain/ Achieve Baseline HR, BP , Perfusion Improve HR Within Prescribed Parameters Free of Abnormal Cardiac Symptoms Progression Toward Outcome/Goal Progressing Coping/Psych-Improve/Maintain Start: 09/14/17 14:23 Freq: QSHIFT Status: Active Target: Protocol: Activity Type Activity Date Activity User E-Sign Co-Sign Detail Recorded Client Recorded Date Recorded By Document 09/16/17 08:00 [id number] 09/16/17 11:22 [id number] 09/16/17 08:00 PMRU Outcome: Coping/Psychosocial Coping Outcome/Goals Verbalization of Acceptance of Rehab Admit Verbalization of Sense of Control Over Health Status Utilization of Available Support Systems Psychosocial Outcome/Goals Maintain/ Improve Emotional Health Cooperate/ Participate in Plan Progression Toward Outcome/Goals - Progressing Coping Progression Toward Outcome/Goals - Progressing Psychosocial DVT Prophylaxis- Improve/Maintain Start: 09/14/17 14:23 Freq: QSHIFT Status: Active Target: Protocol: Activity Type Activity Date Activity User E-Sign Co-Sign Detail Recorded Client Recorded Date Recorded By Document 09/16/17 08:00 [id number] 09/16/17 11:22 [id number] 09/16/17 08:00 PMRU Outcome: DVT Prophylaxis Outcome/Goals Remains Free of DVT Complies with DVT Prophylaxis /Treatment Demonstrates Knowledge of DVT Prevention/ Treatment TEDS Stockings on Every AM, Off at HS Progression Toward Outcome/Goals Progressing Discharge Planning - Improve/Maintain Start: 09/14/17 14:23 Freq: DAILY Status: Active Target: Protocol: Activity Type Activity Date Activity User E-Sign Co-Sign Detail Recorded Client Recorded Date Recorded By Document 09/16/17 01:45 [id number] 09/16/17 01:46 [id number] 09/16/17 01:45 PMRU Outcome: Discharge Planning Update Patient Family No Outcome/Goals Demonstrates Understanding of Discharge Plan Progression Toward Outcome/Goals Progressing Education-Improve/Maintain Start: 09/14/17 14:23 Freq: QSHIFT Status: Active Target: Protocol: Activity Type Activity Date Activity User E-Sign Co-Sign Detail Recorded Client Recorded Date Recorded By Document 09/16/17 08:00 [id number] 09/16/17 11:22 [id number] 09/16/17 08:00 PMRU Outcome: Education Outcome/Goals Demonstrate/ Verbalize Understanding of Written Discharge Instructions Progression Toward Outcome/Goals Progressing /GI-Improve/Maintain Start: 09/14/17 14:23 Freq: QSHIFT Status: Active Target: Protocol: Activity Type Activity Date Activity User E-Sign Co-Sign Detail Recorded Client Recorded Date Recorded By Document 09/16/17 08:00 [id number] 09/16/17 11:22 [id number] 09/16/17 08:00 PMRU Outcome: Genitourinary/ Gastrointestinal Genitourinary- Outcome/Goals Maintain/ Achieve Adequate Urinary Output Gastrointestinal-Outcome/Goals Maintain/ Achieve Bowel Regularity in Accordance with Pt's Baseline Remain Free of Emesis Prevent Constipation Progression Toward Outcome/Goals - Progressing Progression Toward Outcome/Goals - GI Progressing Outcome/Goals Met Comment pt up to BR Medication Administration Start: 09/14/17 14:23 Freq: QSHIFT Status: Active Target: Protocol: Activity Type Activity Date Activity User E-Sign Co-Sign Detail Recorded Client Recorded Date Recorded By Document 09/16/17 08:00 [id number] 09/16/17 11:22 [id number] 09/16/17 08:00 PMRU Outcome: Medication Administration Assess Patient Knowledge/Teach Med Yes Education for all Meds Outcome/Goals Patient Independent with Medication Administration at Home Progression Towards Outcome/Goals Progressing Is Patient Going Home on Lovenox? No Respiratory - Improve/Maintain Start: 09/14/17 14:23 Freq: QSHIFT Status: Active Target: Protocol: Activity Type Activity Date Activity User E-Sign Co-Sign Detail Recorded Client Recorded Date Recorded By Document 09/16/17 08:00 [id number] 09/16/17 11:22 [id number] 09/16/17 08:00 PMRU Outcome: Respiratory Does Patient Have a Trach No Outcome/Goals Maintain/ Improve O2 Sat per MD Order Maintain/ Improve Baseline Respiratory Status Maintain/ Improve Activity Tolerance Progression Toward Outcome/Goals Progressing Outcome/Goals Met Comment Bipap in place Skin- Improve/Maintain Start: 09/14/17 14:23 Freq: QSHIFT Status: Active Target: Protocol: Activity Type Activity Date Activity User E-Sign Co-Sign Detail Recorded Client Recorded Date Recorded By Document 09/16/17 08:00 [id number] 09/16/17 11:22 [id number] 09/16/17 08:00 PMRU Outcome: Skin Skin Risk Level Medium Skin Orders Air Mattress Outcome/Goals Maintain/ Improve Skin Intergrity Free from Decubitus Progression Toward Outcome/Goals Progressing Medicine Note: Length of Stay: [1 week] Anticipated Discharge Destination: Home Tentative Discharge Date: [09/23/17] Discharged to: [home]
[2017-09-16] MEDS: Omeprazole CAP* 20 MG PO SCH (17:41)
[2017-09-16] MEDS: LORazepam TAB(*) 1 MG PO SCH (21:00)
[2017-09-16] MEDS: Polyethylene Glycol 3350* 17 GM PACKET PO PRN (21:06)
[2017-09-16] MEDS: Senna TAB PO PRN (21:06)
[2017-09-17] MEDS: Levothyroxine TAB* 125 MCG TAB PO SCH (04:52)
[2017-09-17] MEDS: Acetaminophen TAB* 325 MG PO PRN ×3 (04:52→20:06)
[2017-09-17] MEDS: Heparin VIAL(*) 5000 UNITS/ML VIAL (FIVE THOUSAND) SUBCUT SCH ×3 (04:53→20:44)
[2017-09-17] MEDS: predniSONE TAB* 50 MG PO SCH (08:10)
[2017-09-17] MEDS: Verapamil SR TAB* 240 MG PO SCH (08:10)
[2017-09-17] MEDS: Magnesium Oxide TAB* 400 MG PO SCH (08:10)
[2017-09-17] MEDS: Docusate CAP* 100 MG PO SCH ×2 (08:10→20:44)
[2017-09-17] MEDS: Tiotropium CAP.INH* CAP.INH/18 MCG (USE ORDER SET !) INH SCH (08:11)
[2017-09-17] MEDS: Mometasone/Formoter 200/5 MDI INH SCH ×2 (08:12→20:15)
[2017-09-17] MEDS: Nystatin SUSPENSION* 100000 UNITS/ML 5 ML UDC PO SCH ×4 (08:13→20:44)
--- NOTE | 2017-09-17 13:26 | PN ---
Progress Note Date of Service: 09/17/17 Note: CONSTANZA RICHARDSON was visited. Nursing and therapy notes read and reviewed. No chest pain, shortness of breath or abdominal pain. Current Medications: Active Medications Generic Name Dose Route Start Last Admin Trade Name Freq PRN Reason Stop Dose Admin Acetaminophen 650 mg 09/14/17 13:05 09/17/17 11:04 Tylenol Tab* PO 650 mg Q6H PRN Administration FEVER/PAIN Albuterol/Ipratropium 1 neb 09/14/17 18:08 Duoneb (Albuterol 2.5 Mg/Ipratropium 0.5 Mg) INH Q6H PRN SOB/WHEEZING Bacitracin 1 applic 09/17/17 21:00 Bacitracin Ointment* TOPICAL BID VASILE Device 1 each 09/14/17 14:00 Tiotropium Inhaler Device* .SEE ORDER .USE w/ SPIRIVA CAPS VASILE Docusate Sodium 100 mg 09/14/17 21:00 09/17/17 08:10 Colace Cap* PO 100 mg BID VASILE Administration Heparin Sodium (Porcine) 5,000 units 09/14/17 14:00 09/17/17 04:53 Heparin Vial(*) SUBCUT 5,000 units Q8HR VASILE Administration Levothyroxine Sodium 125 mcg 09/15/17 06:00 09/17/17 04:52 Synthroid Tab* PO 125 mcg DAILY@0600 VASILE Administration Lorazepam 1 mg 09/14/17 21:00 09/16/17 21:00 Ativan Tab(*) PO 1 mg BEDTIME VASILE Administration Magnesium Hydroxide 30 ml 09/14/17 13:05 Milk Of Magnesia Liq* PO Q6H PRN CONSTIPATION Magnesium Oxide 400 mg 09/15/17 09:00 09/17/17 08:10 Magox 400 Tab* PO 400 mg DAILY VASILE Administration Mometasone Furoate/Formoterol Fumar 2 puff 09/14/17 21:00 09/17/17 08:12 Dulera 200/5 Mdi* INH 2 puff BID VASILE Administration Protocol Nystatin 500,000 units 09/14/17 21:00 09/17/17 08:13 Nystatin Suspension* PO 09/19/17 18:52 500,000 units QID VASILE Administration Omeprazole 20 mg 09/14/17 18:00 09/16/17 17:41 Prilosec Cap* PO 20 mg 1800 VASILE Administration Polyethylene Glycol/Electrolytes 17 gm 09/14/17 18:48 09/16/17 21:06 Miralax* PO 17 gm DAILY PRN Administration CONSTIPATION Prednisone 50 mg 09/15/17 09:00 09/17/17 08:10 Deltasone Tab* PO 09/18/17 23:59 50 mg DAILY VASILE Administration Prednisone 40 mg 09/19/17 09:00 Deltasone Tab* PO 09/23/17 23:55 DAILY VASILE Prednisone 30 mg 09/24/17 09:00 Deltasone Tab* PO 09/28/17 23:55 DAILY VASILE Prednisone 20 mg 09/29/17 09:00 Deltasone Tab* PO 10/03/17 23:55 DAILY VASILE Prednisone 10 mg 10/04/17 09:00 Deltasone Tab* PO DAILY VASILE Senna 2 tab 09/14/17 13:05 09/16/17 21:06 Senokot Tab* PO 2 tab BEDTIME PRN Administration CONSTIPATION Tiotropium [place] 1 cap 09/15/17 09:00 09/17/17 08:11 Spiriva Cap.Inh* INH 1 cap DAILY VASILE Administration Verapamil HCl 240 mg 09/18/17 21:00 Calan Sr Tab* PO BEDTIME VASILE Verapamil HCl 120 mg 09/17/17 21:00 Calan Sr Tab* PO 09/17/17 21:01 ONCE ONE Verapamil HCl 120 mg 09/18/17 09:00 Calan Sr Tab* PO DAILY VASILE Vital Signs: Vital Signs Temp Pulse Resp BP Pulse Ox 98.3 F 106 16 142/72 96 09/17/17 04:54 09/17/17 04:54 09/17/17 04:54 09/17/17 04:54 09/17/17 04:54 Exam: GEN: no acute distress. alert and appropriate. HEENT: sutures at bottom lip c/d/i with eschar. o/p without thrush but has canker sores on tongue CHEST: Wound over right chest healing LUNGS: Clear to auscultation bilaterally HEART: tachy regular rate and rhythm ABDOMEN: soft, +BS, non-tender, non-distended EXTREMITIES: muscle tone normal. 1+ edema at ankles PROCEDURE: Sutures removed from bottom lip #10. No complications. Assessment/Plan: 1. Heart Block: S/P pacemaker placement. Pacer precautions. Slightly tachy so will add back in verapamil 120mg at bedtime and continue 240mg qam (this is opposite of how she took them at home). 2. Sepsis/weakness: PT/OT. No pathogen ever found. Mild leukocytosis, but similar to previous numbers and she is on prednisone. 3. Obstructive Lung Disease: Dulera/Spiriva. Slow Prednisone taper 4. Hypothyroidism, as a result of thyroid cancer: Synthroid 5. Anxiety: Ativan at HS 6. PAVITHRA: Has been using BiPAP at night. Will need to check on home coverage 7. DVT Prophylaxis: Heparin S/Q 8. Advanced Directives: Has MOLST. DNR 9. Thrush: better. d/c Nystatin S & S after 5 days. 10. Lip laceration: sutures out 09/17. bacitracin topically. 11. Neck pain: Had CT c-spine in ER. No fractures. Using tylenol. Discussed cardiology usually does not like nsaids/ibuprofen. Offerred other medication such as muscle relaxant, but not interested. Will use warm packs prn. 09/17/17 13:26
[2017-09-17] MEDS: Omeprazole CAP* 20 MG PO SCH (17:11)
[2017-09-17] MEDS: Polyethylene Glycol 3350* 17 GM PACKET PO PRN (20:43)
[2017-09-17] MEDS: Bacitracin OINTMENT* 0.5% 0.5 oz TUBE TOPICAL SCH (20:44)
[2017-09-17] MEDS: Senna TAB PO PRN (20:44)
[2017-09-17] MEDS: LORazepam TAB(*) 1 MG PO SCH (20:45)
[2017-09-17] MEDS ORDERED: Verapamil SR TAB* 240 MG PO ONE ×2 (21:00)
[2017-09-18] MEDS: Acetaminophen TAB* 325 MG PO PRN ×2 (03:04→15:18)
[2017-09-18] MEDS: Levothyroxine TAB* 125 MCG TAB PO SCH (05:50)
[2017-09-18] MEDS: Heparin VIAL(*) 5000 UNITS/ML VIAL (FIVE THOUSAND) SUBCUT SCH ×3 (05:50→22:24)
[2017-09-18] MEDS: Mometasone/Formoter 200/5 MDI INH SCH ×2 (08:58→20:24)
[2017-09-18] MEDS: Tiotropium CAP.INH* CAP.INH/18 MCG (USE ORDER SET !) INH SCH (08:58)
[2017-09-18] MEDS ORDERED: Verapamil SR TAB* 240 MG PO SCH ×2 (09:00→21:00)
[2017-09-18] MEDS: Bacitracin OINTMENT* 0.5% 0.5 oz TUBE TOPICAL SCH ×2 (09:35→20:28)
[2017-09-18] MEDS: Nystatin SUSPENSION* 100000 UNITS/ML 5 ML UDC PO SCH ×4 (09:35→20:23)
[2017-09-18] MEDS: Magnesium Oxide TAB* 400 MG PO SCH (09:35)
[2017-09-18] MEDS: predniSONE TAB* 50 MG PO SCH (09:35)
[2017-09-18] MEDS: Docusate CAP* 100 MG PO SCH ×2 (09:35→20:22)
[2017-09-18] MEDS: Verapamil SR TAB* 240 MG PO SCH ×2 (09:35→20:22)
--- NOTE | 2017-09-18 11:39 | PN ---
Progress Note Date of Service: 09/18/17 Note: CONSTANZA RICHARDSON was visited. Nursing notes read and reviewed. Pt reports when had pneumonia Bipap felt better, but now thinks it feels suffocating and wants to consider going back to her own CPAP. Her boyfriend is bring hers in. She got very anxious about it last night. No chest pain, shortness of breath or abdominal pain. She is also very concerned about getting a portable oxygen concentrator for use at discharge. Process was started on acute care service, but sounds like may have needed to start over once on PMRU. Would like to use additional ativan prn. At home scheduled bid prn. Current Medications: Active Medications Generic Name Dose Route Start Last Admin Trade Name Freq PRN Reason Stop Dose Admin Acetaminophen 650 mg 09/14/17 13:05 09/18/17 03:04 Tylenol Tab* PO 650 mg Q6H PRN Administration FEVER/PAIN Albuterol/Ipratropium 1 neb 09/14/17 18:08 Duoneb (Albuterol 2.5 Mg/Ipratropium 0.5 Mg) INH Q6H PRN SOB/WHEEZING Bacitracin 1 applic 09/17/17 21:00 09/18/17 09:35 Bacitracin Ointment* TOPICAL 1 applic BID VASILE Administration Device 1 each 09/14/17 14:00 Tiotropium Inhaler Device* .SEE ORDER .USE w/ SPIRIVA CAPS VASILE Docusate Sodium 100 mg 09/14/17 21:00 09/18/17 09:35 Colace Cap* PO 100 mg BID VASILE Administration Heparin Sodium (Porcine) 5,000 units 09/14/17 14:00 09/18/17 05:50 Heparin Vial(*) SUBCUT 5,000 units Q8HR VASILE Administration Levothyroxine Sodium 125 mcg 09/15/17 06:00 09/18/17 05:50 Synthroid Tab* PO 125 mcg DAILY@0600 VASILE Administration Lorazepam 1 mg 09/14/17 21:00 09/17/17 20:45 Ativan Tab(*) PO 1 mg BEDTIME VASILE Administration Lorazepam 0.5 mg 09/18/17 08:52 Ativan Tab(*) PO DAILY PRN ANXIETY Magnesium Hydroxide 30 ml 09/14/17 13:05 Milk Of Magnesia Liq* PO Q6H PRN CONSTIPATION Magnesium Oxide 400 mg 09/15/17 09:00 09/18/17 09:35 Magox 400 Tab* PO 400 mg DAILY VASILE Administration Mometasone Furoate/Formoterol Fumar 2 puff 09/14/17 21:00 09/18/17 08:58 Dulera 200/5 Mdi* INH 2 puff BID VASILE Administration Protocol Nystatin 500,000 units 09/14/17 21:00 09/18/17 09:35 Nystatin Suspension* PO 09/19/17 18:52 500,000 units QID VASILE Administration Omeprazole 20 mg 09/14/17 18:00 09/17/17 17:11 Prilosec Cap* PO 20 mg 1800 VASILE Administration Polyethylene Glycol/Electrolytes 17 gm 09/14/17 18:48 09/17/17 20:43 Miralax* PO 17 gm DAILY PRN Administration CONSTIPATION Prednisone 50 mg 09/15/17 09:00 09/18/17 09:35 Deltasone Tab* PO 09/18/17 23:59 50 mg DAILY VASILE Administration Prednisone 40 mg 09/19/17 09:00 Deltasone Tab* PO 09/23/17 23:55 DAILY VASILE Prednisone 30 mg 09/24/17 09:00 Deltasone Tab* PO 09/28/17 23:55 DAILY VASILE Prednisone 20 mg 09/29/17 09:00 Deltasone Tab* PO 10/03/17 23:55 DAILY VASILE Prednisone 10 mg 10/04/17 09:00 Deltasone Tab* PO DAILY VASILE Senna 2 tab 09/14/17 13:05 09/17/17 20:44 Senokot Tab* PO 2 tab BEDTIME PRN Administration CONSTIPATION Tiotropium [place] 1 cap 09/15/17 09:00 09/18/17 08:58 Spiriva Cap.Inh* INH 1 cap DAILY VASILE Administration Verapamil HCl 240 mg 09/18/17 09:00 09/18/17 09:35 Calan Sr Tab* PO 240 mg DAILY VASILE Administration Verapamil HCl 120 mg 09/18/17 21:00 Calan Sr Tab* PO BEDTIME [facility] Vital Signs: Vital Signs Temp Pulse Resp BP Pulse Ox 98.3 F 111 16 121/66 93 09/18/17 06:03 09/18/17 08:58 09/18/17 08:58 09/18/17 06:03 09/18/17 08:58 Exam: GEN: no acute distress. alert and appropriate. HEENT: o/p without thrush but has canker sores on tongue CHEST: Wound over right chest healing LUNGS: Clear to auscultation bilaterally HEART: tachy regular rate and rhythm. Pt states baseline HR is 110's. ABDOMEN: soft, +BS, non-tender, non-distended EXTREMITIES: muscle tone normal. 1+ edema at ankles Assessment/Plan: 1. Heart Block: S/P pacemaker placement. Pacer precautions. verapamil 120mg at bedtime and 240mg qam (this is opposite of how she took them at home). 2. Sepsis/weakness: PT/OT. No pathogen ever found. Mild leukocytosis, but similar to previous numbers and she is on prednisone slow taper. 3. Obstructive Lung Disease: Dulera/Spiriva. Slow Prednisone taper. Continuous oxygen. Needs concentrator for community. See if covered. 4. Hypothyroidism, as a result of thyroid cancer: Synthroid 5. Anxiety: Ativan at HS. Added additional 0.5 mg qday prn. 6. PAVITHRA: Has been using BiPAP at night since hospitalization and now would like to switch back to CPAP. Ask for Dr. Levy's input tomorrow. 7. DVT Prophylaxis: Heparin S/Q 8. Advanced Directives: Has MOLST. DNR 9. Thrush: better. d/c Nystatin S & S after 5 days. 10. Lip laceration: sutures out 09/17. bacitracin topically. 11. Neck pain: Had CT c-spine in ER. No fractures. Using tylenol. Discussed cardiology usually does not like nsaids/ibuprofen. Offered other medication such as muscle relaxant, but not interested. Will use warm packs prn. 09/18/17 11:36
[2017-09-18] MEDS: Omeprazole CAP* 20 MG PO SCH (17:20)
[2017-09-18] MEDS: LORazepam TAB(*) 1 MG PO SCH (20:22)
[2017-09-19] MEDS: Acetaminophen TAB* 325 MG PO PRN (01:08)
[2017-09-19] MEDS: LORazepam TAB(*) 0.5 MG PO PRN (01:09)
[2017-09-19] MEDS: Heparin VIAL(*) 5000 UNITS/ML VIAL (FIVE THOUSAND) SUBCUT SCH ×3 (05:27→20:59)
[2017-09-19] MEDS: Levothyroxine TAB* 125 MCG TAB PO SCH (05:28)
[2017-09-19] MEDS: Mometasone/Formoter 200/5 MDI INH SCH ×2 (07:49→20:58)
[2017-09-19] MEDS: Tiotropium CAP.INH* CAP.INH/18 MCG (USE ORDER SET !) INH SCH (07:49)
[2017-09-19] MEDS: predniSONE TAB* 20 MG PO SCH (09:54)
[2017-09-19] MEDS: Nystatin SUSPENSION* 100000 UNITS/ML 5 ML UDC PO SCH ×3 (09:54→18:27)
[2017-09-19] MEDS: Bacitracin OINTMENT* 0.5% 0.5 oz TUBE TOPICAL SCH ×2 (09:54→20:57)
[2017-09-19] MEDS: Magnesium Oxide TAB* 400 MG PO SCH (09:54)
[2017-09-19] MEDS: Docusate CAP* 100 MG PO SCH ×2 (09:54→20:15)
[2017-09-19] MEDS: Verapamil SR TAB* 240 MG PO SCH ×2 (09:55→20:17)
[2017-09-19] MEDS: Polyethylene Glycol 3350* 17 GM PACKET PO PRN (09:59)
--- NOTE | 2017-09-19 17:20 | PN ---
Progress Note Date of Service: 09/19/17 Note: CONSTANZA RICHARDSON was visited. Therapy notes read and reviewed. She had a little breakdown today over her home compression unit, otherwise did okay. Able to ambulate pretty well. Will stop BiPAP and go back to CPAP Current Medications: Active Medications Generic Name Dose Route Start Last Admin Trade Name Freq PRN Reason Stop Dose Admin Acetaminophen 650 mg 09/14/17 13:05 09/19/17 01:08 Tylenol Tab* PO 650 mg Q6H PRN Administration FEVER/PAIN Albuterol/Ipratropium 1 neb 09/14/17 18:08 Duoneb (Albuterol 2.5 Mg/Ipratropium 0.5 Mg) INH Q6H PRN SOB/WHEEZING Bacitracin 1 applic 09/17/17 21:00 09/19/17 09:54 Bacitracin Ointment* TOPICAL 1 applic BID VASILE Administration Device 1 each 09/14/17 14:00 Tiotropium Inhaler Device* .SEE ORDER .USE w/ SPIRIVA CAPS VASILE Docusate Sodium 100 mg 09/14/17 21:00 09/19/17 09:54 Colace Cap* PO 100 mg BID VASILE Administration Heparin Sodium (Porcine) 5,000 units 09/14/17 14:00 09/19/17 14:28 Heparin Vial(*) SUBCUT 5,000 units Q8HR VASILE Administration Levothyroxine Sodium 125 mcg 09/15/17 06:00 09/19/17 05:28 Synthroid Tab* PO 125 mcg DAILY@0600 VASILE Administration Lorazepam 1 mg 09/14/17 21:00 09/18/17 20:22 Ativan Tab(*) PO 1 mg BEDTIME VASILE Administration Lorazepam 0.5 mg 09/18/17 08:52 09/19/17 01:09 Ativan Tab(*) PO 0.5 mg DAILY PRN Administration ANXIETY Magnesium Hydroxide 30 ml 09/14/17 13:05 Milk Of Magnesia Liq* PO Q6H PRN CONSTIPATION Magnesium Oxide 400 mg 09/15/17 09:00 09/19/17 09:54 Magox 400 Tab* PO 400 mg DAILY VASILE Administration Mometasone Furoate/Formoterol Fumar 2 puff 09/14/17 21:00 09/19/17 07:49 Dulera 200/5 Mdi* INH 2 puff BID VASILE Administration Protocol Nystatin 500,000 units 09/14/17 21:00 09/19/17 09:54 Nystatin Suspension* PO 09/19/17 18:52 500,000 units QID VASILE Administration Omeprazole 20 mg 09/14/17 18:00 09/18/17 17:20 Prilosec Cap* PO 20 mg 1800 VASILE Administration Polyethylene Glycol/Electrolytes 17 gm 09/14/17 18:48 09/19/17 09:59 Miralax* PO 17 gm DAILY PRN Administration CONSTIPATION Prednisone 40 mg 09/19/17 09:00 09/19/17 09:54 Deltasone Tab* PO 09/23/17 23:55 40 mg DAILY VASILE Administration Prednisone 30 mg 09/24/17 09:00 Deltasone Tab* PO 09/28/17 23:55 DAILY VASILE Prednisone 20 mg 09/29/17 09:00 Deltasone Tab* PO 10/03/17 23:55 DAILY VASILE Prednisone 10 mg 10/04/17 09:00 Deltasone Tab* PO DAILY VASILE Senna 2 tab 09/14/17 13:05 09/17/17 20:44 Senokot Tab* PO 2 tab BEDTIME PRN Administration CONSTIPATION Tiotropium [place] 1 cap 09/15/17 09:00 09/19/17 07:49 Spiriva Cap.Inh* INH 1 cap DAILY VASILE Administration Verapamil HCl 240 mg 09/18/17 09:00 09/19/17 09:55 Calan Sr Tab* PO 240 mg DAILY VASILE Administration Verapamil HCl 120 mg 09/18/17 21:00 09/18/17 20:22 Calan Sr Tab* PO 120 mg BEDTIME VASILE Administration Vital Signs: Vital Signs Temp Pulse Resp BP Pulse Ox 99.0 F 103 20 112/59 99 09/19/17 16:33 09/19/17 16:33 09/19/17 16:33 09/19/17 16:33 09/19/17 16:33 Exam: GENERAL: no acute distress. alert and appropriate. HEENT: o/p without thrush but has canker sores on tongue CHEST: Wound over right chest healing LUNGS: Clear to auscultation bilaterally HEART: tachy regular rate and rhythm. Pt states baseline HR is 110's. ABDOMEN: soft, +BS, non-tender, non-distended EXTREMITIES: muscle tone normal. 1+ edema at ankles Assessment/Plan: 1. Heart Block: S/P pacemaker placement. Pacer precautions. verapamil 120mg at bedtime and 240mg qam 2. Sepsis/weakness: PT/OT. No pathogen ever found. 3. Obstructive Lung Disease: Dulera/Spiriva. Slow Prednisone taper. Continuous oxygen. Needs concentrator for community. Will try to get 4. Hypothyroidism, as a result of thyroid cancer: Synthroid 5. Anxiety: Ativan at HS. Added additional 0.5 mg qday prn. 6. PAVITHRA: Has been using BiPAP at night since hospitalization and now would like to switch back to CPAP. Will order 7. DVT Prophylaxis: Heparin S/Q 8. Advanced Directives: Has MOLST. DNR 9. Thrush: better. d/c Nystatin S & S after 5 days. 10. Lip laceration: sutures out 09/17. bacitracin topically. 09/19/17 17:23
[2017-09-19] MEDS: Omeprazole CAP* 20 MG PO SCH (18:27)
[2017-09-19] MEDS: LORazepam TAB(*) 1 MG PO SCH (20:15)
[2017-09-20] MEDS: Levothyroxine TAB* 125 MCG TAB PO SCH (06:04)
[2017-09-20] MEDS: Heparin VIAL(*) 5000 UNITS/ML VIAL (FIVE THOUSAND) SUBCUT SCH ×3 (06:08→22:09)
[2017-09-20] MEDS: predniSONE TAB* 20 MG PO SCH (08:07)
[2017-09-20] MEDS: Docusate CAP* 100 MG PO SCH ×2 (08:07→19:56)
[2017-09-20] MEDS: Magnesium Oxide TAB* 400 MG PO SCH (08:07)
[2017-09-20] MEDS: Verapamil SR TAB* 240 MG PO SCH ×2 (08:08→19:55)
[2017-09-20] MEDS: Tiotropium CAP.INH* CAP.INH/18 MCG (USE ORDER SET !) INH SCH (08:43)
[2017-09-20] MEDS: Mometasone/Formoter 200/5 MDI INH SCH ×2 (08:44→20:55)
[2017-09-20] MEDS: Bacitracin OINTMENT* 0.5% 0.5 oz TUBE TOPICAL SCH ×2 (11:16→19:58)
--- NOTE | 2017-09-20 12:27 | PMRUTEAM ---
PMRU: Team Meeting Current Status: Nursing: Current Status Skin Deviations [rectum] Other Skin Deviations [lips] Laceration Skin Deviations [Right Abrasion,Other Anterior Elbow] Skin Deviations [Right Upper Incision Chest] Skin Deviations [Left Groin] Previous Access Point Skin Deviation Description [ redness lotion in place rectum] Skin Deviation Description [ healing lips] Skin Deviation Description [ blister Right Anterior Elbow] Skin Deviation Description [ pacemaker incision site, healing well Right Upper Chest] Skin Deviation Description [ scab in place Left Groin] Bladder Current Status voiding without difficulty Bowel Current Status takes bowel meds Nutrition Current Status appetite good Medication Current Status knows meds Physical Therapy: Current Status Bed Mobility Assistance Independent Transfer Moblility Assistance Independent Transfer/Bed Mobility None Recommended Devices Ambulation Assistance Supervision Ambulation Assistive Devices None Number of Feet Patient 300 Ambulated Stairs Assistance Supervision Stairs Recommended Devices One Rail Number of Stairs 13 Curb Supervision Curb Assistive Devices None Objective Comments step to pattern ascend/descending stairs, pt was initially fearful of stepping down 6" step but was able to perform with CGA and encouragement Occupational Therapy: Current Status Upper Body Dressing Independent Lower Body Dressing Independent Bathing Independent Toileting Independent Toilet Transfer Independent Shower Transfer Independent Eating Independent Rec Therapy: Current Status Summary of Assessment and Pt. was open to conversion - had questions about Clinical Impression the unit which were answered. Pt. was pleasant, cooperative and talkative. Pt. identified with interests and involvement in them prior to admission. Treatment Goals Pt. will engage in leisure activities while on the unit. Treatment Plan Provide RT services and encourage involvement. Social Work: Current Status Discharge Plan return home with home care svs and support from boyfriend Potential for Family Training pt's boyfriend is involved and supportive Anticipated Discharge Home Destination Discharge With with home care svs and family support Nutrition: Current Status Monitoring eating well w/heart healthy diet and without immediate apparent nutrition risk factors. Full nutrition assessment planned 09/21. Allergy to shellfish noted; otherwise, heart healthy diet appropriate w/caffeine allowed. Initial/tentative nutrition goals as outlined below. Goals: Physical Therapy: Updated Goals Transfer/Bed Mobility None Recommended Devices Occupational Therapy: Initial Goals Goals to be Completed in (Days 7-14 ) Upper Body Bathing Routine Independent Lower Body Bathing Routine Modified Independent with Upper Body Dressing Routine Independent Lower Body Dressing Routine Modified Independent with Toilet Hygeine and Clothing Modified Independent with Management Routine Toilet Transfer Routine Modified Independent with Step-In Shower Transfer Modified Independent with Routine Tub Transfer Routine Modified Independent with Functional Transfers for ADL Modified Independent with Grooming Routine Independent Feeding Routine Independent Light Housekeeping Tasks Modified Independent with Nursing: Goals Bladder Goal independent Bowel Goal independent Nutrition Goal 100% of all meals eaten Medication Goal independent Nutrition: Goals Intervention Goals 1. adequate po intake to maintain stable dry wt and lean body mass 2. maintain serum electrolytes within normal ranges 3. adequate glycemic control in setting of steroid tx 4. maintain regular bowel pattern without constipation (or diarrhea) Social Work: Goals Discharge Plan return home with home care svs and support from boyfriend Potential for Family Training pt's boyfriend is involved and supportive Anticipated Discharge Home Destination Discharge With with home care svs and family support Care Plan: Care Plan ADL's - Improve/Maintain Start: 09/15/17 13:07 Freq: DAILY Status: Active Target: Protocol: Activity Type Activity Date Activity User E-Sign Co-Sign Detail Recorded Client Recorded Date Recorded By Document 09/15/17 13:07 [id number] 09/15/17 13:07 [id number] 09/15/17 13:07 PMRU Outcome: ADL's/ADL Transfers Orders/Interventions Occupational Therapy Evaluation & Treatment Communication Tool in Patient Room Device Yes Address Deficits Secondary To: deconditioning, s/p pacemaker Patient to receive OT 5x/wk for 60-120 Therex min/day Self Care Management Group Therapy UE/LE ADL's with Assist Yes: Tenzin ADL Transfers with Assist Yes: Tenzin Toileting: Transfers,Clothing Management Yes: Tenzin ,Hygeine w/Assist Light Kitchen/Laundry w/Assist Yes: min-modA Progression Toward Outcome/Goals Progressing Outcome/Goals Met Pt. is a 66 y/o female s/p pacemaker placement presenting with increased fatigue, limited strength, decreased endurance, balance deficits, and decresed ROM affecting bathing, toileting, dressing, feeding self, and functional mobility. Pt. will benefit from skilled OT services to maximize independence with ADL routine and to increase strength, endurance, and balance. Cardiovascular- Improve/Maintain Start: 09/14/17 14:23 Freq: QSHIFT Status: Active Target: Protocol: Activity Type Activity Date Activity User E-Sign Co-Sign Detail Recorded Client Recorded Date Recorded By Document 09/20/17 11:22 [id number] 09/20/17 11:23 [id number] 09/20/17 11:22 PMRU Outcome: Cardiovascular Vital Signs q Shift for 48hrs Then BID Yes Daily Weight Ordered Yes: MWF Current Cardiovascular Outcome/Goal Maintain/ Achieve Baseline HR, BP , Perfusion Improve HR Within Prescribed Parameters Free of Abnormal Cardiac Symptoms Progression Toward Outcome/Goal Progressing Coping/Psych-Improve/Maintain Start: 09/14/17 14:23 Freq: QSHIFT Status: Active Target: Protocol: Activity Type Activity Date Activity User E-Sign Co-Sign Detail Recorded Client Recorded Date Recorded By Document 09/20/17 11:22 [id number] 09/20/17 11:23 [id number] 09/20/17 11:22 PMRU Outcome: Coping/Psychosocial Coping Outcome/Goals Verbalization of Acceptance of Rehab Admit Verbalization of Sense of Control Over Health Status Utilization of Available Support Systems Psychosocial Outcome/Goals Maintain/ Improve Emotional Health Cooperate/ Participate in Plan Progression Toward Outcome/Goals - Progressing Coping Progression Toward Outcome/Goals - Progressing Psychosocial DVT Prophylaxis- Improve/Maintain Start: 09/14/17 14:23 Freq: QSHIFT Status: Active Target: Protocol: Activity Type Activity Date Activity User E-Sign Co-Sign Detail Recorded Client Recorded Date Recorded By Document 09/20/17 11:22 [id number] RU-[employer] 09/20/17 11:23 [id number] 09/20/17 11:22 PMRU Outcome: DVT Prophylaxis Outcome/Goals Remains Free of DVT Complies with DVT Prophylaxis /Treatment Demonstrates Knowledge of DVT Prevention/ Treatment TEDS Stockings on Every AM, Off at HS Progression Toward Outcome/Goals Progressing Discharge Planning - Improve/Maintain Start: 09/14/17 14:23 Freq: DAILY Status: Active Target: Protocol: Activity Type Activity Date Activity User E-Sign Co-Sign Detail Recorded Client Recorded Date Recorded By Document 09/20/17 00:45 [id number] 09/20/17 00:46 [id number] 09/20/17 00:45 PMRU Outcome: Discharge Planning Outcome/Goals Demonstrates Understanding of Discharge Plan Progression Toward Outcome/Goals Progressing Education-Improve/Maintain Start: 09/14/17 14:23 Freq: QSHIFT Status: Active Target: Protocol: Activity Type Activity Date Activity User E-Sign Co-Sign Detail Recorded Client Recorded Date Recorded By Document 09/20/17 11:22 [id number] 09/20/17 11:23 [id number] 09/20/17 11:22 PMRU Outcome: Education Outcome/Goals Encourage Questions Progression Toward Outcome/Goals Progressing /GI-Improve/Maintain Start: 09/14/17 14:23 Freq: QSHIFT Status: Active Target: Protocol: Activity Type Activity Date Activity User E-Sign Co-Sign Detail Recorded Client Recorded Date Recorded By Document 09/20/17 11:22 [id number] 09/20/17 11:23 [id number] 09/20/17 11:22 PMRU Outcome: Genitourinary/ Gastrointestinal Genitourinary- Outcome/Goals Maintain/ Achieve Adequate Urinary Output Gastrointestinal-Outcome/Goals Maintain/ Achieve Bowel Regularity in Accordance with Pt's Baseline Remain Free of Emesis Prevent Constipation Progression Toward Outcome/Goals - Progressing Progression Toward Outcome/Goals - GI Progressing Medication Administration Start: 09/14/17 14:23 Freq: QSHIFT Status: Active Target: Protocol: Activity Type Activity Date Activity User E-Sign Co-Sign Detail Recorded Client Recorded Date Recorded By Document 09/20/17 11:22 [id number] 09/20/17 11:23 [id number] 09/20/17 11:22 PMRU Outcome: Medication Administration Assess Patient Knowledge/Teach Med Yes Education for all Meds Outcome/Goals Patient Independent with Medication Administration at Home Progression Towards Outcome/Goals Progressing Is Patient Going Home on Lovenox? No Respiratory - Improve/Maintain Start: 09/14/17 14:23 Freq: QSHIFT Status: Active Target: Protocol: Activity Type Activity Date Activity User E-Sign Co-Sign Detail Recorded Client Recorded Date Recorded By Document 09/20/17 11:22 [id number] 09/20/17 11:23 [id number] 09/20/17 11:22 PMRU Outcome: Respiratory Does Patient Have a Trach No Outcome/Goals Maintain/ Improve O2 Sat per MD Order Maintain/ Improve Baseline Respiratory Status Maintain/ Improve Activity Tolerance Prevent Pneumonia/ Atelectasis Progression Toward Outcome/Goals Progressing Skin- Improve/Maintain Start: 09/14/17 14:23 Freq: QSHIFT Status: Active Target: Protocol: Activity Type Activity Date Activity User E-Sign Co-Sign Detail Recorded Client Recorded Date Recorded By Document 09/20/17 11:22 [id number] 09/20/17 11:23 [id number] 09/20/17 11:22 PMRU Outcome: Skin Skin Risk Level Medium Skin Orders Air Mattress Outcome/Goals Maintain/ Improve Skin Intergrity Free from Decubitus Progression Toward Outcome/Goals Progressing Medicine Note: Length of Stay: 1 day Anticipated Discharge Destination: Home Tentative Discharge Date: 09/21/17 Discharged to: Home
--- NOTE | 2017-09-20 16:34 | PN ---
Progress Note Date of Service: 09/20/17 Note: CONSTANZA RICHARDSON was visited. Therapy notes read and reviewed. She seems to be breathing well. She was discussed in interdisciplinary team rounds. She is moving well and will go home tomorrow Current Medications: Active Medications Generic Name Dose Route Start Last Admin Trade Name Freq PRN Reason Stop Dose Admin Acetaminophen 650 mg 09/14/17 13:05 09/19/17 01:08 Tylenol Tab* PO 650 mg Q6H PRN Administration FEVER/PAIN Albuterol/Ipratropium 1 neb 09/14/17 18:08 Duoneb (Albuterol 2.5 Mg/Ipratropium 0.5 Mg) INH Q6H PRN SOB/WHEEZING Bacitracin 1 applic 09/17/17 21:00 09/20/17 11:16 Bacitracin Ointment* TOPICAL 1 applic BID VASILE Administration Device 1 each 09/14/17 14:00 Tiotropium Inhaler Device* .SEE ORDER .USE w/ SPIRIVA CAPS VASILE Docusate Sodium 100 mg 09/14/17 21:00 09/20/17 08:07 Colace Cap* PO 100 mg BID VASILE Administration Heparin Sodium (Porcine) 5,000 units 09/14/17 14:00 09/20/17 14:32 Heparin Vial(*) SUBCUT 5,000 units Q8HR VASILE Administration Levothyroxine Sodium 125 mcg 09/15/17 06:00 09/20/17 06:04 Synthroid Tab* PO 125 mcg DAILY@0600 VASILE Administration Lorazepam 1 mg 09/14/17 21:00 09/19/17 20:15 Ativan Tab(*) PO 1 mg BEDTIME VASILE Administration Lorazepam 0.5 mg 09/18/17 08:52 09/19/17 01:09 Ativan Tab(*) PO 0.5 mg DAILY PRN Administration ANXIETY Magnesium Hydroxide 30 ml 09/14/17 13:05 Milk Of Magnesia Liq* PO Q6H PRN CONSTIPATION Magnesium Oxide 400 mg 09/15/17 09:00 09/20/17 08:07 Magox 400 Tab* PO 400 mg DAILY VASILE Administration Mometasone Furoate/Formoterol Fumar 2 puff 09/14/17 21:00 09/20/17 08:44 Dulera 200/5 Mdi* INH 2 puff BID VASILE Administration Protocol Omeprazole 20 mg 09/14/17 18:00 09/19/17 18:27 Prilosec Cap* PO 20 mg 1800 VASILE Administration Polyethylene Glycol/Electrolytes 17 gm 09/14/17 18:48 09/19/17 09:59 Miralax* PO 17 gm DAILY PRN Administration CONSTIPATION Prednisone 40 mg 09/19/17 09:00 09/20/17 08:07 Deltasone Tab* PO 09/23/17 23:55 40 mg DAILY VASILE Administration Prednisone 30 mg 09/24/17 09:00 Deltasone Tab* PO 09/28/17 23:55 DAILY VASILE Prednisone 20 mg 09/29/17 09:00 Deltasone Tab* PO 10/03/17 23:55 DAILY VASILE Prednisone 10 mg 10/04/17 09:00 Deltasone Tab* PO DAILY VASILE Senna 2 tab 09/14/17 13:05 09/17/17 20:44 Senokot Tab* PO 2 tab BEDTIME PRN Administration CONSTIPATION Tiotropium [place] 1 cap 09/15/17 09:00 09/20/17 08:43 Spiriva Cap.Inh* INH 1 cap DAILY VASILE Administration Verapamil HCl 240 mg 09/18/17 09:00 09/20/17 08:08 Calan Sr Tab* PO 240 mg DAILY VASILE Administration Verapamil HCl 120 mg 09/18/17 21:00 09/19/17 20:17 Calan Sr Tab* PO 120 mg BEDTIME VASILE Administration Vital Signs: Vital Signs Temp Pulse Resp BP Pulse Ox 98.8 F 94 18 116/68 97 09/20/17 15:08 09/20/17 15:08 09/20/17 15:08 09/20/17 16:13 09/20/17 15:08 Exam: GENERAL: no acute distress. alert and appropriate. HEENT: o/p without thrush but has canker sores on tongue CHEST: Wound over right chest healing LUNGS: Clear to auscultation bilaterally HEART: tachy regular rate and rhythm. Pt states baseline HR is 110's. ABDOMEN: soft, +BS, non-tender, non-distended EXTREMITIES: muscle tone normal. 1+ edema at ankles Assessment/Plan: 1. Heart Block: S/P pacemaker placement. Pacer precautions. verapamil 120mg at bedtime and 240mg qam 2. Sepsis/weakness: PT/OT. No pathogen ever found. 3. Obstructive Lung Disease: Dulera/Spiriva. Slow Prednisone taper. Continuous oxygen. 4. Hypothyroidism, as a result of thyroid cancer: Synthroid 5. Anxiety: Ativan at HS. Added additional 0.5 mg qday prn. 6. PAVITHRA: switched back to CPAP. 7. DVT Prophylaxis: Heparin S/Q 8. Advanced Directives: Has MOLST. DNR 9. Thrush: better. d/c Nystatin S & S after 5 days. 10. Lip laceration: sutures out 09/17. bacitracin topically. 09/20/17 16:34
[2017-09-20] MEDS: Omeprazole CAP* 20 MG PO SCH (18:30)
[2017-09-20] MEDS: LORazepam TAB(*) 1 MG PO SCH (19:56)
[2017-09-20] MEDS: Acetaminophen TAB* 325 MG PO PRN (19:57)
[2017-09-21] MEDS: LORazepam TAB(*) 0.5 MG PO PRN (00:20)
[2017-09-21] MEDS: Acetaminophen TAB* 325 MG PO PRN (05:27)
[2017-09-21] MEDS: Heparin VIAL(*) 5000 UNITS/ML VIAL (FIVE THOUSAND) SUBCUT SCH (05:29)
[2017-09-21] MEDS: Levothyroxine TAB* 125 MCG TAB PO SCH (05:31)
[2017-09-21 06:41] VITALS: BP 122/72
[2017-09-21] MEDS: Tiotropium CAP.INH* CAP.INH/18 MCG (USE ORDER SET !) INH SCH (09:29)
[2017-09-21] MEDS: Mometasone/Formoter 200/5 MDI INH SCH (09:30)
[2017-09-21] MEDS: Magnesium Oxide TAB* 400 MG PO SCH (10:14)
[2017-09-21] MEDS: predniSONE TAB* 20 MG PO SCH (10:14)
[2017-09-21] MEDS: Bacitracin OINTMENT* 0.5% 0.5 oz TUBE TOPICAL SCH (10:14)
[2017-09-21] MEDS: Docusate CAP* 100 MG PO SCH (10:14)
[2017-09-21] MEDS: Verapamil SR TAB* 240 MG PO SCH (10:15)
--- NOTE | 2017-09-22 13:27 | DS ---
CC: Dr. Levy; Dr. Anup Arzola * DISCHARGE SUMMARY: DATE OF ADMISSION: 09/14/17 DATE OF DISCHARGE: 09/21/17 DISCHARGE DIAGNOSES: 1. Status post pacemaker placement for a heart block. 2. Sepsis. 3. Obstructive lung disease. 4. Hypothyroidism as a result of thyroid cancer. 5. Obstructive sleep apnea. 6. Anxiety. 7. Thrush. 8. History of rectal cancer. 9. Atrial fibrillation. HISTORY OF ILLNESS AND HOSPITAL COURSE: For complete history of the events leading up to her rehab stay, please see the history and physical dictated by me on 09/14/17. While in the rehab unit, the patient remained fairly stable from a medical point of view. She was on a prednisone taper and her breathing continued to improve. She showed no signs of return of her fever. Her blood pressure remained stable. She was originally using a BiPAP to treat her sleep apnea, but the patient felt that should her breathing got better, she could stop her BiPAP and go back to her CPAP. She was maintained on heparin for DVT prophylaxis. She was treated with nystatin swish and swallow for thrush. Otherwise, she remained medically stable. The patient was seen by Physical Therapy and Occupational Therapy while in the rehab unit. She made good gains with both disciplines. With physical therapy at the time of admission, the patient required supervision to contact guard to transfer. She was min assist for bed mobility, contact guard to ambulate about 80 feet. By the time of discharge, she was ambulating independently 300 feet doing a flight of stairs and transferring independently. With occupational therapy at the time of admission, the patient required min assist for lower body dressing, supervision for upper body dressing, bathing with total assist, toileting with moderate amount of assist and toilet transfers with contact guard. By the time of discharge, the patient was independent in all of her activities of daily living. The patient was discharged home on 09/21/17. DISCHARGE DIET: Regular. DISCHARGE MEDICATIONS: 1. DuoNeb nebulizer treatments 1 treatment every 6 hours as needed. 2. Synthroid 125 mcg daily. 3. Ativan 1 mg at bedtime. 4. Magnesium oxide 400 mg every day. 5. Prednisone 40 mg on 09/22/17 and 09/23/17, then 30 mg 09/24/17 through 09/28, and 20 mg from 09/29/17 through 10/03/17, then 10 mg starting 10/04/17, further tapering per her carbon paper coating machine setter Dr. Levy. 6. Spiriva 1 capsule inhaled every day. 7. Calan SR 240 mg in the morning and 120 mg in the evening. 8. Albuterol HFA inhaler 2 puffs every 4 hours as needed. SERVICES AFTER DISCHARGE: The patient will have outpatient physical therapy as needed. FOLLOWUP: She will follow up with her carbon paper coating machine setter Dr. Levy as well as Dr. Ayo Perez for a pacemaker check and she will also follow up with her primary care doctor Dr. Anup Arzola. [id number]/[facility] #: [id number]
[2017-09-24] MEDS ORDERED: predniSONE TAB* 10 MG PO SCH (09:00)
[2017-09-29] MEDS ORDERED: predniSONE TAB* 20 MG PO SCH (09:00)
[2017-10-04] MEDS ORDERED: predniSONE TAB* 10 MG PO SCH (09:00)
== END 2017-09-21 14:50 | disposition home or self-care (01) | DRG 949 ==
LOC: PMRU 12:12
PROVIDERS: ADMIT Physical Medicine & Rehabilitation; ATTEND Physical Medicine & Rehabilitation
PROC: F07Z5ZZ Bed Mobility Treatment (ICD-10-PCS; principal; 2017-09-14)
PROC: F07Z9ZZ Gait Training/Functional Ambulation Treatment (ICD-10-PCS; 2017-09-14)
PROC: F07Z8ZZ Transfer Training Treatment (ICD-10-PCS; 2017-09-14)
PROC: F08Z0ZZ Bathing/Showering Techniques Treatment (ICD-10-PCS; 2017-09-14)
PROC: F08Z1ZZ Dressing Techniques Treatment (ICD-10-PCS; 2017-09-14)
PROC: F08Z3ZZ Feeding/Eating Treatment (ICD-10-PCS; 2017-09-14)
DX: Z48.812 Encounter for surgical aftercare following surgery on the circulatory system (principal); B37.0 Candidal stomatitis; I45.9 Conduction disorder, unspecified; Z95.0 Presence of cardiac pacemaker; G47.33 Obstructive sleep apnea (adult) (pediatric); F41.9 Anxiety disorder, unspecified; I48.0 Paroxysmal atrial fibrillation; J44.9 Chronic obstructive pulmonary disease, unspecified; E03.8 Other specified hypothyroidism; E78.5 Hyperlipidemia, unspecified; I10 Essential (primary) hypertension; Z85.850 Personal history of malignant neoplasm of thyroid; Z85.048 Personal history of other malignant neoplasm of rectum, rectosigmoid junction, and anus; Z85.72 Personal history of non-Hodgkin lymphomas; Z88.5 Allergy status to narcotic agent; Z88.2 Allergy status to sulfonamides; Z88.8 Allergy status to other drugs, medicaments and biological substances
CPT/HCPCS: 36415; 80053; 85025; 94640; 94660; A9270-GY; J1644; J7512

== ENCOUNTER 2017-12-08 17:44 | Observation (INO) | payer MEDICARE ==
--- OUTSIDE RECORDS SUMMARY | 2017-12-08 18:15 | XMS REPORT | Continuity of Care Document ---
:1950 External Reference #:[id number] Author Name Imer Torrez, OD Address [address] [place] [address] Care Team Providers Name Role Phone Anup Arzola MD Care Team Information Senior Administrator Support Unavailable Anup Arzola MD Primary Care Physician Unavailable Payers Type Date Identification Numbers Payment Provider Subscriber Effective: Policy Number: [id number] [employer] Savanna Bae 2013 PayID: [id number] [address] [place] [address] Advance Directives Description No Information Available Problems Date Description Provider Status Onset: 08/13/2015 Epiretinal membrane Rohit Alba M.D. Active Onset: 01/28/2015 Migraine variants, not intractable Imer Scott O.D. Active Onset: 07/02/2014 Lens Replaced By Other Means Imer Scott O.D. Active Onset: 06/19/2014 Status Post Surgery Rohit Alba M.D. Active Onset: 11/09/2013 Tear film insufficiency Rohit Alba M.D. Active Onset: 11/09/2013 Nuclear senile cataract Rohit Alba M.D. Active Family History Date Family Member(s) Problem(s) Comments General Cataract General Diabetes General Heart Disease General High BP General Cerebrovascular Accident General Grandparent, Sister, Brother, Uncle Father Heart Disease Father High BP Mother Cataract Mother Cancer Mother Heart Disease Mother High BP Mother Cerebrovascular Accident Social History Type Date Description Comments Sex Unknown ETOH Use Denies alcohol use Tobacco Use Start: Unknown Patient has never smoked Smoking Status Reviewed: 11/25/17 Patient has never smoked Allergies, Adverse Reactions, Alerts Date Description Reaction Status Severity Comments 11/09/2013 Morphine Active 11/09/2013 Beta Adrenergic Blockers Active 11/09/2013 Cardizem CD Active 11/09/2013 Singulair Active 11/09/2013 Sulfa Antibiotics Active 11/09/2013 Seasonal Active 11/09/2013 Dogs Active 11/09/2013 Cats Active 11/09/2013 Mold Active 11/09/2013 Dust Active 11/09/2013 Effexor Active 11/09/2013 Remeron Active 11/09/2013 Abilify Active Medications Medication Date Status Form Strength Qnty SIG Indications Ordering Provider Omeprazole Active Capsules DR 20mg Unknown / Lorazepam Active Tablets Unknown /0000 Zoloft Active Tablets Unknown / Ventolin HFA Active Aerosol 108(90Bas Unknown /0000 e) mcg/Act Verapamil HCL Active Tablets 40mg Unknown / Symbicort Active Aerosol 80-4.5mcg Unknown / /Act Albuterol Sulfate Active Nebulizer (2.5mg/3M Unknown /0000 L) 0.083% Levoxyl Active Tablets 150mcg Unknown /0000 Spiriva Handihaler Active Capsules 18mcg Unknown /0000 Prednisone Active Tablets 5mg Unknown /0000 Corlanor Active Tablets 5mg Unknown /0000 Xiidra 03/15 Hx Solution 5% 60uni 1gtt ts both Shan, - eyes OD 10/12 twice a day Vigamox 06/06 Hx Solution 0.5% 5ml 1 drop drops Parth, - right M.D. 07/02 eye four times a day Ketorolac 06/06 Hx Solution 0.5% 10ml 1 Trometh drops Parth, - right M.D. 07/25 eye twice a day Pred Forte 06/06 Hx Suspension 1% 10ml 1 drops Parth, - right M.D. 07/25 eye four times a day Restasis 11/09 Hx Emulsion 0.05% 180vi 1 drop 366.16 als both Alba, - eyes M.D. 05/30 twice /2014 a day Levoxyl 00/00 Hx Tablets Unknown /0000 - 08/12 Xopenex HFA 00/00 Hx Aerosol 45mcg/Act Unknown /0000 - 11/09 Citalopram 00/00 Hx Tablets Unknown Hydrobromide /0000 - 11/09 Sular 00/00 Hx Tablets ER Unknown /0000 24HR - 11/09 Hydrochlorothiazide 00/00 Hx Tablets Unknown /0000 - 11/09 Aspir-81 00/[address] 81mg once Unknown /0000 per - day by 08/12 Triamterene/Hydrochlo 00/00 Hx Capsules 37.5-25mg Unknown rothiazide /0000 - 10/12 Potassium 00/00 Hx Tablets Unknown /0000 - 10/12 Prednisone 00/00 Hx Tablets 5mg Unknown /0000 - 05/30 Asmanex HFA 00/00 Hx Aerosol 100mcg/Ac Unknown /0000 t - 08/12 Immunizations Description No Information Available Vital Signs Date Vital Result Comment 11/25/2017 8:38am Intraocular Pressure Right Eye 14 mmHg Intraocular Pressure Left Eye 14 mmHg 10/12/2017 2:00pm Intraocular Pressure Right Eye 14 mmHg Intraocular Pressure Left Eye 14 mmHg 07/26/2016 8:20am Intraocular Pressure Right Eye 13 mmHg Intraocular Pressure Left Eye 13 mmHg 11/19/2015 1:36pm Intraocular Pressure Right Eye 12 mmHg Intraocular Pressure Left Eye 12 mmHg 08/13/2015 3:03pm Intraocular Pressure Right Eye 12 mmHg Intraocular Pressure Left Eye 13 mmHg 01/28/2015 10:59am Intraocular Pressure Right Eye 15 mmHg Intraocular Pressure Left Eye 15 mmHg 07/25/2014 10:34am Intraocular Pressure Right Eye 14 mmHg Intraocular Pressure Left Eye 14 mmHg 07/02/2014 11:13am Intraocular Pressure Right Eye 17 mmHg Intraocular Pressure Left Eye 15 mmHg 06/26/2014 10:01am Intraocular Pressure Right Eye 16 mmHg Intraocular Pressure Left Eye 18 mmHg 06/19/2014 9:41am Intraocular Pressure Right Eye 17 mmHg 03/28/2014 11:09am Intraocular Pressure Right Eye 16 mmHg Intraocular Pressure Left Eye 16 mmHg 11/09/2013 10:56am Intraocular Pressure Right Eye 18 mmHg Intraocular Pressure Left Eye 18 mmHg Results Description No Information Available Procedures Date Code Description Status 11/25/2017 40140 Refraction Completed 11/25/2017 61377 Eye Exam Est Intermediate Completed 10/12/2017 48644 Fundus Photography W/Interpretation & Report Completed 10/12/2017 72615 Eye Exam Est Intermediate Completed 03/15/2017 68497 Oct Retina Completed 03/15/2017 49238 Eye Exam Est Intermediate Completed 07/26/2016 46816 Fundus Photography W/Interpretation & Report Completed 07/26/2016 88781 Eye Exam Est Intermediate Completed 11/19/2015 89603 Oct Retina Completed 11/19/2015 59783 Eye Exam Est Intermediate Completed 08/13/2015 68988 Eye Exam Est Comprehensive Completed 08/13/2015 49903 Fundus Photography W/Interpretation & Report Completed 01/28/2015 87444 Refraction Completed 01/28/2015 55801 Eye Exam Est Intermediate Completed 06/25/2014 31648 Extracapsular Cataract Extraction W/Intraocular Lens Completed 06/18/2014 24435 Extracapsular Cataract Extraction W/Intraocular Lens Completed 05/30/2014 86469 Ophthalmic Biometry By Partial Coherence Interferometry Completed W/Intra 05/30/2014 28798 Eye Exam Est Intermediate Completed 03/28/2014 22572 Eye Exam Est Intermediate Completed 11/09/2013 51707 Eye Exam Est Comprehensive Completed Encounters Type Date Location Provider Dx Diagnosis Office Visit 04/19/2017 Main Office Imer Torrez, OD H04.123 Dry eye syndrome of 2:15p bilateral lacrimal glands H35.373 Puckering of macula, bilateral Plan of Treatment Future Appointment(s):05/26/2018 9:00 am - Imer Torrez, OD at Main [id number] - Imer Torrez ODH35.373 Puckering of macula, [id number] Dry eye syndrome of bilateral lacrimal [id number] Presence of intraocular lensH52.4 PresbyopiaFollow up:6 mos mac OCT, sooner PRN
--- NOTE | 2017-12-08 18:17 | RAD ---
HISTORY: sob COMPARISONS: October 19, 2017 VIEWS: 4: Frontal dual-energy and lateral views of the chest. FINDINGS: CARDIOMEDIASTINAL SILHOUETTE: The cardiomediastinal silhouette is normal. KANDY: The kandy are normal. PLEURA: The costophrenic angles are sharp. No pleural abnormalities are noted. LUNG PARENCHYMA: There is stable mild pattern of perihilar reticular opacification similar to the previous examination. ABDOMEN: The upper abdomen is clear. There is no subphrenic gas. BONES AND SOFT TISSUES: No bone or soft tissue abnormalities are noted. OTHER: A right-sided pacemaker is noted. IMPRESSION: STABLE CHRONIC INTERSTITIAL CHANGES. NO ACTIVE CARDIOPULMONARY DISEASE.
[2017-12-08 18:33] LABS: ABS Basophils 0.1 10^3/ul (0-0.2); ABS Eosinophils 0.1 10^3/ul (0-0.6); ABS Lymphocytes 3.2 10^3/ul (1.0-4.8); ABS Monocytes 1.2 10^3/ul (0-0.8); ABS Neutrophils 7.1 10^3/ul (1.5-7.7); ABS Nucleated RBC 0 10^3/ul; Eosinophil % 0.8 % (0-6); Hematocrit 33 % (35-47); Hemoglobin 10.3 g/dl (12.0-16.0); Lymphocyte % 27.2 % (25-47); Mean Corpuscular HGB Conc 32 g/dl (31-36); Mean Corpuscular Hemoglobin 26 pg (27-31); Mean Corpuscular Volume 82 fL (80-97); Mean Platelet Volume 7.5 um3 (7.4-10.4); Nucleated Red Blood Cells % 0.2; Platelet Count 298 10^3/ul (150-450); Red Blood Count 3.97 10^6/ul (4.00-5.40); Red Cell Distribution Width 16 % (10.5-15); White Blood Count 11.7 10^3/ul (3.5-10.8)
[2017-12-08] MEDS ORDERED: Albuterol/Ipratropium NEB.SOL* Albuterol 2.5 MG/Ipratropium 0.5 MG 3 ML INH ONE (18:44)
--- NOTE | 2017-12-08 18:48 | ED ---
Shortness of Breath - HPI Summary HPI Summary: A 67 y/o F JO presents to ED with SOB ongoing for past week. Pt was in- patient at [facility] [place] in [place] for approx 3 weeks for heart block, pacer, PNA. She recently finished her out-patient rehab last week and has been doing well. Associated sx: nonproductive cough, RAHMAN described as "pressure," ear pain, chest tightness, weight gain. Pt denies fever, chills, rhinorrhea. Her boyfriend has recently had a head cold. She is on 2L home O2 at night. She did get her flu shot this year. PMHx: lymphoma- she has radiation damage to her lungs and hearts. No PMHx of PE nor DVT. Sees Dr. Levy, pulmonary and Dr. Kohler, emergency room clinician. Pt sleeps propped up. Pt has a secondary c/o urgency, dysuria and frequency. She was seen by Dr. Arzola, who gave her Rx for UTI. She also received a breathing treatment at his office. - History of Current Complaint Chief Complaint: EDShortnessOfBreath Time Seen by Provider: 12/08/17 17:52 Hx Obtained From: Patient, Family/[employer] Architect - boyfriend present Onset/Duration: Gradual Onset, Lasting Weeks, Still Present Current Severity: Moderate Dyspnea At: Rest Associated Signs & Symptoms: Cough (Nonproductive), Chest Pain Unrelated to Cough - "tightness" - Allergy/Home Medications Allergies/Adverse Reactions: Allergies Allergy/AdvReac Type Severity Reaction Status Date / Time aripiprazole [From Abilify] Allergy Unknown Verified 09/04/17 05:47 Reaction Details Beta-Adrenergic Agents Allergy Fatigue Verified 09/05/17 12:53 bupropion [From Wellbutrin] Allergy Unknown Verified 09/04/17 05:47 Reaction Details diphenhydramine Allergy Unknown Verified 09/04/17 05:47 Reaction Details levalbuterol [From Xopenex] Allergy Wheezing Verified 09/04/17 05:47 metoprolol [From Toprol XL] Allergy Anaphylatic Verified 09/04/17 05:47 Shock mirtazapine [From Remeron] Allergy Altered Verified 09/04/17 05:47 Mental Status montelukast [From Singulair] Allergy Anaphylatic Verified 09/04/17 05:47 Shock morphine Allergy Anaphylatic Verified 09/04/17 05:47 Shock Sulfa (Sulfonamide Allergy Rash Verified 09/04/17 05:47 Antibiotics) venlafaxine [From Effexor] Allergy Altered Verified 09/04/17 05:47 Mental Status scallops AdvReac Stomach Verified 09/05/17 12:54 Cramps BETA BLOCKERS AdvReac Mild Fatigue Uncoded 01/02/17 19:18 Home Medications: Home Medications Albuterol 2.5MG/3ML (0.083%)* [Ventolin 2.5 MG/3 ML NEB.MEGHA*] 2.5 mg INH Q6H PRN 12/08/17 [History Confirmed 12/08/17] Ipratropium 0.5MG/2.5ML NEB* [Atrovent 0.5 MG NEB.MEGHA*] 0.5 mg INH Q6H PRN 12/08 [History Confirmed 12/08/17] Ivabradine (NF) [Corlanor (Nf)] 5 mg PO BID 12/08/17 [History Confirmed 12/08/17 ] Triamterene/HCTZ 37.5-25 MG* [Dyazide CAP*] 1 cap PO DAILY 12/08/17 [History Confirmed 12/08/17] Verapamil TAB* [Calan TAB*] 120 mg PO QAM 12/08/17 [History Confirmed 12/08/17] Verapamil TAB* [Calan TAB*] 240 mg PO BEDTIME 12/08/17 [History Confirmed ] PMH/Surg Hx/FS Hx/Imm Hx Previously Healthy: No Endocrine/Hematology History: Reports: Hx Anticoagulant Therapy - not present time., Hx Thyroid Disease Denies: Hx Diabetes Cardiovascular History: Reports: Hx Auto Implanted Cardiovert Defib, Hx Congestive Heart Failure, Hx Pacemaker/ICD - PACEMAKER PLACED LAST MONTH, Other Cardiovascular Problems/Disorders - TACHYCARDIA, HX OF AFIB; HAD ABLATION 2006 Denies: Hx Hypertension, Hx Peripheral Vascular Disease Respiratory History: Reports: Hx Asthma, Hx Chronic Bronchitis, Hx Pneumonia, Hx Sleep Apnea, Other Respiratory Problems/Disorders - SLEEP APNEA-OXYGEN IN EVENING Denies: Hx Chronic Obstructive Pulmonary Disease (COPD) GI History: Reports: Hx Gastroesophageal Reflux Disease, Hx Irritable Bowel, Other GI Disorders - bulge in bowel pushing into vaginal wall Denies: Hx Ulcer History: Denies: Hx Renal Disease Musculoskeletal History: Reports: Hx Arthritis - RA, Hx Back Problems, Hx Bursitis - several times in shoulder, Hx Osteoporosis, Hx Tendonitis - wrists Sensory History: Reports: Hx Cataracts - BILAT, Hx Contacts or Glasses - glasses are not helping, Hx Vision Problem - double vision Denies: Hx Hearing Aid Opthamlomology History: Reports: Hx Cataracts - BILAT, Hx Contacts or Glasses - glasses are not helping, Hx Vision Problem - double vision Neurological History: Reports: Hx Headaches, Hx Migraine - occassionally Denies: Hx Seizures, Hx Transient Ischemic Attacks (TIA) Psychiatric History: Reports: Hx Anxiety, Hx Depression, Hx Panic Disorder, Other Psychiatric Issues/Disorders - of - Cancer History Cancer Type, Location and Year: Lymphoma. obstructed air passage, thyroid CA, rectal cancer Hx Chemotherapy: Yes - and radiation Hx Radiation Therapy: Yes - NON [facility] Hx Palliative Cancer Treatment: No - Surgical History Surgery Procedure, Year, and Place: LYMPHOMA BIOPSY , SPLEENECTOMY 1979. THYROIDECTOMY , ANAL CA 06/17. ATRIAL FLUTTER ABLATION, RAPHAEL. CATARACTS 2014, pacemaker 2018 Hx Anesthesia Reactions: No Infectious Disease History: No Infectious Disease History: Reports: Hx Shingles - Denies: Hx Clostridium Difficile, Hx Hepatitis, Hx Human Immunodeficiency Virus (HIV), Hx of Known/Suspected MRSA, Hx Tuberculosis, Hx Known/Suspected VRE , Hx Known/Suspected VRSA, History Other Infectious Disease, Traveled Outside the [place] in Last 30 Days - Family History Known Family History: Positive: Other - Asthma - Social History Occupation: Retired Lives: Alone Alcohol Use: None Substance Use Type: Reports: None Hx Tobacco Use: No Smoking Status (MU): Never Smoked Tobacco Review of Systems Positive: Other - pos: weight gain. Negative: Fever, Chills Negative: Erythema Positive: Ear Ache. Negative: Sore Throat Positive: Chest Pain - "tightness" Positive: Shortness Of Breath, Cough Negative: Abdominal Pain, Vomiting, Nausea Positive: dysuria, frequency, urgency. Negative: hematuria Negative: Myalgia, Edema Negative: Rash Neurological: Other - neg: dizziness Positive: Headache - "pressure" All Other Systems Reviewed And Are Negative: Yes Physical Exam - Summary Physical Exam Summary: Constitutional: Well-developed, Well-nourished, Alert. (-) Distressed Skin: Warm, Dry HENT: Normocephalic; Atraumatic Eyes: Conjunctiva normal Neck: Musculoskeletal ROM normal neck. (-) JVD, (-) Stridor, (-) Tracheal deviation Cardio: Rhythm regular, rate normal, Heart sounds normal; Intact distal pulses; The pedal pulses are 2+ and symmetric. Radial pulses are 2+ and symmetric. (-) Murmur Pulmonary/Chest wall: Crackles in bases and wheezes, appears SOB. Abd: Soft, (-) epigastric tenderness, (-) Distension, (-) Guarding, (-) Rebound Musculoskeletal: (-) Edema Lymph: (-) Cervical adenopathy Neuro: Alert, Oriented x3 Psych: Mood and affect Normal Triage Information Reviewed: Yes Vital Signs On Initial Exam: Initial Vitals Temp Pulse Resp BP Pulse Ox 98.3 F 82 20 145/81 95 12/08/17 17:48 12/08/17 17:48 12/08/17 17:48 12/08/17 17:48 12/08/17 17:48 Vital Signs Reviewed: Yes Diagnostics - Vital Signs Vital Signs Temp Pulse Resp BP Pulse Ox 12/08/17 17:48 98.3 F 82 20 145/81 95 - Laboratory Lab Results: Lab Results 12/08/17 12/08/17 Range/Units 18:13 18:13 WBC 11.7 H (3.5-10.8) 10^3/ul RBC 3.97 L (4.00-5.40) 10^6/ul Hgb 10.3 L (12.0-16.0) g/dl Hct 33 L (35-47) % MCV 82 (80-97) fL MCH 26 L (27-31) pg MCHC 32 (31-36) g/dl RDW 16 H (10.5-15) % Plt Count 298 (150-450) 10^3/ul MPV 7.5 (7.4-10.4) um3 Neut % (Auto) 61.0 (38-83) % Lymph % (Auto) 27.2 (25-47) % Milam % (Auto) 10.0 H (0-7) % Eos % (Auto) 0.8 (0-6) % Baso % (Auto) 1.0 (0-2) % Absolute Neuts (auto) 7.1 (1.5-7.7) 10^3/ul Absolute Lymphs (auto) 3.2 (1.0-4.8) 10^3/ul Absolute Monos (auto) 1.2 H (0-0.8) 10^3/ul Absolute Eos (auto) 0.1 (0-0.6) 10^3/ul Absolute Basos (auto) 0.1 (0-0.2) 10^3/ul Absolute Nucleated RBC 0 10^3/ul Nucleated RBC % 0.2 Lactic Acid 1.1 (0.5-2.0) mmol/L Result Diagrams: 12/08/17 18:13 12/08/17 18:13 Lab Statement: Any lab studies that have been ordered have been reviewed, and results considered in the medical decision making process. - Radiology CXR Radiology Interpretation Completed By: Radiologist Summary of Radiographic Findings: IMPRESSION: STABLE CHRONIC INTERSTITIAL CHANGES. NO ACTIVE CARDIOPULMONARY DISEASE. ED provider has reviewed this report. - Additional Comments Diagnostic Additional Comments: EKG at 1824: Paced, no STEMI, 80bpm Re-Evaluation - Re-Evaluation 1 Re-Evaluation Time: 21:10 Change: Improved Comment: Discussing results with pt. Pt feeling better but is not at baseline. Pt is willing to be admitted. Course/Dx - Course Course Of Treatment: A 67 y/o F BIBA presents to ED with SOB ongoing for past week. Pt has gained 10 lbs in 1-2 weeks. Upon PE, pt had bilat crackles in bases and wheezing. EKG is paced. Lab work shows: Trop: 0.00. Ddimer: 409. BNP: 181. BUN/Creatinine: 25.4, RBC is elevated. Discussed with Dr. Valdes, hospitalist, will admit pt. - Physician Notifications Discussed Care of Patient With: Effie Valdes Time Discussed With Above Provider: 21:15 Instructed by Provider To: Admit As Inpatient - Also recommends ordering CTA, she will f/u on CTA. Discharge - Sign-Out/Discharge Documenting (check all that apply): Patient Departure - ADMIT - Discharge Plan Condition: Good Disposition: ADMITTED TO [facility] Referrals: Anup Arzola MD [Primary Care Provider] - Additional Instructions: Return to the emergency department for changing or worsening symptoms. - Attestation Statements Document Initiated by Scribe: Yes Documenting Scribe: Jenny Nails Provider For Whom Scribe is Documenting (Include Credential): Dr Brayan Monae MD Scribe Attestation: I, Jenny Nails, scribed for Dr Brayan Monae MD on 12/08/17 at 2143.
[2017-12-08] MEDS ORDERED: Nitroglycerin 2% OINT* 1 GM PAK TOPICAL ONE (19:06)
[2017-12-08] MEDS ORDERED: Furosemide IV* 10 MG/ML VIAL (40 MG) IV SLOW PU ONE (19:06)
[2017-12-08] MEDS ORDERED: Iodixanol* (CONTRAST) 320 MG/ML 100 ML SDV IV ONE (21:51)
--- NOTE | 2017-12-08 22:48 | ADMNOTE ---
Subjective Date of Service: 12/08/17 Interval History: code status full this admission h/p pt was eval for 60 min for this admission hpi 67 yr old wf with hx of interstitial lung dz from her prior radiation treatment at age 21 for nonhodgekin's lymphoma presented to er with worsening sob for the past few days. her boyfriend just got a headcold recently and pt thought she mght sweet pickle maker something from him. pt checks her own pulse ox at home and found herself sat 82 -84 percent on ra. she also has diffuse body ache fatigue head pressure as well---> her pcp sent her in because abnormal lab bnp 175. pt has gained 10 lb in two days---> got one dose of lasix iv from er and felt better afterwards. 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 in 08/2017 due to third degree avb ---> has been on max dose of cardizem along with ivabradine ---> pharmacy alerts of medical relative contraindication for qt prolongation qtc 514 asthma gerd naty on cpap 13 with 2 liter oxygen overnight hx of pna hypothyroidism thyroid ca s/p hemithyroidectomy rectal ca s/p surgery with radiation 2004 says just had partial rectal sphincter resection depression/anxiety pshx s/p partial rectal ca resection s/p hemithyroidectomy s/p ppm 08/2017 s/p splenectomy social hx no cig no etoh sister is hcp fhx mom + ovarian ca fathter + cad with mi Family History: Findings - as above Social History: Findings - as above Past Medical History: Findings - as above Review of Systems - Measurements Intake and Output: Intake and Output Last 24 Hours 12/06/17 12/07/17 12/08/17 12/09/17 06:59 06:59 06:59 06:59 Weight 170 lb - Review of Systems General Comments: + pertinent as per hpi no fever/chills n/v/d/ palpitation or any neuro deficits beyond her baseline Objective Vital Signs - 8 hr 12/08/17 12/08/17 12/08/17 17:48 18:30 18:32 Temperature 98.3 F Pulse Rate 82 78 79 Respiratory 20 23 24 Rate Blood Pressure 145/81 126/66 (mmHg) O2 Sat by Pulse 95 90 99 Oximetry 12/08/17 12/08/17 12/08/17 19:00 19:02 19:07 Temperature Pulse Rate 81 80 79 Respiratory 23 28 18 Rate Blood Pressure 136/69 (mmHg) O2 Sat by Pulse 97 98 100 Oximetry 12/08/17 12/08/17 12/08/17 20:08 21:00 21:03 Temperature Pulse Rate 89 86 86 Respiratory 20 21 20 Rate Blood Pressure 111/56 (mmHg) O2 Sat by Pulse 89 91 93 Oximetry Oxygen Devices in Use Now: Nasal Cannula Appearance: nad Eyes: No Scleral Icterus, PERRLA Ears/Nose/Mouth/Throat: NL Teeth, Lips, Gums, Clear Oropharnyx, Mucous Membranes Moist Neck: NL Appearance and Movements; NL JVP, Trachea Midline, No Thyroid Enlargement, Masses Respiratory: Symmetrical Chest Expansion and Respiratory Effort, Clear to Auscultation Cardiovascular: NL Sounds; No Murmurs; No JVD, - - ppm Abdominal: NL Sounds; No Tenderness; No Distention Extremities: - - + 2 pedal edema Skin: No Rash or Ulcers Neurological: Alert and Oriented x 3, NL Sensation, NL Muscle Strength and Tone Result Diagrams: 12/09/17 06:22 12/09/17 06:22 Additional Lab and Data: Lab Results 12/08/17 12/08/17 Range/Units 18:13 18:13 WBC 11.7 H (3.5-10.8) 10^3/ul RBC 3.97 L (4.00-5.40) 10^6/ul Hgb 10.3 L (12.0-16.0) g/dl Hct 33 L (35-47) % MCV 82 (80-97) fL MCH 26 L (27-31) pg MCHC 32 (31-36) g/dl RDW 16 H (10.5-15) % Plt Count 298 (150-450) 10^3/ul MPV 7.5 (7.4-10.4) um3 Neut % (Auto) 61.0 (38-83) % Lymph % (Auto) 27.2 (25-47) % Bee % (Auto) 10.0 H (0-7) % Eos % (Auto) 0.8 (0-6) % Baso % (Auto) 1.0 (0-2) % Absolute Neuts (auto) 7.1 (1.5-7.7) 10^3/ul Absolute Lymphs (auto) 3.2 (1.0-4.8) 10^3/ul Absolute Monos (auto) 1.2 H (0-0.8) 10^3/ul Absolute Eos (auto) 0.1 (0-0.6) 10^3/ul Absolute Basos (auto) 0.1 (0-0.2) 10^3/ul Absolute Nucleated RBC 0 10^3/ul Nucleated RBC % 0.2 Lactic Acid 1.1 (0.5-2.0) mmol/L Assess/Plan/Problems-Billing Assessment: this is a 67 yr old wf with hx of interstial lung dz on prn oxygen during the daytime naty on cpap with home oxygen 2liter at night a fib s/p ppm for 3rd degree avb presented to er with c/o of 10 lb wt increase sob byeond her baseline and desat to 80s ( did not give herself oxygen ) few days prior to admission. pt responded to lasix given from er but intial bnp 175. 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 Levy (2) Right-sided heart failure Status: Acute Comment: pt may have high pul wedge pressure due to naty and hx of radiation for nonhodgekin as a cause of r sided hf ---> might lead to left side hf - will ask cardio eval as per pt's request - tele with arielle - will leave to cardio to decide the use of max dose of cardiazem along with ivabradine -will use iv lasix bid while put po diuretic for now and resume her home diuretics when her overall chf symptoms improves after 1-2 days of iv lasix ( avoid overdiuresis ) - one liter per day fluid restriction (3) Third degree AV block Status: Acute Code(s): I44.2 - ATRIOVENTRICULAR BLOCK, COMPLETE SNOMED Code( s): 82037724 Comment: s/p ppm cario called in this am due to pt's request to see cardio (4) Hypothyroid Status: Acute Code(s): E03.9 - HYPOTHYROIDISM, UNSPECIFIED SNOMED Code(s): 49978348 Comment: thyroid ca hx s/p hemithyroidectomy continue home dose of synthroid (5) Hx of non-Hodgkin's lymphoma Status: Acute Code(s): Z85.72 - PERSONAL HISTORY OF NON-HODGKIN LYMPHOMAS SNOMED Code(s): 429982227 Comment: pt got radiation at age 21 with resultant instersitial lung dz ---> supportive care at this point (6) Rectal cancer Status: Acute Code(s): C20 - MALIGNANT NEOPLASM OF RECTUM SNOMED Code(s): 243597963 Comment: in remission since 2004 (7) Hypoxia Status: Acute Code(s): R09.02 - HYPOXEMIA SNOMED Code(s): 516582918 Comment: - secondary to underlying pulmonary fibrosis with acute exacerbations secondary to URI suspect due to viral bronchitis - I did advise patient to use oxygen more frequently - I will place her on Prednisone taper along with mucinex (8) Full code status Status: Acute Code(s): Z78.9 - OTHER SPECIFIED HEALTH STATUS SNOMED Code(s) : 705943584 (9) DVT prophylaxis Status: Acute Code(s): XCP8257 - SNOMED Code(s): 716438641 Comment: yamil
[2017-12-08] MEDS ORDERED: Ipratropium 0.5MG/2.5ML NEB* 0.5 MG/2.5 ML NEB.SOLN INH PRN (22:49)
[2017-12-08] MEDS ORDERED: Albuterol 2.5 MG/3 ML NEB.SOL* (0.083%) INH PRN (22:49)
[2017-12-08] MEDS ORDERED: Acetaminophen TAB* 325 MG PO PRN (22:49)
--- NOTE | 2017-12-08 22:56 | RAD ---
EXAM: CT Angiography Chest With Intravenous Contrast EXAM DATE/TIME: 12/08/2017 10:10 PM CLINICAL HISTORY: 67 years old, female; Signs and symptoms; Shortness of breath; Additional info: SOB elev ddimer. Pe study TECHNIQUE: Axial computed tomographic angiography images of the chest with intravenous contrast using CT angiography protocol. All CT scans at this facility use at least one of these dose optimization techniques: automated exposure control; mA and/or kV adjustment per patient size (includes targeted exams where dose is matched to clinical indication); or iterative reconstruction. Coronal and sagittal reformatted images were created and reviewed. MIP reconstructed images were created and reviewed. CONTRAST: 75 ml of VISIPAQUE 320 administered intravenously. COMPARISON: CTA CHEST CTA CHEST 09/04/2017 8:55 AM FINDINGS: Tubes, catheters and devices: There is a new right chest wall pacemaker device with leads appearing intact. Pulmonary arteries: No visible acute pulmonary embolism. Aorta: Normal. No aortic aneurysm. No aortic dissection. 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 Stable 12 x 10 mm left lower lobe subpleural nodule or scarring unchanged. Stable 5 mm and 7 mm and 2 mm in 3 mm right lower lobe pulmonary nodules. Stable mosaic attenuation of the lungs suspicious for possible small airways disease. Pleural space: Normal. No pneumothorax. No pleural effusion. Heart: Stable atherosclerotic aortic and coronary artery calcifications. Bones/joints: Stable diffuse osteopenia and degenerative changes of the spine. Soft tissues: Unremarkable. Lymph nodes: Unremarkable. No enlarged lymph nodes. IMPRESSION: 1. 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 2. Stable 12 x 10 mm left lower lobe subpleural nodule or scarring unchanged. Stable 5 mm and 7 mm and 2 mm in 3 mm right lower lobe pulmonary nodules. 3. Stable mosaic attenuation of the lungs suspicious for possible small airways disease. 4. No visible acute pulmonary embolism. To contact [facility] with a general question: [facility] - [phone] For direct physician to physician contact: Physician Hotline - [phone] [facility] ([facility] Facility ID #[id number])
[2017-12-08] MEDS ORDERED: Enoxaparin(*) 40 MG/0.4 ML SYR SUBCUT SCH (23:00)
[2017-12-09] MEDS ORDERED: Polyethylene Glycol 3350* 17 GM PACKET PO PRN (01:21)
[2017-12-09 04:16] LABS: Urine Appearance Clear; Urine Blood Negative (Negative); Urine Color Yellow; Urine Ketones Negative (Negative); Urine Protein Negative (Negative); Urine Specific Gravity 1.047 (1.010-1.030); Urine Urobilinogen Negative (Negative)
[2017-12-09 07:14] LABS: ABS Basophils 0.1 10^3/ul (0-0.2); ABS Eosinophils 0.1 10^3/ul (0-0.6); ABS Lymphocytes 2.1 10^3/ul (1.0-4.8); ABS Neutrophils 6.2 10^3/ul (1.5-7.7); ABS Nucleated RBC 0 10^3/ul; Eosinophil % 1.4 % (0-6); Hematocrit 32 % (35-47); Hemoglobin 10.1 g/dl (12.0-16.0); Lymphocyte % 21.8 % (25-47); Mean Corpuscular HGB Conc 32 g/dl (31-36); Mean Corpuscular Hemoglobin 26 pg (27-31); Mean Corpuscular Volume 81 fL (80-97); Mean Platelet Volume 7.5 um3 (7.4-10.4); Nucleated Red Blood Cells % 0.1; Platelet Count 291 10^3/ul (150-450); Red Blood Count 3.91 10^6/ul (4.00-5.40); Red Cell Distribution Width 16 % (10.5-15); White Blood Count 9.5 10^3/ul (3.5-10.8)
[2017-12-09] MEDS ORDERED: Potassium Chlor TAB* 20 MEQ TAB.ER PO ONE (08:45)
[2017-12-09] MEDS ORDERED: Verapamil SR TAB* 240 MG PO SCH ×3 (09:00→21:00)
[2017-12-09] MEDS ORDERED: Verapamil TAB* 120 MG PO SCH (09:00)
[2017-12-09] MEDS ORDERED: Mometasone/Formoter 200/5 MDI INH SCH (09:00)
[2017-12-09] MEDS ORDERED: Tiotropium CAP.INH* CAP.INH/18 MCG (USE ORDER SET !) INH SCH (09:00)
[2017-12-09] MEDS ORDERED: Furosemide IV* 10 MG/ML 2 ML VIAL (20 MG) IV SCH (09:00)
[2017-12-09] MEDS ORDERED: Magnesium Oxide TAB* 400 MG PO SCH (09:00)
[2017-12-09] MEDS ORDERED: Ivabradine (NF) 5 MG TABLET PO SCH (09:00)
[2017-12-09] MEDS ORDERED: Perflutren Lipid Microsphere* 3 ML VIAL ONE (10:45)
--- NOTE | 2017-12-09 14:32 | ECHO ---
Patient: CONSTANZA RICHARDSON [facility] Rec#: [id number] : 1950 Date: 12/09/2017 Age: 67y Height: 157 cm / 61.8 in Weight: 75.3 kg / 166.0 lbs Sex: F BSA: 1.8 Room#: [facility] Admit Date#: 12/08/2017 Type: Inpatient Referring: Hilda Martínez MD Reading: Hilda Marítnez MD Research Support Specialist: Danielle Moctezuma RN RDCS CC: Anup Arzola MD CC: Antoine Kohler DO Transthoracic Echocardiogram Indication: Congestive Heart Failure BP: 100/51 HR: 88 Rhythm: Paced Findings History: A. fib, ablations, pacemaker, asthma, PAVITHRA, lymphoma with chemotherapy and radiation therapy. Technical Comments: The study is technically limited due to patient body habitus. Left Ventricle: The left ventricular chamber size is normal. Mild concentric left ventricular hypertrophy is observed. Global left ventricular wall motion and contractility are within normal limits. There is normal left ventricular systolic function. The estimated ejection fraction is 55-60%. There is abnormal ventricular septal wall motion consistent with right ventricular pacemaker. The assessment of diastolic function is non-diagnostic. Left Atrium: The left atrial chamber size is normal. Right Ventricle: The right ventricular cavity size is normal. The right ventricular global systolic function is normal. A pacemaker wire is visualized in the right ventricle. Right Atrium: The right atrial cavity size is normal. A pacemaker wire is visualized in the right atrium. Aortic Valve: The aortic valve leaflets are moderately thickened. Systolic excursion of the aortic valve cusps is reduced. There is mild aortic regurgitation. There is mild to moderate aortic stenosis. The mean gradient of the aortic valve is 15 mmHg. The peak instantaneous gradient of the aortic valve is 27 mmHg. The aortic valve area, by peak velocities, is calculated at 1.4 cm2. The aortic valve area, by VTI's, is calculated at 1.2 cm2. DI is 0.37-0.46. Highest aortic valve velocity was acquired with Pedoff in apical position. Mitral Valve: Moderate mitral annular calcification present. The mitral valve leaflets are mildly thickened. Mitral valve leaflet mobility is mildly restricted. There is trace to mild mitral regurgitation. There is mild to moderate mitral stenosis. The mean gradient across the mitral valve is 8 mmHg. The peak gradient across the mitral valve is 19 mmHg. The pressure half time of the mitral valve is 81 msec. Tricuspid Valve: The tricuspid valve leaflets are normal. There is trace to mild tricuspid regurgitation. Unable to estimate the right ventricular systolic pressure. There is no tricuspid stenosis. Pulmonic Valve: The pulmonic valve structure is not well visualized. Pericardium: There is no significant pericardial effusion. A pericardial fat pad is visualized. Aorta: There is no dilatation of the ascending aorta. The aortic arch is not well visualized. There is no dilation of the aortic root. Pulmonary Artery: The main pulmonary artery is not well visualized. Venous: The inferior vena cava is dilated. There is an approximate 50% respiratory change in the inferior vena cava dimension. Contrast: Definity was used to optimize study. A total of 3 ml of diluted Definity was given IV. Summary: There are changes noted when compared to the previous study done on 09/05/2017, MS is now mild-moderate instead of moderate then. Now unable to estimate RVSP instead of 34 mmHg then. Conclusions The left ventricular chamber size is normal. Mild concentric left ventricular hypertrophy is observed. The estimated ejection fraction is 55-60%. There is abnormal ventricular septal wall motion consistent with right ventricular pacemaker. The assessment of diastolic function is non-diagnostic. A pacemaker wire is visualized in the right ventricle. A pacemaker wire is visualized in the right atrium. There is mild aortic regurgitation. There is mild to moderate aortic stenosis. There is trace to mild mitral regurgitation. There is mild to moderate mitral stenosis. There is trace to mild tricuspid regurgitation. Unable to estimate the right ventricular systolic pressure. There are changes noted when compared to the previous study done on 09/05/2017, MS is now mild-moderate instead of moderate then. Now unable to estimate RVSP instead of 34 mmHg then. Measurements Name Value Normal Range RVDdMajor (2D) 3.1 cm (2.2 - 4.4) RAd ISD 4CH 4.4 cm (3.4 - 4.9) RA (A4C)W 4 cm (2.9 - 4.6) IVSd (2D) 1.1 cm (0.6 - 1) LVPWd (2D) 1.1 cm (0.6 - 1) LVIDd (2D) 3.8 cm (3.6 - 5.4) LVIDs (2D) 2.7 cm - LV FS (2D) 29 % (25 - 45) Aortic Annulus 2 cm (1.4 - 2.6) Ao root diameter (2D) 2.8 cm (2.1 - 3.5) Ascending Ao 2.4 cm (2.1 - 3.4) LA dimension (AP) 2D 2.9 cm (2.3 - 3.8) LAd ISD 4CH 4.3 cm (2.9 - 5.3) LA ISD 4CH W 3.6 cm (2.5 - 4.5) Name Value Normal Range LA ESV BP (A/L) index 24.1 ml/m2 - Name Value Normal Range MV E-wave Vmax 1.9 m/sec - MV deceleration time 257 msec - MV A-wave Vmax 1.8 m/sec - MV E:A ratio 1.1 ratio - LV septal e' Vmax 0.06 m/sec - LV lateral e' Vmax 0.07 m/sec - LV E:e' septal ratio 31.7 ratio - LV E:e' lateral ratio 27.1 ratio - Name Value Normal Range AV Vmax 2.6 m/sec - AV VTI 55.6 cm - AV peak gradient 27 mmHg - AV mean gradient 15 mmHg - LVOT diameter 2 cm - LVOT Vmax 1.2 m/sec - LVOT VTI 20.5 cm - LVOT peak gradient 5 mmHg - LVOT mean gradient 3 mmHg - DOI (VTI) 0.37 ratio - DOI (Vmax) 0.46 ratio - NATACHA (continuity Vmax) 1.4 cm2 - NATACHA (continuity VTI) 1.2 cm2 - Name Value Normal Range MV Vmax 2.2 m/sec - MV VTI 49.3 cm - MV peak gradient 19 mmHg - MV mean gradient 8 mmHg - MV PHT 81 msec - MVA (PHT) 2.7 cm2 - MVA (continuity VTI) 1.3 cm2 - Name Value Normal Range IVC diameter 2.2 cm - Name Value Normal Range PV Vmax 0.84 m/sec -
[2017-12-09] MEDS ORDERED: Levothyroxine TAB* 125 MCG TAB PO SCH (15:00)
[2017-12-09] MEDS ORDERED: Sertraline* 100 MG TAB PO SCH (15:00)
[2017-12-09 16:00] VITALS: BP 109/53
--- NOTE | 2017-12-09 16:06 | PN ---
Subjective Date of Service: 12/09/17 Interval History: Patient seen today, doing better, oxygen is up to 91% on room air. She was frustrated that she is being placed under observations. Most of her visit today was spent with the patient explaining her current hospital course, the test results, answering her questions and at the end she was frustrated that she is being changed to observations. I did defer her frustrations regard inpatient/Obs status to child care provider. However; she is agreeable with my assessment that she is feeling better and does not oppose of being discharge after explaining to her in detail her clinical course and treatment Family History: Findings - as above Social History: Findings - as above Past Medical History: Unchanged from Admission - as above Objective Active Medications: Acetaminophen (Tylenol Tab*) 650 mg PO Q4H PRN PRN Reason: PAIN Last Admin: 12/09/17 11:16 Dose: 650 mg Albuterol (Ventolin 2.5 Mg/3 Ml Neb.Lavern*) 2.5 mg INH Q6H PRN PRN Reason: SHORTNESS OF BREATH Enoxaparin Sodium (Lovenox(*)) 40 mg SUBCUT Q24HR@2100 [facility] Last Admin: 12/09/17 00:21 Dose: 40 mg Furosemide (Lasix Iv*) 20 mg IV BID [facility] Last Admin: 12/09/17 09:33 Dose: 20 mg Ipratropium [place] (Atrovent 0.5 Mg Neb.Lavern*) 0.5 mg INH Q6H PRN PRN Reason: SOB/WHEEZING Ivabradine (Corlanor (Nf)) 5 mg PO BID [facility] Last Admin: 12/09/17 09:31 Dose: Not Given Levothyroxine Sodium (Synthroid Tab*) 125 mcg PO DAILY [facility] Last Admin: 12/09/17 15:22 Dose: 125 mcg Lorazepam (Ativan Tab(*)) 1 mg PO BEDTIME [facility] Magnesium Oxide (Magox 400 Tab*) 400 mg PO DAILY [facility] Last Admin: 12/09/17 09:32 Dose: 400 mg Mometasone Furoate/Formoterol Fumar (Dulera 200/5 Mdi*) 1 puff INH BID [facility]; Protocol Last Admin: 12/09/17 07:34 Dose: 1 puff Omeprazole (Prilosec Cap*) 20 mg PO QPM [facility] Polyethylene Glycol/Electrolytes (Miralax*) 17 gm PO DAILY PRN PRN Reason: CONSTIPATION Sertraline HCl (Zoloft*) 100 mg PO QAM [facility] Last Admin: 12/09/17 15:22 Dose: 100 mg Tiotropium [place] (Spiriva Cap.Inh*) 1 cap INH DAILY [facility] Last Admin: 12/09/17 07:34 Dose: 1 cap Verapamil HCl (Calan Sr Tab*) 120 mg PO BEDTIME VASILE Verapamil HCl (Calan Sr Tab*) 240 mg PO QAM [facility] Last Admin: 12/09/17 09:42 Dose: 240 mg Vital Signs - 8 hr 12/09/17 12/09/17 12/09/17 08:20 11:57 11:59 Temperature Pulse Rate 87 85 Respiratory 24 Rate Blood Pressure 78/62 107/55 (mmHg) O2 Sat by Pulse 96 88 95 Oximetry 12/09/17 12/09/17 13:14 15:44 Temperature 98.2 F 98.3 F Pulse Rate 74 Respiratory 18 Rate Blood Pressure 109/53 (mmHg) O2 Sat by Pulse 91 Oximetry Oxygen Devices in Use Now: Nasal Cannula Appearance: awake, alert, she is not wearing the oxygen. able to provide history uninterrupted for 15-20 minutes without SOB Eyes: No Scleral Icterus, PERRLA Ears/Nose/Mouth/Throat: NL Teeth, Lips, Gums, Clear Oropharnyx, Mucous Membranes Moist Neck: NL Appearance and Movements; NL JVP, Trachea Midline Respiratory: - - expiratory wheezing. good airflow Cardiovascular: NL Sounds; No Murmurs; No JVD, - - Murmur systollic Abdominal: NL Sounds; No Tenderness; No Distention Extremities: No Edema Result Diagrams: 12/09/17 06:22 12/09/17 06:22 Additional Lab and Data: Lab Results 12/08/17 12/08/17 Range/Units 18:13 18:13 WBC 11.7 H (3.5-10.8) 10^3/ul RBC 3.97 L (4.00-5.40) 10^6/ul Hgb 10.3 L (12.0-16.0) g/dl Hct 33 L (35-47) % MCV 82 (80-97) fL MCH 26 L (27-31) pg MCHC 32 (31-36) g/dl RDW 16 H (10.5-15) % Plt Count 298 (150-450) 10^3/ul MPV 7.5 (7.4-10.4) um3 Neut % (Auto) 61.0 (38-83) % Lymph % (Auto) 27.2 (25-47) % Garza % (Auto) 10.0 H (0-7) % Eos % (Auto) 0.8 (0-6) % Baso % (Auto) 1.0 (0-2) % Absolute Neuts (auto) 7.1 (1.5-7.7) 10^3/ul Absolute Lymphs (auto) 3.2 (1.0-4.8) 10^3/ul Absolute Monos (auto) 1.2 H (0-0.8) 10^3/ul Absolute Eos (auto) 0.1 (0-0.6) 10^3/ul Absolute Basos (auto) 0.1 (0-0.2) 10^3/ul Absolute Nucleated RBC 0 10^3/ul Nucleated RBC % 0.2 Lactic Acid 1.1 (0.5-2.0) mmol/L Assess/Plan/Problems-Billing Assessment: this is a 67 yr old wf with hx of interstial lung dz on prn oxygen during the daytime naty on cpap with home oxygen 2liter at night a fib s/p ppm for 3rd degree avb presented to er with c/o of 10 lb wt increase sob byeond her baseline and desat to 80s ( did not give herself oxygen ) few days prior to admission. pt responded to lasix given from er but intial bnp 175. cta done due to elevated d dimer neg of pe lung sound clear - Patient Problems (1) Pulmonary fibrosis Current Visit: Yes Status: Acute Code(s): J84.10 - PULMONARY FIBROSIS, UNSPECIFIED SNOMED Code(s): 08615961 Comment: - In acute exacerbations secondary to URI suspect due to viral bronchitis - I did advise patient to use oxygen more frequently - I will place her on Prednisone taper along with mucinex - Resume home symbicort and spiriva (2) Hypoxia Current Visit: Yes Status: Acute Code(s): R09.02 - HYPOXEMIA SNOMED Code(s ): 357455993 Comment: - secondary to underlying pulmonary fibrosis with acute exacerbations secondary to URI suspect due to viral bronchitis - I did advise patient to use oxygen more frequently - I will place her on Prednisone taper along with mucinex (3) Hypothyroid Current Visit: Yes Status: Acute Code(s): E03.9 - HYPOTHYROIDISM, UNSPECIFIED SNOMED Code(s): 92622213 Comment: thyroid ca hx s/p hemithyroidectomy continue home dose of synthroid (4) Third degree AV block Current Visit: Yes Status: Acute Code(s): I44.2 - ATRIOVENTRICULAR BLOCK, COMPLETE SNOMED Code(s): 11332475 Comment: s/p ppm (5) CHF exacerbation Current Visit: No Status: Acute Code(s): I50.9 - HEART FAILURE, UNSPECIFIED SNOMED Code(s): 20454720 Comment: - acute on chronic diastolic dysfunction exacerbated by URI - s/p Lasix IV, she was not taking her bumex at home - I advised to resume her bumex 1 mg daily for 1-2 weeks at least especially now that she will be on steroid taper - Follow up with cardiology for further instruction regarding the course, BMP in one week, to take Potassium while on bumex - Resume home corlanor (6) Anxiety Current Visit: No Status: Chronic Priority: Medium Code(s): F41.9 - ANXIETY DISORDER, UNSPECIFIED SNOMED Code(s): 27399119 Comment: - ativan 1mg qhs/Zoloft (7) Depression Current Visit: No Status: Chronic Priority: Medium Code(s): F32.9 - MAJOR DEPRESSIVE DISORDER, SINGLE EPISODE, UNSPECIFIED SNOMED Code(s): 83534030 Comment: zoloft (8) GERD (gastroesophageal reflux disease) Current Visit: No Status: Chronic Priority: Medium Code(s): K21.9 - GASTRO -ESOPHAGEAL REFLUX DISEASE WITHOUT ESOPHAGITIS SNOMED Code(s): 684438782 (9) Hypertension Current Visit: No Status: Chronic Priority: Medium Code(s): I10 - ESSENTIAL (PRIMARY) HYPERTENSION SNOMED Code(s): 63673685 Comment: - Triamterene/HCTZ 37.5/25 mg daily - Cotninue verapamil 240 daily - Now resume home bumex for 1-2 weeks
[2017-12-09] MEDS ORDERED: Omeprazole CAP* 20 MG PO SCH (18:00)
[2017-12-09] MEDS ORDERED: LORazepam TAB(*) 1 MG PO SCH (21:00)
--- NOTE | 2017-12-09 23:54 | CONS ---
CC: Dr. Kohler; Dr. Martínez; Hospitalist Service CARDIOLOGY CONSULTATION REPORT: DATE OF CONSULT: 12/09/17 PRIMARY PAPER CONTROL CLERK: Dr. Kohler. HISTORY OF PRESENT ILLNESS: I was asked by the hospitalist service to see this patient. She present ed with symptoms of shortness of breath. She had been not feeling well for about a week. There were some concerns of upper respiratory tract infection. No chest pain. She had some pressure in her he ad. She gives no fever, no chills, no nausea, no vomiting, no hematochezia, no abdominal pain, no sy ncope, no orthopnea, no swelling of the lower extremities is appreciated. In the emergency room, she did have some Lasix yesterday and today she felt much better actually. There were some concerns of upper respiratory tract infection. Cardiology consult was requested because of her cardiac history. PAST MEDICAL HISTORY: She does have history extensive including history of obstructive sleep apnea, on CPAP; history of hypothyroidism; history of rectal cancer, status post surgery, radiation in 2004; history of depression and anxiety; history of asthma; gastroesophageal reflux disease, and history o f atrial arrhythmia with atrial tachycardia or atrial flutter; history of interstitial lung disease; history of mild to moderate aortic stenosis as well. PAST SURGICAL HISTORY: Thyroid tumor removed 1995, splenectomy, ablation radiofrequency at [facility] for atrial flutter in 2006, cholecystectomy 2006; stress test done April 2016 normal, no ische ioana or infarction. ALLERGIES: She is allergic to SULFA, MORPHINE, BETA-TRUNG, CARDIZEM CD, AVAPRO, NORVASC, EFFEXOR, SINGULAIR, XOPENEX, TOPROL-XL, BENADRYL, CELEXA, ADVAIR, NORFLEX. FAMILY HISTORY: Father with history of CT, age 63. Her mother with history of cancer ovarian. SOCIAL HISTORY: She is . She is disabled. She had no history of smoking, no drinking, no il licit drug use. REVIEW OF SYSTEMS: Review of all other systems essentially is negative. PHYSICAL EXAM: On exam, she is awake, alert, and oriented. She is not in acute distress. She feels some pressure in her head. Vitals: Her blood pressure is 107/55, pulse 85, she is in sinus rhythm with first degree AV block. She has temperature of 98.2. Head and Neck Exam: Normocephalic, atraum atic head. Ears, Nose, and Throat: Essentially benign. Neck: Supple. JVP is not elevated. No ca rotid bruit. No masses are is appreciated. Chest: There is expiratory wheeze. No rales. Heart: N ormal S1, S2. No added sounds. No gallops, no rubs. There is a grade 3/6 systolic murmur in the le ft sternal border. Abdomen: Benign, soft. Positive bowel sounds. Extremities: No edema. No cyano sis. No clubbing. Skin exam is normal. Psych: Normal affect and mood. CALL CENTER SPECIALIST: No focal deficits ap preciated. DIAGNOSTIC STUDIES/LAB DATA: Her EKG showed the patient to be in normal sinus rhythm with diffuse T wave inversions in V1, V2, V3. Left atrial enlargement is appreciated. Her labs showed white blood cells 9.5, hemoglobin 10.1, hematocrit 32, and platelets 291. Sodium 140 , potassium 3.1. It was 3.4 yesterday. BUN 11, creatinine 0.54, troponin 0, BNP 181, triglyceride 1 00, cholesterol 181, LDL 97, HDL 64, TSH 2.85. She had the CTA of the chest and no pulmonary embolis m. Possible radiation fibrosis. IMPRESSION: The patient is 67-year-old female patient with: 1. Known history of status post permanent pacemaker implantation, August 2017 secondary to third degre e AV block. 2. Ulnz-om-muhetkhb aortic stenosis. 3. Normal left ventricular systolic function. 4. History of resting sinus tachycardia. 5. Obesity. 6. Possible URI. 7. Extensive other medical history as outlined above. PLAN: The patient case was discussed with Dr. Zhou from the hospitalist service. Clinically, cardiac breaux she is not in overt congestive heart failure. Her echocardiogram from today showed a nor mal left ventricular systolic function with EF 55% to 60%. Pacemaker in place, mild aortic insufficie ncy, mild to moderate aortic stenosis, trace to mild mitral insufficiency, mild to moderate mitral st enosis, trace to mild tricuspid insufficiency. I agree with outpatient diuretics on p.r.n. basis, da anneliese weights and low salt, low fat diet. I will defer any treatment for possible sinusitis, upper res piratory tract infection as per Dr. Zhou. Her medications in the hospital included Ventolin, L asix, ivabradine, levothyroxine, magnesium, verapamil. She is to continue low salt, low fat diet. Sh e is to follow up accordingly per Cardiology. I do not feel there is any further cardiac testing or evaluation is needed at the present time. [id number]/[facility] #: [id number]
--- NOTE | 2017-12-10 13:14 | DS ---
CC: Dr. Arzola; dress finisher Dr. Slaughter DISCHARGE SUMMARY: DATE OF ADMISSION: 12/08/17 DATE OF DISCHARGE: 12/09/17. PRIMARY CARE PROVIDER: Dr. Arzola. SPEECH AND LANGUAGE CLINICIAN: Dr. Slaughter. FINAL DISCHARGE DIAGNOSIS: 1. Acute exacerbation of her pulmonary fibrosis secondary to upper respiratory infection, suspect vi ral bronchitis. 2. Hypoxia secondary to underlying pulmonary fibrosis with acute exacerbation. 3. Hypothyroidism. 4. Third-degree block, status post pacemaker. 6. Congestive heart failure exacerbation, acute on chronic diastolic. 7. History of anxiety. 8. Depression. 9. Gastroesophageal reflux disease. 10. Hypertension. HOSPITAL COURSE: The patient was admitted to the hospital via the ER on 12/08/17 after she presented with progressive weakness, shortness of breath, and she was found to be hypoxic with underlying hist ory of pulmonary fibrosis. In the emergency room, her initial workup revealed slightly elevated BNP. She was treated with IV Lasix and was admitted to the hospitalist service for CHF exacerbation. The patient was seen and evaluated by me the following morning. She appeared to be improved after the L asix. She is satting 91% on room air and her available ER record were noted and reviewed and her rasheeda st x-ray did not reveal any obvious infiltrate. A CT angiogram was done secondary to hypoxia, showed pulmonary fibrosis with stable left lower lobe subpleural nodule unchanged. Therefore, I did reassu re the patient that she does not have any underlying pneumonia. On her echocardiogram, which was don e revealed preserved left ventricular systolic function 55% to 60% with some borderline non-diagnosti c diastolic dysfunction. I did spend about 30 to 35 minutes with the patient going over her diagnost ic study and my assessment explaining to her that her symptoms most likely were related to pulmonary fibrosis exacerbation and is unrelated to her heart failure. The heart failure probably was a sympto m from her pulmonary fibrosis and hypoxia, which led to some diastolic dysfunction. Therefore, I adv ised the patient to accept the prescription of steroid, for which I will give her oral prescription o f prednisone to take on a tapered dose as outlined in her medication. The patient was quite upset an d frustrated that why was she admitted via emergency room before she was discharged the following day and why was she placed under inpatient and not observation from the presentation. I deferred that t o the primary health care nurse team. I answered all her clinical questions. I reviewed all the studies and answ ered her questions to the best of my ability and at the end of my evaluation I did reinforce the fact that the patient is stable for discharge outpatient as outlined below. DISCHARGE ASSESSMENT AND PLAN: For her hypoxia, it is most likely secondary to her pulmonary fibrosi s with URI exacerbations probably bronchitis versus sinusitis. I advised her to use the oxygen more frequently and she agreed to take her prednisone taper 60 mg for 3 days, 40 for 3 days, 20 for 3 days . And to resume her home Symbicort and Spiriva. For her congestive heart failure, I said to her this probably is very mild, diastolic in nature. She has not been taking her Bumex routinely, only p.r.n. Although she gained 10 pounds, she only took on e pill. I asked her to take Bumex 1 mg daily for the next 1 to 2 weeks especially now that she will be on steroids and to follow up with Cardiology for further instruction regarding whether or not shou ld she continue indefinitely or only utilize it for p.r.n. based on weight and resume her home Corlan or and verapamil. DISCHARGE PHYSICAL EXAM: Please refer to my progress note done earlier from today. DISCHARGE MEDICATIONS: The patient was discharged on the followin. Bumex 1 mg daily for at least next 2 weeks. 2. Potassium 20 mEq daily when she is taking her Bumex. 3. Prednisone 20 mg tab take 3 tabs daily for 3 days, 2 tabs daily for 3 days, and 1 tab daily for 3 days. Continue home medications: 1. Omeprazole 20 mg daily. 2. Symbicort 1 puff twice a day. 3. Tylenol as needed. 4. Magnesium oxide 400 daily. 5. Spiriva 18 mcg daily. 6. Lorazepam 1 mg at bedtime. 7. Triamterene with hydrochlorothiazide daily. 8. Albuterol p.r.n. 9. Atrovent. 10. Corlanor 5 mg twice a day. 11. Verapamil 120 mg in the morning and 240 mg at night. 12. Levoxyl 125 mcg daily. 13. Zoloft 100 mg every day. DISCHARGE INSTRUCTIONS: 1. Take all medications as prescribed. Use the oxygen continuously. To take the Bumex for the next week especially now that she is on prednisone. 2. Take the potassium every time she takes her Bumex. 3. Follow up with her dress finisher in 1 to 2 weeks for further instructions regarding her Bumex dose . [id number]/[facility] #: [id number]
== END 2017-12-09 17:50 | disposition home or self-care (01) ==
LOC: ED 17:44 → MEDTELE 22:41 → INTOOBSV 22:41
PROVIDERS: ADMIT Internal Medicine; ATTEND Internal Medicine
DX: J84.10 Pulmonary fibrosis, unspecified (principal); R09.02 Hypoxemia; J70.1 Chronic and other pulmonary manifestations due to radiation; I44.2 Atrioventricular block, complete; E03.9 Hypothyroidism, unspecified; Z95.0 Presence of cardiac pacemaker; I50.33 Acute on chronic diastolic (congestive) heart failure; F41.9 Anxiety disorder, unspecified; F32.9 Major depressive disorder, single episode, unspecified; K21.9 Gastro-esophageal reflux disease without esophagitis; I10 Essential (primary) hypertension; Z85.72 Personal history of non-Hodgkin lymphomas; C20 Malignant neoplasm of rectum
CPT/HCPCS: 36415; 71046; 71275; 80048; 80053; 80061; 81003; 83605; 83880; 84443; 84484; 85025; 85379; 93005; 93306; 94640; 96372; 96374; 99284; A9270-GY; C8929; G0378; J1650; J1940; Q9967

== ENCOUNTER → 2018-12-29 06:00 | Day surgery (SDC) | payer MEDICARE ==
[~2018-12-29 06:00] MED LIST changes: -Buffered Lidocaine 0.9% SYRIN* 5 ML/SYR SYRINGE INTRADERM ONE; +Buffered Lidocaine 1% SYRIN* 1 ML/SYRINGE INTRADERM ONE; -Dexamethasone IV* 4 MG/ML 1 ML (4 MG) ONE; -Famotidine IV* 10 MG/ML 2 ML (20 mg) IV ONE; -KETAMINE HCL* 50 MG/ML 10 ML VIAL ONE; -Ketorolac INJ* 30 MG/ML 1 ML VIAL ONE; +Lactated Ringers 1000 ML Bag* 1,000 ML IV SCH; -Propofol* 10 MG/ML 20 ML BTL IV PUSH ONE; +Propofol* 10 MG/ML 20 ML BTL ONE
[2018-12-29 09:57] VITALS: BP 126/59
--- NOTE | 2018-12-29 12:35 | PRO ---
CC: Anup Arzola MD * COLONOSCOPY REPORT: DATE OF PROCEDURE: 12/29/18 - [facility] INDICATION FOR PROCEDURE: History of polyps. PROCEDURE PERFORMED: Incomplete colonoscopy to the sigmoid, limited by adhesions and prior radiation exposure, with biopsy polypectomy x7. MEDICATIONS GIVEN: Please see anesthesia record. DESCRIPTION OF PROCEDURE: After the colonoscopy procedure including the risks, benefits, and alternatives with the risks not limited to perforation, surgery, missed lesions, and/or were explained to the patient, written informed consent was obtained, IV medication was given by the Anesthesia Service, and a rectal exam was performed. The rectal exam had a little bit of loose tone but was otherwise unremarkable. The pediatric Olympus colonoscope was initially inserted into the rectum and to about the distal to mid sigmoid about 25 cm up. Unfortunately, I was not able to pass this secondary to adhesions and radiation. I then attempted to use an EGD scope to pass beyond this without good effect. I then used water insufflation to try to pass beyond this area, unfortunately it was not successful. The decision was made to terminate the procedure for safety. On slow removal, there were 7 small hyperplastic appearing polyps that I did remove with biopsy polypectomy in entirety. Otherwise, views of the colon were normal. On return to the rectum, direct views were normal. The scope was then removed from the patient. She tolerated the procedure well. She returned to the recovery room in stable condition. IMPRESSION: 1. Incomplete colonoscopy to the sigmoid colon, limited by adhesions and tortuosity. 2. Biopsy polypectomy x7 polyps as above. 3. Good prep. RECOMMENDATIONS: Unfortunately, it was not successful with anesthesia and using either EGD or pediatric colonoscope to pass through this area. Her colon is incredibly tortuous and has some fixed rigidity from the previous radiation. At this point, we will plan on getting a virtual colonoscopy to evaluate the rest of the colon. If that is unremarkable, we would plan on a repeat virtual colonoscopy in 5 years' time. [id number]/[facility] #: [id number] [facility] SYSTEMShimon
== END | disposition home or self-care (01) ==
LOC: OR 06:00
PROVIDERS: ATTEND Internal Medicine Gastroenterology
DX: K62.5 Hemorrhage of anus and rectum (principal); D64.9 Anemia, unspecified; K21.9 Gastro-esophageal reflux disease without esophagitis
CPT/HCPCS: 88305; J2250; J2405; J2704; J3010

== ENCOUNTER → 2019-04-03 09:57 | Day surgery (SDC) | payer MEDICARE ==
[~2019-04-03 09:57] MED LIST changes: -Buffered Lidocaine 1% SYRIN* 1 ML/SYRINGE INTRADERM ONE; +Heparin 2 UNITS/ML IVPREMIX* 2,000 ML IV ONE; +Heparin(*) 1000 UNIT/ML 10 ML VIAL CATH LAB IV ONE; +Iohexol 350 (CONTRAST) 200 ML MDV IV ONE; -Lactated Ringers 1000 ML Bag* 1,000 ML IV SCH; +Lidocaine 1% INJ* 10 MG/ML 30 ML SDV ONE; -Lidocaine 2% PF * 5 ML VIAL ONE; +NS 0.9% 1000 ML** 1,000 ML IV SCH; -Ondansetron INJ* 2 MG/ML VIAL ONE; -Propofol* 10 MG/ML 20 ML BTL ONE; +VERAPAMIL 2.5 MG/ML 2 ML VIAL ** 5 mg/2 ml ONE; +nitroGLYCERIN DRIP* 25,000 MCG/250 ML BTL ONE
--- NOTE | 2019-04-03 15:22 | CATH ---
CC: Dr. Anup Arzola; Dr. Antoine Kohler, [facility]; Dr. Deon Colon, [facility] CARDIAC CATHETERIZATION REPORT: DATE OF PROCEDURE: 04/03/19 - [facility] CATH INDICATION FOR THE PROCEDURE: Asked by Dr. Antoine Kohler to perform coronary arteriography to assess for the presence of significant coronary artery disease in light of the patient's evaluation for TAVR procedure for significant aortic stenosis. PROCEDURE: Coronary arteriography via the right femoral artery approach. CONSENT: The patient was interviewed and examined in the holding area where the risks and benefits were explained. She understood them and wished to proceed. APPROACH UTILIZED: The right radial artery was initially assessed by ultrasound and found to be borderline in size. Attempts were then made to use a 5-Honduran catheter, but the artery appeared to be even too small for that and as such the radial artery approach was aborted and the right femoral artery approach was utilized. EQUIPMENT: 1. The right radial artery sheath utilized was a 5-Honduran Audelia 11 cm sheath. 2. The diagnostic coronary catheters was a 5-Honduran FL4 curve diagnostic and a 5- Honduran FR4 curve diagnostic catheter. 3. The diagnostic guidewire utilized was 150 cm standard J-tipped guidewire. PRECARDIAC CATHETERIZATION LABORATORY RESULTS: Hemoglobin and hematocrit was 13.2 and 40 with platelet count of 267,000. The BUN was 17, creatinine 0.65. Sodium 141, potassium 4.1, chloride 97, bicarb 36. INR 1.04. MEDICATIONS GIVEN: Included 1% Xylocaine locally. The patient received 12.5 mcg of fentanyl and 1 mg total of Versed intravenously. DESCRIPTION OF PROCEDURE: The patient was brought to the cardiovascular laboratory where a formal timeout was performed. The patient was prepped and draped in sterile fashion. Attempts were initially made to cannulate the right radial artery, but were not successful due to the small caliber of the vessel. The decision was made to approach via the right femoral artery. The right groin area was anesthetized with 1% lidocaine. The right femoral artery was cannulated and the sheath was placed. Coronary arteriography was then performed. Following this and after reviewing the films, the catheter and sheath were removed and hemostasis was obtained by manual compression in light of the patient's upcoming TAVR procedure. The patient tolerated the procedure well. The total contrast utilized was 45 cc of Omnipaque dye. The radiation exposure included 3.5 minutes of fluoro time. The air kerma radiation was 480 milligray. The DAP radiation was 2767 microgray per meter squared. RESULTS: CORONARY ARTERIOGRAPHY: A. Left coronary artery: 1. Left main - widely patent. There was mild calcium seen within the wall of the vessel, but no compromise to the caliber of the vessel. 2. Left anterior descending artery. The ostium and left anterior descending artery had a very mild 10% to 15% narrowing seen with calcium. The proximal to midportion of the left anterior descending artery had mild luminal irregularities but no significant obstructions. The left anterior descending artery supplied multiple diagonal branches, which had mild narrowing noted, but no significant obstruction. The left anterior descending artery extended to the apical region and onto the very distal portion of the inferior wall. 3. Circumflex artery - a nondominant vessel supplying a thin first obtuse marginal branch followed by slightly larger but still small caliber second obtuse marginal branch. There was a moderate-sized third obtuse marginal branch that trifurcated as it extends to the posterior inferior apical region. There was mild narrowing in the midportion of the circumflex with approximately 20% narrowing seen. B. Right coronary artery. The right coronary artery was noted to have calcium in the ostium and within the body of the proximal and midportion. The proximal portion had an area of significant narrowing as much as 80% to 85% with possible calcium within that area as well versus fibrosis from prior radiation therapy. The rest of the right coronary artery starting from the midportion had mild-to- moderate narrowing of 30% to 35%. As the artery turned onto the inferior surface of the heart, there was no significant narrowing seen in the distal vessel as it supplied the PDA and 3 posterior left ventricular branches that appeared to be small in caliber in their mid to distal segments. Of note, the proximal lesion does seem to extend all the way to the ostium. OVERALL ASSESSMENT: Significant single-vessel coronary artery disease involving the proximal to ostial right coronary artery as described above. This information was shared with both the patient's primary profiling machine set up operator, Dr. Antoine Kohler as well as with Dr. Deon Colon . The cardiac films were sent up to [facility] for Dr. Colon's review. The patient was started on a baby aspirin once a day and will be having followup with Dr. Deon Colon who will be setting up the TAVR procedure and intervention into the right coronary artery. The patient has a scheduled wound check/cardiology appt. with Dr. Kohler next week. Of note, it appears that the patient is currently not on any type of cholesterol-lowering agents and I will discuss that with Dr. Antoine Kohler who is the patient's primary profiling machine set up operator and ask him to consider starting a medication. The patient was instructed not to do exertional related activity at this point. She was also instructed on wound care and signs to watch for regarding any problems at the wound site. [id number]/[facility] #: [id number] [facility]
[2019-04-03 17:26] VITALS: BP 117/60
== END | disposition home or self-care (01) ==
LOC: CHICATH 09:57
PROVIDERS: ATTEND Internal Medicine Cardiovascular Disease
DX: I35.0 Nonrheumatic aortic (valve) stenosis (principal); I25.10 Atherosclerotic heart disease of native coronary artery without angina pectoris; R06.02 Shortness of breath; R42 Dizziness and giddiness; F41.8 Other specified anxiety disorders; Z95.0 Presence of cardiac pacemaker; I44.2 Atrioventricular block, complete; I47.1 Supraventricular tachycardia; J45.909 Unspecified asthma, uncomplicated; Z85.72 Personal history of non-Hodgkin lymphomas
CPT/HCPCS: 76937; 93454; 99156; 99157; C1887; J1644; J2250; J3010

== ENCOUNTER 2020-08-18 16:47 | Inpatient (IN) ==
[2020-08-18 17:41] LABS: ABS Lymphocytes 0.9 10^3/ul (1.0-4.8); ABS Monocytes 1.1 10^3/ul (0-0.8); ABS Neutrophils 14.4 10^3/ul (1.5-7.7); Eosinophil % 0.3 %; Hematocrit 29 % (35-47); Hemoglobin 9.7 g/dL (12.0-16.0); Lymphocyte % 5.7 %; Mean Corpuscular HGB Conc 34 g/dL (31-36); Mean Corpuscular Hemoglobin 28 pg (27-31); Mean Corpuscular Volume 83 fL (80-97); Mean Platelet Volume 7.2 fL (7.4-10.4); Nucleated Red Blood Cells % 0.1; Platelet Count 268 10^3/uL (150-450); Red Blood Count 3.46 10^6 /uL (3.70-4.87); Red Cell Distribution Width 15 % (10-15); White Blood Count 16.5 10^3/uL (3.5-10.8)
[2020-08-18 18:01] LABS: Albumin 3.9 g/dL (3.2-5.2); Albumin/Globulin Ratio 1.3 (1-3); Calcium 8.9 mg/dL (8.6-10.3); Globulin 3.1 g/dL (2-4); Magnesium 2.2 mg/dL (1.9-2.7); Potassium 3.2 mmol/L (3.5-5.0); Total Bilirubin 0.5 mg/dL (0.2-1.0); Troponin I 0.02 ng/mL (<0.03)
[2020-08-18] MEDS ORDERED: Furosemide 20 mg/2 ml IV VIAL IV SLOW PU ONE (18:09)
[2020-08-18] MEDS ORDERED: Potassium EFFERVES 25 meq TAB PO ONE (18:40)
[2020-08-18 19:53] LABS: C Reactive Protein 73.86 mg/L (<8.01)
[2020-08-18] MEDS ORDERED: cefTRIAXone 1 gm/50 mL NS BAG 1 GM/50 ML BAG IV ONE (20:44)
[2020-08-18] MEDS ORDERED: Azithromycin 500 mg/250 ml NS 500 MG/250 ML BAG IVPB ONE (20:44)
[2020-08-18] MEDS ORDERED: Albuterol HFA INHALER 8 gm MDI INH PRN (20:48)
[2020-08-18] MEDS ORDERED: Iodixanol (CONTRAST) 320 MG/ML 100 ML SDV IV ONE (20:59)
[2020-08-19] MEDS: Enoxaparin 40 MG/0.4 ML SYR SUBCUT SCH ×2 (00:11→20:25)
[2020-08-19] MEDS ORDERED: Vancomycin 1,500 MG in NS 0.9% 250 ml 250 ML IVPB ONE (01:13)
[2020-08-19] MEDS ORDERED: cefTRIAXone 1 gm/50 mL NS BAG 1 GM/50 ML BAG IVPB ONE (01:13)
[2020-08-19] MEDS: Mometasone/Formoter 200/5 MDI INH SCH ×3 (01:43→19:04)
[2020-08-19] MEDS ORDERED: Vancomycin per Pharmacy 1 EA NOTE FOLLOW UP SCH (02:00)
[2020-08-19] MEDS ORDERED: DOXYcycline 100 MG in NS 0.9% 250 ml 250 ML IVPB SCH (02:00)
[2020-08-19 04:47] LABS: ABS Basophils 0.1 10^3/ul (0-0.2); ABS Lymphocytes 1.2 10^3/ul (1.0-4.8); ABS Monocytes 0.5 10^3/ul (0-0.8); ABS Neutrophils 10.8 10^3/ul (1.5-7.7); Hematocrit 27 % (35-47); Hemoglobin 9.1 g/dL (12.0-16.0); Lymphocyte % 9.5 %; Mean Corpuscular HGB Conc 34 g/dL (31-36); Mean Corpuscular Hemoglobin 28 pg (27-31); Mean Corpuscular Volume 82 fL (80-97); Mean Platelet Volume 7.3 fL (7.4-10.4); Platelet Count 269 10^3/uL (150-450); Red Blood Count 3.27 10^6 /uL (3.70-4.87); Red Cell Distribution Width 15 % (10-15); White Blood Count 12.5 10^3/uL (3.5-10.8)
[2020-08-19 05:10] LABS: Anion Gap 7 mmol/L (2-11); Blood Urea Nitrogen 31 mg/dL (6-24); CO2 Carbon Dioxide 34 mmol/L (22-32); Calcium 8.4 mg/dL (8.6-10.3); Chloride 90 mmol/L (101-111); EGFR African American 56.2 (>60); EGFR Non-African American 46.5 (>60); Glucose 134 mg/dL (70-100); Magnesium 2.2 mg/dL (1.9-2.7); Potassium 3.4 mmol/L (3.5-5.0); Sodium 131 mmol/L (135-145)
[2020-08-19 05:18] LABS: LDH 169 U/L (140-271)
[2020-08-19 05:33] LABS: TSH Ultra Thyroid Stim Horm 0.15 mcIU/mL (0.34-5.60)
[2020-08-19 05:39] LABS: Ferritin 23.2 ng/mL (11-307)
[2020-08-19 07:03] LABS: Iron < 20 ug/dL (50-212)
[2020-08-19] MEDS: cefTRIAXone 2 GM ADDV.VIAL 2 GM in NS 0.9% 100 ml BAG 100 ML IV SCH ×2 (08:51→20:25)
[2020-08-19] MEDS: Aspirin EC 81 mg TAB.EC (enteric coated) PO SCH (08:51)
[2020-08-19] MEDS ORDERED: Potassium Chlor 20 meq TAB.ER PO ONE (09:21)
[2020-08-19 09:31] LABS: Urine Appearance Clear; Urine Bilirubin Negative (Negative); Urine Blood Negative (Negative); Urine Color Yellow; Urine Glucose Negative (Negative); Urine Ketones Negative (Negative); Urine Nitrite Negative (Negative); Urine Protein Negative (Negative); Urine Specific Gravity 1.021 (1.002-1.030); Urine Urobilinogen Negative (Negative)
[2020-08-19] MEDS: SPIRIVA Respimat (tiotropium) 2.5 mcg/inh Inhaler INH SCH (10:07)
[2020-08-19] MEDS ORDERED: Vancomycin Random Level NOTE FOLLOW UP ONE (14:00)
[2020-08-19] MEDS ORDERED: Vancomycin 1000 MG in NS 0.9% 250 ML IVPB ONE (21:00)
[2020-08-19] MEDS ORDERED: cefTRIAXone 1 gm/50 mL NS BAG 1 GM/50 ML BAG IVPB SCH (21:00)
[2020-08-20 00:06] LABS: RBC Parasite Smear No Parasites Seen (No Parasite)
[2020-08-20] MEDS ORDERED: Albuterol/Ipratropium NEB.SOL (2.5/0.5 MG) 3 ML NEB.SOLN ONE (03:23)
[2020-08-20] MEDS ORDERED: Vancomycin Random Level NOTE FOLLOW UP ONE (06:00)
[2020-08-20 06:13] LABS: ABS Basophils 0.1 10^3/ul (0-0.2); ABS Lymphocytes 1.4 10^3/ul (1.0-4.8); ABS Monocytes 1.1 10^3/ul (0-0.8); ABS Neutrophils 13.5 10^3/ul (1.5-7.7); Hematocrit 27 % (35-47); Hemoglobin 9.1 g/dL (12.0-16.0); Lymphocyte % 8.5 %; Mean Corpuscular HGB Conc 34 g/dL (31-36); Mean Corpuscular Hemoglobin 29 pg (27-31); Mean Corpuscular Volume 83 fL (80-97); Mean Platelet Volume 7.5 fL (7.4-10.4); Platelet Count 256 10^3/uL (150-450); Red Blood Count 3.18 10^6 /uL (3.70-4.87); Red Cell Distribution Width 15 % (10-15)
[2020-08-20 06:19] LABS: Calcium 8.6 mg/dL (8.6-10.3); EGFR African American 69.1 (>60); EGFR Non-African American 57.1 (>60); Magnesium 2.1 mg/dL (1.9-2.7); Potassium 3.1 mmol/L (3.5-5.0)
[2020-08-20 06:22] LABS: Vancomycin Random 15.5 mcg/mL
[2020-08-20] MEDS: Mometasone/Formoter 200/5 MDI INH SCH ×2 (07:58→21:23)
[2020-08-20] MEDS: SPIRIVA Respimat (tiotropium) 2.5 mcg/inh Inhaler INH SCH (08:04)
[2020-08-20] MEDS: cefTRIAXone 2 GM ADDV.VIAL 2 GM in NS 0.9% 100 ml BAG 100 ML IV SCH (08:15)
[2020-08-20] MEDS: KCL 10 MEQ/50 ML IVPREMIX 10 MEQ/50 ML BAG IV SCH ×4 (08:15→11:45)
[2020-08-20] MEDS: Aspirin EC 81 mg TAB.EC (enteric coated) PO SCH (08:17)
[2020-08-20] MEDS ORDERED: BUMETANIDE IV SCH (10:00)
[2020-08-20] MEDS: Polyethylene Glycol 3350 17 GM PACKET PO SCH (10:44)
[2020-08-20] MEDS ORDERED: Bumetanide IV 0.25 MG/ML 4 ml VIAL (1 mg) IV ONE (11:00)
[2020-08-20 11:07] LABS: C Reactive Protein 70.17 mg/L (<8.01)
[2020-08-20] MEDS: Vancomycin 1,250 MG in NS 0.9% 250 ml 250 ML IVPB SCH (11:36)
[2020-08-20] MEDS ORDERED: Vancomycin 1000 MG in NS 0.9% 250 ML IVPB SCH (12:00)
[2020-08-20] MEDS ORDERED: Bumetanide IV 10 MG in Premix IV 0 ML IV SCH (12:00)
[2020-08-20] MEDS ORDERED: Bumetanide IV 0.25 MG/ML 4 ml VIAL (1 mg) SLOW PUSH ONE (17:30)
[2020-08-20 18:06] LABS: Venous Bicarbonate HCO3 31.1 mmol/L (24-28)
[2020-08-20 18:14] LABS: Calcium 8.8 mg/dL (8.6-10.3); EGFR African American 63.1 (>60); EGFR Non-African American 52.1 (>60); Magnesium 1.6 mg/dL (1.9-2.7); Potassium 3.3 mmol/L (3.5-5.0)
[2020-08-20] MEDS: Enoxaparin 40 MG/0.4 ML SYR SUBCUT SCH (20:12)
[2020-08-20] MEDS: Albuterol/Ipratropium NEB.SOL (2.5/0.5 MG) 3 ML NEB.SOLN INH PRN ×2 (20:19→23:36)
[2020-08-21 05:52] LABS: ABS Lymphocytes 1.3 10^3/ul (1.0-4.8); ABS Monocytes 1.3 10^3/ul (0-0.8); ABS Neutrophils 14.3 10^3/ul (1.5-7.7); Hematocrit 27 % (35-47); Hemoglobin 8.9 g/dL (12.0-16.0); Lymphocyte % 7.6 %; Mean Corpuscular HGB Conc 33 g/dL (31-36); Mean Corpuscular Hemoglobin 27 pg (27-31); Mean Corpuscular Volume 83 fL (80-97); Mean Platelet Volume 7.2 fL (7.4-10.4); Platelet Count 260 10^3/uL (150-450); Red Blood Count 3.26 10^6 /uL (3.70-4.87); Red Cell Distribution Width 15 % (10-15); White Blood Count 16.9 10^3/uL (3.5-10.8)
[2020-08-21 06:19] LABS: Calcium 8.6 mg/dL (8.6-10.3); EGFR African American 86.3 (>60); EGFR Non-African American 71.3 (>60); Magnesium 1.8 mg/dL (1.9-2.7); Potassium 3.1 mmol/L (3.5-5.0)
[2020-08-21] MEDS: Mometasone/Formoter 200/5 MDI INH SCH ×2 (07:04→21:07)
[2020-08-21] MEDS ORDERED: Potassium Chlor 20 meq TAB.ER PO ONE (08:01)
[2020-08-21] MEDS: Polyethylene Glycol 3350 17 GM PACKET PO SCH (08:49)
[2020-08-21] MEDS: cefTRIAXone 2 GM ADDV.VIAL 2 GM in NS 0.9% 100 ml BAG 100 ML IV SCH (08:49)
[2020-08-21] MEDS: Aspirin EC 81 mg TAB.EC (enteric coated) PO SCH (08:51)
[2020-08-21] MEDS ORDERED: Bumetanide IV 0.25 MG/ML 4 ml VIAL (1 mg) SLOW PUSH ONE (10:00)
[2020-08-21] MEDS: KCL 10 MEQ/50 ML IVPREMIX 10 MEQ/50 ML BAG IV SCH ×4 (10:03→16:11)
[2020-08-21] MEDS: Vancomycin 1,250 MG in NS 0.9% 250 ml 250 ML IVPB SCH (13:15)
[2020-08-21] MEDS ORDERED: KCL 10 MEQ/50 ML IVPREMIX 10 MEQ/50 ML BAG ONE (16:06)
[2020-08-21] MEDS: Albuterol/Ipratropium NEB.SOL (2.5/0.5 MG) 3 ML NEB.SOLN INH PRN ×2 (18:19→22:28)
[2020-08-21] MEDS ORDERED: Saline NASAL SPRAY 0.65% BTL BOTH NARES PRN (18:46)
[2020-08-21 19:15] LABS: Anaplasma phagocytophilum Negative (Negative); B. miyamotoi PCR, B Negative (Negative); Babesia divergens/MO-1 Negative (Negative); Babesia ducani Negative (Negative); Ehrlichia chaffeensis Negative (Negative); Ehrlichia ewingii/canis Negative (Negative); Ehrlichia muris eauclairensis Negative (Negative)
[2020-08-21] MEDS: Enoxaparin 40 MG/0.4 ML SYR SUBCUT SCH (20:14)
[2020-08-22] MEDS: Albuterol/Ipratropium NEB.SOL (2.5/0.5 MG) 3 ML NEB.SOLN INH PRN (03:25)
[2020-08-22 06:56] LABS: ABS Lymphocytes 1.6 10^3/ul (1.0-4.8); ABS Monocytes 1.1 10^3/ul (0-0.8); ABS Neutrophils 9.1 10^3/ul (1.5-7.7); Eosinophil % 0.1 %; Hematocrit 27 % (35-47); Lymphocyte % 13.2 %; Mean Corpuscular HGB Conc 34 g/dL (31-36); Mean Corpuscular Hemoglobin 28 pg (27-31); Mean Corpuscular Volume 82 fL (80-97); Mean Platelet Volume 6.8 fL (7.4-10.4); Nucleated Red Blood Cells % 0.1; Platelet Count 274 10^3/uL (150-450); Red Blood Count 3.24 10^6 /uL (3.70-4.87); Red Cell Distribution Width 15 % (10-15); White Blood Count 11.8 10^3/uL (3.5-10.8)
[2020-08-22 07:14] LABS: Albumin 3.5 g/dL (3.2-5.2); Calcium 9.2 mg/dL (8.6-10.3); Direct Bilirubin 0.1 mg/dL (0.03-0.18); EGFR African American 76.3 (>60); EGFR Non-African American 63.1 (>60); Globulin 3.4 g/dL (2-4); Indirect Bilirubin 0.3 mg/dL (0.3-1.0); Magnesium 1.9 mg/dL (1.9-2.7); Potassium 3.9 mmol/L (3.5-5.0); Total Bilirubin 0.4 mg/dL (0.2-1.0); Total Protein 6.9 g/dL (6.4-8.9)
[2020-08-22] MEDS: Mometasone/Formoter 200/5 MDI INH SCH ×2 (07:14→20:05)
[2020-08-22] MEDS: Aspirin EC 81 mg TAB.EC (enteric coated) PO SCH (09:51)
[2020-08-22] MEDS: cefTRIAXone 2 GM ADDV.VIAL 2 GM in NS 0.9% 100 ml BAG 100 ML IV SCH (09:52)
[2020-08-22] MEDS: Polyethylene Glycol 3350 17 GM PACKET PO SCH (09:52)
[2020-08-22] MEDS ORDERED: Vancomycin Trough Check NOTE FOLLOW UP ONE (11:30)
[2020-08-22 11:52] LABS: EGFR African American 90.2 (>60); EGFR Non-African American 74.5 (>60)
[2020-08-22 13:06] LABS: Vancomycin Trough 10.1 mcg/mL
[2020-08-22] MEDS: Vancomycin 1,250 MG in NS 0.9% 250 ml 250 ML IVPB SCH (13:29)
[2020-08-22] MEDS ORDERED: Bumetanide IV 0.25 MG/ML 4 ml VIAL (1 mg) SLOW PUSH ONE (14:00)
[2020-08-22] MEDS: Enoxaparin 40 MG/0.4 ML SYR SUBCUT SCH (20:46)
[2020-08-22 23:20] LABS: Adenovirus Undetected (Undetected); Bordetella parapertussis Undetected (Undetected); Bordetella pertussis Undetected (Undetected); Chlamydophila pneumoniae Undetected (Undetected); Coronavirus 229E Undetected (Undetected); Coronavirus HKU1 Undetected (Undetected); Coronavirus NL63 Undetected (Undetected); Coronavirus OC43 Undetected (Undetected); Human Metapneumovirus Undetected (Undetected); Human Rhinovirus/Enterovirus Undetected (Undetected); Influenza A Undetected (Undetected); Influenza B Undetected (Undetected); Mycoplasmoides pneumoniae Undetected (Undetected); Parainfluenza Virus 1 Undetected (Undetected); Parainfluenza Virus 2 Undetected (Undetected); Parainfluenza Virus 3 Undetected (Undetected); Parainfluenza Virus 4 Undetected (Undetected); Respiratory Syncytial Virus Undetected (Undetected); Specimen Source NASOPHARYNGEAL SWAB
[2020-08-23] MEDS: Vancomycin 1000 MG in NS 0.9% 250 ML IVPB SCH ×2 (00:14→13:52)
[2020-08-23 06:27] LABS: ABS Lymphocytes 1.9 10^3/ul (1.0-4.8); ABS Monocytes 0.9 10^3/ul (0-0.8); ABS Neutrophils 10.4 10^3/ul (1.5-7.7); Eosinophil % 0.2 %; Hematocrit 30 % (35-47); Hemoglobin 9.9 g/dL (12.0-16.0); Lymphocyte % 14.3 %; Mean Corpuscular HGB Conc 33 g/dL (31-36); Mean Corpuscular Hemoglobin 27 pg (27-31); Mean Corpuscular Volume 83 fL (80-97); Mean Platelet Volume 6.7 fL (7.4-10.4); Nucleated Red Blood Cells % 0.3; Platelet Count 304 10^3/uL (150-450); Red Blood Count 3.64 10^6 /uL (3.70-4.87); Red Cell Distribution Width 15 % (10-15); White Blood Count 13.2 10^3/uL (3.5-10.8)
[2020-08-23 06:45] LABS: Calcium 9.4 mg/dL (8.6-10.3); EGFR African American 99.1 (>60); EGFR Non-African American 81.9 (>60); Magnesium 1.5 mg/dL (1.9-2.7); Potassium 3.1 mmol/L (3.5-5.0)
[2020-08-23] MEDS: Mometasone/Formoter 200/5 MDI INH SCH ×2 (07:12→20:16)
[2020-08-23] MEDS ORDERED: Potassium Chlor 20 meq TAB.ER PO ONE (07:15)
[2020-08-23] MEDS ORDERED: Magnesium Sulfate 2 gm BAG 2 GM/50 ML BAG IVPB ONE (07:16)
[2020-08-23] MEDS: Aspirin EC 81 mg TAB.EC (enteric coated) PO SCH (08:32)
[2020-08-23] MEDS: cefTRIAXone 2 GM ADDV.VIAL 2 GM in NS 0.9% 100 ml BAG 100 ML IV SCH (08:33)
[2020-08-23] MEDS: Polyethylene Glycol 3350 17 GM PACKET PO SCH ×2 (08:33→08:35)
[2020-08-23] MEDS ORDERED: Bumetanide IV 0.25 MG/ML 4 ml VIAL (1 mg) SLOW PUSH ONE (11:50)
[2020-08-23 17:18] LABS: EGFR African American 87.6 (>60); EGFR Non-African American 72.4 (>60); Magnesium 1.9 mg/dL (1.9-2.7); Potassium 3.7 mmol/L (3.5-5.0)
[2020-08-23] MEDS ORDERED: Potassium Chloride LIQUID 20 MEQ/15 ML LIQUID PO ONE (17:29)
[2020-08-23] MEDS: Enoxaparin 40 MG/0.4 ML SYR SUBCUT SCH (20:39)
[2020-08-24] MEDS: Vancomycin 1000 MG in NS 0.9% 250 ML IVPB SCH ×2 (00:22→12:07)
[2020-08-24 05:05] LABS: ABS Basophils 0.1 10^3/ul (0-0.2); ABS Lymphocytes 2.4 10^3/ul (1.0-4.8); ABS Monocytes 1.3 10^3/ul (0-0.8); ABS Neutrophils 10.6 10^3/ul (1.5-7.7); Eosinophil % 0.3 %; Hematocrit 32 % (35-47); Hemoglobin 10.3 g/dL (12.0-16.0); Lymphocyte % 16.5 %; Mean Corpuscular HGB Conc 33 g/dL (31-36); Mean Corpuscular Hemoglobin 27 pg (27-31); Mean Corpuscular Volume 83 fL (80-97); Mean Platelet Volume 6.7 fL (7.4-10.4); Nucleated Red Blood Cells % 0.2; Platelet Count 329 10^3/uL (150-450); Red Blood Count 3.79 10^6 /uL (3.70-4.87); Red Cell Distribution Width 15 % (10-15); White Blood Count 14.4 10^3/uL (3.5-10.8)
[2020-08-24 05:24] LABS: Calcium 9.8 mg/dL (8.6-10.3); EGFR African American 86.3 (>60); EGFR Non-African American 71.3 (>60); Magnesium 1.9 mg/dL (1.9-2.7); Potassium 3.5 mmol/L (3.5-5.0)
[2020-08-24] MEDS: Mometasone/Formoter 200/5 MDI INH SCH ×2 (07:09→19:26)
[2020-08-24] MEDS ORDERED: Potassium Chlor 20 meq TAB.ER PO ONE (08:23)
[2020-08-24] MEDS ORDERED: Magnesium Sulfate IV 1GM/100ML 1 GM/100 ML BAG IV ONE (08:24)
[2020-08-24] MEDS: Polyethylene Glycol 3350 17 GM PACKET PO SCH (08:52)
[2020-08-24] MEDS: Aspirin EC 81 mg TAB.EC (enteric coated) PO SCH (09:26)
[2020-08-24] MEDS: cefTRIAXone 2 GM ADDV.VIAL 2 GM in NS 0.9% 100 ml BAG 100 ML IV SCH (10:52)
[2020-08-24] MEDS ORDERED: Potassium Chloride LIQUID 20 MEQ/15 ML LIQUID PO ONE (10:58)
[2020-08-24] MEDS ORDERED: Bumetanide IV 0.25 MG/ML 4 ml VIAL (1 mg) SLOW PUSH ONE (15:41)
[2020-08-24] MEDS: Enoxaparin 40 MG/0.4 ML SYR SUBCUT SCH (21:54)
[2020-08-24] MEDS ORDERED: Gaviscon CHEW TAB PO ONE (22:10)
[2020-08-24] MEDS: Albuterol/Ipratropium NEB.SOL (2.5/0.5 MG) 3 ML NEB.SOLN INH PRN (22:43)
[2020-08-25] MEDS: Vancomycin 1000 MG in NS 0.9% 250 ML IVPB SCH ×2 (00:51→15:09)
[2020-08-25 07:10] LABS: Calcium 9.4 mg/dL (8.6-10.3); EGFR African American 87.6 (>60); EGFR Non-African American 72.4 (>60); Potassium 3.1 mmol/L (3.5-5.0)
[2020-08-25 07:16] LABS: Hematocrit 31 % (35-47); Hemoglobin 10.4 g/dL (12.0-16.0); Mean Corpuscular HGB Conc 34 g/dL (31-36); Mean Corpuscular Hemoglobin 28 pg (27-31); Mean Corpuscular Volume 83 fL (80-97); Mean Platelet Volume 6.9 fL (7.4-10.4); Platelet Count 327 10^3/uL (150-450); Red Blood Count 3.78 10^6 /uL (3.70-4.87); Red Cell Distribution Width 15 % (10-15); White Blood Count 16.2 10^3/uL (3.5-10.8)
[2020-08-25] MEDS ORDERED: Potassium Chlor 10 meq TAB PO ONE (07:37)
[2020-08-25] MEDS: Mometasone/Formoter 200/5 MDI INH SCH ×2 (07:40→19:39)
[2020-08-25] MEDS: Polyethylene Glycol 3350 17 GM PACKET PO SCH (07:57)
[2020-08-25] MEDS: cefTRIAXone 2 GM ADDV.VIAL 2 GM in NS 0.9% 100 ml BAG 100 ML IV SCH (08:06)
[2020-08-25] MEDS ORDERED: Naloxone 0.4 mg VIAL 0.4 mg/ml 1 ml VIAL ONE (11:04)
[2020-08-25] MEDS ORDERED: fentaNYL 100 mcg/2 ml 50 MCG/ML VIAL ONE (11:04)
[2020-08-25] MEDS ORDERED: Flumazenil 0.5 mg/5 ml 0.1 MG/ML 5 ml VIAL ONE (11:04)
[2020-08-25] MEDS ORDERED: Midazolam 5 mg/5 ml VIAL 1 mg/ml 5 ml VIAL (5 mg) ONE (11:04)
[2020-08-25] MEDS ORDERED: Vancomycin Trough Check NOTE FOLLOW UP ONE (11:30)
[2020-08-25] MEDS: Aspirin EC 81 mg TAB.EC (enteric coated) PO SCH (15:07)
[2020-08-25] MEDS ORDERED: Bumetanide IV 0.25 MG/ML 4 ml VIAL (1 mg) SLOW PUSH ONE ×2 (17:10→18:19)
[2020-08-25] MEDS: Enoxaparin 40 MG/0.4 ML SYR SUBCUT SCH (22:16)
[2020-08-26] MEDS: Vancomycin 750 MG in NS 0.9% 250 ML IVPB SCH ×2 (05:36→18:13)
[2020-08-26 05:46] LABS: Hematocrit 35 % (35-47); Hemoglobin 11.4 g/dL (12.0-16.0); Mean Corpuscular HGB Conc 33 g/dL (31-36); Mean Corpuscular Hemoglobin 27 pg (27-31); Mean Corpuscular Volume 83 fL (80-97); Mean Platelet Volume 6.5 fL (7.4-10.4); Platelet Count 392 10^3/uL (150-450); Red Blood Count 4.18 10^6 /uL (3.70-4.87); Red Cell Distribution Width 15 % (10-15); White Blood Count 16.5 10^3/uL (3.5-10.8)
[2020-08-26 05:59] LABS: Calcium 9.8 mg/dL (8.6-10.3); EGFR African American 82.7 (>60); EGFR Non-African American 68.4 (>60)
[2020-08-26] MEDS: cefTRIAXone 2 GM ADDV.VIAL 2 GM in NS 0.9% 100 ml BAG 100 ML IV SCH (08:32)
[2020-08-26] MEDS: Polyethylene Glycol 3350 17 GM PACKET PO SCH (08:33)
[2020-08-26] MEDS: Aspirin EC 81 mg TAB.EC (enteric coated) PO SCH (08:33)
[2020-08-26] MEDS: Mometasone/Formoter 200/5 MDI INH SCH ×2 (08:57→19:58)
[2020-08-26] MEDS ORDERED: Potassium Chlor 20 meq TAB.ER PO ONE (12:00)
[2020-08-26] MEDS: Enoxaparin 40 MG/0.4 ML SYR SUBCUT SCH (21:02)
[2020-08-27] MEDS: Vancomycin 750 MG in NS 0.9% 250 ML IVPB SCH (05:41)
[2020-08-27 06:30] LABS: Hematocrit 34 % (35-47); Hemoglobin 10.9 g/dL (12.0-16.0); Mean Corpuscular HGB Conc 32 g/dL (31-36); Mean Corpuscular Hemoglobin 27 pg (27-31); Mean Corpuscular Volume 84 fL (80-97); Mean Platelet Volume 6.6 fL (7.4-10.4); Platelet Count 362 10^3/uL (150-450); Red Blood Count 4.03 10^6 /uL (3.70-4.87); Red Cell Distribution Width 16 % (10-15); White Blood Count 18.8 10^3/uL (3.5-10.8)
[2020-08-27 06:47] LABS: Calcium 9.4 mg/dL (8.6-10.3); EGFR African American 80.5 (>60); EGFR Non-African American 66.5 (>60); Potassium 2.9 mmol/L (3.5-5.0)
[2020-08-27] MEDS: Mometasone/Formoter 200/5 MDI INH SCH ×2 (07:46→19:48)
[2020-08-27] MEDS: Polyethylene Glycol 3350 17 GM PACKET PO SCH (10:04)
[2020-08-27] MEDS: cefTRIAXone 2 GM ADDV.VIAL 2 GM in NS 0.9% 100 ml BAG 100 ML IV SCH (10:18)
[2020-08-27] MEDS: Aspirin EC 81 mg TAB.EC (enteric coated) PO SCH (10:19)
[2020-08-27 11:42] LABS: C Reactive Protein 40.7 mg/L (<8.01)
[2020-08-27] MEDS ORDERED: Potassium Chlor 20 meq TAB.ER PO ONE ×2 (11:49→16:12)
[2020-08-27] MEDS ORDERED: Bumetanide IV 0.25 MG/ML 4 ml VIAL (1 mg) SLOW PUSH ONE (14:05)
[2020-08-27] MEDS: Cefepime 2 GM in Dextrose 2 GM/50 ML BAG IV SCH ×2 (16:14→23:58)
[2020-08-27] MEDS: Enoxaparin 40 MG/0.4 ML SYR SUBCUT SCH (20:07)
[2020-08-28] MEDS ORDERED: Vancomycin Trough Check NOTE FOLLOW UP ONE (05:30)
[2020-08-28 05:49] LABS: Hematocrit 32 % (35-47); Hemoglobin 10.6 g/dL (12.0-16.0); Mean Corpuscular HGB Conc 33 g/dL (31-36); Mean Corpuscular Hemoglobin 27 pg (27-31); Mean Corpuscular Volume 83 fL (80-97); Mean Platelet Volume 6.8 fL (7.4-10.4); Platelet Count 364 10^3/uL (150-450); Red Cell Distribution Width 15 % (10-15); White Blood Count 14.6 10^3/uL (3.5-10.8)
[2020-08-28 06:04] LABS: EGFR African American 76.3 (>60); EGFR Non-African American 63.1 (>60)
[2020-08-28 06:11] LABS: Calcium 9.5 mg/dL (8.6-10.3); EGFR African American 78.3 (>60); EGFR Non-African American 64.7 (>60); Potassium 3.3 mmol/L (3.5-5.0)
[2020-08-28] MEDS: Mometasone/Formoter 200/5 MDI INH SCH ×2 (08:07→19:35)
[2020-08-28] MEDS: Cefepime 2 GM in Dextrose 2 GM/50 ML BAG IV SCH (10:19)
[2020-08-28] MEDS: Polyethylene Glycol 3350 17 GM PACKET PO SCH (10:20)
[2020-08-28] MEDS: Aspirin EC 81 mg TAB.EC (enteric coated) PO SCH (10:20)
[2020-08-28] MEDS ORDERED: Potassium Chlor 20 meq TAB.ER PO ONE (13:50)
[2020-08-28 14:08] LABS: Magnesium 1.6 mg/dL (1.9-2.7)
[2020-08-28] MEDS ORDERED: Bumetanide IV 0.25 MG/ML 4 ml VIAL (1 mg) SLOW PUSH ONE (16:00)
[2020-08-28] MEDS: Enoxaparin 40 MG/0.4 ML SYR SUBCUT SCH (21:52)
[2020-08-28] MEDS ORDERED: Magnesium Sulfate 2 gm BAG 2 GM/50 ML BAG IVPB ONE (22:44)
[2020-08-29 06:14] LABS: Hematocrit 32 % (35-47); Hemoglobin 10.4 g/dL (12.0-16.0); Mean Corpuscular HGB Conc 33 g/dL (31-36); Mean Corpuscular Hemoglobin 27 pg (27-31); Mean Corpuscular Volume 83 fL (80-97); Mean Platelet Volume 6.5 fL (7.4-10.4); Platelet Count 357 10^3/uL (150-450); Red Blood Count 3.86 10^6 /uL (3.70-4.87); Red Cell Distribution Width 15 % (10-15); White Blood Count 13.1 10^3/uL (3.5-10.8)
[2020-08-29 06:33] LABS: Calcium 9.5 mg/dL (8.6-10.3); EGFR African American 80.5 (>60); EGFR Non-African American 66.5 (>60); Magnesium 2.1 mg/dL (1.9-2.7); Potassium 3.1 mmol/L (3.5-5.0)
[2020-08-29] MEDS: Mometasone/Formoter 200/5 MDI INH SCH ×2 (08:04→19:20)
[2020-08-29] MEDS: Polyethylene Glycol 3350 17 GM PACKET PO SCH (08:49)
[2020-08-29] MEDS: Aspirin EC 81 mg TAB.EC (enteric coated) PO SCH (08:51)
[2020-08-29] MEDS ORDERED: Potassium Chlor 20 meq TAB.ER PO ONE ×2 (11:21→17:00)
[2020-08-29] MEDS ORDERED: Bumetanide IV 0.25 MG/ML 4 ml VIAL (1 mg) SLOW PUSH ONE ×3 (12:20→16:00)
[2020-08-29] MEDS: Enoxaparin 40 MG/0.4 ML SYR SUBCUT SCH (22:05)
[2020-08-30 07:09] LABS: Hematocrit 30 % (35-47); Mean Corpuscular HGB Conc 33 g/dL (31-36); Mean Corpuscular Hemoglobin 28 pg (27-31); Mean Corpuscular Volume 83 fL (80-97); Mean Platelet Volume 6.9 fL (7.4-10.4); Platelet Count 323 10^3/uL (150-450); Red Blood Count 3.65 10^6 /uL (3.70-4.87); Red Cell Distribution Width 15 % (10-15); White Blood Count 13.2 10^3/uL (3.5-10.8)
[2020-08-30 07:25] LABS: EGFR African American 87.6 (>60); EGFR Non-African American 72.4 (>60); Potassium 3.6 mmol/L (3.5-5.0)
[2020-08-30] MEDS: Aspirin EC 81 mg TAB.EC (enteric coated) PO SCH (08:50)
[2020-08-30] MEDS: Polyethylene Glycol 3350 17 GM PACKET PO SCH (08:55)
[2020-08-30] MEDS: Mometasone/Formoter 200/5 MDI INH SCH (10:58)
[2020-08-30 11:41] VITALS: BP 110/58
== END 2020-08-30 15:30 | disposition home or self-care (01) | DRG 871 ==
LOC: ED 16:47 → MEDTELE 20:35
PROVIDERS: ADMIT Internal Medicine; ATTEND Hospitalist